=== PATIENT | female | born 1950 | race African-American/Black ===

== ENCOUNTER 2016-03-27 02:21 | Emergency (ER) | payer BC, MEDICARE ==
[2016-03-27] MEDS ORDERED: SODIUM CHLORIDE 0.9% 1,000 ML IV STA (02:46)
[2016-03-27] MEDS ORDERED: MORPHINE SULFATE 4 MG/ML SYRINGE IVP STA (02:47)
--- NOTE | 2016-03-27 02:56 | ED ---
General Adult HPI - General Chief complaint: Trauma Stated complaint: fall,leg and shoulder pain Time Seen by Provider: 03/27/16 02:46 Source: patient, RN notes reviewed, old records reviewed Mode of arrival: wheelchair Limitations: no limitations - History of Present Illness Initial comments: This is a 65-year-old female who ER for evaluation. Grossly for evaluation of fall. Patient does take Plavix. Patient followed stairs segmenters dizziness and weakness. Notes including an right leg which is chronic. Pain the left clay. Patient did state she hit her head no significant headache. Patient brought herself here she woke up tonight in more pain and she went to bed with. Patient was able to drive herself to emergency room and walked into emergency room under her own power - Related Data Home Medications Medication Instructions Recorded Confirmed Cartia Xl 120 mg PO DAILY 08/11/13 08/11/13 Carvedilol 3.125 mg PO BID 08/11/13 08/11/13 Clopidogrel [Plavix] 75 mg PO DAILY 08/11/13 08/11/13 Glimepiride [Amaryl] 1 mg PO DAILY 08/11/13 08/11/13 HYDROcodone/APAP 5-325MG [Manly 1 tab PO Q4HR PRN 08/11/13 08/11/13 5-325] Pioglitazone [Actos] 45 mg PO DAILY 08/11/13 08/11/13 Ranitidine HCl [Zantac] 150 mg PO BID 08/11/13 08/11/13 Ranolazine [Ranexa] 1,000 mg PO BID 08/11/13 08/11/13 Simvastatin [Zocor] 40 mg PO HS 08/11/13 08/11/13 amLODIPine [Norvasc] 5 mg PO DAILY 08/11/13 08/11/13 Previous Rx's Medication Instructions Recorded predniSONE 10 mg PO DAILY #45 tab 08/15/13 Allergies Allergy/AdvReac Type Severity Reaction Status Date / Time latex Allergy Rash/Hives Verified 03/27/16 02:35 Penicillins Allergy Rash/Hives Verified 03/27/16 02:35 Sulfa (Sulfonamide Allergy Rash/Hives Verified 03/27/16 02:35 Antibiotics) Review of Systems ROS Statement: Those systems with pertinent positive or pertinent negative responses have been documented in the HPI. ROS Other: All systems not noted in ROS Statement are negative. Past Medical History Past Medical History: Asthma, Coronary Artery Disease (CAD), Heart Failure, COPD , Diabetes Mellitus, GERD/Reflux, Hypertension, Pneumonia, Seizure Disorder Additional Past Medical History / Comment(s): tumor behind left ear, CARPAL TUNNEL History of Any Multi-Drug Resistant Organisms: None Reported Past Surgical History: Heart Catheterization Additional Past Surgical History / Comment(s): breast biopsy, Past Anesthesia/Blood Transfusion Reactions: No Reported Reaction Past Psychological History: No Psychological Hx Reported Smoking Status: Current every day smoker Past Alcohol Use History: None Reported Past Drug Use History: None Reported General Exam Limitations: no limitations General appearance: alert, in no apparent distress Head exam: Present: atraumatic, normocephalic, normal inspection Eye exam: Present: normal appearance, PERRL, EOMI. Absent: scleral icterus, conjunctival injection, periorbital swelling ENT exam: Present: normal exam, mucous membranes moist Neck exam: Present: normal inspection. Absent: tenderness, meningismus, lymphadenopathy Respiratory exam: Present: normal lung sounds bilaterally. Absent: respiratory distress, wheezes, rales, rhonchi, stridor Cardiovascular Exam: Present: regular rate, normal rhythm, normal heart sounds. Absent: systolic murmur, diastolic murmur, rubs, gallop, clicks GI/Abdominal exam: Present: soft, normal bowel sounds. Absent: distended, tenderness, guarding, rebound, rigid Extremities exam: Present: normal inspection, full ROM, normal capillary refill. Absent: tenderness, pedal edema, joint swelling, calf tenderness Back exam: Present: normal inspection Neurological exam: Present: alert, oriented X3, CN II-XII intact Psychiatric exam: Present: normal affect, normal mood Skin exam: Present: warm, dry, intact, normal color. Absent: rash Course Vital Signs 03/27/16 02:32 Temperature 97.4 F L Pulse Rate 103 H Respiratory 20 Rate Blood Pressure 123/62 O2 Sat by Pulse 98 Oximetry - Reevaluation(s) Reevaluation #1: 03/27/16 03:35 Patient's pain is times control, able to ambulate EKG Findings - EKG Comments: EKG Findings:: EKG shows sinus rate 97, MS 114, QRS 88 QTC 454 Medical Decision Making - Lab Data Result diagrams: 03/27/16 02:50 03/27/16 02:50 Lab Results 03/27/16 03/27/16 03/27/16 Range/Units 02:50 02:50 02:50 WBC 7.8 (3.8-10.6) k/uL RBC 4.64 (3.80-5.40) m/uL Hgb 14.4 (11.4-16.0) gm/dL Hct 44.2 (34.0-46.0) % MCV 95.3 (80.0-100.0) fL MCH 31.1 (25.0-35.0) pg MCHC 32.7 (31.0-37.0) g/dL RDW 12.4 (11.5-15.5) % Plt Count 193 (150-450) k/uL Neutrophils % 56 % Lymphocytes % 33 % Monocytes % 6 % Eosinophils % 2 % Basophils % 1 % Neutrophils # 4.4 (1.3-7.7) k/uL Lymphocytes # 2.6 (1.0-4.8) k/uL Monocytes # 0.5 (0-1.0) k/uL Eosinophils # 0.2 (0-0.7) k/uL Basophils # 0.1 (0-0.2) k/uL PT 10.3 (9.0-12.0) sec INR 1.0 (<1.1) APTT 25.4 (22.0-30.0) sec Sodium 141 (137-145) mmol/L Potassium 3.8 (3.5-5.1) mmol/L Chloride 102 (98-107) mmol/L Carbon Dioxide 26 (22-30) mmol/L Anion Gap 13 mmol/L BUN 21 H (7-17) mg/dL Creatinine 1.00 (0.52-1.04) mg/dL Est GFR (MDRD) Af Amer >60 (>60 ml/min/1.73 sqM) Est GFR (MDRD) Non-Af 56 (>60 ml/min/1.73 sqM) Glucose 114 H (74-99) mg/dL Calcium 9.8 (8.4-10.2) mg/dL Total Bilirubin 0.4 (0.2-1.3) mg/dL AST 14 (14-36) U/L ALT 20 (9-52) U/L Alkaline Phosphatase 64 (38-126) U/L Total Protein 7.0 (6.3-8.2) g/dL Albumin 4.1 (3.5-5.0) g/dL Amylase 48 (30-110) U/L Lipase 87 (23-300) U/L Serum Alcohol <10 mg/dL - Radiology Data Radiology results: report reviewed (CT brain and C-spine, chest x-ray pelvis x- ray and x-ray left tib-fib x-ray right femur negative for traumatic injury), image reviewed Disposition Clinical Impression: Fall, Contusion of left leg Disposition: HOME SELF-CARE Condition: Good Instructions: Leg Pain (ED), Contusion in Adults (ED), Fall Prevention for Older Adults (ED) Referrals: None,Stated [Primary Care Provider] - 1-2 days
[2016-03-27 03:04] LABS: Basophils # (A) 0.1 k/uL (0-0.2); Basophils % (A) 1 %; CH 31.4; CHCM 33.1; Eosinophils # (A) 0.2 k/uL (0-0.7); Eosinophils % (A) 2 %; HCT 44.2 % (34.0-46.0); HDW 2.41; HGB 14.4 gm/dL (11.4-16.0); Luc # (Auto) 0.18; Luc % (Auto) 2; Lymphocytes # (A) 2.6 k/uL (1.0-4.8); Lymphocytes % (A) 33 %; MCH 31.1 pg (25.0-35.0); MCHC 32.7 g/dL (31.0-37.0); MCV 95.3 fL (80.0-100.0); Mean Platelet Volume 8.8; Monocytes # (A) 0.5 k/uL (0-1.0); Monocytes % (A) 6 %; Neutrophils # (A) 4.4 k/uL (1.3-7.7); Neutrophils % (A) 56 %; RBC 4.64 m/uL (3.80-5.40); RDW 12.4 % (11.5-15.5); WBC 7.8 k/uL (3.8-10.6); WBC (Perox) 7.78
[2016-03-27 03:15] LABS: ALT 20 U/L (9-52); AST 14 U/L (14-36); Alcohol <10 mg/dL; Alkaline Phosphatase 64 U/L (38-126); Amylase 48 U/L (30-110); Anion Gap 13 mmol/L; Blood Urea Nitrogen 21 mg/dL (7-17); Calcium 9.8 mg/dL (8.4-10.2); Carbon Dioxide 26 mmol/L (22-30); Chloride 102 mmol/L (98-107); Glucose 114 mg/dL (74-99); Non-African American GFR(MDRD) 56 (>60 ml/min/1.73 sqM); Potassium 3.8 mmol/L (3.5-5.1); Sodium 141 mmol/L (137-145); Total Bilirubin 0.4 mg/dL (0.2-1.3)
--- NOTE | 2016-03-27 03:20 | CT ---
EXAMINATION TYPE: CT brain mamadouine wo con DATE OF EXAM: 03/27/2016 3:14 AM COMPARISON: 08/30/2009 HISTORY: Pt. Fell down stairs [address] DLP: 1309.70 mGycm Automated exposure control for dose reduction was used. TECHNIQUE: CT scan of the head and cervical spine are performed without contrast. FINDINGS: The ventricles and sulci appear normal. There is no mass effect nor midline shift. There is no sign of intracranial hemorrhage. Calvarium appears intact. The cervical vertebra have normal alignment. There is narrowing at C4-5 C5-6 disc spaces with spurrin g of the endplates. There is hypertrophic facet arthropathy throughout the cervical spine. Skull base is intact. IMPRESSION: Negative CT scan of the brain. Mild degenerative disc changes in the cervical spine. No fracture.
[2016-03-27 03:24] LABS: Creatine Kinase 77 U/L (30-135); Partial Thromboplastin Time 25.4 sec (22.0-30.0); Prothrombin Time 10.3 sec (9.0-12.0)
[2016-03-27] MEDS ORDERED: KETOROLAC 30 MG/ML 1 ML VIAL IVP STA (03:30)
--- NOTE | 2016-03-27 03:30 | XR ---
EXAMINATION TYPE: XR chest 1V portable DATE OF EXAM: 03/27/2016 3:21 AM COMPARISON: 08/11/2013 HISTORY: Pain TECHNIQUE: Single frontal view of the chest is obtained. FINDINGS: There is no heart failure nor confluent pneumonic infiltrate. There is no sign of a pneumo thorax. Heart size is normal. There are chest leads. IMPRESSION: No active cardiopulmonary disease. No change.
--- NOTE | 2016-03-27 03:31 | XR ---
EXAMINATION TYPE: XR pelvis AP view DATE OF EXAM: 03/27/2016 3:21 AM COMPARISON: NONE HISTORY: Pain TECHNIQUE: Single view FINDINGS: Pelvic ring is intact. Proximal femurs and hip joints are intact. Sacroiliac joints are nor mal. IMPRESSION: Negative pelvis x-ray exam.
--- NOTE | 2016-03-27 03:32 | XR ---
EXAMINATION TYPE: XR femur LT DATE OF EXAM: 03/27/2016 3:22 AM COMPARISON: NONE HISTORY: Pain and injury TECHNIQUE: 4 views FINDINGS: Hip joint and knee joint appear intact. I see no fracture. There is minimal vascular calcif ication. IMPRESSION: No acute abnormality of the left femur.
--- NOTE | 2016-03-27 03:33 | XR ---
EXAMINATION TYPE: XR tibia fibula LT DATE OF EXAM: 03/27/2016 3:21 AM COMPARISON: NONE HISTORY: Injury and pain TECHNIQUE: 2 views FINDINGS: Tibia and fibula appear intact. I see no fracture. IMPRESSION: Negative left lower leg exam.
[2016-03-27 03:38] LABS: Creatine Kinase MB 0.3 ng/mL (0.0-2.4); Troponin I <0.012 ng/mL (0.000-0.034)
[2016-03-27 04:46] VITALS: BP 131/64; PULSE 75; RESP 16; TEMP 98.1
== END 2016-03-27 04:27 | disposition home or self-care (01) ==
LOC: EC 02:21
DX: S80.12XA Contusion of left lower leg, initial encounter (principal); W10.9XXA Fall (on) (from) unspecified stairs and steps, initial encounter; F17.200 Nicotine dependence, unspecified, uncomplicated; I11.0 Hypertensive heart disease with heart failure; I50.9 Heart failure, unspecified; E11.9 Type 2 diabetes mellitus without complications; K21.9 Gastro-esophageal reflux disease without esophagitis; I25.10 Atherosclerotic heart disease of native coronary artery without angina pectoris; Z79.02 Long term (current) use of antithrombotics/antiplatelets; Z79.84 Long term (current) use of oral hypoglycemic drugs; Z79.899 Other long term (current) drug therapy; Z88.0 Allergy status to penicillin; Z88.2 Allergy status to sulfonamides; Z91.040 Latex allergy status
CPT/HCPCS: 36415; 93005; 86900; 86901; 80053; 82150; 82550; 82553; 83690; 84484; 85025; 85610; 85730; 86850; 80320; 71010; 72170; 73552; 73590; 72125; 70450; 99284; 96374; 96361; J1885

== ENCOUNTER 2016-06-27 09:59 | Observation (INO) | payer BC, MEDICARE ==
[2016-06-27] MEDS ORDERED: methylPREDNISolone SOD SUCCI 125 MG/2 ML VIAL IV STA (11:05)
[2016-06-27] MEDS ORDERED: SODIUM CHLORIDE 0.9% 500 ML IV STA (11:05)
[2016-06-27] MEDS ORDERED: ALBUTEROL NEBULIZED 2.5 MG/3 ML INHALATION STA (11:05)
[2016-06-27] MEDS ORDERED: SODIUM CHLORIDE 0.9% 1,000 ML IV STA (11:05)
[2016-06-27 11:32] LABS: Basophils # (A) 0.1 k/uL (0-0.2); Basophils % (A) 1 %; CH 31.7; CHCM 32.8; Eosinophils # (A) 0.1 k/uL (0-0.7); Eosinophils % (A) 2 %; HCT 41.1 % (34.0-46.0); HDW 2.32; HGB 13.3 gm/dL (11.4-16.0); Luc # (Auto) 0.12; Luc % (Auto) 2; Lymphocytes # (A) 0.7 k/uL (1.0-4.8); Lymphocytes % (A) 13 %; MCH 31.3 pg (25.0-35.0); MCHC 32.3 g/dL (31.0-37.0); MCV 97.1 fL (80.0-100.0); Mean Platelet Volume 8.2; Monocytes # (A) 0.4 k/uL (0-1.0); Monocytes % (A) 7 %; Neutrophils # (A) 3.8 k/uL (1.3-7.7); Neutrophils % (A) 73 %; RBC 4.23 m/uL (3.80-5.40); RDW 12.5 % (11.5-15.5); WBC 5.2 k/uL (3.8-10.6); WBC (Perox) 5.29
--- NOTE | 2016-06-27 11:34 | XR ---
EXAMINATION TYPE: XR chest 2V DATE OF EXAM: 06/27/2016 11:29 AM COMPARISON: Chest x-ray March 27, 2016. HISTORY: History of COPD with difficulty in breathing. TECHNIQUE: Frontal and lateral views of the chest are obtained. FINDINGS: There is no focal air space opacity, pleural effusion, or pneumothorax seen. The cardiac silhouette size is within normal limits with atherosclerotic thoracic aorta. The osseous structures are intact. IMPRESSION: No acute cardiopulmonary process. No significant change from prior.
[2016-06-27 11:43] LABS: ALT 21 U/L (9-52); AST 16 U/L (14-36); Alkaline Phosphatase 54 U/L (38-126); Anion Gap 9 mmol/L; Blood Urea Nitrogen 12 mg/dL (7-17); Calcium 8.9 mg/dL (8.4-10.2); Carbon Dioxide 27 mmol/L (22-30); Chloride 104 mmol/L (98-107); Glucose 114 mg/dL (74-99); Non-African American GFR(MDRD) >60 (>60 ml/min/1.73 sqM); Potassium 3.7 mmol/L (3.5-5.1); Sodium 140 mmol/L (137-145); Total Bilirubin 1.1 mg/dL (0.2-1.3); Total Protein 6.9 g/dL (6.3-8.2)
[2016-06-27 11:57] LABS: INR 1.1 (<1.1); Partial Thromboplastin Time 25.6 sec (22.0-30.0); Prothrombin Time 10.8 sec (9.0-12.0)
[2016-06-27 12:01] LABS: Creatine Kinase 227 U/L (30-135)
[2016-06-27] MEDS ORDERED: NICOTINE 14MG/24HR PATCH TRANSDERM STA ×2 (12:04→14:53)
[2016-06-27] MEDS: IPRATROPIUM-ALBUTEROL 3 ML NEB INHALATION SCH ×3 (12:09→19:44)
--- NOTE | 2016-06-27 12:10 | ED ---
General Adult HPI - General Chief complaint: Shortness of Breath Stated complaint: cough, shruti, sore throat Time Seen by Provider: 06/27/16 10:42 Source: patient, RN notes reviewed, old records reviewed Mode of arrival: ambulatory Limitations: no limitations - History of Present Illness Initial comments: This is a 65-year-old female here for evaluation. Patient coming in for severe shortness of breath cough and congestion, history of COPD. Admits to continued smoking no fevers. No chest pain. No travel history no significant sick contacts no resocialization that she remembers. Patient coming in with severe source of breath worse with activity no improvement with home breathing treatments - Related Data Home Medications Medication Instructions Recorded Confirmed D-Methorphan/Acetamin/Doxylamn 30 ml PO HS 06/27/16 06/27/16 [Vicks Nyquil Cold & Flu Liquid] Allergies Allergy/AdvReac Type Severity Reaction Status Date / Time latex Allergy Rash/Hives Verified 06/27/16 11:35 Penicillins Allergy Rash/Hives Verified 06/27/16 11:35 Sulfa (Sulfonamide Allergy Rash/Hives Verified 06/27/16 11:35 Antibiotics) Review of Systems ROS Statement: Those systems with pertinent positive or pertinent negative responses have been documented in the HPI. ROS Other: All systems not noted in ROS Statement are negative. Past Medical History Past Medical History: Asthma, Coronary Artery Disease (CAD), Heart Failure, COPD , Diabetes Mellitus, GERD/Reflux, Hypertension, Pneumonia, Seizure Disorder Additional Past Medical History / Comment(s): tumor behind left ear, CARPAL TUNNEL History of Any Multi-Drug Resistant Organisms: None Reported Past Surgical History: Heart Catheterization Additional Past Surgical History / Comment(s): breast biopsy, Past Anesthesia/Blood Transfusion Reactions: No Reported Reaction Past Psychological History: No Psychological Hx Reported Smoking Status: Current every day smoker Past Alcohol Use History: None Reported Past Drug Use History: None Reported General Exam Limitations: no limitations General appearance: alert, in no apparent distress, anxious Head exam: Present: atraumatic, normocephalic, normal inspection Eye exam: Present: normal appearance, PERRL, EOMI. Absent: scleral icterus, conjunctival injection, periorbital swelling ENT exam: Present: normal exam, mucous membranes dry, mucous membranes moist Neck exam: Present: normal inspection. Absent: tenderness, meningismus, lymphadenopathy Respiratory exam: Present: normal lung sounds bilaterally. Absent: respiratory distress, wheezes, rales, rhonchi, stridor Cardiovascular Exam: Present: normal rhythm, tachycardia, normal heart sounds. Absent: systolic murmur, diastolic murmur, rubs, gallop, clicks GI/Abdominal exam: Present: soft, normal bowel sounds. Absent: distended, tenderness, guarding, rebound, rigid Extremities exam: Present: normal inspection, full ROM, normal capillary refill. Absent: tenderness, pedal edema, joint swelling, calf tenderness Back exam: Present: normal inspection Neurological exam: Present: alert, oriented X3, CN II-XII intact Psychiatric exam: Present: normal affect, normal mood Skin exam: Present: warm, dry, intact, normal color. Absent: rash Course Vital Signs 06/27/16 06/27/16 10:20 11:37 Temperature 99.5 F Pulse Rate 107 H 93 Respiratory 22 Rate Blood Pressure 152/71 O2 Sat by Pulse 96 Oximetry - Reevaluation(s) Reevaluation #1: 06/27/16 12:10 Not much improvement with breathing treatments EKG Findings - EKG Comments: EKG Findings:: EKG shows normal sinus 94, CO 126, QRS 94, QTC 437 Medical Decision Making - Medical Decision Making 65 female here for reevaluation of severe COPD, difficulty breathing, hypoxia, patient improving oxygen supplemental O2. Patient does have severe COPD we'll give her breathing treatments, patient has not really improved after prolonged breathing treatment will also add IV steroids and IV resuscitation - Lab Data Result diagrams: 06/27/16 11:00 06/27/16 11:00 Lab Results 06/27/16 06/27/16 06/27/16 Range/Units 11:00 11:00 11:00 WBC 5.2 (3.8-10.6) k/uL RBC 4.23 (3.80-5.40) m/uL Hgb 13.3 (11.4-16.0) gm/dL Hct 41.1 (34.0-46.0) % MCV 97.1 (80.0-100.0) fL MCH 31.3 (25.0-35.0) pg MCHC 32.3 (31.0-37.0) g/dL RDW 12.5 (11.5-15.5) % Plt Count 131 L (150-450) k/uL Neutrophils % 73 % Lymphocytes % 13 % Monocytes % 7 % Eosinophils % 2 % Basophils % 1 % Neutrophils # 3.8 (1.3-7.7) k/uL Lymphocytes # 0.7 L (1.0-4.8) k/uL Monocytes # 0.4 (0-1.0) k/uL Eosinophils # 0.1 (0-0.7) k/uL Basophils # 0.1 (0-0.2) k/uL PT 10.8 (9.0-12.0) sec INR 1.1 (<1.1) APTT 25.6 (22.0-30.0) sec Sodium 140 (137-145) mmol/L Potassium 3.7 (3.5-5.1) mmol/L Chloride 104 (98-107) mmol/L Carbon Dioxide 27 (22-30) mmol/L Anion Gap 9 mmol/L BUN 12 (7-17) mg/dL Creatinine 0.92 (0.52-1.04) mg/dL Est GFR (MDRD) Af Amer >60 (>60 ml/min/1.73 sqM) Est GFR (MDRD) Non-Af >60 (>60 ml/min/1.73 sqM) Glucose 114 H (74-99) mg/dL Calcium 8.9 (8.4-10.2) mg/dL Total Bilirubin 1.1 (0.2-1.3) mg/dL AST 16 (14-36) U/L ALT 21 (9-52) U/L Alkaline Phosphatase 54 (38-126) U/L Total Protein 6.9 (6.3-8.2) g/dL Albumin 3.9 (3.5-5.0) g/dL - Radiology Data Radiology results: report reviewed (Chest x-ray is negative for acute disease), image reviewed Critical Care Time Critical Care Time: Yes Total Critical Care Time: 31 Disposition Clinical Impression: Acute exacerbation of chronic obstructive airways disease, Dyspnea, Hypoxia Disposition: ADMITTED IP TO THIS [facility] Condition: Fair Referrals: None,Stated [Primary Care Provider] - 1-2 days
[2016-06-27 12:14] LABS: Creatine Kinase MB 0.7 ng/mL (0.0-2.4); Troponin I <0.012 ng/mL (0.000-0.034)
[2016-06-27] MEDS: ACETAMINOPHEN TAB 325 MG TAB PO PRN (14:49)
[2016-06-27 15:25] VITALS: BMI 32.9
[2016-06-27 17:09] LABS: Glucose,Whole Blood 272 mg/dL (75-99)
[2016-06-27 17:48] LABS: Hemoglobin A1C 5.2 % (4.2-6.1)
[2016-06-27] MEDS ORDERED: ZOLPIDEM 5 MG TAB PO SCH (21:00)
[2016-06-27 21:05] LABS: Glucose,Whole Blood 372 mg/dL (75-99)
[2016-06-27] MEDS: methylPREDNISolone SOD SUCCI 125 MG/2 ML VIAL IV SCH ×2 (21:51→22:00)
[2016-06-27] MEDS: LEVOFLOXACIN 500MG-D5W PMX 500 MG in DEXTROSE/WATER 1 100ML.BAG IVPB SCH (21:59)
[2016-06-27] MEDS: INSULIN LISPRO (humaLOG) 300 UNIT/3 ML VIAL SQ SCH (22:00)
[2016-06-28] MEDS: methylPREDNISolone SOD SUCCI 125 MG/2 ML VIAL IV SCH ×4 (05:33→23:49)
[2016-06-28 06:59] LABS: Glucose,Whole Blood 203 mg/dL (75-99)
[2016-06-28] MEDS: IPRATROPIUM-ALBUTEROL 3 ML NEB INHALATION SCH ×4 (08:21→20:29)
[2016-06-28] MEDS: NICOTINE 14MG/24HR PATCH TRANSDERM SCH (08:42)
[2016-06-28] MEDS: ACETAMINOPHEN TAB 325 MG TAB PO PRN ×2 (08:42→20:35)
[2016-06-28] MEDS: ENOXAPARIN 40 MG/0.4 ML SYRINGE SQ SCH (08:43)
[2016-06-28] MEDS: INSULIN LISPRO (humaLOG) 300 UNIT/3 ML VIAL SQ SCH ×4 (08:44→20:36)
[2016-06-28] MEDS ORDERED: AZITHROMYCIN 500 MG TAB PO SCH (09:00)
[2016-06-28] MEDS ORDERED: ZOLPIDEM 10 MG TAB PO PRN (11:00)
[2016-06-28] MEDS ORDERED: HYDROcodone/APAP 5-325MG 1 EACH TAB PO PRN (11:00)
[2016-06-28 12:10] LABS: Glucose,Whole Blood 248 mg/dL (75-99)
--- NOTE | 2016-06-28 14:49 | P.CNPUL ---
History of Present Illness Consult date: 06/28/16 Reason for consult: dyspnea, cough Chief complaint: Shortness of breath and cough History of present illness: This is a 65-year-old female who presented to the emergency department complaining of shortness of breath, cough, congestion. The patient states this started 2-3 days ago. She does have a history of asthma and COPD. She has Ventolin and a nebulizer at home which she states she hasn't used in over a year. She does smoke cigarettes she smokes 1 pack every 2 days. She has been smoking since the age of [age] years old. She also had chills, wheezing, weakness at home. She denies any ALLERGIES. She does not have any pets at home. She did used to work in a [employer]. She does not know about specific exposures. She states she traveled to [place] in December but felt fine when she came home. She denies any leg swelling. She does have leg pain. Chest x-ray on admission shows no acute process. The patient states she has not followed up with a physician in many years because she has not had insurance. She recently got and is now on her 's insurance. Review of Systems All systems: negative Past Medical History Past Medical History: Atrial Fibrillation, Atrial Flutter, Asthma, Coronary Artery Disease (CAD), Heart Failure, COPD, Diabetes Mellitus, GERD/Reflux, Hypertension, Pneumonia, Seizure Disorder Additional Past Medical History / Comment(s): Pt states she took herself off all medications due to insurance. PMH: NIDDM type II, bronchitis, last seizure was years ago, tumor behind left ear, bilateral CARPAL TUNNEL syndrome History of Any Multi-Drug Resistant Organisms: None Reported Past Surgical History: Heart Catheterization Additional Past Surgical History / Comment(s): L breast biopsy-twice and benign , L paratid gland bx-benign, colonoscopy-normal, bilateral cataract removals. Past Anesthesia/Blood Transfusion Reactions: No Reported Reaction Past Psychological History: No Psychological Hx Reported Additional Psychological History / Comment(s): Pt resides with her spouse of 1 yr. She uses no device. She drives. She took herself off all her medictions about 2 yrs ago due to insurance reasons-not covered. She has a nebulizer. Smoking Status: Current every day smoker Past Alcohol Use History: None Reported Additional Past Alcohol Use History / Comment(s): Pt states she started smoking in 1964 Past Drug Use History: None Reported - Past Family History Mother Additional Family Medical History / Comment(s): Mother of sepsis at the age of 63 yrs. Father Family Medical History: Myocardial Infarction (OK) Additional Family Medical History / Comment(s): Father of a OK while they were trying to place a cardiac stent-he was in his 80's. Medications and Allergies Home Medications Medication Instructions Recorded Confirmed Type D-Methorphan/Acetamin/Doxylamn 30 ml PO HS 06/27/16 06/27/16 History [Vicks Nyquil Cold & Flu Liquid] Allergies Allergy/AdvReac Type Severity Reaction Status Date / Time latex Allergy Rash/Hives Verified 06/27/16 11:35 Penicillins Allergy Rash/Hives Verified 06/27/16 11:35 Sulfa (Sulfonamide Allergy Rash/Hives Verified 06/27/16 11:35 Antibiotics) Physical Exam Osteopathic Statement: *. No significant issues noted on an osteopathic structural exam other than those noted in the History and Physical/Consult. Vitals: Vital Signs Temp Pulse Pulse Resp BP Pulse Ox 06/28/16 11:36 97.1 F L 75 18 122/60 95 06/28/16 08:45 16 06/28/16 08:22 101 H 06/28/16 07:46 97.5 F L 78 16 141/67 99 06/28/16 04:00 78 18 06/28/16 03:59 97.8 F 78 18 149/70 99 06/28/16 00:00 18 06/27/16 23:44 82 18 126/60 98 06/27/16 20:00 98 F 87 18 132/61 93 L 06/27/16 19:53 98 06/27/16 19:45 98 06/27/16 17:15 96 06/27/16 16:59 92 06/27/16 15:49 98.3 F 92 18 127/59 97 Intake and Output 06/27/16 06/28/16 06/28/16 22:59 06:59 14:59 Intake Total 500 Balance 500 Intake: Oral 500 Other: Voiding Method Toilet Toilet # Voids 1 Weight 79.1 kg 79.1 kg 79 kg Patient Weight 06/29/16 06:59 Weight 79 kg Gen.: Patient is alert and oriented 3, no acute distress, overweight Cardiovascular: Regular rate and rhythm, S1/S2 Lungs: Coarse breath sounds bilaterally with diffuse wheezing Abdomen: Soft nontender nondistended positive bowel sounds Extremities: No edema Results - Laboratory Findings CBC and BMP: 06/27/16 11:00 06/27/16 11:00 PT/INR, D-dimer PT 10.8 sec (9.0-12.0) 06/27/16 11:00 INR 1.1 (<1.1) 06/27/16 11:00 D-Dimer 0.25 mg/L FEU (<0.60) 06/28/16 11:24 Abnormal lab findings: Abnormal Labs 06/27/16 06/27/16 06/28/16 17:08 21:02 06:56 POC Glucose (mg/dL) 272 H 372 H 203 H 06/28/16 11:42 POC Glucose (mg/dL) 248 H - Diagnostic Findings Chest x-ray: report reviewed, image reviewed Assessment and Plan Plan: Acute hypoxic respiratory failure Acute exacerbation of asthma and COPD, unknown type Active tobacco abuse Tracheobronchitis Dyspnea Lower extremity pain Mild thrombocytopenia Hyperglycemia Obesity, question underlying obstructive sleep apnea O2 to maintain saturation greater than equal to 88% Antibiotics: Levaquin Steroid taper Pulmicort Duo nebs Smoking cessation is highly recommended Nicotine transdermal Blood, sputum cultures Incentive spirometry and pulmonary hygiene Check IgE, ALLERGY panel Outpatient pulmonary function testing and evaluation for possible obstructive sleep apnea GI and DVT prophylaxis Thank you for this consultation we'll continue to follow along
--- NOTE | 2016-06-28 17:37 | PN ---
SUBJECTIVE: A 65-year-old who states she is still wheezing and coughing with congestion, shortness of breath. She is still wheezing. Lungs show scattered wheeze x4. CARDIOVASCULAR: S1, S2. ASSESSMENT: 1. Acute hypoxic respiratory failure. 2. Acute chronic obstructive pulmonary disease and asthma exacerbation. 3. Acute nicotine addiction. 4. Tracheobronchitis. 5. Thrombocytopenia. 6. Hyperglycemia. 7. Obesity. 8. Obstructive sleep apnea. Continue with antibiotics. Wean steroids. Possible discharge home in the next 24 to 48 hours.
[2016-06-28 17:39] LABS: Glucose,Whole Blood 135 mg/dL (75-99)
[2016-06-28 20:10] LABS: Glucose,Whole Blood 205 mg/dL (75-99)
[2016-06-28] MEDS ORDERED: MECLIZINE 12.5 MG TAB PO PRN (20:11)
[2016-06-28] MEDS: BUDESONIDE 0.5 MG/2 ML NEBU INHALATION SCH (20:29)
[2016-06-28] MEDS: LEVOFLOXACIN 500MG-D5W PMX 500 MG in DEXTROSE/WATER 1 100ML.BAG IVPB SCH (20:35)
[2016-06-28] MEDS: diphenhydrAMINE 25 MG CAP PO PRN (21:45)
[2016-06-29] MEDS: methylPREDNISolone SOD SUCCI 125 MG/2 ML VIAL IV SCH ×2 (05:50→13:03)
[2016-06-29 07:09] LABS: Glucose,Whole Blood 174 mg/dL (75-99)
[2016-06-29] MEDS: BUDESONIDE 0.5 MG/2 ML NEBU INHALATION SCH ×2 (07:37→20:02)
[2016-06-29] MEDS: IPRATROPIUM-ALBUTEROL 3 ML NEB INHALATION SCH ×4 (07:37→20:02)
[2016-06-29 08:10] VITALS: RESP 16
[2016-06-29] MEDS: ENOXAPARIN 40 MG/0.4 ML SYRINGE SQ SCH (08:32)
[2016-06-29] MEDS: NICOTINE 14MG/24HR PATCH TRANSDERM SCH (08:32)
[2016-06-29] MEDS: INSULIN LISPRO (humaLOG) 300 UNIT/3 ML VIAL SQ SCH ×4 (08:32→20:01)
[2016-06-29 12:14] LABS: Glucose,Whole Blood 347 mg/dL (75-99)
[2016-06-29] MEDS: DOCUSATE 100 MG CAP PO SCH ×2 (14:17→20:01)
[2016-06-29] MEDS: SENNOSIDES 8.6 MG TAB PO SCH ×2 (14:17→20:01)
--- NOTE | 2016-06-29 14:28 | PN ---
SUBJECTIVE: 65-year-old white female admitted with asthma exacerbation. Tracheobronchitis. Nicotine addiction, thrombocytopenia and diabetes mellitus. She has severe stress. ( ) with Levaquin and IV steroids, updrafts, albuterol, Atrovent, Pulmicort, nicotine patches, incentive spirometry. Wean steroids as tolerated. Possible discharge in next 24 to 48 hours.
--- NOTE | 2016-06-29 14:46 | P.PN ---
Subjective Principal diagnosis: Acute exacerbation of asthma and COPD Patient seen and examined. Patient states she is feeling a little bit better today. She is still wheezing and coughing. She denies any fevers or chills. She states she does get short of breath when she ambulates. Objective - Vital Signs Vital signs: Vital Signs Temp 97.7 F 06/29/16 12:00 Pulse 89 06/29/16 12:00 Resp 16 06/29/16 12:00 BP 120/66 06/29/16 12:00 Pulse Ox 97 06/29/16 12:00 Intake & Output 06/28/16 06/29/16 06/29/16 18:59 06:59 18:59 Intake Total 444 Balance 444 Weight 79 kg Intake: Oral 444 Other: Voiding Method Toilet Toilet Toilet # Voids 1 1 - Exam Gen.: Patient is alert and oriented 3, no acute distress, overweight Cardiovascular: Regular rate and rhythm, S1/S2 Lungs: Coarse breath sounds bilaterally with diffuse wheezing Abdomen: Soft nontender nondistended positive bowel sounds Extremities: No edema - Labs CBC & Chem 7: 06/27/16 11:00 06/27/16 11:00 Labs: Abnormal Lab Results - Last 24 Hours (Table) 06/28/16 06/28/16 06/29/16 Range/Units 17:20 20:08 07:06 POC Glucose (mg/dL) 135 H 205 H 174 H (75-99) mg/dL 06/29/16 Range/Units 11:47 POC Glucose (mg/dL) 347 H (75-99) mg/dL Microbiology - Last 24 Hours (Table) 06/28/16 20:55 Gram Stain - Preliminary Sputum Assessment and Plan Plan: Acute hypoxic respiratory failure Acute exacerbation of asthma and COPD, unknown type Active tobacco abuse Tracheobronchitis Dyspnea Lower extremity pain Mild thrombocytopenia Hyperglycemia Obesity, question underlying obstructive sleep apnea O2 to maintain saturation greater than equal to 88% Antibiotics: Levaquin Steroid taper Pulmicort Duo nebs Add Perforomist Smoking cessation is highly recommended Nicotine transdermal Blood, sputum cultures Incentive spirometry and pulmonary hygiene Check IgE, ALLERGY panel Outpatient pulmonary function testing and evaluation for possible obstructive sleep apnea GI and DVT prophylaxis
[2016-06-29 17:20] LABS: Glucose,Whole Blood 222 mg/dL (75-99)
[2016-06-29] MEDS: methylPREDNISolone SOD SUCCI 40 MG/ML 1 ML VIAL IV SCH (17:25)
[2016-06-29] MEDS: LEVOFLOXACIN 500MG-D5W PMX 500 MG in DEXTROSE/WATER 1 100ML.BAG IVPB SCH (18:55)
[2016-06-29] MEDS: diphenhydrAMINE 25 MG CAP PO PRN (20:01)
[2016-06-29] MEDS: FORMOTEROL FUMARATE 20 MCG/2 ML NEBU INHALATION SCH (20:02)
[2016-06-29 20:11] LABS: Glucose,Whole Blood 275 mg/dL (75-99)
[2016-06-30] MEDS: methylPREDNISolone SOD SUCCI 40 MG/ML 1 ML VIAL IV SCH ×3 (00:53→16:41)
[2016-06-30 06:43] LABS: Glucose,Whole Blood 183 mg/dL (75-99)
[2016-06-30] MEDS ORDERED: PANTOPRAZOLE 40 MG TABLET PO SCH (07:30)
[2016-06-30] MEDS: IPRATROPIUM-ALBUTEROL 3 ML NEB INHALATION SCH ×3 (07:50→18:39)
[2016-06-30] MEDS: FORMOTEROL FUMARATE 20 MCG/2 ML NEBU INHALATION SCH (07:50)
[2016-06-30] MEDS: BUDESONIDE 0.5 MG/2 ML NEBU INHALATION SCH (07:50)
[2016-06-30 08:00] LABS: Basophils % (A) 0 %; CHCM 31.9; Eosinophils # (A) 0.1 k/uL (0-0.7); Eosinophils % (A) 1 %; HCT 36.8 % (34.0-46.0); HDW 2.41; HGB 11.5 gm/dL (11.4-16.0); Luc # (Auto) 0.09; Luc % (Auto) 1; Lymphocytes # (A) 0.9 k/uL (1.0-4.8); Lymphocytes % (A) 8 %; MCH 30.6 pg (25.0-35.0); MCHC 31.2 g/dL (31.0-37.0); MCV 97.8 fL (80.0-100.0); Mean Platelet Volume 8.5; Monocytes # (A) 0.3 k/uL (0-1.0); Monocytes % (A) 3 %; Neutrophils # (A) 10.4 k/uL (1.3-7.7); Neutrophils % (A) 88 %; RBC 3.76 m/uL (3.80-5.40); RDW 12.6 % (11.5-15.5); WBC 11.9 k/uL (3.8-10.6); WBC (Perox) 12.09
[2016-06-30 08:19] LABS: ALT 19 U/L (9-52); AST 17 U/L (14-36); Alkaline Phosphatase 46 U/L (38-126); Anion Gap 7 mmol/L; Blood Urea Nitrogen 16 mg/dL (7-17); Calcium 8.9 mg/dL (8.4-10.2); Carbon Dioxide 27 mmol/L (22-30); Chloride 107 mmol/L (98-107); Glucose 163 mg/dL (74-99); Non-African American GFR(MDRD) >60 (>60 ml/min/1.73 sqM); Potassium 4.2 mmol/L (3.5-5.1); Sodium 141 mmol/L (137-145); Total Bilirubin 0.6 mg/dL (0.2-1.3); Total Protein 6.1 g/dL (6.3-8.2)
[2016-06-30] MEDS: NICOTINE 14MG/24HR PATCH TRANSDERM SCH (08:30)
[2016-06-30] MEDS: INSULIN LISPRO (humaLOG) 300 UNIT/3 ML VIAL SQ SCH ×3 (08:30→17:36)
[2016-06-30] MEDS: DOCUSATE 100 MG CAP PO SCH (08:30)
[2016-06-30] MEDS: SENNOSIDES 8.6 MG TAB PO SCH (08:30)
[2016-06-30] MEDS: ENOXAPARIN 40 MG/0.4 ML SYRINGE SQ SCH (08:31)
--- NOTE | 2016-06-30 11:31 | P.PN ---
Subjective Principal diagnosis: Acute exacerbation of COPD and asthma Patient seen and examined. Patient states she is feeling much better today. She feels ready to go home. She states she does have a nebulizer machine at home. However she needs the tubing and masks as well as a medication for it. Objective - Vital Signs Vital signs: Vital Signs Temp 97.6 F 06/30/16 07:31 Pulse 78 06/30/16 08:25 Resp 16 06/30/16 08:00 BP 164/84 06/30/16 07:31 Pulse Ox 98 06/30/16 07:50 Intake & Output 06/29/16 06/30/16 06/30/16 18:59 06:59 18:59 Intake Total 444 Balance 444 Intake: Oral 444 Other: Voiding Method Toilet Toilet Toilet # Voids 1 1 - Exam Gen.: Patient is alert and oriented 3, no acute distress, overweight Cardiovascular: Regular rate and rhythm, S1/S2 Lungs: Diminished breath sounds bilaterally with scattered expiratory wheezing Abdomen: Soft nontender nondistended positive bowel sounds Extremities: No edema - Labs CBC & Chem 7: 06/30/16 07:29 06/30/16 07:29 Labs: Abnormal Lab Results - Last 24 Hours (Table) 06/29/16 06/29/16 06/29/16 Range/Units 11:47 17:16 19:57 WBC (3.8-10.6) k/uL RBC (3.80-5.40) m/uL Neutrophils # (1.3-7.7) k/uL Lymphocytes # (1.0-4.8) k/uL Glucose (74-99) mg/dL POC Glucose (mg/dL) 347 H 222 H 275 H (75-99) mg/dL Total Protein (6.3-8.2) g/dL Albumin (3.5-5.0) g/dL TSH (0.465-4.680) mIU/L Free T4 (0.78-2.19) ng/dL 06/30/16 06/30/16 06/30/16 Range/Units 06:40 07:29 07:29 WBC 11.9 H (3.8-10.6) k/uL RBC 3.76 L (3.80-5.40) m/uL Neutrophils # 10.4 H (1.3-7.7) k/uL Lymphocytes # 0.9 L (1.0-4.8) k/uL Glucose 163 H (74-99) mg/dL POC Glucose (mg/dL) 183 H (75-99) mg/dL Total Protein 6.1 L (6.3-8.2) g/dL Albumin 3.4 L (3.5-5.0) g/dL TSH 0.147 L (0.465-4.680) mIU/L Free T4 0.71 L (0.78-2.19) ng/dL Microbiology - Last 24 Hours (Table) 06/28/16 20:55 Gram Stain - Preliminary Sputum Sputum Culture - Preliminary Assessment and Plan Plan: Acute hypoxic respiratory failure Acute exacerbation of asthma and COPD, unknown type Active tobacco abuse Tracheobronchitis Dyspnea Lower extremity pain Mild thrombocytopenia Hyperglycemia Obesity, question underlying obstructive sleep apnea O2 to maintain saturation greater than equal to 88% Antibiotics: Levaquin Steroid taper Pulmicort Duo nebs Add Perforomist Smoking cessation is highly recommended Nicotine transdermal Blood, sputum cultures Incentive spirometry and pulmonary hygiene Pending IgE, ALLERGY panel Outpatient pulmonary function testing and evaluation for possible obstructive sleep apnea GI and DVT prophylaxis Okay to DC from pulmonary standpoint. Prescription written for nebulizer tubing and supplies. Prescriptions also written for steroid taper as well as Pulmicort and duo nebs at home. The patient should follow up in the pulmonary office in 1-2 weeks.
[2016-06-30 12:16] LABS: Glucose,Whole Blood 154 mg/dL (75-99)
[2016-06-30 13:52] LABS: Hemoglobin A1C 5.4 % (4.2-6.1)
[2016-06-30 15:45] VITALS: BP 152/72; PULSE 81; TEMP 98
[2016-06-30 17:15] LABS: Glucose,Whole Blood 305 mg/dL (75-99)
[2016-06-30] MEDS ORDERED: LEVOFLOXACIN 500 MG TAB PO SCH (19:00)
--- NOTE | 2016-07-02 11:47 | P.ARTDOP ---
Arterial Doppler LOWER EXTREMITY ARTERIAL DOPPLER: DATE OF SERVICE: 06/28/2016 Reason for study: Leg pain. Doppler waveforms: Multiphasic to the popliteal bilaterally. Multiphasic below the knee on the right as well. More atypical below the knee on the left.. Pulse volume recording: Mild blunting distally on the left. Pressure gradients: Mild gradient across the knee on the left. Ankle-brachial indices: Greater than 1. On the right and 0.71 on the left Toe pressures: 109 on the right, 91 on the left Impression: Mild to moderate left fem-pop disease. Essentially normal on the right..
[2016-07-04 01:31] LABS: Alternaria tenius IgG 13.3 mcg/mL (< 13.6); Phoma ssp. IgG 13.2 mcg/mL (< 6.6); Saccaharomospora viridis Not detected (Not detected); Saccaharopoly. rectivirgula Not detected (Not detected)
--- NOTE | 2016-07-05 14:55 | HP ---
DATE OF ADMISSION: CHIEF COMPLAINT: A 65-year-old female with cough, sore throat, shortness of breath, history COPD, no fevers, worsening shortness of breath despite taking up patient breathing treatments. Failing outpatient medicines. The medicines are [id number] medicines. Allergies are to LATEX, PENICILLIN, SULFA. REVIEW OF SYSTEMS: Fourteen-point review of systems negative except as in HPI. 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 SOCIAL HISTORY: Current every day smoker. No alcohol. No illicit drugs. ( ) reviewed. PSYCH: Fair mood and affect. SKIN: No rash, excoriation. Extremities show distended due to obesity. No joint swelling, calf tenderness. CARDIOVASCULAR: Normal sinus rhythm. S1, S2. No murmurs, rubs, gallops. Lungs show normal lung sounds bilaterally, scattered wheeze and rhonchi. ENT: Normal. OPHTHALMOLOGIC: Pupils equal, round and react to light and accommodation. Temperature 99.5, pulse is 107, respiratory rate 18 to 22, blood pressure 150 over 70s. O2 is 96% on room air. EKG shows sinus rhythm. ASSESSMENT: 1. Severe chronic obstructive pulmonary disease with tracheobronchitis. Breathing treatments, IV steroids, IV fluids will be given. 2. Chronic thrombocytopenia. Worked up as an outpatient. 3. Hypoxemia. 4. Chronic airway disease. Please see further orders.
--- NOTE | 2016-07-05 20:02 | DS ---
DATE OF ADMISSION: 06/27/2016 DATE OF DISCHARGE: 06/30/2016 DISCHARGE MEDICATIONS: 1. DuoNeb updraft q.i.d. 2. NyQuil. The patient is to follow up as an outpatient. DISCHARGE DIAGNOSES: 1. Acute hypoxemic respiratory failure. 2. Acute exacerbation of asthma and chronic obstructive pulmonary disease. 3. Nicotine addiction. 4. Tracheobronchitis. 5. Mild thrombocytopenia. 6. Obesity. 7. The patient was diagnosed with hypothyroidism also, patient will need hypothyroid medicine as an outpatient. Continue current treatment as an outpatient. Follow up for difficulty with her breathing, asthma and tracheobronchitis at home.
== END 2016-06-30 18:50 | disposition home or self-care (01) ==
LOC: EC 09:59 → 3OBS 11:58 → 3SUR 18:59 → 3OBS 06-30 09:35
PROVIDERS: ADMIT Family Medicine; ATTEND Family Medicine
DX: J44.1 Chronic obstructive pulmonary disease with (acute) exacerbation (principal); I25.10 Atherosclerotic heart disease of native coronary artery without angina pectoris; I11.0 Hypertensive heart disease with heart failure; I50.9 Heart failure, unspecified; M79.605 Pain in left leg; M79.604 Pain in right leg; G40.909 Epilepsy, unspecified, not intractable, without status epilepticus; K21.9 Gastro-esophageal reflux disease without esophagitis; F17.210 Nicotine dependence, cigarettes, uncomplicated; Z88.2 Allergy status to sulfonamides; Z91.040 Latex allergy status; Z88.0 Allergy status to penicillin; D69.6 Thrombocytopenia, unspecified; J45.901 Unspecified asthma with (acute) exacerbation; J96.01 Acute respiratory failure with hypoxia; E03.9 Hypothyroidism, unspecified; Z82.49 Family history of ischemic heart disease and other diseases of the circulatory system
CPT/HCPCS: 96375; 96361 ×3; 99291 ×2; 36415; 94640 ×8; 94760; 93005; 85379; 84439; 83880; 80053 ×2; 86001; 84443 ×2; 83036 ×2; 82550; 82553; 84484; 85025 ×2; 85610; 85730; 87040; 86609; 86606; 82785; 87070; 87205; 71020; 93923; G0378 ×4; S4990 ×4; J2920 ×2; J2930 ×3; J1956 ×3; J1650 ×3; 86003; 96365; 96366; 96372; 96374; 96376

== ENCOUNTER 2016-10-08 19:57 | Emergency (ER) | payer BC, MEDICARE ==
[2016-10-08] MEDS ORDERED: SODIUM CHLORIDE 0.9% 1,000 ML IV STA (20:38)
[2016-10-08] MEDS ORDERED: KETOROLAC 30 MG/ML 1 ML VIAL IVP STA ×2 (20:38→22:06)
[2016-10-08] MEDS ORDERED: SODIUM CHLORIDE 0.9% 500 ML IV STA (20:38)
--- NOTE | 2016-10-08 20:43 | ED ---
Dizziness HPI - General Chief Complaint: Dizziness Stated Complaint: Headache, dizzy Time Seen by Provider: 10/08/16 20:29 Source: patient, RN notes reviewed Mode of arrival: ambulatory Limitations: no limitations - History of Present Illness Initial Comments: This is a 65-year-old female who states she's had a right-sided occipital parietal headache and dizziness for the past 2 days. Pain is sharp about 89/10 in severity she states she has had some sweats but no fevers or chills no earache sore throat rhinorrhea no sinus congestion. No neck pain no weakness to her upper or lower extremity she does complain some left leg pain that she's had since a fall downstairs about 15 steps several months ago. She was told a tender was no fracture. She points to her clay. MD Complaint: dizziness, other - Related Data Home Medications Medication Instructions Recorded Confirmed Albuterol Inhaler [Ventolin Hfa 3 puff INHALATION RT-Q8H PRN 10/08/16 10/08/16 Inhaler] Albuterol Nebulized [Ventolin 2.5 mg INHALATION RT-DAILY PRN 10/08/16 10/08/16 Nebulized] Fluticasone/Vilanterol [Breo 1 puff INHALATION RT-DAILY 10/08/16 10/08/16 Ellipta 200-25 Mcg INH] Ibuprofen [Advil] 400 mg PO Q8HR PRN 10/08/16 10/08/16 Previous Rx's Medication Instructions Recorded Cyclobenzaprine [Flexeril] 10 mg PO TID #14 tab 10/08/16 Hydrocodone/Acetaminophen [[place] 1 each PO Q6HR PRN #20 tab 10/08/16 5-325] Ibuprofen 800 mg PO Q6HR PRN #20 tablet 10/08/16 Allergies Allergy/AdvReac Type Severity Reaction Status Date / Time latex Allergy Rash/Hives Verified 10/08/16 20:25 Penicillins Allergy Rash/Hives Verified 10/08/16 20:25 Sulfa (Sulfonamide Allergy Rash/Hives Verified 10/08/16 20:25 Antibiotics) Review of Systems ROS Statement: Those systems with pertinent positive or pertinent negative responses have been documented in the HPI. ROS Other: All systems not noted in ROS Statement are negative. Past Medical History Past Medical History: Atrial Fibrillation, Atrial Flutter, Asthma, Coronary Artery Disease (CAD), Heart Failure, COPD, Diabetes Mellitus, GERD/Reflux, Hypertension, Pneumonia, Seizure Disorder Additional Past Medical History / Comment(s): Pt states she took herself off all medications due to insurance. PMH: NIDDM type II, bronchitis, last seizure was years ago, tumor behind left ear, bilateral CARPAL TUNNEL syndrome History of Any Multi-Drug Resistant Organisms: None Reported Past Surgical History: Heart Catheterization Additional Past Surgical History / Comment(s): L breast biopsy-twice and benign , L paratid gland bx-benign, colonoscopy-normal, bilateral cataract removals. Past Anesthesia/Blood Transfusion Reactions: No Reported Reaction Past Psychological History: No Psychological Hx Reported Smoking Status: Current every day smoker Past Alcohol Use History: None Reported Past Drug Use History: None Reported - Past Family History Mother Additional Family Medical History / Comment(s): Mother of sepsis at the age of 63 yrs. Father Family Medical History: Myocardial Infarction (OK) Additional Family Medical History / Comment(s): Father of a OK while they were trying to place a cardiac stent-he was in his 80's. General Exam - General Exam Comments Initial Comments: This is a well-developed well-nourished awake alert oriented x 3 female Limitations: no limitations General appearance: alert, anxious, in distress Head exam: Present: normocephalic, normal inspection, other (Is palpation of the posterior parietal occipital scalp no step-off no crepitation) Eye exam: Present: normal appearance, PERRL, EOMI. Absent: scleral icterus, conjunctival injection, periorbital swelling ENT exam: Present: normal exam, mucous membranes moist Neck exam: Present: normal inspection. Absent: tenderness, meningismus, lymphadenopathy Respiratory exam: Present: normal lung sounds bilaterally. Absent: respiratory distress, wheezes, rales, rhonchi, stridor Cardiovascular Exam: Present: regular rate, normal rhythm, normal heart sounds. Absent: systolic murmur, diastolic murmur, rubs, gallop, clicks GI/Abdominal exam: Present: soft, normal bowel sounds. Absent: distended, tenderness, guarding, rebound, rigid Extremities exam: Present: normal inspection, full ROM, normal capillary refill. Absent: tenderness, pedal edema, joint swelling, calf tenderness Back exam: Present: normal inspection Neurological exam: Present: alert, oriented X3, CN II-XII intact Psychiatric exam: Present: normal affect, normal mood Skin exam: Present: warm, dry, intact, normal color. Absent: rash Course Vital Signs 10/08/16 10/08/16 10/08/16 20:12 20:14 21:14 Temperature 98.4 F Pulse Rate 82 76 71 Respiratory 18 20 20 Rate Blood Pressure 181/79 137/65 137/65 O2 Sat by Pulse 98 100 100 Oximetry Medical Decision Making - Medical Decision Making Patient was getting some relief she'll be discharged after further medication she is follow-up with her doctor and return when necessary the presentation is consistent with musculoskeletal pain - Lab Data Result diagrams: 10/08/16 20:45 10/08/16 20:45 Lab Results 10/08/16 10/08/16 10/08/16 Range/Units 20:45 20:45 21:19 WBC 5.6 (3.8-10.6) k/uL RBC 4.03 (3.80-5.40) m/uL Hgb 12.9 (11.4-16.0) gm/dL Hct 38.0 (34.0-46.0) % MCV 94.3 (80.0-100.0) fL MCH 32.0 (25.0-35.0) pg MCHC 34.0 (31.0-37.0) g/dL RDW 12.9 (11.5-15.5) % Plt Count 181 (150-450) k/uL Neutrophils % 49 % Lymphocytes % 41 % Monocytes % 5 % Eosinophils % 2 % Basophils % 1 % Neutrophils # 2.8 (1.3-7.7) k/uL Lymphocytes # 2.3 (1.0-4.8) k/uL Monocytes # 0.3 (0-1.0) k/uL Eosinophils # 0.1 (0-0.7) k/uL Basophils # 0.0 (0-0.2) k/uL Sodium 143 (137-145) mmol/L Potassium 3.8 (3.5-5.1) mmol/L Chloride 108 H (98-107) mmol/L Carbon Dioxide 27 (22-30) mmol/L Anion Gap 8 mmol/L BUN 15 (7-17) mg/dL Creatinine 0.90 (0.52-1.04) mg/dL Est GFR (MDRD) Af Amer >60 (>60 ml/min/1.73 sqM) Est GFR (MDRD) Non-Af >60 (>60 ml/min/1.73 sqM) Glucose 106 H (74-99) mg/dL Calcium 9.5 (8.4-10.2) mg/dL Magnesium 1.7 (1.6-2.3) mg/dL Total Bilirubin 0.3 (0.2-1.3) mg/dL AST 14 (14-36) U/L ALT 24 (9-52) U/L Alkaline Phosphatase 62 (38-126) U/L Total Protein 6.0 L (6.3-8.2) g/dL Albumin 3.6 (3.5-5.0) g/dL Urine Color Yellow Urine Appearance Cloudy H (Clear) Urine pH 5.5 (5.0-8.0) Ur Specific [place] 1.025 (1.001-1.035) Urine Protein Trace H (Negative) Urine Glucose (UA) Negative (Negative) Urine Ketones Trace H (Negative) Urine Blood Negative (Negative) Urine Nitrite Negative (Negative) Urine Bilirubin Negative (Negative) Urine Urobilinogen 4.0 (<2.0) mg/dL Ur Leukocyte Esterase Small H (Negative) Urine RBC 1 (0-5) /hpf Urine WBC 3 (0-5) /hpf Ur Squamous Epith Cells 6 H (0-4) /hpf Urine Bacteria Rare H (None) /hpf Urine Mucus Rare H (None) /hpf - Radiology Data Radiology results: report reviewed (I did review the imaging and reports no acute findings.), image reviewed Disposition Clinical Impression: Cephalgia Disposition: HOME SELF-CARE Condition: Good Instructions: General Headache (ED) Prescriptions: Cyclobenzaprine [Flexeril] 10 mg PO TID #14 tab Hydrocodone/Acetaminophen [[place] 5-325] 1 each PO Q6HR PRN #20 tab PRN Reason: Pain Ibuprofen 800 mg PO Q6HR PRN #20 tablet PRN Reason: Pain Referrals: Jet Edmonds MD [Primary Care Provider] - 1-2 days
[2016-10-08 21:03] LABS: Basophils % (A) 1 %; CH 31.1; CHCM 33.1; Eosinophils # (A) 0.1 k/uL (0-0.7); Eosinophils % (A) 2 %; HDW 2.54; HGB 12.9 gm/dL (11.4-16.0); Luc # (Auto) 0.11; Luc % (Auto) 2; Lymphocytes # (A) 2.3 k/uL (1.0-4.8); Lymphocytes % (A) 41 %; MCV 94.3 fL (80.0-100.0); Mean Platelet Volume 8.1; Monocytes # (A) 0.3 k/uL (0-1.0); Monocytes % (A) 5 %; Neutrophils # (A) 2.8 k/uL (1.3-7.7); Neutrophils % (A) 49 %; RBC 4.03 m/uL (3.80-5.40); RDW 12.9 % (11.5-15.5); WBC 5.6 k/uL (3.8-10.6); WBC (Perox) 5.88
[2016-10-08 21:16] LABS: ALT 24 U/L (9-52); AST 14 U/L (14-36); Alkaline Phosphatase 62 U/L (38-126); Anion Gap 8 mmol/L; Blood Urea Nitrogen 15 mg/dL (7-17); Calcium 9.5 mg/dL (8.4-10.2); Carbon Dioxide 27 mmol/L (22-30); Chloride 108 mmol/L (98-107); Glucose 106 mg/dL (74-99); Magnesium 1.7 mg/dL (1.6-2.3); Non-African American GFR(MDRD) >60 (>60 ml/min/1.73 sqM); Potassium 3.8 mmol/L (3.5-5.1); Sodium 143 mmol/L (137-145); Total Bilirubin 0.3 mg/dL (0.2-1.3)
--- NOTE | 2016-10-08 21:27 | XR ---
EXAMINATION TYPE: XR chest 2V DATE OF EXAM: 10/08/2016 COMPARISON: Chest x-ray June 27, 2016. HISTORY: History of COPD with cough. TECHNIQUE: Frontal and lateral views of the chest are obtained. FINDINGS: There is no focal air space opacity, pleural effusion, or pneumothorax seen. The cardiac silhouette size is within normal limits. The osseous structures are intact. IMPRESSION: No suspicious acute infiltrate on current study.
[2016-10-08 21:36] LABS: Appearance,Urine Cloudy (Clear); Bacteria,Urine Rare /hpf; Bilirubin,Urine Negative (Negative); Glucose,Urine (UA) Negative (Negative); Ketones,Urine Trace (Negative); Leukocyte Esterase,Urine Small (Negative); Mucus,Urine Rare /hpf; Nitrite,Urine Negative (Negative); PH, Urine 5.5 (5.0-8.0); Particle Count 5798; Protein,Urine Trace (Negative); RBC,Urine 1 /hpf (0-5); Specific Gravity,Urine 1.025 (1.001-1.035); Squamous Epithelial Cell,Urine 6 /hpf (0-4); UA Billing (MACRO vs. MICRO) MICRO; WBC,Urine 3 /hpf (0-5)
[2016-10-08] MEDS ORDERED: ORPHENADRINE 30 MG/ML 2 ML VIAL IVP STA (22:06)
[2016-10-08 22:31] VITALS: RESP 18
[2016-10-08 22:33] VITALS: BP 134/62; PULSE 66; TEMP 98.1
== END 2016-10-08 22:53 | disposition home or self-care (01) ==
LOC: EC 19:57
DX: R51 Headache (principal); R42 Dizziness and giddiness; J45.909 Unspecified asthma, uncomplicated; F17.200 Nicotine dependence, unspecified, uncomplicated; Z79.51 Long term (current) use of inhaled steroids; Z88.0 Allergy status to penicillin; Z88.2 Allergy status to sulfonamides; Z91.040 Latex allergy status
CPT/HCPCS: 99284; 96374; 96375; 96376; 96361 ×2; 36415; 93005; 80053; 83735; 85025; 81001; 71020; J2360; J1885

== ENCOUNTER 2016-10-27 10:08 | Observation (INO) | payer BC, MEDICARE ==
[2016-10-27] MEDS ORDERED: IBUPROFEN 800 MG TAB PO PRN (12:26)
[2016-10-27] MEDS ORDERED: IBUPROFEN 400 MG TAB PO PRN (12:26)
[2016-10-27] MEDS ORDERED: ALBUTEROL NEBULIZED 2.5 MG/3 ML INHALATION PRN ×2 (12:26)
[2016-10-27] MEDS ORDERED: BUTALB/APAP/CAFF 50-325-40MG TAB PO PRN (12:34)
[2016-10-27 13:18] LABS: Basophils % (A) 1 %; CH 31.2; CHCM 33.1; Eosinophils # (A) 0.1 k/uL (0-0.7); Eosinophils % (A) 2 %; HCT 37.1 % (34.0-46.0); HDW 2.58; HGB 12.7 gm/dL (11.4-16.0); Luc # (Auto) 0.11; Luc % (Auto) 2; Lymphocytes # (A) 1.8 k/uL (1.0-4.8); Lymphocytes % (A) 37 %; MCH 32.4 pg (25.0-35.0); MCHC 34.2 g/dL (31.0-37.0); MCV 94.7 fL (80.0-100.0); Mean Platelet Volume 8.5; Monocytes # (A) 0.3 k/uL (0-1.0); Monocytes % (A) 6 %; Neutrophils # (A) 2.6 k/uL (1.3-7.7); Neutrophils % (A) 52 %; RBC 3.92 m/uL (3.80-5.40); RDW 12.6 % (11.5-15.5); WBC (Perox) 4.97
[2016-10-27 13:24] LABS: ALT 27 U/L (9-52); AST 13 U/L (14-36); Alkaline Phosphatase 72 U/L (38-126); Anion Gap 7 mmol/L; Blood Urea Nitrogen 12 mg/dL (7-17); Calcium 9.1 mg/dL (8.4-10.2); Carbon Dioxide 28 mmol/L (22-30); Chloride 107 mmol/L (98-107); Glucose 151 mg/dL (74-99); Non-African American GFR(MDRD) >60 (>60 ml/min/1.73 sqM); Potassium 3.9 mmol/L (3.5-5.1); Sodium 142 mmol/L (137-145); Total Bilirubin 0.4 mg/dL (0.2-1.3); Total Protein 5.8 g/dL (6.3-8.2)
[2016-10-27 13:27] LABS: Rheumatoid Factor, Qnt <9 IU/mL (<12)
--- NOTE | 2016-10-27 13:27 | XR ---
EXAMINATION TYPE: XR chest 2V DATE OF EXAM: 10/27/2016 COMPARISON: 10/08/2016 HISTORY: COPD TECHNIQUE: Frontal and lateral views of the chest are obtained. FINDINGS: There is no focal air space opacity, pleural effusion, or pneumothorax seen. The cardiac silhouette size is within normal limits. The osseous structures are intact. IMPRESSION: No acute cardiopulmonary process.
--- NOTE | 2016-10-27 13:30 | CT ---
EXAMINATION TYPE: CT brain juanjose estrada con DATE OF EXAM: 10/27/2016 COMPARISON: NONE HISTORY: Right sided headache and Left sided leg pain. No known injury CT DLP: 1700 mGycm, Automated exposure control for dose reduction was used. CONTRAST: Patient injected with 0 mL of Omnipaque 300. CT of the brain is performed utilizing 3 mm thick sections through the posterior fossa and 3 mm thick sections through the remaining calvarium. Study is performed within 24 hours of arrival to the hospital. No abnormal hyperdensity is present to suggest an acute intracranial hemorrhage. No mass lesion is evident. No acute infarcts are evident. Ventricles and sulci are appropriate for the patient age. Mild mucosal thickening is within ethmoid air cells. Remaining paranasal sinuses mastoid air cells ar e clear. IMPRESSIONS: 1. No acute intracranial process. CT cervical spine. COMPARISON: None CT of the cervical spine is performed in the axial plane at 2 mm thick sections. Reconstructed image s in the coronal, and sagittal plane are reviewed on the computer. No acute fractures are evident. Vertebral body alignment is normal. Vertebral body heights are preserved C2-3: Mild disc bulge is present C2-C3 with mild anterior thecal sac compression. No spinal canal allie nosis cord contact or cord deformity is evident. Neural foramen are patent. C3-4: There is mild central disc bulge C3-4 with anterior thecal sac compression. Cord contact is not excluded. Spinal canal narrowing at 0.7 cm may be posterior to the disc space. Series 9 image 42. Co nsider additional evaluation with MRI. Neural foramen appear patent. C4-5: Endplate changes are present C4-C5 with mild disc bulge causing anterior thecal sac compression .. No spinal canal stenosis present. Uncovertebral joint hypertrophy has moderate bilateral foraminal narrowing. C5-6: Uncovertebral joint hypertrophy is mild foraminal narrowing. Mild endplate spurring is present. No focal disc herniation is evident C6-7: There is mild left uncovertebral joint hypertrophy with left foraminal narrowing. No spinal can al stenosis or neural foraminal stenosis is present. IMPRESSIONS: 1. Degenerative uncovertebral joint changes causing foraminal narrowing discussed above. Some endplat e changes are present discussed above. 2. Central focal disc bulging C2-3 C3-4 and C4-5. Consider MRI for additional evaluation. 3. There may be some spinal canal stenosis C3-4 due to the suspected central disc bulging. Consider M RI for additional evaluation.
[2016-10-27] MEDS: HYDROcodone/APAP 5-325MG 1 EACH TAB PO PRN ×2 (13:39→21:11)
[2016-10-27] MEDS: SODIUM CHLORIDE 0.9% 1,000 ML IV SCH (13:40)
[2016-10-27 14:11] LABS: Hemoglobin A1C 5.5 % (4.2-6.1)
[2016-10-27 14:18] LABS: Erythrocyte Sedimentation Rate 14 mm/hr (0-20)
[2016-10-27] MEDS: CYCLOBENZAPRINE 10 MG TAB PO SCH ×2 (17:17→22:10)
[2016-10-27] MEDS: INSULIN LISPRO (humaLOG) 300 UNIT/3 ML VIAL SQ SCH ×2 (17:23→21:10)
[2016-10-27 17:42] LABS: Glucose,Whole Blood 142 mg/dL (75-99)
[2016-10-27] MEDS: SYMBICORT 160-4.5 MCG INHALER INHALATION SCH (20:28)
[2016-10-27 20:58] LABS: Glucose,Whole Blood 231 mg/dL (75-99)
[2016-10-28] MEDS: SODIUM CHLORIDE 0.9% 1,000 ML IV SCH ×2 (06:11→14:58)
[2016-10-28 07:11] LABS: Glucose,Whole Blood 94 mg/dL (75-99)
[2016-10-28] MEDS: SYMBICORT 160-4.5 MCG INHALER INHALATION SCH ×2 (08:18→20:55)
[2016-10-28] MEDS: INSULIN LISPRO (humaLOG) 300 UNIT/3 ML VIAL SQ SCH ×5 (08:35→22:46)
[2016-10-28] MEDS: CYCLOBENZAPRINE 10 MG TAB PO SCH ×3 (08:36→22:46)
--- NOTE | 2016-10-28 09:33 | CONS ---
DATE OF CONSULTATION: 10/27/2016 CHIEF COMPLAINT: Headache. HISTORY OF PRESENT ILLNESS: Mrs. Steele is a pleasant 65-year-old female who is being evaluated today on 10/27/2016 by the Neurology Service per the request of Dr. Jet Edmonds for an intractable headache. The patient states that she has been having a severe headache on the right side of her head which she described as a burning sharp sensation. She denies any head injuries. The patient started several days ago and has been constant since. She describes significant hypersensitivity. She did present to [facility] Emergency Room earlier this month when the symptoms started. She was prescribed Fioricet and had a normal workup and she was discharged home. When she followed up with Dr. Edmonds today, she was admitted for further management. She rates her pain at 7/10 in intensity at the time of my evaluation. She denies any lateralizing numbness or weakness. A CT scan of the brain and cervical spine were done. Her CT scan of the brain was normal and her CT scan of the cervical sine showed disc bulges at C2-3 and C3-4 with mild stenosis noticed at C3-4. Her CBC and comprehensive metabolic profile were reviewed and were normal except for mild hyperglycemia at 151. The patient does have a history of diabetes but states that she has not been taking her metformin due to insurance issues. She denies any other neurological complaints. PAST MEDICAL HISTORY: Diabetes, atrial fibrillation, asthma, coronary artery disease, chronic obstructive pulmonary disease, gastroesophageal reflux disease , hypertension, history of breast biopsy, cataract surgery, parotid gland biopsy , heart catheterization. SOCIAL HISTORY: The patient is a current everyday smoker. She denies any alcohol or drug use. FAMILY HISTORY: Positive for heart disease. HOME MEDICATIONS: Reviewed in the chart. ALLERGIES: LATEX, PENICILLIN, SULFA DRUGS. REVIEW OF SYSTEMS: CONSTITUTIONAL: Positive for fatigue. EYES: Negative. ENT: Negative. CARDIOVASCULAR: As mentioned above. RESPIRATORY: Positive for occasional shortness of breath. NEUROLOGICAL: As mentioned above. GASTROINTESTINAL: Positive for occasional heartburn. GENITOURINARY: Negative. ENDOCRINE: Positive for diabetes. DERMATOLOGICAL: Negative. MUSCULOSKELETAL: Positive for occasional joint pain. PSYCHIATRIC: Negative. PHYSICAL EXAM: Vital signs show a temperature of 97.4, pulse 75, respirations 16, blood pressure 144/69. GENERAL APPEARANCE: The patient is an obese -[place] female who appears to be in no acute distress. HEENT: Normocephalic, atraumatic, no facial asymmetry is seen, hypersensitivity is noticed in the right scalp compared to the left. The patient is wearing a wig. Neck is supple with no masses felt. CARDIOVASCULAR: Regular rate and rhythm. ABDOMEN: Obese, nontender, nondistended. Extremities showed no edema or clubbing. NEUROLOGICAL EXAM: The patient is alert, aware and oriented x3. Speech and language are normal. Strength is full in all 4 extremities. Sensory exam showed diminished light touch sensation in bilateral distal lower extremities. No tremors or seizure-like activity is seen. Cranial nerve testing showed allodynia on the right scalp and forehead compared to the left. IMPRESSION: 1. Head pain. 2. Neuralgia. 3. Diabetes. 4. Cervical displaced disc disease. RECOMMENDATION: The patient's head pain is not consistent with a regular headache. She is having allodynia and hypersensitivity on the right side more consistent with an acute neuralgia. I will start her on Neurontin 300 mg q.h.s. and this should be titrated up every 3 days to a max dose of 600 mg 3 times daily. I reviewed with her, her CT scan results. Her disc bulge at C2-3 could be contributing to her symptoms but these will likely improve with Neurontin. Continue the rest of your current workup and management. I will continue to follow with you. Further recommendations to follow. Thank you, Dr. Edmonds for allowing me to participate in the care of your patient. If you have any questions, please feel free to contact me. THERESA
[2016-10-28 12:41] LABS: Glucose,Whole Blood 126 mg/dL (75-99)
[2016-10-28 17:38] LABS: Glucose,Whole Blood 124 mg/dL (75-99)
--- NOTE | 2016-10-28 19:38 | P.PN ---
Progress Note - Text Patient is a 65-year-old female who presented with severe right-sided headache which she described as a burning sensation that is been constant over the past several days along with significant hypersensitivity. She's been seen and examined by Dr. Knox in neurology. She is a patient of Dr. Jet Edmonds. A CT of the brain and cervical spine was performed which did show evidence of disc bulging at L2-3, C3-4, and C4-5 with possible evidence of canal stenosis at C3-4 and would consider MRI for additional evaluation, and no evidence of acute intracranial process. After reviewing the imaging, it appears she has degenerative disc disease at C4-5 and C5-6 and may have evidence of disc bulging /herniation at C5-6. Per neurology's consultation, they felt her symptoms symptoms were more consistent with acute neuralgia. They plan to start her on Neurontin 300 mg with plans to titrate this medication up to the max dose of 600 mg 3 times per day. They felt a Neurontin would improve her symptoms. Patient has been discussed with Dr. Davi Mae in detail. At this time, we're not currently complaining for acute surgical intervention as Dr. Davi Mae is currently out of town and will not return until 11/04/2016. At this time, it would be appropriate to have the patient follow-up in the outpatient setting for further evaluation and to discuss possible treatment. At that time, we would discuss obtaining an MRI of the cervical spine for further evaluation. If she starts to experience significant acute symptoms in which there indications for further invasive treatment or evaluation in regards to her cervical spine, we recommend she be transferred to a tertiary facility for further evaluation and care. At this time, we will sign off on the patient and she will be clear for discharge from an orthopedic spine standpoint and we'll plan to have her follow up in outpatient setting for further evaluation and discuss possible treatment in approximately 2-3 weeks.
[2016-10-28] MEDS: HYDROcodone/APAP 5-325MG 1 EACH TAB PO PRN (20:38)
[2016-10-28] MEDS: GABAPENTIN 300 MG CAP PO SCH (20:38)
[2016-10-28 20:57] LABS: Glucose,Whole Blood 161 mg/dL (75-99)
--- NOTE | 2016-10-29 02:50 | P.PN ---
Subjective Principal diagnosis: Headache CHARTING WAS DELAYED A RESULT OF [facility] OFFSITE ACCESS BEING DOWN. Patient is a 65-year-old female who is being followed by neurology for intractable headache. Patient has complaints of severe headache on the right side of her head which is described as a burning sharp sensation. She denies any head injuries. Pain started several days ago and has been unrelenting since. Patient also states she has significant hypersensitivity. Patient presented to the ED earlier this month when the symptoms started. Patient was given Fioricet, normal workup and discharged home. Patient presented to primary care physician and was admitted for further management. Since pain is 7 out of 10 in intensity. Denies any lateralizing numbness or weakness. Brain and cervical spine when conducted and noted that the CT of the brain was normal CT cervical spine showed changes at the C2-3 and C3-4 levels with mild stenosis noted at C3-4. CBC and CMP were normal with the exception of hyperglycemia at 151. She is known to have a diabetic history. Patient was recommended and prescribed metformin by primary care provider which she is not started due to lack of insurance coverage. Patient has no other neurological complaints. At time of contact, patient was supine in bed, alert and oriented 3 and in no acute distress. Objective - Vital Signs Vital signs: Vital Signs Temp 96.6 F L 10/28/16 23:00 Pulse 76 10/28/16 23:00 Resp 14 10/28/16 23:00 BP 188/86 10/28/16 23:00 Pulse Ox 98 10/28/16 23:00 Intake & Output 10/28/16 10/28/16 10/29/16 06:59 18:59 06:59 Other: # Voids 1 2 1 - Exam Patient is alert and oriented 3, speech and language are normal and appropriate. Bilateral upper and lower extremities have equal strength. Sensory examination was normal to light touch in both upper extremties but distally diminished in the lower extremities bilaterally. No seizure-like activity noted. No facial asymmetry on cranial nerve testing. - Labs CBC & Chem 7: 10/27/16 12:51 10/27/16 12:51 Labs: Abnormal Lab Results - Last 24 Hours (Table) 10/28/16 10/28/16 10/28/16 Range/Units 12:24 17:09 20:48 POC Glucose (mg/dL) 126 H 124 H 161 H (75-99) mg/dL Assessment and Plan (1) Neuralgia Status: Acute (2) DDD (degenerative disc disease), cervical Status: Acute (3) Cephalgia Status: Acute Plan: Patient had pain is not consistent with regular headache, allodynia and hypersensitivity in the right side is more consistent with acute neuralgia. Patient will be started on Neurontin 300 mg daily at bedtime titrated to 600 mg 3 times a day at [address] of the cervical spine noted a bulge at C2- 3 which could be contributory to her symptoms but will likely improve with Neurontin. Patient also started on IV Solu-Medrol 500 mg 1. MRI cervical spine without contrast will be ordered. Patient will need follow-up in the outpatient setting once discharged. Status: Neurology will continue to follow and provide updates as needed or warranted. Any questions can be directed to our office. I discussed the patients history, physical exam, diagnostic testing, lab work and imaging with Dr Knox prior to implementing the plan above. He agrees with the plan as implemented prior to implementation.
[2016-10-29] MEDS: SODIUM CHLORIDE 0.9% 1,000 ML IV SCH ×2 (06:07→18:04)
[2016-10-29 07:25] LABS: Glucose,Whole Blood 120 mg/dL (75-99)
[2016-10-29] MEDS: INSULIN LISPRO (humaLOG) 300 UNIT/3 ML VIAL SQ SCH ×4 (07:43→22:31)
[2016-10-29] MEDS: CYCLOBENZAPRINE 10 MG TAB PO SCH ×3 (07:45→20:13)
[2016-10-29] MEDS: SYMBICORT 160-4.5 MCG INHALER INHALATION SCH ×2 (08:23→19:32)
--- NOTE | 2016-10-29 12:29 | HP ---
SUBJECTIVE A 65-year-old female admitted for TIA type symptomatology with right-sided pain and numbness in her jain of 8 out of 10 intensity, like lightening shooting through her head. She had some weakness also in her right arm and right leg. CAT scan of the head and neck are ordered at this time. Awaiting neurologic consult. PAST MEDICAL HISTORY: Diabetes mellitus, atrial fibrillation, asthma, coronary artery disease, COPD, GERD, hypertension, breast biopsy, cataract surgery, parotid gland biopsy, heart catheterization. SOCIAL HISTORY: She is a current everyday smoker. No alcohol or illicit drugs. FAMILY HISTORY: Heart disease. HOME MEDICINES: See chart. ALLERGIES: LATEX, PENICILLIN, SULFA. REVIEW OF SYSTEM: Fourteen point review of systems negative except for what is mentioned in HPI. PHYSICAL EXAM: Temp 97.4, pulse 70s to 80s, respiratory rate 12 to 16, blood pressure 140s over 60s. CARDIOVASCULAR: S1 and S2. LUNGS: Transmitted upper airway sounds. HEMATOLOGY: Negative Homans. PSYCH: Fair mood affect. NEUROLOGIC: Alert and oriented x3. OPHTHALMOLOGIC: Pupils equal, round and reactive to light and accommodation. ASSESSMENT: 1. Transient ischemic attack. 2. Cephalgia. 3. Rule out cervical stenosis versus radiculopathy. 4. Rule out transient ischemic attack versus cerebrovascular accident. 5. Diabetes mellitus. 6. Hypertension. 7. Chronic obstructive pulmonary disease. 8. Nicotine addiction. PLAN: Continue current treatments. Neurology consult. [facility]rologic workup. [facility]
[2016-10-29 14:07] LABS: Glucose,Whole Blood 162 mg/dL (75-99)
--- NOTE | 2016-10-29 14:10 | MR ---
MRI CERVICAL SPINE: CLINICAL HISTORY: Neck pain per order. TECHNIQUE: Multiplanar, multisequence imaging of the cervical spine is performed without IV contrast. COMPARISON: CT cervical spine from 2 days earlier. FINDINGS: Sagittal images of the cervical spine show the craniocervical junction to appear within nor mal limits. The cervical and upper thoracic spinal cord is normal in course, caliber, and signal. Th ere is generalized AP diameter narrowing of the cervical spinal canal may be a congenital basis as is diffuse. Vertebral alignment is anatomic. The vertebral body heights are normal. There is mild mul tilevel disc space narrowing most prominent at C5-C6 level. Some multilevel small posterior disc alize iations are present on sagittal images most prominent at C5-C6 level. The bone marrow signal intensit y is within normal limits. Slight levoconvex scoliotic curvature centered in the upper to midthoracic spine is partially imaged. No significant spurring is noted. Axial images show the C2-C3 level to appear within normal limits. Axial images at the C3-C4 level show small central disc protrusion mildly effacing anterior thecal sa c with asymmetric mild left-sided neural foraminal narrowing due to marginal spurring. Right-sided ne ural foramen is patent. Axial images at the C4-C5 level show broad-based posterior disc protrusion mildly effacing anterior t hecal sac. There are uncovertebral facet degenerative changes bilaterally causing mild bilateral neur al foraminal narrowing. Axial images at the C5-C6 level show broad-based right paracentral disc protrusion effacing anterior thecal sac up to ventral surface of spinal cord on axial image 23. Uncovertebral facet degenerative c hanges bilaterally causing moderate left and mild right-sided neural foraminal narrowing. Axial images at C6-C7 level show broad-based posterior disc protrusion mildly effacing anterior theca l sac, bilateral neural foramina are patent. Axial images at C7-T1 level are felt within normal limits. There is greater than 1 cm heterogeneous solid and cystic nodule left thyroid partially imaged on axi al image 2 that warrants follow-up. IMPRESSION: 1. Multilevel degenerative changes in the cervical spine as detailed above most prominent at C5-C6 le jose. 2. Greater than 1 cm mixed solid and cystic nodule noted. This is discussed on CT neck study January 2013. Need to further investigate with thyroid ultrasound follow-up should be based on clinical krish elation.
[2016-10-29 17:32] LABS: Glucose,Whole Blood 118 mg/dL (75-99)
[2016-10-29] MEDS: GABAPENTIN 300 MG CAP PO SCH (20:13)
[2016-10-29 21:39] LABS: Glucose,Whole Blood 164 mg/dL (75-99)
--- NOTE | 2016-10-30 01:18 | P.PN ---
Subjective Principal diagnosis: Headache, cervical spondylosis, cervical DDD, diabetic peripheral polyneuropathy 10/29/16: Interval update patient does report decreased cervical pain as well as head pain. Patient also reports that her bilateral lower extremity numbness and tingling in her feet has also begun to decrease since starting the gabapentin/Neurontin. Patient still is experiencing high to mid cervical pain as well as paraspinal stiffness again today. Patient states the pain does not radiate into her upper extremities at this time. Overall the patient states she is improving daily over day. At contact, patient was alert and oriented 3 left lateral recumbent embed, resting in no acute distress. MRI cervical spine was ordered yesterday and results are as follows: Mild multilevel disc disease with narrowing most prominent at C5-6. Some multilevel small posterior disc herniations are present on sagittal images most prominent at C5 to 6. Bone marrow signal intensity within normal limits, slight levoconvex scoliotic curvature in the upper to mid thoracic spine. Significant spurring noted. At C5-6 notations include broad-based right paracentral disc protrusion effacing anterior thecal sac up to the ventral surface of the spinal cord. Facet degenerative changes bilaterally causing mild or at left and mild right-sided neural foraminal narrowing. Laboratory blood work noted a limited glucose level again today. 10/28/16: Patient is a 65-year-old female who is being followed by neurology for intractable headache. Patient has complaints of severe headache on the right side of her head which is described as a burning sharp sensation. She denies any head injuries. Pain started several days ago and has been unrelenting since. Patient also states she has significant hypersensitivity. Patient presented to the ED earlier this month when the symptoms started. Patient was given Fioricet, normal workup and discharged home. Patient presented to primary care physician and was admitted for further management. Since pain is 7 out of 10 in intensity. Denies any lateralizing numbness or weakness. Brain and cervical spine when conducted and noted that the CT of the brain was normal CT cervical spine showed changes at the C2-3 and C3-4 levels with mild stenosis noted at C3-4. CBC and CMP were normal with the exception of hyperglycemia at 151. She is known to have a diabetic history. Patient was recommended and prescribed metformin by primary care provider which she is not started due to lack of insurance coverage. Patient has no other neurological complaints. At time of contact, patient was supine in bed, alert and oriented 3 and in no acute distress. Objective - Vital Signs Vital signs: Vital Signs Temp 97 F L 10/29/16 23:00 Pulse 69 10/29/16 23:00 Resp 20 10/29/16 23:00 BP 140/54 10/29/16 23:00 Pulse Ox 96 10/29/16 23:00 Intake & Output 10/29/16 10/29/16 10/30/16 06:59 18:59 06:59 Intake Total 400 Balance 400 Intake: Oral 400 Other: Voiding Method Toilet # Voids 1 2 1 - Exam Patient is alert and oriented 3, speech and language are normal and appropriate. Bilateral upper and lower extremities have equal strength. Patient at tenderness to touch and palpation over the mid and high cervical spine. Pain was midline with associated cervical paraspinal stiffness, mild to moderate trapezius stiffness. Patient had reproducible pain with both flexion and extension of the neck as well as lateral rotation bilaterally. Patient was negative Spurling's. Sensory examination was normal to light touch in both upper extremties but distally diminished in the lower extremities bilaterally. No seizure-like activity noted. No facial asymmetry on cranial nerve testing. - Labs CBC & Chem 7: 10/27/16 12:51 10/27/16 12:51 Labs: Abnormal Lab Results - Last 24 Hours (Table) 10/29/16 10/29/16 10/29/16 Range/Units 07:23 11:23 17:30 POC Glucose (mg/dL) 120 H 162 H 118 H (75-99) mg/dL 10/29/16 Range/Units 21:35 POC Glucose (mg/dL) 164 H (75-99) mg/dL Assessment and Plan (1) Neuralgia Status: Acute (2) DDD (degenerative disc disease), cervical Status: Acute (3) Cephalgia Status: Acute (4) Peripheral polyneuropathy Status: Acute (5) Thyroid nodule Status: Acute Plan: Patient head pain is not consistent with regular headache, allodynia and hypersensitivity in the right side is more consistent with acute neuralgia. Patient does have pain that is consistent with her cervical spine dysfunction which may be contributory to exacerbating the patient's head pain/headache which may be independent of her neuralgia. Patient does have lower extremity numbness and tingling consistent with diabetic peripheral polyneuropathy. Patient does acknowledge she has been previously diagnosed, has been only intermittently controlled and she does have elevated blood sugar levels as evidenced by current blood glucose levels. Patient will continue on Neurontin titration to 600 mg 3 times a day for her neuropathy. Patient's MRI of the cervical spine was previously discussed and further workup can be conducted outpatient. Patient has made improvement in her overall symptoms on IV Solu- Medrol 500 mg 1. Patient will need outpatient follow-up and a lower extremity NCS/EMG to further investigate the extent and full etiology of her lower extremity numbness and tingling as well. Status: Neurology will clear the patient for discharge from a neurological standpoint. Patient should be notified to contact our office within 10-14 days for a follow- up appointment. Patient may remain on the following medications at discharge: Neurontin 600 mg, 3 times a day, Motrin 800 twice a day to 3 times a day when necessary, Fioricet daily to twice a day when necessary, Flexeril 10 mg, twice a day to 3 times a day, when necessary. Any questions can be directed to our office. I discussed the patients history, physical exam, diagnostic testing, lab work and imaging with Dr Knox prior to implementing the plan above. He agrees with the plan as implemented prior to implementation.
[2016-10-30 07:43] LABS: Glucose,Whole Blood 79 mg/dL (75-99)
[2016-10-30 08:24] VITALS: BP 164/106; PULSE 66; RESP 16; TEMP 97.1
[2016-10-30] MEDS: SYMBICORT 160-4.5 MCG INHALER INHALATION SCH (08:28)
[2016-10-30] MEDS: INSULIN LISPRO (humaLOG) 300 UNIT/3 ML VIAL SQ SCH ×2 (08:49→12:07)
[2016-10-30] MEDS: CYCLOBENZAPRINE 10 MG TAB PO SCH (08:50)
[2016-10-30] MEDS: SODIUM CHLORIDE 0.9% 1,000 ML IV SCH (08:52)
[2016-10-30 11:58] LABS: Glucose,Whole Blood 80 mg/dL (75-99)
[2016-10-30] MEDS ORDERED: hydrALAZINE HCL 20 MG/ML 1 ML VIAL IVP PRN (15:25)
--- NOTE | 2016-10-30 18:00 | PN ---
PROGRESS NOTE Date of Service: SUBJECTIVE: 65-year-old, white female, with right-sided cephalgia. Patient continues the current treatment for occipital neuritis and possible stroke. MRI is pending and if MRI is clear today, she may be able to be discharged. She has been placed on Neurontin for facial numbness but she is concerned about her left leg going numb and weakness in her left leg. MRI will be done about the CVA. Cardiovascular S1 and S2. Lungs are clear. GI is soft. Musculoskeletal as mentioned above. Tenderness to palpation cervical spine. Straight leg raise 45 degrees left leg. Neuritis is being treated with Neurontin. MRI is pending. PLANS: Possible discharge home in the next 24-48 hours with PT/OT. JUAN / MIRIAMN: [id number] /
== END 2016-10-30 16:19 | disposition home or self-care (01) ==
LOC: 4MS4W 10:57
PROVIDERS: ADMIT Family Medicine; ATTEND Family Medicine
DX: M50.30 Other cervical disc degeneration, unspecified cervical region (principal); R51 Headache; M47.812 Spondylosis without myelopathy or radiculopathy, cervical region; E11.42 Type 2 diabetes mellitus with diabetic polyneuropathy; K21.9 Gastro-esophageal reflux disease without esophagitis; J44.9 Chronic obstructive pulmonary disease, unspecified; I48.91 Unspecified atrial fibrillation; I25.10 Atherosclerotic heart disease of native coronary artery without angina pectoris; I10 Essential (primary) hypertension; E11.65 Type 2 diabetes mellitus with hyperglycemia; F17.200 Nicotine dependence, unspecified, uncomplicated; E04.1 Nontoxic single thyroid nodule; E66.9 Obesity, unspecified; Z88.0 Allergy status to penicillin; Z88.2 Allergy status to sulfonamides; Z91.040 Latex allergy status; Z68.30 Body mass index [BMI] 30.0-30.9, adult; Z71.3 Dietary counseling and surveillance; Z82.49 Family history of ischemic heart disease and other diseases of the circulatory system
CPT/HCPCS: 96361 ×3; 96365; 94640 ×5; 93005; 85379; 84439; 83880; 80053; 85652; 84443; 83036; 84484; 85025; 86431; 71020; 72125; 70450; 72141; G0379; G0378 ×4; J2930

== ENCOUNTER → 2016-11-07 | Outpatient (CLI) | payer BC, MEDICARE ==
--- NOTE | 2016-11-08 14:10 | US ---
EXAMINATION TYPE: US thyroid st tissue head/neck DATE OF EXAM: 11/07/2016 COMPARISON: MRI, CT CLINICAL HISTORY: E04.1 Cystic Nodule. GLAND SIZE: Right Lobe: 4.2 x 1.7 x 2.0 cm Overall Parenchyma: homogenous Left Lobe: 5.6 x 2.0 x 2.6 cm Overall Parenchyma: heterogeneous Isthmus Thickness: 0.8 cm NODULES RIGHT: # of nodules measured on right: 0 LEFT: # of nodules measured on left: 3 separate vs. consolidation of all three nodules 1. 1.2 X 1.1 x 0.9 cm echogenic mixed nodule at the mid medial pole with well-defined margins. Thi s nodule is wider than tall and shows no intranodular vascularity. 2. 1.2 X 0.9 x 0.9 cm echogenic solid nodule at the lower medial pole with well-defined margins. Th is nodule is wide as is tall and shows no intranodular vascularity. 3. 2.7 X 1.4 x 1.7 cm hypoechoic solid nodule at the lateral mid and lower pole with irregular pearl ns. This nodule is taller than wide and shows no intranodular vascularity. ISTHMUS: # of nodules measured in the isthmus: 0 Bilateral neck scanned, no evidence of lymphadenopathy. Suspect the nodularity in the left lobe of the gland is a single nodule. IMPRESSION: Hyperechoic focus within the left lobe of the gland measuring 2.8 x 1.7 cm x 1.8 cm.
== END ==
LOC: RADUSMAIN 15:36
PROVIDERS: ATTEND Family Medicine
DX: E04.1 Nontoxic single thyroid nodule (principal)
CPT/HCPCS: 76536

== ENCOUNTER 2016-11-19 11:10 | Day surgery (SDC) | payer BC, MEDICARE ==
[2016-11-19 12:10] VITALS: TEMP 97.8
[2016-11-19] MEDS ORDERED: ALPRAZolam 0.5 MG TAB PO ONE (12:20)
--- NOTE | 2016-11-19 13:03 | US ---
ULTRASOUND GUIDED FNA THYROID BIOPSY: CLINICAL HISTORY: As noted by previous ultrasound the nodularity within the left thyroid appears repr esent 1 conglomerate large nodule. Request is for FNA biopsy FINDINGS: The procedure was explained to the patient. The risks, complications, benefits and alternatives were discussed and any questions were answered. Informed consent was obtained. Patient was placed supin e on the ultrasound table and prepped and draped in the usual sterile fashion. Utilizing a 25 gauge needle, five passes were made into the requested large left thyroid nodule. Patient was stable throughout the procedure. Pathology is pending. All elements of maximal barrier technique were utilized. IMPRESSION: 1. Successful ultrasound guided FNA thyroid biopsy.
[2016-11-19 13:12] VITALS: RESP 18
[2016-11-19 13:13] VITALS: BP 152/72; PULSE 72
== END 2016-11-19 13:05 | disposition home or self-care (01) ==
LOC: RADPROMAIN 11:10
PROVIDERS: ATTEND Family Medicine
DX: E04.1 Nontoxic single thyroid nodule (principal)
CPT/HCPCS: 10022; 76942; 88173; 88305

== ENCOUNTER → 2016-12-12 | Outpatient (CLI) | payer BC, MEDICARE ==
--- NOTE | 2016-12-12 16:05 | XR ---
EXAMINATION TYPE: XR Hip Complete LT DATE OF EXAM: 12/12/2016 CLINICAL HISTORY: Pain in the left hip since fall 8 months ago TECHNIQUE: AP and frogleg views of the left hip are obtained. COMPARISON: None. FINDINGS: Mild degenerative changes of the left femoral acetabular joint are demonstrated as joint s pace narrowing and acetabular sclerosis. Femoral head maintains a rounded morphology. There is no acu te fracture/dislocation evident in the left hip. Osseous protuberance at the left femoral head neck j unction relates to a small cam deformity and may predispose this patient to internal impingement/labr al tear or detachment. The overlying soft tissue appears unremarkable. Surgical clips are seen within the left hemipelvis. Minimal atherosclerosis is seen of the femoral artery. IMPRESSION: 1. There is no acute fracture or dislocation in the left hip. 2. Small left femoral head neck junction cam deformity that may predispose this patient to internal i mpingement/labral tear or detachment. 3. Mild left femoral acetabular arthrosis.
--- NOTE | 2016-12-12 16:07 | XR ---
EXAMINATION TYPE: XR lumbar spine 2 or 3V DATE OF EXAM: 12/12/2016 CLINICAL HISTORY: Pain since fall 8 months ago TECHNIQUE: Frontal and lateral images of the lumbar spine are obtained. COMPARISON: None FINDINGS: There are 5 lumbar type vertebral bodies identified. The lumbar spine shows satisfactory alignment without evidence of acute fracture or dislocation. Vertebral body heights and disk space he ights are within normal limits. Facet arthropathy is seen at L2-L3, L3-L4, L4-5, and L5-S1. The over lying soft tissue appears unremarkable. Moderate atheromatous changes seen of the abdominal aorta and its branches. Numerous calcified gallstones are present within the right upper quadrant. IMPRESSION: 1. No acute fracture or malalignment is seen in the lumbar spine. 2. Numerous gallstones incidentally noted. 3. Multilevel degenerative disc disease. If there is continuing pain or concern for disc herniation M RI could be performed of the lumbar spine.
--- NOTE | 2016-12-17 10:00 | P.ARTDOP ---
Arterial Doppler LOWER EXTREMITY ARTERIAL DOPPLER: DATE OF SERVICE: 12/12/2016 Reason for study: Left leg pain with walking. Doppler waveforms: Multiphasic bilaterally throughout. Pulse volume recording: Blunted at the low thigh through the ankle. Pressure gradients: Mild gradient above the low thigh and another mild gradient below the knee.. Ankle-brachial indices: Greater than 1 on the right. 0.68 on the left.. Toe pressures: [] on the right, [] on the left Impression: Moderate left fem-pop disease..
== END | disposition home or self-care (01) ==
LOC: RADUSWWP 14:03
PROVIDERS: ATTEND Family Medicine
DX: I70.213 Atherosclerosis of native arteries of extremities with intermittent claudication, bilateral legs (principal); M25.552 Pain in left hip; R52 Pain, unspecified
CPT/HCPCS: 72100; 73502; 93923

== ENCOUNTER 2017-01-01 07:44 | Observation (INO) | payer OTHER, BC, MEDICARE ==
[2016-12-24 09:07] VITALS: BMI 34.4
[~2017-01-01 07:44] MED LIST: HEPARIN SODIUM,PORCINE 5,000 UNIT/ML 1 ML VIAL SQ ONE; LACTATED RINGERS 1,000 ML IV SCH; MIDAZOLAM 2 MG/2 ML VIAL IV PRN; MORPHINE SULFATE 2 MG/ML SYRINGE IV PRN; ONDANSETRON 4 MG/2 ML VIAL IVP PRN; Pre Op ABX Message 1 EACH MISC MISCELLANE ONE
[2017-01-01 08:28] LABS: Glucose,Whole Blood 104 mg/dL (75-99)
--- NOTE | 2017-01-01 09:14 | P.GSHP ---
History of Present Illness H&P Date: 01/01/17 Chief Complaint: Left thyroid nodule 's is a 66-year-old female referred from Dr. Jet Campo. Patient presents today for left thyroidectomy. She has developed an enlarging nodule left thyroid. Patient feels compression on her left neck. Patient underwent fine- needle aspiration is found to have a follicular lesion. The nodule measures approximately 2.7 cm. The patient is aware of risk of surgery including recurrent laryngeal nerve injury and parathyroid gland injury. She is also aware of the risk of local cord hoarseness and paralysis. Past Medical History Past Medical History: Atrial Fibrillation, Atrial Flutter, Asthma, Coronary Artery Disease (CAD), Heart Failure, COPD, Diabetes Mellitus, Deep Vein Thrombosis (DVT), GERD/Reflux, Hyperlipidemia, Hypertension, Pneumonia, Seizure Disorder, Thyroid Disorder Additional Past Medical History / Comment(s): NIDDM type II-checks blood sugars , does not take diabetic meds. 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 Anthony Edmonds 12-23-16 and states she may need surgery on her L leg due to a clot. Has not taken her Eliquis for 1 yr. Patient also has electrodes for a Loop recorder & states it needs to be removed. He mobile ui/ux designer is in [place] & has not seen him in a couple of years. History of Any Multi-Drug Resistant Organisms: None Reported Past Surgical History: Breast Surgery, Heart Catheterization Additional Past Surgical History / Comment(s): L breast biopsy-twice and benign , L parotid gland bx-benign, colonoscopy-normal, bilateral cataract removals with lens implants. L Thyroid bx. Past Anesthesia/Blood Transfusion Reactions: No Reported Reaction Smoking Status: Current every day smoker - Past Family History Mother Additional Family Medical History / Comment(s): Mother of sepsis at the age of 63 yrs. Father Family Medical History: Myocardial Infarction (NH) Additional Family Medical History / Comment(s): Father during a carotid endartectomy. Medications and Allergies Home Medications Medication Instructions Recorded Confirmed Type Albuterol Inhaler [Ventolin Hfa 3 puff INHALATION RT-Q8H PRN 10/08/16 01/01/17 History Inhaler] Albuterol Nebulized [Ventolin 2.5 mg INHALATION RT-DAILY PRN 10/08/16 01/01/17 History Nebulized] Fluticasone/Vilanterol [Breo 1 puff INHALATION RT-DAILY 10/08/16 01/01/17 History Ellipta 200-25 Mcg INH] Ibuprofen 800 mg PO Q6HR PRN #20 tablet 10/08/16 01/01/17 Rx Hydrocodone/Acetaminophen [Iuka 1 tab PO Q6HR PRN 10/27/16 01/01/17 History 5-325] Gabapentin [Neurontin] 300 mg PO HS #30 cap 10/30/16 01/01/17 Rx amLODIPine [Norvasc] 5 mg PO DAILY #30 tab 10/30/16 01/01/17 Rx Apixaban [Eliquis] 2.5 mg PO DAILY 01/01/17 01/01/17 History Aspirin 81 mg PO DAILY 01/01/17 01/01/17 History Allergies Allergy/AdvReac Type Severity Reaction Status Date / Time latex Allergy Rash/Hives Verified 01/01/17 08:14 Penicillins Allergy Rash/Hives Verified 01/01/17 08:14 Sulfa (Sulfonamide Allergy Rash/Hives Verified 01/01/17 08:14 Antibiotics) Surgical - Exam Vital Signs Temp Pulse Resp BP Pulse Ox 98 F 79 16 131/69 98 01/01/17 08:14 01/01/17 08:14 01/01/17 08:14 01/01/17 08:14 01/01/17 08:14 - General well developed, no distress - Eyes PERRL - ENT normal pinna - Neck Enlarged left thyroid gland - Respiratory normal expansion - Cardiovascular Rhythm: regular - Abdomen Abdomen: soft, non tender Results - Labs Abnormal Lab Results - Last 24 Hours (Table) 01/01/17 Range/Units 08:20 POC Glucose (mg/dL) 104 H (75-99) mg/dL Diabetes panel 01/01/17 Range/Units 08:27 Calcium 9.1 (8.4-10.2) mg/dL Calcium panel 01/01/17 Range/Units 08:27 Calcium 9.1 (8.4-10.2) mg/dL Pituitary panel 01/01/17 Range/Units 08:27 Calcium 9.1 (8.4-10.2) mg/dL Adrenal panel 01/01/17 Range/Units 08:27 Calcium 9.1 (8.4-10.2) mg/dL Assessment and Plan Assessment: Left thyroid 2.7 cm follicular nodule. We'll perform left thyroidectomy.
[2017-01-01] MEDS ORDERED: CLINDAMYCIN 600 MG in DEXTROSE 5% IN WATER 50 ML IVPB STA ×2 (09:20)
[2017-01-01] MEDS ORDERED: fentaNYL (PF) 50 MCG/ML 2 ML AMP ONE (09:26)
[2017-01-01] MEDS ORDERED: SUCCINYLCHOLINE CHLORIDE 100 MG/5 ML SYR IV ONE (09:26)
[2017-01-01] MEDS ORDERED: GLYCOPYRROLATE 0.2 MG/ML 2 ML VIAL ONE (09:26)
[2017-01-01] MEDS ORDERED: NEOSTIGMINE 1 MG/ML 10 ML VIAL ONE (09:26)
[2017-01-01] MEDS ORDERED: METOPROLOL TARTRATE 5 MG/5 ML VIAL IVP ONE (09:26)
[2017-01-01] MEDS ORDERED: PROPOFOL 10 MG/ML 20 ML VIAL IV ONE (09:26)
[2017-01-01] MEDS ORDERED: ROCURONIUM BROMIDE 10 MG/ML 10 ML VIAL IV ONE (09:26)
[2017-01-01] MEDS ORDERED: MIDAZOLAM 2 MG/2 ML VIAL ONE (09:26)
[2017-01-01] MEDS ORDERED: ePHEDrine SULFATE/0.9% NACL/PF 50 MG/5 ML SYRINGE IV ONE (09:26)
[2017-01-01] MEDS ORDERED: LIDOCAINE 2%-EPI 1:100,000 20 ML VIAL SQ ONE (10:56)
--- NOTE | 2017-01-01 11:07 | P.OP ---
Date of Procedure: 01/01/17 Preoperative Diagnosis: Left thyroid nodule Postoperative Diagnosis: Left thyroid nodule Procedure(s) Performed: Left thyroidectomy Anesthesia: ESTELLE Surgeon: Ty Andrew Estimated Blood Loss (ml): 25 Pathology: other (Left thyroid lobe) Condition: stable Disposition: PACU Description of Procedure: The patient's placed on the operating table in the supine position. She received general anesthesia. Her neck was prepped and draped in usual sterile fashion. The patient's placed in the beach chair position with her neck extended. A standard [place] incision was made on the neck." Using electrocautery the subcutaneous tissues and the platysma was divided. The strap muscles were divided in the midline. Using Argueta retractors the left thyroid gland was exposed. Using blunt and gentle dissection the thyroid gland was dissected laterally and then the superior thyroid area was dissected. Using a right angle clamp the superior thyroidal vessels were isolated and then a 2-0 silk sutures placed around the superior thyroid vessels. 2 sutures were used to ligate the superior thyroid vessels. In the vessels were divided with the Harmonic scissors. Next the inferior thyroid vessels were divided using 3-0 silk ties. And the Harmonic scissors used to divide the vessels. The gland was rotated medially. Using meticulous dissection the recurrent laryngeal nerve was visualized in the tracheoesophageal groove. The thyroid gland was then dissected off the trachea. Several small vessels were ligated with 3-0 silk sutures. Care was taken to identify and preserve the recurrent laryngeal nerve. The thyroid was then taken off the trachea using the Harmonic scissors. And then the isthmus was divided with the Harmonic scissors. The parathyroid glands were not visualized dissection. The specimens of pathology. There was no bleeding seen. The wound was irrigated with saline. No bleeding seen. The strap muscles were then reapproximated in the midline using 3-0 Vicryl suture. Platysma was reapproximated with 3-0 Vicryl suture. Skin was closed with interrupted 3-0 Monocryl suture. Dermabond was applied. Patient sent to recovery room stable condition.
[2017-01-01] MEDS ORDERED: NALOXONE 0.4 MG/ML 1 ML VIAL IV PRN (11:08)
[2017-01-01] MEDS ORDERED: ONDANSETRON 4 MG/2 ML VIAL IVP PRN (11:08)
[2017-01-01] MEDS ORDERED: HYDROcodone/APAP 5-325MG 1 EACH TAB PO PRN (11:08)
[2017-01-01] MEDS ORDERED: LACTATED RINGERS 1,000 ML IV ONE (11:08)
[2017-01-01] MEDS ORDERED: HYDROmorphone 1 MG/ML 1 ML SYRINGE IVP ONE ×3 (11:15→11:43)
[2017-01-01] MEDS ORDERED: ENALAPRILAT 1.25 MG/ML 1 ML VIAL IVP ONE (11:44)
[2017-01-01] MEDS ORDERED: hydrALAZINE HCL 20 MG/ML 1 ML VIAL IVP ONE (11:45)
[2017-01-01 12:02] LABS: Glucose,Whole Blood 145 mg/dL (75-99)
[2017-01-01] MEDS ORDERED: ALBUTEROL NEBULIZED 2.5 MG/3 ML INHALATION PRN (17:13)
[2017-01-01] MEDS ORDERED: ALBUTEROL INHALER 60 PUFF/8 GM INHALER INHALATION PRN (17:13)
[2017-01-01] MEDS: HYDROmorphone 0.5 MG/0.5 ML SYRINGE IVP PRN (20:31)
[2017-01-01] MEDS: DOCUSATE 100 MG CAP PO SCH (20:32)
--- NOTE | 2017-01-01 20:44 | CONS ---
CONSULTATION DATE OF SERVICE: 01/01/2017. HISTORY OF PRESENT ILLNESS: Patient is a 66-year-old -[place] female who underwent a partial thyroidectomy of the left lobe of the thyroid today and we are seeing her postop for medical management. PAST MEDICAL HISTORY: Significant for asthma, COPD, coronary artery disease, obesity, hypertension, headaches and A. fib. PAST SURGICAL HISTORY: Significant for a stent, breast biopsy and a pacemaker. ALLERGIES: INCLUDE LATEX, PENICILLIN AND SULFA. HOME MEDICATIONS: Include: 1. Norvasc 5 mg daily. 2. Ibuprofen 800 mg p.o. every 6 hours p.r.n. 3. Bristow 5/325 1 tab every 6 hours p.r.n. 4. Neurontin 300 mg p.o. q.h.s. 5. Breo 1 puff daily. 6. Aspirin 81 mg daily. 7. Eliquis 2.5 mg daily. 8. Ventolin 2.5 mg via nebulizer daily p.r.n. and. 9. Ventolin inhaler 3 puffs q.8 hours p.r.n. FAMILY HISTORY: Mother of sepsis at the age of 63. Father had an HI and during a carotid endarterectomy. SOCIAL HISTORY: Patient does have history of smoking, continues to smoke 6 cigarettes a day x40 years. Drinks alcohol occasionally. Denies any illicit drug use. REVIEW OF SYSTEMS: CONSTITUTIONAL: Negative for any fever or chills. HEENT: Negative. RESPIRATORY: Negative, although patient does have a history of asthma and COPD, which are stable. CARDIOVASCULAR: Negative. GI: Negative. : Negative. ENDOCRINE: Status post partial thyroidectomy. MUSCULOSKELETAL: Negative. NEUROLOGIC: Patient denies any seizures, is negative. PSYCHIATRIC: Negative. PHYSICAL EXAM: GENERAL: A pleasant 66-year-old female who is awake and alert. VITAL SIGNS: Temp is 97.9, heart rate is 87, respiratory rate 16, blood pressure is 174/86, O2 sats 97% on 3L O2 via nasal cannula. HEENT: Head is normocephalic, atraumatic. Pupils equal, round, react to light. Ears and nose: No discharge is noted. Mouth with moist mucous membranes. NECK: Supple. No dressing or drainage at the incision site. LUNGS: With decreased breath sounds and a prolonged expiratory phase. No clear rales or wheezes. HEART: S1, S2 are heard. Not tachycardic. ABDOMEN: Soft. Bowel sounds are heard. EXTREMITIES: With no edema. NEUROLOGIC: Patient is awake and alert. LABS: Glucose is 104 and 145, respectively. Calcium is 9.1. No imaging to review. IMPRESSION: 1. Left thyroid nodule, status post left thyroidectomy. 2. History of asthma and chronic obstructive pulmonary disease, stable. 3. Mild obstructive sleep apnea, recently diagnosed. No titration study has been done as of yet. PLAN: Continue IV fluids and diet per surgery. Continue pain meds. Continue GI and DVT prophylaxis. Will add DuoNeb p.r.n. shortness of breath or wheezing. Will re-evaluate and start patient on home meds in the morning, at which time I would expect patient will probably discharge home. Will follow patient closely with you, making further changes as necessary. Smoking cessation is highly recommended. Thank you for the consultation. I performed a History & Physical Examination of the patient and discussed their management with nurse practitioner. I reviewed the nurse practitioner's note and agree with the documented findings and plan of care. MMODL / IJN: [id number] /
[2017-01-01] MEDS ORDERED: GABAPENTIN 300 MG CAP PO SCH (21:00)
[2017-01-02] MEDS: HYDROmorphone 0.5 MG/0.5 ML SYRINGE IVP PRN (06:47)
[2017-01-02 07:02] LABS: Basophils % (A) 0 %; CH 30.4; CHCM 30.6; Eosinophils # (A) 0.2 k/uL (0-0.7); Eosinophils % (A) 2 %; HCT 44.9 % (34.0-46.0); HGB 13.8 gm/dL (11.4-16.0); Hypochromasia Slight; Luc # (Auto) 0.09; Luc % (Auto) 1; Lymphocytes # (A) 1.5 k/uL (1.0-4.8); Lymphocytes % (A) 19 %; MCH 30.8 pg (25.0-35.0); MCHC 30.8 g/dL (31.0-37.0); MCV 99.9 fL (80.0-100.0); Mean Platelet Volume 8.3; Monocytes # (A) 0.5 k/uL (0-1.0); Monocytes % (A) 6 %; Neutrophils # (A) 5.6 k/uL (1.3-7.7); Neutrophils % (A) 72 %; RBC 4.49 m/uL (3.80-5.40); RDW 12.3 % (11.5-15.5); WBC 7.8 k/uL (3.8-10.6); WBC (Perox) 8.35
[2017-01-02] MEDS ORDERED: PANTOPRAZOLE 40 MG TABLET PO SCH (07:30)
[2017-01-02] MEDS ORDERED: SYMBICORT 160-4.5 MCG INHALER INHALATION SCH (08:00)
[2017-01-02 08:08] VITALS: RESP 20
[2017-01-02] MEDS ORDERED: amLODIPine 5 MG TAB PO SCH (09:00)
[2017-01-02] MEDS ORDERED: ENOXAPARIN 40 MG/0.4 ML SYRINGE SQ SCH (09:00)
[2017-01-02] MEDS: DOCUSATE 100 MG CAP PO SCH (09:23)
[2017-01-02 09:59] LABS: ALT 22 U/L (9-52); AST 28 U/L (14-36); Alkaline Phosphatase 60 U/L (38-126); Anion Gap 9 mmol/L; Blood Urea Nitrogen 9 mg/dL (7-17); Carbon Dioxide 24 mmol/L (22-30); Chloride 106 mmol/L (98-107); Glucose 100 mg/dL (74-99); Magnesium 1.6 mg/dL (1.6-2.3); Non-African American GFR(MDRD) >60 (>60 ml/min/1.73 sqM); Potassium 4.3 mmol/L (3.5-5.1); Sodium 139 mmol/L (137-145); Total Bilirubin 0.8 mg/dL (0.2-1.3); Total Protein 6.7 g/dL (6.3-8.2)
[2017-01-02] MEDS: ACETAMINOPHEN TAB 325 MG TAB PO PRN ×2 (11:02→16:46)
--- NOTE | 2017-01-02 11:05 | PN ---
PROGRESS NOTE DATE OF SERVICE: 01/02/2017 Patient is a 66-year-old female who is status post left thyroidectomy. Patient is seen lying in bed, sleeping but easily arousable. Does fall back to sleep rather quickly. Received Dilaudid just prior to my evaluation and nursing states the patient does fall asleep rather quickly after the pain medications. Patient is hemodynamically stable, afebrile, in no acute distress. Patient with tremors to the bilateral arms, reported by nursing as well, but does have a negative Chvostek sign and calcium is in the normal range. PHYSICAL EXAM: VITAL SIGNS: Temp is 97.6, heart rate is 88, respiratory rate is 20, blood pressure is 139/78, O2 sats 97% on 2 L O2 via nasal cannula. HEENT: Head is normocephalic, atraumatic. Neck is supple. Trachea is in the midline. Incision to the neck is clean, dry, and intact. No drainage or redness is noted. Lungs with decreased breath sounds. No clear rales or wheezes. HEART: S1, S2 are heard. Not tachycardic. ABDOMEN: Soft. Bowel sounds are heard. Extremities with no edema. NEUROLOGIC: Patient is awake and alert. LABS: White count 7.8, hemoglobin is 13.8, hematocrit is 44.9 with 156,000 platelets. Sodium is 139, potassium is 4.3, chloride is 106, CO2 is 24, anion gap is 9, BUN is 9, creatinine 0.84, glucose is 100, calcium is 9.0, magnesium is 1.6, total bilirubin 0.8, AST is 29, ALT is 22, alk phos is 60, total protein 6.7, albumin is 3.8. No new imaging to review. IMPRESSION: 1. Left thyroid nodule status post left thyroidectomy. 2. History of asthma and chronic obstructive pulmonary disease, stable. 3. Mild obstructive sleep apnea. PLAN: Continue current medications which have been reviewed. IV pain medications have been stopped by Surgery. Patient will receive oral pain meds if needed. Patient is to increase activity and ambulate out in the hallway and the expectation is that patient will discharge home later on today. Smoking cessation again is highly recommended. Will follow patient closely making further changes as necessary. MMODL / IJN: [id number] /
[2017-01-02] MEDS: MAGNESIUM SULFATE-D5W PMX 1 GM in DEXTROSE/WATER 1 100ML.BAG IVPB SCH ×3 (11:44→14:52)
--- NOTE | 2017-01-02 11:46 | P.DS ---
Providers Date of admission: 01/02/17 07:00 Expected date of discharge: 01/02/17 Attending physician: Ty Andrew Consults: 01/01/17 11:08 Consult Physician Routine Consulting Provider: Jet Edmonds Reason/Comments: Medical management Do you want consulting provider notified?: Yes Primary care physician: [facility] Course: 66-year-old female presented on elective basis to undergo a left thyroidectomy for enlarging nodule left thyroid nodule measured 2.7 cm. Patient had undergone a fine-needle aspiration of the thyroid nodule was found to have a follicular lesion.. Postop the magnesium level was 1.6 in which replacement was given. Postop patient did develop after being given IV dilaudid twitching movement to the right upper extremity. Which resolved at the time of discharge patient was felt to be hemodynamically stable and appropriate proceed with a discharge home care was set up per patient request Impression discharge diagnosis Known enlarging nodule left thyroid Postop left thyroidectomy for enlarging left thyroid nodule Type 2 diabetes History of a DVT History of paroxysmal atrial fibrillation on elquis Hypo-magnesium Mild obstructive sleep apnea recently diagnosed History of asthma stable no evidence of acute exacerbation chronic nicotine dependency current The above impression and plan of care have been discussed and directed by signing physician. Nasima Myles nurse practitioner acting as scribe for signing physician. Plan - Discharge Summary Discharge Rx Participant: Yes New Discharge Prescriptions: No Action Albuterol Nebulized [Ventolin Nebulized] 2.5 mg INHALATION RT-DAILY PRN PRN Reason: Shortness Of Breath Albuterol Inhaler [Ventolin Hfa Inhaler] 3 puff INHALATION RT-Q8H PRN PRN Reason: Shortness Of Breath Fluticasone/Vilanterol [Breo Ellipta 200-25 Mcg INH] 1 puff INHALATION RT- DAILY Ibuprofen 800 mg PO Q6HR PRN #20 tablet PRN Reason: Pain Hydrocodone/Acetaminophen [Thornton 5-325] 1 tab PO Q6HR PRN PRN Reason: Pain amLODIPine [Norvasc] 5 mg PO DAILY #30 tab Gabapentin [Neurontin] 300 mg PO HS #30 cap Aspirin 81 mg PO DAILY Apixaban [Eliquis] 2.5 mg PO DAILY Discharge Medication List Albuterol Inhaler [Ventolin Hfa Inhaler] 3 puff INHALATION RT-Q8H PRN 10/08/16 [ History] Albuterol Nebulized [Ventolin Nebulized] 2.5 mg INHALATION RT-DAILY PRN [History] Fluticasone/Vilanterol [Breo Ellipta 200-25 Mcg INH] 1 puff INHALATION RT-DAILY 10/08/16 [History] Ibuprofen 800 mg PO Q6HR PRN #20 tablet 10/08/16 [Rx] Hydrocodone/Acetaminophen [Thornton 5-325] 1 tab PO Q6HR PRN 10/27/16 [History] Gabapentin [Neurontin] 300 mg PO HS #30 cap 10/30/16 [Rx] amLODIPine [Norvasc] 5 mg PO DAILY #30 tab 10/30/16 [Rx] Apixaban [Eliquis] 2.5 mg PO DAILY 01/01/17 [History] Aspirin 81 mg PO DAILY 01/01/17 [History] Follow up Appointment(s)/Referral(s): Ty Andrew MD [STAFF PHYSICIAN] - 01/06/17 Patient Instructions/Handouts: Partial Thyroidectomy (DC) Activity/Diet/Wound Care/Special Instructions: No lifting over 5 pounds Shower daily Notify the attending of any facial numbness tingling change in voice Discharge Disposition: HOME WITH HOME HEALTH SERVICES
[2017-01-02 15:59] VITALS: BP 136/63; PULSE 95; TEMP 98.4
== END 2017-01-02 17:55 | disposition home health service (06) ==
LOC: OR 07:44 → 6PED 11:13 → OR 01-02 07:00
PROVIDERS: ADMIT Surgery; ATTEND Surgery
DX: E04.9 Nontoxic goiter, unspecified (principal); E04.1 Nontoxic single thyroid nodule; E11.9 Type 2 diabetes mellitus without complications; E78.5 Hyperlipidemia, unspecified; I48.0 Paroxysmal atrial fibrillation; J44.9 Chronic obstructive pulmonary disease, unspecified; I25.10 Atherosclerotic heart disease of native coronary artery without angina pectoris; K21.9 Gastro-esophageal reflux disease without esophagitis; I11.0 Hypertensive heart disease with heart failure; G40.909 Epilepsy, unspecified, not intractable, without status epilepticus; F17.210 Nicotine dependence, cigarettes, uncomplicated; E66.9 Obesity, unspecified; I50.9 Heart failure, unspecified; Z82.49 Family history of ischemic heart disease and other diseases of the circulatory system; Z86.718 Personal history of other venous thrombosis and embolism; Z79.51 Long term (current) use of inhaled steroids; Z79.82 Long term (current) use of aspirin; Z79.899 Other long term (current) drug therapy; Z88.0 Allergy status to penicillin; Z88.2 Allergy status to sulfonamides; Z91.040 Latex allergy status; Z68.34 Body mass index [BMI] 34.0-34.9, adult; Z95.0 Presence of cardiac pacemaker; Z95.5 Presence of coronary angioplasty implant and graft; G47.33 Obstructive sleep apnea (adult) (pediatric); R25.1 Tremor, unspecified; E83.42 Hypomagnesemia; M50.90 Cervical disc disorder, unspecified, unspecified cervical region
CPT/HCPCS: 94640; 97162; 80053; 82310; 83735; 85025; 88307; 60220; G0378; J2250; J0360; J1644; J2710; J2405; J1650; J3010; J1170 ×3; J3475; J0330; J2704

== ENCOUNTER → 2017-01-20 | Outpatient (CLI) | payer BC, MEDICARE ==
--- NOTE | 2017-01-20 16:46 | BD ---
EXAMINATION TYPE: MG DEXA axial skeleton. DATE OF EXAM: 01/20/2017 COMPARISON: NONE CLINICAL HISTORY: 66-year-old female postmenopausal screening Height: 60 Weight: 180.2 FRAX RISK QUESTIONS: Alcohol (3 or more units per day): no Family History (Parent hip fracture): no Glucocorticoids (More than 3mos): no (Ex: prednisone, prednisolone, methylprednisolone, dexamethasone, and hydrocortisone). History of Fracture in Adulthood: no Secondary Osteoporosis: 1. Type 1 Diabetes: no 2. Hyperthyroidism: no 3. Menopause before 45: yes 4. Malnutrition: no 5. Chronic liver disease: no Rheumatoid Arthritis: no Current Tobacco Use: yes RISK FACTORS HISTORY OF: Hip Fracture (Right/Left): no Spine Fracture: no History of Wrist Fracture: no Surgery to Spine/Hip(right/left)/Wrist (right/left): no Family History of Osteoporosis: yes Active: yes Diet low in dairy products/other sources of calcium: yes Postmenopausal woman: age 37 Lost more than 2 inches in height since high school: no Frequent falls: no Poor Health: no Hyperparathyroidism: no Adrenal Insufficiency: no MEDICATIONS: blood thinner, neuropathy , bp meds Additional History: EXAM MEASUREMENTS: Bone mineral densitometry was performed using the [employer] System. Bone mineral density as measured about the Lumbar spine is: ----- L1-L4(G/cm2): 1.295 T Score Values are as follows: ----- L2: 0.6 ----- L3: 2.2 ----- L4: 0.3 ----- L1-L4: 1.0 Bone mineral density baseline Bone mineral density about the R hip (g/cm2): 0.862 Bone mineral density about the L hip (g/cm2): 0.892 T Score values are as follows: -----R Neck: -1.3 -----L Neck: -1.0 -----R Total: -0.6 -----L Total: -0.1 Bone mineral density baseline IMPRESSION: Osteopenia (T Score between -2.5 and -1 as noted by T score values There is slightly increased risk of fracture and the patient may be considered for treatment. Re-Screen 2-5 years. NOTE: T-SCORE=SD OF THE YOUNG ADULT MEAN.
--- NOTE | 2017-01-21 10:15 | MM ---
Reason for exam: screening (asymptomatic). Last mammogram was performed 3 years ago. History: Patient is postmenopausal. Family history of breast cancer in mother at age 52 and breast cancer in aunt at age 68. Benign US LT VAD breast biopsy of the left breast, November 05, 2011. Physical Findings: A clinical breast exam by your physician is recommended on an annual basis and results should be correlated with mammographic findings. MG 3D Screening Mammo W/Cad Bilateral CC and MLO view(s) were taken. Prior study comparison: January 30, 2014, bilateral MG diagnostic mammo w CAD ABDULAZIZ. January 26, 2013, CAD bilateral diagnostic mammogram. Finding: There is a typically benign, stable mass in the left breast back to 2012. No suspicious abnormality. Cardiac implantable device partially obscured the lower inner quadrant on the left. No significant changes in finding since January 30, 2014 and January 26, 2013. ASSESSMENT: Benign, BI-RAD 2 RECOMMENDATION: Routine screening mammogram of both breasts in 1 year.
== END | disposition home or self-care (01) ==
LOC: RADMAMWWP 14:30
PROVIDERS: ATTEND Family Medicine
DX: Z12.31 Encounter for screening mammogram for malignant neoplasm of breast (principal); N95.1 Menopausal and female climacteric states; M85.88 Other specified disorders of bone density and structure, other site; Z80.3 Family history of malignant neoplasm of breast
CPT/HCPCS: 77080; 77063; G0202

== ENCOUNTER 2017-05-10 11:59 | Inpatient (IN) | payer BC, MEDICARE ==
--- NOTE | 2017-05-10 13:31 | XR ---
EXAMINATION TYPE: XR chest 2V DATE OF EXAM: 05/10/2017 COMPARISON: 10/19/2016 HISTORY: Flulike symptoms, cough TECHNIQUE: Frontal and lateral views of the chest are obtained. FINDINGS: There is a new right basilar patchy opacity that although is not well visualized on the la teral image is suspicious for early developing pneumonia in addition to vascular engorgement. Remaind er the lungs are clear Left-sided cardiac device is noted. Minimal multilevel degenerative changes of the thoracic spine. Cardiomediastinal silhouette is within normal limits. IMPRESSION: Patchy right basilar opacity suspicious for early developing pneumonia. Central vascular engorgement may represent early volume overload.
[2017-05-10] MEDS ORDERED: IPRATROPIUM-ALBUTEROL 3 ML NEB INHALATION STA ×2 (13:39→14:35)
[2017-05-10] MEDS ORDERED: ACETAMINOPHEN TAB 500 MG TAB PO STA (13:39)
[2017-05-10] MEDS ORDERED: SODIUM CHLORIDE 0.9% 1,000 ML IV STA (14:36)
[2017-05-10] MEDS ORDERED: cefTRIAXone IN SWFI 1,000 MG/10 ML SYRINGE IVP STA (14:38)
[2017-05-10 15:16] LABS: Basophils % (A) 1 %; Eosinophils # (A) 0.1 k/uL (0-0.7); Eosinophils % (A) 2 %; HCT 37.5 % (34.0-46.0); HGB 12.5 gm/dL (11.4-16.0); Lymphocytes % (A) 25 %; MCH 30.9 pg (25.0-35.0); MCHC 33.4 g/dL (31.0-37.0); MCV 92.6 fL (80.0-100.0); Mean Platelet Volume 8.2; Monocytes # (A) 0.3 k/uL (0-1.0); Monocytes % (A) 7 %; Neutrophils # (A) 2.5 k/uL (1.3-7.7); Neutrophils % (A) 64 %; Platelet Count 141 k/uL (150-450); RBC 4.05 m/uL (3.80-5.40); RDW 12.7 % (11.5-15.5); WBC 3.9 k/uL (3.8-10.6)
--- NOTE | 2017-05-10 15:18 | ED ---
General Adult HPI - General Chief complaint: Upper Respiratory Infection Stated complaint: possible flu Time Seen by Provider: 05/10/17 13:27 Source: patient, RN notes reviewed Mode of arrival: ambulatory Limitations: no limitations - History of Present Illness Initial comments: Patient 66-year-old female who presents emergency room today with a chief complaint of cough congestion with body aches times one day. She does admit that her symptoms started yesterday. She does admit to chills and also feeling sweaty at times. She states she's had body aches throughout the body. She states she took some NyQuil to help sleep at night. Patient denies any other complaints. Patient does admit to a history of COPD. Patient states she's used breathing treatments at home. She does admit to sputum production that is currently clear in color. Patient denies any recent shortness of breath, chest pain, back pain, abdominal pain, nausea or vomiting, numbness or tingling, dysuria or hematuria, constipation or diarrhea, headaches or visual changes, or any other complaints. - Related Data Home Medications Medication Instructions Recorded Confirmed Fluticasone/Vilanterol [Breo 1 puff INHALATION RT-BID 10/08/16 05/10/17 Ellipta 200-25 Mcg INH] Apixaban [Eliquis] 2.5 mg PO DAILY 01/01/17 05/10/17 Aspirin 81 mg PO DAILY 01/01/17 05/10/17 Atorvastatin [Lipitor] 40 mg PO HS 05/10/17 05/10/17 Metoprolol Tartrate [Lopressor] 25 mg PO BID 05/10/17 05/10/17 Umeclidinium Hancock [Incruse 1 puff INHALATION RT-DAILY 05/10/17 05/10/17 Ellipta] glipiZIDE [Glucotrol] 2.5 mg PO AC-BID 05/10/17 05/10/17 traMADol HCL [Ultram] 50 mg PO DAILY PRN 05/10/17 05/10/17 Previous Rx's Medication Instructions Recorded Gabapentin [Neurontin] 300 mg PO HS #30 cap 10/30/16 Allergies Allergy/AdvReac Type Severity Reaction Status Date / Time latex Allergy Rash/Hives Verified 05/10/17 13:33 Penicillins Allergy Rash/Hives Verified 05/10/17 13:33 Sulfa (Sulfonamide Allergy Rash/Hives Verified 05/10/17 13:33 Antibiotics) Review of Systems ROS Statement: Those systems with pertinent positive or pertinent negative responses have been documented in the HPI. ROS Other: All systems not noted in ROS Statement are negative. Past Medical History Past Medical History: Atrial Fibrillation, Atrial Flutter, Asthma, Coronary Artery Disease (CAD), Heart Failure, COPD, Diabetes Mellitus, Deep Vein Thrombosis (DVT), GERD/Reflux, Hyperlipidemia, Hypertension, Pneumonia, Seizure Disorder, Thyroid Disorder Additional Past Medical History / Comment(s): NIDDM type II-checks blood sugars , does not take diabetic meds. 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 Anthony Edmonds 12-23-16 and states she may need surgery on her L leg due to a clot. Has not taken her Eliquis for 1 yr. Patient also has electrodes for a Loop recorder & states it needs to be removed. He tester electronic scale is in [place] & has not seen him in a couple of years. History of Any Multi-Drug Resistant Organisms: None Reported Past Surgical History: Breast Surgery, Heart Catheterization Additional Past Surgical History / Comment(s): L breast biopsy-twice and benign , L parotid gland bx-benign, colonoscopy-normal, bilateral cataract removals with lens implants. L Thyroid bx. Past Anesthesia/Blood Transfusion Reactions: No Reported Reaction Past Psychological History: No Psychological Hx Reported Smoking Status: Current every day smoker Past Alcohol Use History: None Reported Past Drug Use History: None Reported - Past Family History Mother Additional Family Medical History / Comment(s): Mother of sepsis at the age of 63 yrs. Father Family Medical History: Myocardial Infarction (HI) Additional Family Medical History / Comment(s): Father during a carotid endartectomy. General Exam - General Exam Comments Initial Comments: General: The patient is awake and alert, in no distress, and does not appear acutely ill. Eye: Pupils are equal, round and reactive to light, extra-ocular movements are intact. No nystagmus. There is normal conjunctiva bilaterally. No signs of icterus. Ears, nose, mouth and throat: There are moist mucous membranes and no oral lesions. Neck: The neck is supple, there is no tenderness or JVD. Cardiovascular: There is a regular rate and rhythm. No murmur, rub or gallop is appreciated. Respiratory: Bilateral expiratory wheeze. respirations are non-labored, breath sounds are equal. No stridor, rales, or rhonchi. Musculoskeletal: Normal ROM, no tenderness. Strength 5/5. Sensation intact. Pulses equal bilaterally 2+. Neurological: A&O x 3. CN II-XII intact, There are no obvious motor or sensory deficits. Coordination appears grossly intact. Speech is normal. Skin: Skin is warm and dry and no rashes or lesions are noted. Psychiatric: Cooperative, appropriate mood & affect, normal judgment. Limitations: no limitations Course Vital Signs 05/10/17 05/10/17 05/10/17 12:03 13:30 13:47 Temperature 98.5 F Pulse Rate 101 H 87 Respiratory 18 18 16 Rate Blood Pressure 144/67 O2 Sat by Pulse 97 Oximetry 05/10/17 05/10/17 05/10/17 13:57 14:25 15:17 Temperature 99.0 F Pulse Rate 89 87 90 Respiratory 16 18 Rate Blood Pressure 147/66 O2 Sat by Pulse 96 Oximetry 05/10/17 15:25 Temperature Pulse Rate 90 Respiratory Rate Blood Pressure O2 Sat by Pulse Oximetry Medical Decision Making - Medical Decision Making Patient reexamined at this time showing no signs of distress. Does admit to improvement after breathing treatment. Chest x-ray does show a developing pneumonia on the right lower. Influenza negative. Patient negative lactic acid. Patient does admit to a history of double pneumonia. States she had a be admitted to the past. States that she lives by herself at home. Patient started on Rocephin here in the emergency room also will be continued on breathing treatments. - Lab Data Result diagrams: 05/10/17 15:03 05/10/17 15:03 Lab Results 05/10/17 05/10/17 05/10/17 Range/Units 13:04 15:03 15:03 WBC 3.9 (3.8-10.6) k/uL RBC 4.05 (3.80-5.40) m/uL Hgb 12.5 (11.4-16.0) gm/dL Hct 37.5 (34.0-46.0) % MCV 92.6 (80.0-100.0) fL MCH 30.9 (25.0-35.0) pg MCHC 33.4 (31.0-37.0) g/dL RDW 12.7 (11.5-15.5) % Plt Count 141 L (150-450) k/uL Neutrophils % 64 % Lymphocytes % 25 % Monocytes % 7 % Eosinophils % 2 % Basophils % 1 % Neutrophils # 2.5 (1.3-7.7) k/uL Lymphocytes # 1.0 (1.0-4.8) k/uL Monocytes # 0.3 (0-1.0) k/uL Eosinophils # 0.1 (0-0.7) k/uL Basophils # 0.0 (0-0.2) k/uL Sodium 140 (137-145) mmol/L Potassium 3.5 (3.5-5.1) mmol/L Chloride 105 (98-107) mmol/L Carbon Dioxide 27 (22-30) mmol/L Anion Gap 8 mmol/L BUN 11 (7-17) mg/dL Creatinine 0.80 (0.52-1.04) mg/dL Est GFR (CKD-EPI)AfAm 89 (>60 ml/min/1.73 sqM) Est GFR (CKD-EPI)NonAf 77 (>60 ml/min/1.73 sqM) Glucose 99 (74-99) mg/dL Plasma Lactic Acid Gallo (0.7-2.0) mmol/L Calcium 8.9 (8.4-10.2) mg/dL Total Bilirubin 0.7 (0.2-1.3) mg/dL AST 14 (14-36) U/L ALT 17 (9-52) U/L Alkaline Phosphatase 59 (38-126) U/L Total Protein 6.3 (6.3-8.2) g/dL Albumin 3.7 (3.5-5.0) g/dL Influenza Type A RNA Not Detected (Not Detectd) Influenza Type B (PCR) Not Detected (Not Detectd) 05/10/17 Range/Units 15:03 WBC (3.8-10.6) k/uL RBC (3.80-5.40) m/uL Hgb (11.4-16.0) gm/dL Hct (34.0-46.0) % MCV (80.0-100.0) fL MCH (25.0-35.0) pg MCHC (31.0-37.0) g/dL RDW (11.5-15.5) % Plt Count (150-450) k/uL Neutrophils % % Lymphocytes % % Monocytes % % Eosinophils % % Basophils % % Neutrophils # (1.3-7.7) k/uL Lymphocytes # (1.0-4.8) k/uL Monocytes # (0-1.0) k/uL Eosinophils # (0-0.7) k/uL Basophils # (0-0.2) k/uL Sodium (137-145) mmol/L Potassium (3.5-5.1) mmol/L Chloride (98-107) mmol/L Carbon Dioxide (22-30) mmol/L Anion Gap mmol/L BUN (7-17) mg/dL Creatinine (0.52-1.04) mg/dL Est GFR (CKD-EPI)AfAm (>60 ml/min/1.73 sqM) Est GFR (CKD-EPI)NonAf (>60 ml/min/1.73 sqM) Glucose (74-99) mg/dL Plasma Lactic Acid Gallo 1.0 (0.7-2.0) mmol/L Calcium (8.4-10.2) mg/dL Total Bilirubin (0.2-1.3) mg/dL AST (14-36) U/L ALT (9-52) U/L Alkaline Phosphatase (38-126) U/L Total Protein (6.3-8.2) g/dL Albumin (3.5-5.0) g/dL Influenza Type A RNA (Not Detectd) Influenza Type B (PCR) (Not Detectd) Disposition Clinical Impression: CAP (community acquired pneumonia), COPD (chronic obstructive pulmonary disease ) Disposition: ADMITTED IP TO THIS HOSP Condition: Stable Referrals: Jet Edmonds MD [Primary Care Provider] - 1-2 days Time of Disposition: 16:08
[2017-05-10 15:21] LABS: Albumin 3.7 g/dL (3.5-5.0); Calcium 8.9 mg/dL (8.4-10.2); Potassium 3.5 mmol/L (3.5-5.1); Total Bilirubin 0.7 mg/dL (0.2-1.3); Total Protein 6.3 g/dL (6.3-8.2)
[2017-05-10] MEDS ORDERED: PNEUMONIA PROTOCOL UTILIZED 1 EACH MISC PO PRN (16:02)
[2017-05-10] MEDS ORDERED: AZITHROMYCIN 500 MG in SODIUM CHLORIDE 0.9% 250 ML IVPB STA (16:02)
[2017-05-10] MEDS ORDERED: ENALAPRILAT 1.25 MG/ML 1 ML VIAL IVP PRN (20:31)
[2017-05-10] MEDS: traMADol 50 MG TAB PO PRN (20:48)
[2017-05-10] MEDS: GABAPENTIN 300 MG CAP PO SCH (20:56)
[2017-05-10] MEDS: ATORVASTATIN 40 MG TAB PO SCH (20:56)
[2017-05-10] MEDS: METOPROLOL TARTRATE 25 MG TAB PO SCH (20:56)
[2017-05-10 21:14] LABS: Glucose,Whole Blood 110 mg/dL (75-99)
[2017-05-10] MEDS: INSULIN ASPART 100 UNIT/ML 1 ML 10 ML VIAL SQ SCH (21:31)
[2017-05-11] MEDS: ACETAMINOPHEN TAB 325 MG TAB PO PRN ×3 (00:24→22:08)
[2017-05-11] MEDS ORDERED: IBUPROFEN 400 MG TAB PO PRN (01:02)
[2017-05-11] MEDS: SODIUM CHLORIDE 0.9% 1,000 ML IV SCH ×2 (04:26→22:47)
[2017-05-11 06:30] LABS: Glucose,Whole Blood 114 mg/dL (75-99)
--- NOTE | 2017-05-11 07:10 | XR ---
EXAMINATION TYPE: XR chest 2V DATE OF EXAM: 05/11/2017 COMPARISON: 05/10/2017 HISTORY: Cough, pneumonia, flulike symptoms. TECHNIQUE: Frontal and lateral views of the chest are obtained. FINDINGS: The previously seen right basilar patchy opacity has improved in the interim suggestive of right basal atelectasis. Remainder the lungs are clear. Cardiac silhouette is within normal limits. Cardiac loop recorder is incidentally noted. There is no pleural effusion or pneumothorax seen. The cardiac silhouette size is within normal limits. The osseous structures are intact. Minimal multil evel degenerative changes of the thoracic spine. IMPRESSION: Short-term near complete resolution of the right basilar opacity suggesting atelectasis rather than pneumonia. No new focal consolidation.
[2017-05-11] MEDS: INSULIN ASPART 100 UNIT/ML 1 ML 10 ML VIAL SQ SCH ×4 (08:32→22:47)
[2017-05-11] MEDS: IPRATROPIUM 0.5 MG/2.5 ML NEBU INHALATION SCH ×4 (09:28→19:56)
[2017-05-11] MEDS: SYMBICORT 160-4.5 MCG INHALER INHALATION SCH ×2 (09:28→19:56)
[2017-05-11] MEDS: APIXABAN 2.5 MG TABLET PO SCH (09:45)
[2017-05-11] MEDS: METOPROLOL TARTRATE 25 MG TAB PO SCH ×2 (09:45→22:08)
[2017-05-11] MEDS: AZITHROMYCIN 500 MG TAB PO SCH (09:46)
[2017-05-11] MEDS: ASPIRIN 81 MG PO SCH (09:46)
[2017-05-11 11:17] LABS: Glucose,Whole Blood 101 mg/dL (75-99)
[2017-05-11] MEDS: cefTRIAXone IN SWFI 1,000 MG/10 ML SYRINGE IVP SCH (15:05)
[2017-05-11 15:28] LABS: Hemoglobin A1C 5.4 % (4.0-6.0)
--- NOTE | 2017-05-11 16:07 | P.CNPUL ---
History of Present Illness Consult date: 05/11/17 Requesting physician: Jet Edmonds Reason for consult: pneumonia Chief complaint: Shortness of breath History of present illness: This is a 66-year-old female patient well-known to our services who came into the emergency room with complaints of a congested cough, body aches and fevers and chills that started approximately 1-2 days ago. She does have a long- standing history of COPD and has been using her breathing treatments at home without relief. She has continued to be short of breath with exertion and activity and has a congested cough with clear sputum. She has a half a pack per day smoker and has obstructive sleep apnea and sleep with the CPAP as well. Upon examination the patient's resting up in bed on room air. Continues to have the shortness of breath and congested cough. Sputum sample was obtained. Chest x-ray was reviewed and does show a near complete resolution of the previous right basilar opacity suggesting atelectasis rather than pneumonia at this time. No focal pneumonia observed. She is afebrile WBCs are 3.9. Review of Systems 14 point review of systems was completed and is negative and was found above in HPI Past Medical History Past Medical History: Atrial Fibrillation, Atrial Flutter, Asthma, Coronary Artery Disease (CAD), Heart Failure, COPD, Diabetes Mellitus, Deep Vein Thrombosis (DVT), GERD/Reflux, Hyperlipidemia, Hypertension, Pneumonia, Seizure Disorder, Thyroid Disorder Additional Past Medical History / Comment(s): NIDDM type II-checks blood sugars , does not take diabetic meds. 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 Anthony Edmonds 12-23-16 and states she may need surgery on her L leg due to a clot. Has not taken her Eliquis for 1 yr. Patient also has electrodes for a Loop recorder & states it needs to be removed. He oracle dba is in [place] & has not seen him in a couple of years. History of Any Multi-Drug Resistant Organisms: None Reported Past Surgical History: Breast Surgery, Heart Catheterization Additional Past Surgical History / Comment(s): L breast biopsy-twice and benign , L parotid gland bx-benign, colonoscopy-normal, bilateral cataract removals with lens implants. L Thyroid bx. Past Anesthesia/Blood Transfusion Reactions: No Reported Reaction Past Psychological History: No Psychological Hx Reported Additional Psychological History / Comment(s): Pt resides alone at this time. She is from her spouse. She uses no device. She drives. She has a nebulizer and an old glucometer. Smoking Status: Current every day smoker Past Alcohol Use History: None Reported Additional Past Alcohol Use History / Comment(s): Pt states she started smoking in 1964, currently smokes about 4 cig's per day. Past Drug Use History: None Reported - Past Family History Mother Additional Family Medical History / Comment(s): Mother of sepsis at the age of 63 yrs. Father Family Medical History: Myocardial Infarction ([place]) Additional Family Medical History / Comment(s): Father during a carotid endartectomy. Medications and Allergies Home Medications Medication Instructions Recorded Confirmed Type Fluticasone/Vilanterol [Breo 1 puff INHALATION RT-BID 10/08/16 05/10/17 History Ellipta 200-25 Mcg INH] Gabapentin [Neurontin] 300 mg PO HS #30 cap 10/30/16 05/10/17 Rx Apixaban [Eliquis] 2.5 mg PO DAILY 01/01/17 05/10/17 History Aspirin 81 mg PO DAILY 01/01/17 05/10/17 History Atorvastatin [Lipitor] 40 mg PO HS 05/10/17 05/10/17 History Metoprolol Tartrate [Lopressor] 25 mg PO BID 05/10/17 05/10/17 History Umeclidinium Marston [Incruse 1 puff INHALATION RT-DAILY 05/10/17 05/10/17 History Ellipta] glipiZIDE [Glucotrol] 2.5 mg PO AC-BID 05/10/17 05/10/17 History traMADol HCL [Ultram] 50 mg PO DAILY PRN 05/10/17 05/10/17 History Allergies Allergy/AdvReac Type Severity Reaction Status Date / Time latex Allergy Rash/Hives Verified 05/10/17 13:33 Penicillins Allergy Rash/Hives Verified 05/10/17 13:33 Sulfa (Sulfonamide Allergy Rash/Hives Verified 05/10/17 13:33 Antibiotics) Physical Exam Vitals: Vital Signs Temp Pulse Pulse Resp BP BP Pulse Ox 05/11/17 15:00 97.9 F 80 18 122/55 95 05/11/17 13:07 88 05/11/17 12:57 88 05/11/17 09:43 92 05/11/17 09:28 92 05/11/17 07:00 99.1 F 87 16 137/78 100 05/11/17 02:16 99.7 F H 05/11/17 00:00 121 H 30 H 05/10/17 22:33 102.7 F H 121 H 30 H 195/103 93 L 05/10/17 21:06 20 05/10/17 20:21 99.5 F 99 36 H 211/98 96 05/10/17 17:23 99.1 F 89 24 148/71 98 05/10/17 17:00 98.6 F 91 18 148/78 98 05/10/17 16:32 98.7 F 94 18 156/76 99 05/10/17 16:04 98 Intake and Output 05/11/17 05/11/17 05/11/17 06:59 14:59 22:59 Intake Total 250 Balance 250 Intake: Oral 250 Other: Voiding Method Toilet Toilet Diaper Diaper # Voids 1 Weight 84.964 kg GENERAL EXAM: Alert, comfortable in no apparent distress. HEAD: Normocephalic. EYES: Normal reaction of pupils, equal size. NOSE: Clear with pink turbinates. THROAT: No erythema or exudates. NECK: No masses, no JVD. CHEST: No chest wall deformity. LUNGS: Equal air entry with inspiratory and expiratory wheezing with prolonged expiratory phase. Bases diminished CVS: S1 and S2 normal with no audible mumurs, regular rhythm. ABDOMEN: No hepatosplenomegaly, normal bowel sounds, no guarding or rigidity. EXTREMITIES: No edema noted, pedal pulses palpable. CENTRAL NERVOUS SYSTEM: No focal deficits, tone is normal in all 4 extremities. Results - Laboratory Findings CBC and BMP: 05/10/17 15:03 05/10/17 15:03 Abnormal lab findings: Abnormal Labs 05/10/17 05/10/17 05/11/17 15:03 21:11 06:19 Plt Count 141 L POC Glucose (mg/dL) 110 H 114 H 05/11/17 11:13 Plt Count POC Glucose (mg/dL) 101 H - Diagnostic Findings Chest x-ray: report reviewed, image reviewed Assessment and Plan Assessment: Assessment Acute exacerbation of COPD Tracheobronchitis with right basilar atelectasis History of CAD Hyperlipidemia Chronic moderate persistent asthma with acute exacerbation Diabetes mellitus Plan Medications have been reviewed and will be continued as ordered. Steroids added. Continue with home dose of MDI. Continue with pulmonary hygiene, coughing and deep breathing exercises, and supportive care. Supplemental oxygen to maintain oxygen saturations of 92% or better. Utilize home CPAP at night and as needed. Continue nebulizer treatments. GI and DVT prophylaxis. We will continue to monitor labs/results and adjust treatment as necessary. Further recommendations pending. I performed an examination of the patient and discussed their management with the nurse practitioner. I have reviewed the nurse practitioner's note and agree with the documented findings and plan of care.
[2017-05-11 17:09] LABS: Glucose,Whole Blood 116 mg/dL (75-99)
[2017-05-11 20:40] LABS: Glucose,Whole Blood 151 mg/dL (75-99)
[2017-05-11 20:47] LABS: Basophils % (A) 1 %; Eosinophils # (A) 0.1 k/uL (0-0.7); Eosinophils % (A) 2 %; HCT 38.6 % (34.0-46.0); HGB 12.8 gm/dL (11.4-16.0); Lymphocytes # (A) 0.6 k/uL (1.0-4.8); Lymphocytes % (A) 21 %; MCH 31.1 pg (25.0-35.0); Mean Platelet Volume 8.5; Monocytes # (A) 0.2 k/uL (0-1.0); Monocytes % (A) 7 %; Neutrophils # (A) 1.8 k/uL (1.3-7.7); Neutrophils % (A) 67 %; Platelet Count 118 k/uL (150-450); RDW 12.6 % (11.5-15.5); WBC 2.7 k/uL (3.8-10.6)
[2017-05-11] MEDS: ATORVASTATIN 40 MG TAB PO SCH (22:08)
[2017-05-11] MEDS: GABAPENTIN 300 MG CAP PO SCH (22:08)
--- NOTE | 2017-05-12 00:14 | HP ---
HISTORY AND PHYSICAL CHIEF COMPLAINT: A 66-year-old white female with shortness of breath and pneumonia. HISTORY OF PRESENT ILLNESS: This is a 66-year-old white female who came into the emergency room due to congestive cough, body aches, fevers and chills 1 or 2 days prior to admission. She has history of COPD. Breathing treatments at home without any relief. She had cough with sputum production. She has continues to smoke. She has sleep apnea. She has CPAP at home. Chest x-ray on admission shows possible atelectasis versus pneumonia. She has cough, congestion, and shortness of breath. White count is at 3.9. REVIEW OF SYSTEMS: Fourteen point review of systems negative except for mentioned in HPI. PAST MEDICAL HISTORY: Atrial fibrillation on Eliquis, atrial flutter, asthma, coronary artery disease, heart failure, COPD, diabetes mellitus, DVT, dyslipidemia, GERD, hypertension, pneumonia, seizure disorder, hypothyroidism, type 2 diabetes mellitus, carpal tunnel syndrome, chronic thrombocytopenia, thyroid nodules, cervical disc disease. SURGICAL HISTORY: Breast surgery, heart catheterization, left breast biopsy x2, left parotid gland biopsy, benign; colonoscopy, thyroid biopsies, negative; cataract removals. SOCIAL HISTORY: She has been with her spouse for 2 years. Current everyday smoker. FAMILY HISTORY: Mother of sepsis age 63. Father, myocardial infarction and had carotid endarterectomy. HOME MEDICATIONS: Breo Ellipta 200/25 mcg 1 puff daily, Eliquis 2.5 daily, Neurontin 300 daily, aspirin 81 daily, Lipitor 40 daily, Lopressor 25 b.i.d., Incruse Ellipta 1 puff daily, Glucotrol 2.5 b.i.d., tramadol 50 mg daily. ALLERGIES: LATEX, PENICILLIN AND SULFA. PHYSICAL EXAMINATION: Vital signs show blood pressure is 120s ic375r up to 211 on admission over 90s to 50s, T-max 102.7, pulse 80s to 90s, respiration 80 to 122 on admission. Lungs show scattered rhonchi and wheezes, congestive cough, diminished breath sounds. HEART: S1, S2. Neck is supple, no mass. CHEST: No chest wall deformity. Inner ear canals normal. Nose is normal. ABDOMEN: Normal bowel sounds. No guarding. No hepatosplenomegaly. EXTREMITIES: No cyanosis, clubbing, edema. MEASUREMENT SUPERVISOR: No focal deficits. LABS: Show white count 3.9, hemoglobin 12.5, platelets 141,000. ASSESSMENT: 1. Acute chronic obstructive pulmonary disease exacerbation, tracheobronchitis, possible right lower lobe pneumonia. 2. Coronary artery disease, atrial fibrillation. 3. Dyslipidemia. 4. Asthma exacerbation. 5. Diabetes mellitus. Continue current medications including IV Rocephin, IV Zithromax, antibiotics, updraft treatments, CPAP, cough medicine. Wait for Pulmonary consult. MMODL / IJN: [id number] /
[2017-05-12 01:24] LABS: INR 1.1 (<1.2); Prothrombin Time 10.7 sec (9.0-12.0)
[2017-05-12] MEDS: IPRATROPIUM-ALBUTEROL 3 ML NEB INHALATION PRN ×3 (06:00→16:11)
[2017-05-12 07:02] LABS: Glucose,Whole Blood 250 mg/dL (75-99)
[2017-05-12 07:45] LABS: Basophils % (A) 1 %; Eosinophils % (A) 1 %; HCT 37.4 % (34.0-46.0); HGB 11.6 gm/dL (11.4-16.0); Lymphocytes # (A) 0.6 k/uL (1.0-4.8); Lymphocytes % (A) 27 %; MCH 29.5 pg (25.0-35.0); MCHC 31.1 g/dL (31.0-37.0); MCV 94.9 fL (80.0-100.0); Mean Platelet Volume 9.6; Monocytes # (A) 0.2 k/uL (0-1.0); Monocytes % (A) 10 %; Neutrophils # (A) 1.3 k/uL (1.3-7.7); Neutrophils % (A) 57 %; Platelet Count 118 k/uL (150-450); RBC 3.94 m/uL (3.80-5.40); RDW 12.7 % (11.5-15.5); WBC 2.3 k/uL (3.8-10.6)
[2017-05-12 07:59] LABS: Calcium 7.9 mg/dL (8.4-10.2); Potassium 3.5 mmol/L (3.5-5.1); Total Bilirubin 0.4 mg/dL (0.2-1.3); Total Protein 5.4 g/dL (6.3-8.2)
[2017-05-12] MEDS: ASPIRIN 81 MG PO SCH (08:06)
[2017-05-12] MEDS: APIXABAN 2.5 MG TABLET PO SCH (08:06)
[2017-05-12] MEDS: AZITHROMYCIN 500 MG TAB PO SCH (08:06)
[2017-05-12] MEDS: ACETAMINOPHEN TAB 325 MG TAB PO PRN (08:07)
[2017-05-12] MEDS: predniSONE 20 MG TAB PO SCH (08:07)
[2017-05-12] MEDS: INSULIN ASPART 100 UNIT/ML 1 ML 10 ML VIAL SQ SCH ×4 (08:07→21:38)
[2017-05-12] MEDS: METOPROLOL TARTRATE 25 MG TAB PO SCH ×2 (08:07→21:38)
[2017-05-12] MEDS: IPRATROPIUM 0.5 MG/2.5 ML NEBU INHALATION SCH ×4 (08:50→20:36)
[2017-05-12] MEDS: SYMBICORT 160-4.5 MCG INHALER INHALATION SCH ×2 (08:50→20:36)
[2017-05-12 11:00] LABS: Glucose,Whole Blood 61 mg/dL (75-99)
[2017-05-12 11:26] LABS: Glucose,Whole Blood 90 mg/dL (75-99)
--- NOTE | 2017-05-12 11:46 | PN ---
PROGRESS NOTE Patient was seen on 05/12/2017. She has been hemodynamically stable. However, she continues to have quite severe shortness of breath. Blood pressure is 126/75, respiratory rate of 16, pulse rate of 75, temperature 98.6, O2 saturation on room air is 98%. HEENT is unremarkable. Chest reveals expiratory wheeze. Cardiovascular system reveals an S1, S2. Abdomen is soft. There is no edema. IMPRESSION AT THIS TIME: 1. Severe asthma with acute exacerbation. 2. Obstructive sleep apnea. 3. Pneumonia. Continue steroids, bronchodilators, aerosolized steroids. Increase her activity level. Depending on how she does, we shall make further changes to her care. MMODL / IJN: [id number] /
[2017-05-12] MEDS: DEXTROSE 5%-0.9% NACL 1,000 ML IV SCH (11:55)
[2017-05-12 13:24] LABS: Glucose,Whole Blood 241 mg/dL (75-99)
[2017-05-12] MEDS: cefTRIAXone IN SWFI 1,000 MG/10 ML SYRINGE IVP SCH (15:08)
[2017-05-12] MEDS: SODIUM CHLORIDE 0.9% 1,000 ML IV SCH (15:09)
[2017-05-12 16:46] LABS: Glucose,Whole Blood 221 mg/dL (75-99)
[2017-05-12 21:06] LABS: Glucose,Whole Blood 203 mg/dL (75-99)
[2017-05-12] MEDS: ATORVASTATIN 40 MG TAB PO SCH (21:38)
[2017-05-12] MEDS: GABAPENTIN 300 MG CAP PO SCH (21:38)
[2017-05-12] MEDS: traMADol 50 MG TAB PO PRN (21:39)
--- NOTE | 2017-05-12 23:07 | PN ---
PROGRESS NOTE SUBJECTIVE: [id number] -[place] female with community-acquired pneumonia, COPD exacerbation, acute hypoxemic respiratory failure. She had hypoglycemia today. Her insulin was decreased. Her diet was advanced. Her insulin is held. She is only on Accu- Chek protocol. CARDIOVASCULAR: S1, S2. LUNGS: Scattered wheeze and rhonchi x4. HEMATOLOGY: Negative Homans. PSYCH: Fair mood and affect. ASSESSMENT: 1. Community-acquired pneumonia. 2. Chronic obstructive pulmonary disease exacerbation. 3. Acute hypoxemic respiratory distress. PLAN: Continue with oral steroids. Accu-Chek protocol only. IV antibiotics, Rocephin, Zithromax. Updraft treatments. Monitor for hypoglycemia. MMODL / IJN: [id number] /
[2017-05-13 06:55] LABS: Glucose,Whole Blood 100 mg/dL (75-99)
[2017-05-13] MEDS: SODIUM CHLORIDE 0.9% 1,000 ML IV SCH (08:39)
[2017-05-13] MEDS: INSULIN ASPART 100 UNIT/ML 1 ML 10 ML VIAL SQ SCH ×4 (08:40→20:14)
[2017-05-13] MEDS: DEXTROSE 5%-0.9% NACL 1,000 ML IV SCH ×2 (08:44→15:54)
[2017-05-13] MEDS: AZITHROMYCIN 500 MG TAB PO SCH (08:48)
[2017-05-13] MEDS: METOPROLOL TARTRATE 25 MG TAB PO SCH ×2 (08:48→20:14)
[2017-05-13] MEDS: APIXABAN 2.5 MG TABLET PO SCH (08:48)
[2017-05-13] MEDS: ASPIRIN 81 MG PO SCH (08:48)
[2017-05-13] MEDS: predniSONE 20 MG TAB PO SCH (08:48)
[2017-05-13] MEDS: IPRATROPIUM 0.5 MG/2.5 ML NEBU INHALATION SCH ×4 (09:43→22:10)
[2017-05-13] MEDS: SYMBICORT 160-4.5 MCG INHALER INHALATION SCH ×2 (09:43→22:08)
[2017-05-13 11:06] LABS: Glucose,Whole Blood 90 mg/dL (75-99)
--- NOTE | 2017-05-13 14:11 | CDI ---
Last Revision, January 2017 Documentation Clarification Form Date: 05/12/2017 4:33:00 PM From: Meagan Martinez RN,CCDS Admit Date: 05/10/2017 4:55:00 PM Patient Name: Concepcion Steele Visit Number: [id number] Discharge Date: ATTENTION: The Clinical Documentation Specialists (CDI) and [facility] Coding Staff appreciate your assistance in clarifying documentation. Please respond to the clarification below the line at the bottom and electronically sign. The CDI & [facility] Coding staff will review the response and follow-up if needed. Please note: Queries are made part of the Legal Health Record. If you have any questions, please contact the author of this message via ITS. Dr. Jet Edmonds Atrial fibrillation is documented in the history of present illness and your H/ P and progress notes. History/Risk Factors: Atrial fibrillation, Atrial Flutter, Asthma CAD, Heart Failure, COPD, Diabetes Mellitus type II, Hypertension Clinical Indicators: Present with complaint of cough, congestion with body aches. Admit to chills and feeling sweaty at times. Vital signs: 144/67 101 18 98.5 Treatment: Eliquis PO [facility] Labs In your professional opinion, can you please clarify the type of atrial fibrillation, if known? Chronic/Permanent Paroxysmal Persistent Other, please specify Unable to determine Please continue to document in your progress notes and discharge summary in order to capture severity of illness and risk of mortality. Include clinical findings that support your diagnosis. MTDD
--- NOTE | 2017-05-13 15:01 | P.PN ---
<Steffi Rosa E - Last Filed: 05/13/17 14:58> Subjective Progress Note Date: 05/13/17 HPI: This is a 66-year-old female patient well-known to our services who came into the emergency room with complaints of a congested cough, body aches and fevers and chills that started approximately 1-2 days ago. She does have a long- standing history of COPD and has been using her breathing treatments at home without relief. She has continued to be short of breath with exertion and activity and has a congested cough with clear sputum. She has a half a pack per day smoker and has obstructive sleep apnea and sleep with the CPAP as well. Upon examination the patient's resting up in bed on room air. Continues to have the shortness of breath and congested cough. Sputum sample was obtained. Chest x-ray was reviewed and does show a near complete resolution of the previous right basilar opacity suggesting atelectasis rather than pneumonia at this time. No focal pneumonia observed. She is afebrile WBCs are 3.9. 05/13/17- patient is being seen examined and evaluated on rounds. Patient is up ambulating in the hallway states her shortness of breath has improved. Still continues with some coughing congestion. Would like to utilize a flutter valve. Objective - Vital Signs Vital signs: Vital Signs Temp 98.6 F 05/13/17 07:17 Pulse 92 05/13/17 12:27 Resp 16 05/13/17 08:00 BP 170/78 05/13/17 07:17 Pulse Ox 100 05/13/17 07:17 Intake & Output 05/12/17 05/13/17 05/13/17 18:59 06:59 18:59 Intake Total 1111 1550 400 Balance 1111 1550 400 Intake: IV 400 800 400 Sodium Chloride 0.9% 1, 400 800 400 000 ml @ 50 mls/hr IV . Q20H [facility] Rx#:[id number] Oral 711 750 Other: Voiding Method Toilet Toilet Toilet Diaper Diaper # Voids 1 1 2 - Exam GENERAL EXAM: Alert, comfortable in no apparent distress. HEAD: Normocephalic. EYES: Normal reaction of pupils, equal size. NOSE: Clear with pink turbinates. THROAT: No erythema or exudates. NECK: No masses, no JVD. CHEST: No chest wall deformity. LUNGS: Equal air entry with inspiratory and expiratory wheezing with prolonged expiratory phase. Bases diminished CVS: S1 and S2 normal with no audible mumurs, regular rhythm. ABDOMEN: No hepatosplenomegaly, normal bowel sounds, no guarding or rigidity. EXTREMITIES: No edema noted, pedal pulses palpable. CENTRAL NERVOUS SYSTEM: No focal deficits, tone is normal in all 4 extremities. - Labs CBC & Chem 7: 05/12/17 07:25 05/12/17 07:25 Labs: Abnormal Lab Results - Last 24 Hours (Table) 05/12/17 05/12/17 05/13/17 Range/Units 16:43 21:05 06:53 POC Glucose (mg/dL) 221 H 203 H 100 H (75-99) mg/dL Microbiology - Last 24 Hours (Table) 05/11/17 13:06 Gram Stain - Final Sputum Sputum Culture - Final 05/10/17 15:03 Blood Culture - Preliminary Blood No Growth after 48 hours Assessment and Plan Assessment: Assessment Acute exacerbation of COPD Tracheobronchitis with right basilar atelectasis History of CAD Hyperlipidemia Chronic moderate persistent asthma with acute exacerbation Diabetes mellitus Plan Medications have been reviewed and will be continued as ordered. Steroids added. Continue with home dose of MDI. Continue with pulmonary hygiene, coughing and deep breathing exercises, and supportive care. Supplemental oxygen to maintain oxygen saturations of 92% or better. Utilize home CPAP at night and as needed. Initiate and encourage incentive spirometer and flutter valve. Increase activity as tolerated. Continue nebulizer treatments. GI and DVT prophylaxis. We will continue to monitor labs/results and adjust treatment as necessary. Further recommendations pending. I performed an examination of the patient and discussed their management with the nurse practitioner. I have reviewed the nurse practitioner's note and agree with the documented findings and plan of care. <Concha Hughes - Last Filed: 05/13/17 15:17> Objective - Vital Signs Vital signs: Vital Signs Temp 98.6 F 05/13/17 07:17 Pulse 92 05/13/17 12:27 Resp 16 05/13/17 08:00 BP 170/78 05/13/17 07:17 Pulse Ox 100 05/13/17 07:17 Intake & Output 05/12/17 05/13/17 05/13/17 18:59 06:59 18:59 Intake Total 1111 1550 400 Balance 1111 1550 400 Intake: IV 400 800 400 Sodium Chloride 0.9% 1, 400 800 400 000 ml @ 50 mls/hr IV . Q20H [facility] Rx#:[id number] Oral 712 095 Other: Voiding Method Toilet Toilet Toilet Diaper Diaper # Voids 1 1 2 - Labs CBC & Chem 7: 05/12/17 07:25 05/12/17 07:25 Labs: Abnormal Lab Results - Last 24 Hours (Table) 05/12/17 05/12/17 05/13/17 Range/Units 16:43 21:05 06:53 POC Glucose (mg/dL) 221 H 203 H 100 H (75-99) mg/dL Microbiology - Last 24 Hours (Table) 05/11/17 13:06 Gram Stain - Final Sputum Sputum Culture - Final 05/10/17 15:03 Blood Culture - Preliminary Blood No Growth after 48 hours Assessment and Plan Assessment: Ok to DC from pulmonary standpoint. Steroid taper. Follow up 1-2 weeks. ~Concha Hughes DO
[2017-05-13] MEDS: cefTRIAXone IN SWFI 1,000 MG/10 ML SYRINGE IVP SCH (15:58)
[2017-05-13 17:23] LABS: Glucose,Whole Blood 210 mg/dL (75-99)
[2017-05-13 20:05] LABS: Glucose,Whole Blood 261 mg/dL (75-99)
[2017-05-13] MEDS: GABAPENTIN 300 MG CAP PO SCH (20:14)
[2017-05-13] MEDS: ATORVASTATIN 40 MG TAB PO SCH (20:14)
[2017-05-13] MEDS: ACETAMINOPHEN TAB 325 MG TAB PO PRN (20:58)
[2017-05-13] MEDS: IPRATROPIUM-ALBUTEROL 3 ML NEB INHALATION PRN (22:08)
--- NOTE | 2017-05-13 22:26 | PN ---
PROGRESS NOTE SUBJECTIVE: This is a 66-year-old -[place] female with congestive cough, body aches, fevers, chills, COPD exacerbation, chronic coughs, smoker for multiple years. Chest x- ray showed possible pneumonia. Admitted with COPD exacerbation. She is greatly improved. She wants to go home tomorrow. Blood pressure is a little high at 170s over 78, pulse 90 to 92, respiratory rate 16 to 18, temperature 98.6, oxygen 100% on 2 L. CARDIOVASCULAR: S1, S2. LUNGS: Scattered rhonchi and wheeze. HEENT: Normocephalic, atraumatic. OPHTHALMOLOGIC: Pupils equal, round and reactive to light and accommodation. Sugars are in the mid 200s. ASSESSMENT: 1. Chronic obstructive pulmonary disease exacerbation. 2. Tracheobronchitis. 3. History of coronary artery disease. 4. Dyslipidemia. 5. Chronic moderate persistent asthma with acute exacerbation. 6. Diabetes mellitus. Possible discharge home on steroid taper. Patient will be on IV antibiotics until tomorrow. Possible discharge home in the morning. MMODL / IJN: [id number] /
[2017-05-14] MEDS: DEXTROSE 5%-0.9% NACL 1,000 ML IV SCH (05:35)
[2017-05-14] MEDS: SODIUM CHLORIDE 0.9% 1,000 ML IV SCH (05:36)
[2017-05-14 07:01] LABS: Basophils % (A) 1 %; Eosinophils % (A) 1 %; HCT 36.1 % (34.0-46.0); HGB 11.9 gm/dL (11.4-16.0); Lymphocytes # (A) 1.2 k/uL (1.0-4.8); Lymphocytes % (A) 30 %; MCH 30.3 pg (25.0-35.0); MCV 91.8 fL (80.0-100.0); Mean Platelet Volume 8.1; Monocytes # (A) 0.2 k/uL (0-1.0); Monocytes % (A) 5 %; Neutrophils # (A) 2.3 k/uL (1.3-7.7); Neutrophils % (A) 60 %; Platelet Count 154 k/uL (150-450); RBC 3.93 m/uL (3.80-5.40); RDW 12.6 % (11.5-15.5); WBC 3.8 k/uL (3.8-10.6)
[2017-05-14] MEDS: IPRATROPIUM 0.5 MG/2.5 ML NEBU INHALATION SCH ×2 (07:09→12:30)
[2017-05-14] MEDS: SYMBICORT 160-4.5 MCG INHALER INHALATION SCH (07:09)
[2017-05-14 07:12] LABS: ALT 24 U/L (9-52); AST 25 U/L (14-36); Albumin 3.3 g/dL (3.5-5.0); Alkaline Phosphatase 50 U/L (38-126); Anion Gap 7 mmol/L; Blood Urea Nitrogen 14 mg/dL (7-17); Calcium 8.7 mg/dL (8.4-10.2); Carbon Dioxide 27 mmol/L (22-30); Chloride 107 mmol/L (98-107); Glucose 120 mg/dL (74-99); Potassium 3.7 mmol/L (3.5-5.1); Sodium 141 mmol/L (137-145); Total Bilirubin 0.4 mg/dL (0.2-1.3); Total Protein 5.9 g/dL (6.3-8.2)
[2017-05-14 07:17] LABS: Glucose,Whole Blood 103 mg/dL (75-99)
[2017-05-14] MEDS: INSULIN ASPART 100 UNIT/ML 1 ML 10 ML VIAL SQ SCH ×2 (07:19→12:02)
[2017-05-14 07:46] VITALS: TEMP 98.2
[2017-05-14] MEDS: AZITHROMYCIN 500 MG TAB PO SCH (08:30)
[2017-05-14] MEDS: METOPROLOL TARTRATE 25 MG TAB PO SCH (08:30)
[2017-05-14] MEDS: ASPIRIN 81 MG PO SCH (08:30)
[2017-05-14] MEDS: predniSONE 20 MG TAB PO SCH (08:30)
[2017-05-14] MEDS: APIXABAN 2.5 MG TABLET PO SCH (08:31)
[2017-05-14 11:31] LABS: Glucose,Whole Blood 136 mg/dL (75-99)
--- NOTE | 2017-05-14 12:02 | P.PN ---
Subjective Progress Note Date: 05/14/17 HPI: This is a 66-year-old female patient well-known to our services who came into the emergency room with complaints of a congested cough, body aches and fevers and chills that started approximately 1-2 days ago. She does have a long- standing history of COPD and has been using her breathing treatments at home without relief. She has continued to be short of breath with exertion and activity and has a congested cough with clear sputum. She has a half a pack per day smoker and has obstructive sleep apnea and sleep with the CPAP as well. Upon examination the patient's resting up in bed on room air. Continues to have the shortness of breath and congested cough. Sputum sample was obtained. Chest x-ray was reviewed and does show a near complete resolution of the previous right basilar opacity suggesting atelectasis rather than pneumonia at this time. No focal pneumonia observed. She is afebrile WBCs are 3.9. 05/13/17- patient is being seen examined and evaluated on rounds. Patient is up ambulating in the hallway states her shortness of breath has improved. Still continues with some coughing congestion. Would like to utilize a flutter valve. 05/14/17- patient is seen and examined resting up in bed on room air. States her breathing is much better and she is back to baseline. She occasionally has shortness of breath with exertion however it is improved from admission. She is been using her incentive spirometer and flutter valve. She feels well enough for discharge. Objective - Vital Signs Vital signs: Vital Signs Temp 98.2 F 05/14/17 07:00 Pulse 72 05/14/17 07:20 Resp 16 05/14/17 07:00 BP 165/94 05/14/17 07:00 Pulse Ox 100 05/14/17 07:00 Intake & Output 05/13/17 05/14/17 05/14/17 18:59 06:59 18:59 Intake Total 400 Output Total 0 Balance 400 0 Intake: IV 400 Sodium Chloride 0.9% 1, 400 000 ml @ 50 mls/hr IV . Q20H [facility] Rx#:[id number] Output: Stool 0 Other: Voiding Method Toilet Toilet Toilet # Voids 2 # Bowel Movements 0 - Exam GENERAL EXAM: Alert, comfortable in no apparent distress. HEAD: Normocephalic. EYES: Normal reaction of pupils, equal size. NOSE: Clear with pink turbinates. THROAT: No erythema or exudates. NECK: No masses, no JVD. CHEST: No chest wall deformity. LUNGS: Equal air entry with inspiratory and expiratory wheezing with prolonged expiratory phase. Bases diminished. Overall improving CVS: S1 and S2 normal with no audible mumurs, regular rhythm. ABDOMEN: No hepatosplenomegaly, normal bowel sounds, no guarding or rigidity. EXTREMITIES: No edema noted, pedal pulses palpable. CENTRAL NERVOUS SYSTEM: No focal deficits, tone is normal in all 4 extremities. - Labs CBC & Chem 7: 05/14/17 06:38 05/14/17 06:38 Labs: Abnormal Lab Results - Last 24 Hours (Table) 05/13/17 05/13/17 05/14/17 Range/Units 17:16 20:00 06:38 Glucose 120 H (74-99) mg/dL POC Glucose (mg/dL) 210 H 261 H (75-99) mg/dL Total Protein 5.9 L (6.3-8.2) g/dL Albumin 3.3 L (3.5-5.0) g/dL 05/14/17 05/14/17 Range/Units 07:08 11:28 Glucose (74-99) mg/dL POC Glucose (mg/dL) 103 H 136 H (75-99) mg/dL Total Protein (6.3-8.2) g/dL Albumin (3.5-5.0) g/dL Microbiology - Last 24 Hours (Table) 05/10/17 15:03 Blood Culture - Preliminary Blood No Growth after 72 hours 05/11/17 13:06 Gram Stain - Final Sputum Sputum Culture - Final Assessment and Plan Assessment: Assessment Acute exacerbation of COPD Tracheobronchitis with right basilar atelectasis History of CAD Hyperlipidemia Chronic moderate persistent asthma with acute exacerbation Diabetes mellitus Plan Patient could be cleared from pulmonary standpoint for discharge. Medications have been reviewed and will be continued as ordered. Steroid taper. Continue with home dose of MDI. Continue with pulmonary hygiene, coughing and deep breathing exercises, and supportive care. Supplemental oxygen to maintain oxygen saturations of 92% or better. Utilize home CPAP at night and as needed. Initiate and encourage incentive spirometer and flutter valve. Increase activity as tolerated. Continue nebulizer treatments. GI and DVT prophylaxis. We will continue to monitor labs/results and adjust treatment as necessary. Further recommendations pending. I performed an examination of the patient and discussed their management with the nurse practitioner. I have reviewed the nurse practitioner's note and agree with the documented findings and plan of care.
[2017-05-14] MEDS: IPRATROPIUM-ALBUTEROL 3 ML NEB INHALATION PRN (12:29)
[2017-05-14] MEDS: cefTRIAXone IN SWFI 1,000 MG/10 ML SYRINGE IVP SCH (14:56)
[2017-05-14 14:58] VITALS: BP 136/73; PULSE 82; RESP 20
== END 2017-05-14 16:10 | disposition home or self-care (01) | DRG 191 ==
LOC: EC 11:59 → 6PED 16:55 → 3SUR 22:18
PROVIDERS: ADMIT Family Medicine; ATTEND Family Medicine
DX: J44.0 Chronic obstructive pulmonary disease with (acute) lower respiratory infection (principal); J45.41 Moderate persistent asthma with (acute) exacerbation; E11.649 Type 2 diabetes mellitus with hypoglycemia without coma; I11.0 Hypertensive heart disease with heart failure; I48.91 Unspecified atrial fibrillation; I50.9 Heart failure, unspecified; K21.9 Gastro-esophageal reflux disease without esophagitis; G40.909 Epilepsy, unspecified, not intractable, without status epilepticus; E03.9 Hypothyroidism, unspecified; J98.11 Atelectasis; J20.9 Acute bronchitis, unspecified; E78.5 Hyperlipidemia, unspecified; F17.210 Nicotine dependence, cigarettes, uncomplicated; J44.1 Chronic obstructive pulmonary disease with (acute) exacerbation; G47.33 Obstructive sleep apnea (adult) (pediatric); I25.10 Atherosclerotic heart disease of native coronary artery without angina pectoris; Z96.1 Presence of intraocular lens; Z79.01 Long term (current) use of anticoagulants; Z79.82 Long term (current) use of aspirin; Z79.84 Long term (current) use of oral hypoglycemic drugs; Z79.899 Other long term (current) drug therapy; Z82.49 Family history of ischemic heart disease and other diseases of the circulatory system; Z88.0 Allergy status to penicillin; Z88.2 Allergy status to sulfonamides; Z91.040 Latex allergy status
CPT/HCPCS: 36415; 71046; 80053; 83036; 83605; 85025; 85610; 87040; 87070; 87205; 87502; 93005; 94640; 94667; 94760; 96365; 96375; 99284

== ENCOUNTER 2017-05-29 11:17 | Emergency (ER) | payer BC, MEDICARE ==
[2017-05-29] MEDS ORDERED: SODIUM CHLORIDE 0.9% 1,000 ML IV STA (11:32)
[2017-05-29] MEDS ORDERED: IPRATROPIUM-ALBUTEROL 3 ML NEB INHALATION STA (11:32)
--- NOTE | 2017-05-29 11:39 | ED ---
SOB HPI - General Chief Complaint: Shortness of Breath Stated Complaint: POSS PNEUMONIA Time Seen by Provider: 05/29/17 11:23 Source: patient, RN notes reviewed Mode of arrival: ambulatory Limitations: no limitations - History of Present Illness Initial Comments: This is a 66-year-old female with a history of a recent admission for pneumonia who presents today with 2-3 days of right-sided chest pain shortness of breath the pain is achy in nature she states she had a fever 2 days ago. The pain is 9 /10 severity is worse it does increase with coughing she states normally was on the left side. She denies any other complaints that are new at this time she finished her antibiotics several days ago also the steroids. MD Complaint: shortness of breath, chest pain - Related Data Home Medications Medication Instructions Recorded Confirmed Fluticasone/Vilanterol [Breo 1 puff INHALATION RT-BID 10/08/16 05/29/17 Ellipta 200-25 Mcg INH] Apixaban [Eliquis] 2.5 mg PO DAILY 01/01/17 05/29/17 Aspirin 81 mg PO DAILY 01/01/17 05/29/17 Atorvastatin [Lipitor] 40 mg PO HS 05/10/17 05/29/17 Metoprolol Tartrate [Lopressor] 25 mg PO BID 05/10/17 05/29/17 Umeclidinium [place] [Incruse 1 puff INHALATION RT-DAILY 05/10/17 05/29/17 Ellipta] glipiZIDE [Glucotrol] 2.5 mg PO AC-BID 05/10/17 05/29/17 traMADol HCL [Ultram] 50 mg PO DAILY PRN 05/10/17 05/29/17 predniSONE See Taper PO DIRECTED 05/29/17 05/29/17 Previous Rx's Medication Instructions Recorded Gabapentin [Neurontin] 300 mg PO HS #30 cap 10/30/16 predniSONE 20 mg PO BID #10 tab 05/29/17 Allergies Allergy/AdvReac Type Severity Reaction Status Date / Time latex Allergy Rash/Hives Verified 05/29/17 11:40 Penicillins Allergy Rash/Hives Verified 05/29/17 11:40 Sulfa (Sulfonamide Allergy Rash/Hives Verified 05/29/17 11:40 Antibiotics) Review of Systems ROS Statement: Those systems with pertinent positive or pertinent negative responses have been documented in the HPI. ROS Other: All systems not noted in ROS Statement are negative. Past Medical History Past Medical History: Atrial Fibrillation, Atrial Flutter, Asthma, Coronary Artery Disease (CAD), Heart Failure, COPD, Diabetes Mellitus, Deep Vein Thrombosis (DVT), GERD/Reflux, Hyperlipidemia, Hypertension, Pneumonia, Seizure Disorder, Thyroid Disorder Additional Past Medical History / Comment(s): NIDDM type II-checks blood sugars , does not take diabetic meds. 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 Anthony Edmonds 12-23-16 and states she may need surgery on her L leg due to a clot. Has not taken her Eliquis for 1 yr. Patient also has electrodes for a Loop recorder & states it needs to be removed. He client relation specialist is in [place] & has not seen him in a couple of years. History of Any Multi-Drug Resistant Organisms: None Reported Past Surgical History: Breast Surgery, Heart Catheterization Additional Past Surgical History / Comment(s): L breast biopsy-twice and benign , L parotid gland bx-benign, colonoscopy-normal, bilateral cataract removals with lens implants. L Thyroid bx. Past Anesthesia/Blood Transfusion Reactions: No Reported Reaction Past Psychological History: No Psychological Hx Reported Smoking Status: Current every day smoker Past Alcohol Use History: None Reported Past Drug Use History: None Reported - Past Family History Mother Additional Family Medical History / Comment(s): Mother of sepsis at the age of 63 yrs. Father Family Medical History: Myocardial Infarction ([place]) Additional Family Medical History / Comment(s): Father during a carotid endartectomy. General Exam - General Exam Comments Initial Comments: This is a well-developed well-nourished awake alert oriented 3 female Limitations: no limitations General appearance: alert, anxious Head exam: Present: atraumatic, normocephalic, normal inspection Eye exam: Present: normal appearance, PERRL, EOMI. Absent: scleral icterus, conjunctival injection, periorbital swelling ENT exam: Present: normal exam, mucous membranes moist Neck exam: Present: normal inspection. Absent: tenderness, meningismus, lymphadenopathy Respiratory exam: Present: chest wall tenderness (Tenderness palpation on the right lateral chest wall no rashes noted), decreased breath sounds. Absent: respiratory distress, wheezes, rales, rhonchi, stridor Cardiovascular Exam: Present: regular rate, normal rhythm, normal heart sounds. Absent: systolic murmur, diastolic murmur, rubs, gallop, clicks GI/Abdominal exam: Present: soft, normal bowel sounds. Absent: distended, tenderness, guarding, rebound, rigid Extremities exam: Present: normal inspection, full ROM, normal capillary refill. Absent: tenderness, pedal edema, joint swelling, calf tenderness Back exam: Present: normal inspection Neurological exam: Present: alert, oriented X3, CN II-XII intact Psychiatric exam: Present: normal affect, normal mood Skin exam: Present: warm, dry, intact, normal color. Absent: rash Course Vital Signs 05/29/17 05/29/17 05/29/17 11:19 11:56 12:06 Temperature 98.2 F Pulse Rate 95 80 77 Respiratory 22 Rate Blood Pressure 133/64 O2 Sat by Pulse 100 Oximetry 05/29/17 13:08 Temperature 98.2 F Pulse Rate 80 Respiratory 18 Rate Blood Pressure 161/70 O2 Sat by Pulse 100 Oximetry Medical Decision Making - Medical Decision Making Patient is feeling much improved I did reevaluate him several occasions her aeration is proved she has no wheezing good aeration bilaterally. She would like to go home she'll be discharged on oral steroids she does have an inhaler at home that is up-to-date. She is a follow-up with her doctor. - Lab Data Result diagrams: 05/29/17 12:20 05/29/17 12:20 Lab Results 05/29/17 05/29/17 05/29/17 Range/Units 12:20 12:20 12:20 WBC 6.2 (3.8-10.6) k/uL RBC 3.88 (3.80-5.40) m/uL Hgb 12.2 (11.4-16.0) gm/dL Hct 35.5 (34.0-46.0) % MCV 91.5 (80.0-100.0) fL MCH 31.4 (25.0-35.0) pg MCHC 34.3 (31.0-37.0) g/dL RDW 12.5 (11.5-15.5) % Plt Count 260 (150-450) k/uL Neutrophils % 63 % Lymphocytes % 28 % Monocytes % 5 % Eosinophils % 3 % Basophils % 1 % Neutrophils # 3.9 (1.3-7.7) k/uL Lymphocytes # 1.7 (1.0-4.8) k/uL Monocytes # 0.3 (0-1.0) k/uL Eosinophils # 0.2 (0-0.7) k/uL Basophils # 0.0 (0-0.2) k/uL PT (9.0-12.0) sec INR (<1.2) APTT (22.0-30.0) sec D-Dimer (<0.60) mg/L FEU Sodium 141 (137-145) mmol/L Potassium 4.6 (3.5-5.1) mmol/L Chloride 105 (98-107) mmol/L Carbon Dioxide 26 (22-30) mmol/L Anion Gap 10 mmol/L BUN 9 (7-17) mg/dL Creatinine 0.70 (0.52-1.04) mg/dL Est GFR (CKD-EPI)AfAm >90 (>60 ml/min/1.73 sqM) Est GFR (CKD-EPI)NonAf >90 (>60 ml/min/1.73 sqM) Glucose 99 (74-99) mg/dL Calcium 8.8 (8.4-10.2) mg/dL Magnesium 2.0 (1.6-2.3) mg/dL Total Bilirubin 0.7 (0.2-1.3) mg/dL AST 20 (14-36) U/L ALT 11 (9-52) U/L Alkaline Phosphatase 63 (38-126) U/L Total Creatine Kinase 72 (30-135) U/L CK-MB (CK-2) 0.6 (0.0-2.4) ng/mL CK-MB (CK-2) Rel Index 0.8 Troponin I <0.012 (0.000-0.034) ng/mL NT-Pro-B Natriuret Pep pg/mL Total Protein 6.2 L (6.3-8.2) g/dL Albumin 3.3 L (3.5-5.0) g/dL 05/29/17 05/29/17 Range/Units 12:20 12:20 WBC (3.8-10.6) k/uL RBC (3.80-5.40) m/uL Hgb (11.4-16.0) gm/dL Hct (34.0-46.0) % MCV (80.0-100.0) fL MCH (25.0-35.0) pg MCHC (31.0-37.0) g/dL RDW (11.5-15.5) % Plt Count (150-450) k/uL Neutrophils % % Lymphocytes % % Monocytes % % Eosinophils % % Basophils % % Neutrophils # (1.3-7.7) k/uL Lymphocytes # (1.0-4.8) k/uL Monocytes # (0-1.0) k/uL Eosinophils # (0-0.7) k/uL Basophils # (0-0.2) k/uL PT 10.4 (9.0-12.0) sec INR 1.1 (<1.2) APTT 24.5 (22.0-30.0) sec D-Dimer 0.36 (<0.60) mg/L FEU Sodium (137-145) mmol/L Potassium (3.5-5.1) mmol/L Chloride (98-107) mmol/L Carbon Dioxide (22-30) mmol/L Anion Gap mmol/L BUN (7-17) mg/dL Creatinine (0.52-1.04) mg/dL Est GFR (CKD-EPI)AfAm (>60 ml/min/1.73 sqM) Est GFR (CKD-EPI)NonAf (>60 ml/min/1.73 sqM) Glucose (74-99) mg/dL Calcium (8.4-10.2) mg/dL Magnesium (1.6-2.3) mg/dL Total Bilirubin (0.2-1.3) mg/dL AST (14-36) U/L ALT (9-52) U/L Alkaline Phosphatase (38-126) U/L Total Creatine Kinase (30-135) U/L CK-MB (CK-2) (0.0-2.4) ng/mL CK-MB (CK-2) Rel Index Troponin I (0.000-0.034) ng/mL NT-Pro-B Natriuret Pep 136 pg/mL Total Protein (6.3-8.2) g/dL Albumin (3.5-5.0) g/dL - EKG Data -: EKG Interpreted by Me EKG shows normal: sinus rhythm, axis, intervals, QRS complexes, ST-T waves ( Normal sinus rhythm of 86. Interval 120 QRS duration 76 daily since QTC of 362/ 433 st-t wave changes.) Rate: normal - Radiology Data Radiology results: report reviewed (I did review the imaging and report no acute findings.), image reviewed Disposition Clinical Impression: Acute exacerbation of chronic obstructive airways disease Disposition: HOME SELF-CARE Condition: Good Instructions: COPD (Chronic Obstructive Pulmonary Disease) (ED) Prescriptions: predniSONE 20 mg PO BID #10 tab Referrals: Jet Edmonds MD [Primary Care Provider] - 1-2 days
[2017-05-29 12:39] LABS: Basophils % (A) 1 %; Eosinophils # (A) 0.2 k/uL (0-0.7); Eosinophils % (A) 3 %; HCT 35.5 % (34.0-46.0); HGB 12.2 gm/dL (11.4-16.0); Lymphocytes # (A) 1.7 k/uL (1.0-4.8); Lymphocytes % (A) 28 %; MCH 31.4 pg (25.0-35.0); MCHC 34.3 g/dL (31.0-37.0); MCV 91.5 fL (80.0-100.0); Mean Platelet Volume 7.3; Monocytes # (A) 0.3 k/uL (0-1.0); Monocytes % (A) 5 %; Neutrophils # (A) 3.9 k/uL (1.3-7.7); Neutrophils % (A) 63 %; Platelet Count 260 k/uL (150-450); RBC 3.88 m/uL (3.80-5.40); RDW 12.5 % (11.5-15.5); WBC 6.2 k/uL (3.8-10.6)
--- NOTE | 2017-05-29 12:46 | XR ---
EXAMINATION TYPE: XR chest 2V DATE OF EXAM: 05/29/2017 COMPARISON: 05/11/2017 HISTORY: difficulty breathing TECHNIQUE: Frontal and lateral views of the chest are obtained. FINDINGS: There is no focal air space opacity. No evidence for pneumothorax. No pleural effusion. The cardiac silhouette size is within normal limits. The osseous structures are grossly intact. IMPRESSION: 1. No acute cardiopulmonary process.
[2017-05-29 12:49] LABS: ALT 11 U/L (9-52); AST 20 U/L (14-36); Albumin 3.3 g/dL (3.5-5.0); Alkaline Phosphatase 63 U/L (38-126); Anion Gap 10 mmol/L; Blood Urea Nitrogen 9 mg/dL (7-17); Calcium 8.8 mg/dL (8.4-10.2); Carbon Dioxide 26 mmol/L (22-30); Chloride 105 mmol/L (98-107); Glucose 99 mg/dL (74-99); Sodium 141 mmol/L (137-145); Total Bilirubin 0.7 mg/dL (0.2-1.3); Total Protein 6.2 g/dL (6.3-8.2)
[2017-05-29 12:53] LABS: D-Dimer 0.36 mg/L FEU (<0.60); INR 1.1 (<1.2); Partial Thromboplastin Time 24.5 sec (22.0-30.0); Prothrombin Time 10.4 sec (9.0-12.0)
[2017-05-29 13:02] LABS: Potassium 4.6 mmol/L (3.5-5.1)
[2017-05-29 13:09] VITALS: RESP 18
[2017-05-29 13:17] LABS: Creatine Kinase 72 U/L (30-135)
[2017-05-29 13:28] LABS: Creatine Kinase MB 0.6 ng/mL (0.0-2.4); Troponin I <0.012 ng/mL (0.000-0.034)
[2017-05-29] MEDS ORDERED: methylPREDNISolone SOD SUCCI 125 MG/2 ML VIAL IV STA (14:08)
[2017-05-29 14:18] VITALS: BP 164/75; PULSE 75
[2017-05-29 14:24] VITALS: TEMP 97
== END 2017-05-29 14:24 | disposition home or self-care (01) ==
LOC: EC 11:17
DX: J44.1 Chronic obstructive pulmonary disease with (acute) exacerbation (principal); I25.10 Atherosclerotic heart disease of native coronary artery without angina pectoris; I48.91 Unspecified atrial fibrillation; I48.92 Unspecified atrial flutter; I11.0 Hypertensive heart disease with heart failure; I50.9 Heart failure, unspecified; E11.9 Type 2 diabetes mellitus without complications; E78.5 Hyperlipidemia, unspecified; F17.200 Nicotine dependence, unspecified, uncomplicated; Z86.718 Personal history of other venous thrombosis and embolism; Z79.51 Long term (current) use of inhaled steroids; Z79.82 Long term (current) use of aspirin; Z79.52 Long term (current) use of systemic steroids; Z79.84 Long term (current) use of oral hypoglycemic drugs; Z79.01 Long term (current) use of anticoagulants; Z79.899 Other long term (current) drug therapy; Z88.0 Allergy status to penicillin; Z88.2 Allergy status to sulfonamides; Z91.040 Latex allergy status
CPT/HCPCS: 36415; 94640; 93005; 85379; 83880; 80053; 82550; 82553; 83735; 84484; 85025; 85610; 85730; 71046; 99285; 96374; 96361; J2930

== ENCOUNTER 2017-07-10 16:53 | Inpatient (IN) | payer BC, MEDICARE ==
[2017-07-10] MEDS ORDERED: methylPREDNISolone SOD SUCCI 125 MG/2 ML VIAL IV STA (17:16)
[2017-07-10] MEDS ORDERED: IPRATROPIUM 0.5 MG/2.5 ML NEBU INHALATION STA (17:16)
[2017-07-10] MEDS ORDERED: ALBUTEROL NEBULIZED 2.5 MG/3 ML INHALATION STA (17:16)
[2017-07-10] MEDS ORDERED: MAGNESIUM SULFATE-D5W PMX 1 GM in DEXTROSE/WATER 1 100ML.BAG IVPB STA (17:16)
[2017-07-10] MEDS ORDERED: TERBUTALINE 1 MG/ML VIAL SQ STA (17:16)
[2017-07-10] MEDS ORDERED: IBUPROFEN 800 MG TAB PO STA (17:30)
[2017-07-10] MEDS ORDERED: ACETAMINOPHEN TAB 500 MG TAB PO STA (17:31)
--- NOTE | 2017-07-10 17:32 | ED ---
SOB HPI - General Chief Complaint: Shortness of Breath Stated Complaint: Shortness of Breath Time Seen by Provider: 07/10/17 17:13 Source: patient Mode of arrival: wheelchair Limitations: physical limitation - History of Present Illness Initial Comments: Patient complains of shortness of breath. She has asthma and COPD. She has diffuse wheezing. She has taken medication at home with no relief. She has no chest pain or tightness. She has no palpitations. She has no pain or swelling the legs. She was not doing anything when this began. Her symptoms have been getting worse for days. She has no back pain or belly pain. - Related Data Home Medications Medication Instructions Recorded Confirmed Aspirin 81 mg PO DAILY 01/01/17 07/10/17 Umeclidinium [place] [Incruse 1 puff INHALATION RT-DAILY 05/10/17 07/10/17 Ellipta] Gabapentin [Neurontin] 100 mg PO TID 07/10/17 07/10/17 Varenicline [Chantix Starter Pack] See Taper PO DIRECTED 07/10/17 07/10/17 amLODIPine [Norvasc] 5 mg PO DAILY 07/10/17 07/10/17 Allergies Allergy/AdvReac Type Severity Reaction Status Date / Time latex Allergy Rash/Hives Verified 07/10/17 17:29 Penicillins Allergy Rash/Hives Verified 07/10/17 17:29 Sulfa (Sulfonamide Allergy Rash/Hives Verified 07/10/17 17:29 Antibiotics) Review of Systems ROS Statement: Those systems with pertinent positive or pertinent negative responses have been documented in the HPI. ROS Other: All systems not noted in ROS Statement are negative. Past Medical History Past Medical History: Atrial Fibrillation, Atrial Flutter, Asthma, Coronary Artery Disease (CAD), Heart Failure, COPD, Diabetes Mellitus, Deep Vein Thrombosis (DVT), GERD/Reflux, Hyperlipidemia, Hypertension, Pneumonia, Seizure Disorder, Thyroid Disorder Additional Past Medical History / Comment(s): NIDDM type II-checks blood sugars , does not take diabetic meds. 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 Anthony Edmonds 12-23-16 and states she may need surgery on her L leg due to a clot. Has not taken her Eliquis for 1 yr. Patient also has electrodes for a Loop recorder & states it needs to be removed. He geoscientist is in [place] & has not seen him in a couple of years. History of Any Multi-Drug Resistant Organisms: None Reported Past Surgical History: Breast Surgery, Heart Catheterization Additional Past Surgical History / Comment(s): L breast biopsy-twice and benign , L parotid gland bx-benign, colonoscopy-normal, bilateral cataract removals with lens implants. L Thyroid bx. Past Anesthesia/Blood Transfusion Reactions: No Reported Reaction Past Psychological History: No Psychological Hx Reported Smoking Status: Current every day smoker Past Alcohol Use History: None Reported Past Drug Use History: None Reported - Past Family History Mother Additional Family Medical History / Comment(s): Mother of sepsis at the age of 63 yrs. Father Family Medical History: Myocardial Infarction ([place]) Additional Family Medical History / Comment(s): Father during a carotid endartectomy. General Exam Limitations: physical limitation General appearance: alert, in no apparent distress Head exam: Present: atraumatic, normocephalic, normal inspection Eye exam: Present: normal appearance, PERRL, EOMI. Absent: scleral icterus, conjunctival injection, periorbital swelling ENT exam: Present: normal exam, mucous membranes moist Neck exam: Present: normal inspection. Absent: tenderness, meningismus, lymphadenopathy Respiratory exam: Present: respiratory distress, wheezes, decreased breath sounds, prolonged expiratory. Absent: rales, rhonchi, stridor Cardiovascular Exam: Present: regular rate, normal rhythm, normal heart sounds. Absent: systolic murmur, diastolic murmur, rubs, gallop, clicks GI/Abdominal exam: Present: soft, normal bowel sounds. Absent: distended, tenderness, guarding, rebound, rigid Extremities exam: Present: normal inspection, full ROM, normal capillary refill. Absent: tenderness, pedal edema, joint swelling, calf tenderness Back exam: Present: normal inspection Neurological exam: Present: alert, oriented X3, CN II-XII intact Psychiatric exam: Present: normal affect, normal mood Skin exam: Present: warm, dry, intact, normal color. Absent: rash Course Vital Signs 07/10/17 07/10/17 07/10/17 17:02 18:04 18:35 Temperature 101.9 F H Pulse Rate 110 H 103 H 110 H Respiratory 22 Rate Blood Pressure 196/86 O2 Sat by Pulse 95 Oximetry 07/10/17 19:12 Temperature Pulse Rate 115 H Respiratory Rate Blood Pressure O2 Sat by Pulse Oximetry Medical Decision Making - Medical Decision Making Patient is not feeling any better. She will be admitted to the hospital. - Lab Data Result diagrams: 07/10/17 17:52 07/10/17 17:52 Lab Results 07/10/17 07/10/17 07/10/17 Range/Units 17:52 17:52 17:52 WBC 4.8 (3.8-10.6) k/uL RBC 4.24 (3.80-5.40) m/uL Hgb 12.9 (11.4-16.0) gm/dL Hct 39.6 (34.0-46.0) % MCV 93.4 (80.0-100.0) fL MCH 30.5 (25.0-35.0) pg MCHC 32.7 (31.0-37.0) g/dL RDW 12.9 (11.5-15.5) % Plt Count 163 (150-450) k/uL Neutrophils % 72 % Lymphocytes % 15 % Monocytes % 10 % Eosinophils % 2 % Basophils % 0 % Neutrophils # 3.5 (1.3-7.7) k/uL Lymphocytes # 0.7 L (1.0-4.8) k/uL Monocytes # 0.5 (0-1.0) k/uL Eosinophils # 0.1 (0-0.7) k/uL Basophils # 0.0 (0-0.2) k/uL PT (9.0-12.0) sec INR (<1.2) APTT (22.0-30.0) sec Sodium 139 (137-145) mmol/L Potassium 4.1 (3.5-5.1) mmol/L Chloride 102 (98-107) mmol/L Carbon Dioxide 27 (22-30) mmol/L Anion Gap 10 mmol/L BUN 11 (7-17) mg/dL Creatinine 0.77 (0.52-1.04) mg/dL Est GFR (CKD-EPI)AfAm >90 (>60 ml/min/1.73 sqM) Est GFR (CKD-EPI)NonAf 81 (>60 ml/min/1.73 sqM) Glucose 105 H (74-99) mg/dL Plasma Lactic Acid [place] (0.7-2.0) mmol/L Calcium 8.9 (8.4-10.2) mg/dL Magnesium 1.7 (1.6-2.3) mg/dL Total Bilirubin 0.9 (0.2-1.3) mg/dL AST 17 (14-36) U/L ALT 23 (9-52) U/L Alkaline Phosphatase 59 (38-126) U/L Troponin I (0.000-0.034) ng/mL NT-Pro-B Natriuret Pep 250 pg/mL Total Protein 6.3 (6.3-8.2) g/dL Albumin 3.8 (3.5-5.0) g/dL 07/10/17 07/10/17 07/10/17 Range/Units 17:52 17:52 17:52 WBC (3.8-10.6) k/uL RBC (3.80-5.40) m/uL Hgb (11.4-16.0) gm/dL Hct (34.0-46.0) % MCV (80.0-100.0) fL MCH (25.0-35.0) pg MCHC (31.0-37.0) g/dL RDW (11.5-15.5) % Plt Count (150-450) k/uL Neutrophils % % Lymphocytes % % Monocytes % % Eosinophils % % Basophils % % Neutrophils # (1.3-7.7) k/uL Lymphocytes # (1.0-4.8) k/uL Monocytes # (0-1.0) k/uL Eosinophils # (0-0.7) k/uL Basophils # (0-0.2) k/uL PT 10.6 (9.0-12.0) sec INR 1.1 (<1.2) APTT 26.0 (22.0-30.0) sec Sodium (137-145) mmol/L Potassium (3.5-5.1) mmol/L Chloride (98-107) mmol/L Carbon Dioxide (22-30) mmol/L Anion Gap mmol/L BUN (7-17) mg/dL Creatinine (0.52-1.04) mg/dL Est GFR (CKD-EPI)AfAm (>60 ml/min/1.73 sqM) Est GFR (CKD-EPI)NonAf (>60 ml/min/1.73 sqM) Glucose (74-99) mg/dL Plasma Lactic Acid [place] 0.9 (0.7-2.0) mmol/L Calcium (8.4-10.2) mg/dL Magnesium (1.6-2.3) mg/dL Total Bilirubin (0.2-1.3) mg/dL AST (14-36) U/L ALT (9-52) U/L Alkaline Phosphatase (38-126) U/L Troponin I <0.012 (0.000-0.034) ng/mL NT-Pro-B Natriuret Pep pg/mL Total Protein (6.3-8.2) g/dL Albumin (3.5-5.0) g/dL 07/10/17 17:42 Twelve-lead EKG shows ventricular rate 96 bpm, normal MS interval and QRS complex is, no ST elevation or depression, interpreted by me as normal sinus rhythm. Disposition Clinical Impression: COPD (chronic obstructive pulmonary disease) Disposition: ADMITTED IP TO THIS HOSP Condition: Serious Is patient prescribed a controlled substance at d/c from ED?: No Referrals: Jet Edmonds MD [Primary Care Provider] - 1-2 days
[2017-07-10 18:12] LABS: Basophils % (A) 0 %; Eosinophils # (A) 0.1 k/uL (0-0.7); Eosinophils % (A) 2 %; HCT 39.6 % (34.0-46.0); HGB 12.9 gm/dL (11.4-16.0); Lymphocytes # (A) 0.7 k/uL (1.0-4.8); Lymphocytes % (A) 15 %; MCH 30.5 pg (25.0-35.0); MCHC 32.7 g/dL (31.0-37.0); MCV 93.4 fL (80.0-100.0); Mean Platelet Volume 8.6; Monocytes # (A) 0.5 k/uL (0-1.0); Monocytes % (A) 10 %; Neutrophils # (A) 3.5 k/uL (1.3-7.7); Neutrophils % (A) 72 %; Platelet Count 163 k/uL (150-450); RBC 4.24 m/uL (3.80-5.40); RDW 12.9 % (11.5-15.5); WBC 4.8 k/uL (3.8-10.6)
[2017-07-10 18:19] LABS: ALT 23 U/L (9-52); AST 17 U/L (14-36); Albumin 3.8 g/dL (3.5-5.0); Alkaline Phosphatase 59 U/L (38-126); Anion Gap 10 mmol/L; Blood Urea Nitrogen 11 mg/dL (7-17); Calcium 8.9 mg/dL (8.4-10.2); Carbon Dioxide 27 mmol/L (22-30); Chloride 102 mmol/L (98-107); Glucose 105 mg/dL (74-99); Magnesium 1.7 mg/dL (1.6-2.3); Potassium 4.1 mmol/L (3.5-5.1); Sodium 139 mmol/L (137-145); Total Bilirubin 0.9 mg/dL (0.2-1.3); Total Protein 6.3 g/dL (6.3-8.2)
[2017-07-10 18:30] LABS: INR 1.1 (<1.2); Prothrombin Time 10.6 sec (9.0-12.0)
--- NOTE | 2017-07-10 18:51 | XR ---
EXAMINATION TYPE: XR chest 1V portable DATE OF EXAM: 07/10/2017 COMPARISON: 05/29/2017 HISTORY: Cough and short of breath TECHNIQUE: Single frontal view of the chest is obtained. FINDINGS: There is no heart failure nor confluent pneumonic infiltrate. Costophrenic angles are angie r. There are chest leads. Bony thorax is intact. Thoracic aorta is atheromatous. IMPRESSION: No active cardiopulmonary disease. No change.
[2017-07-10] MEDS ORDERED: ONDANSETRON 4 MG/2 ML VIAL IVP PRN (20:01)
[2017-07-10] MEDS ORDERED: NALOXONE 0.4 MG/ML 1 ML VIAL IV PRN (20:01)
[2017-07-10 21:56] LABS: Glucose,Whole Blood 298 mg/dL (75-99)
[2017-07-10 22:00] VITALS: BMI 34.3
[2017-07-10] MEDS: FAMOTIDINE 20 MG TAB PO SCH (22:08)
[2017-07-10] MEDS: GABAPENTIN 100 MG CAP PO SCH (22:08)
[2017-07-10] MEDS ORDERED: INSULIN ASPART 100 UNIT/ML 1 ML 10 ML VIAL SQ ONE (23:00)
[2017-07-10] MEDS: NICOTINE 21MG/24HR PATCH TRANSDERM SCH (23:19)
[2017-07-11 03:43] LABS: Appearance,Urine Clear (Clear); Bilirubin,Urine Negative (Negative); Blood,Urine Negative (Negative); Color,Urine Yellow; Glucose,Urine (UA) 4+ (Negative); Ketones,Urine Negative (Negative); Leukocyte Esterase,Urine Negative (Negative); Nitrite,Urine Negative (Negative); PH, Urine 5.5 (5.0-8.0); Protein,Urine Negative (Negative); Specific Gravity,Urine 1.018 (1.001-1.035); Urobilinogen,Urine <2.0 mg/dL (<2.0)
[2017-07-11 03:54] LABS: Glucose,Whole Blood 277 mg/dL (75-99)
[2017-07-11 07:11] LABS: Glucose,Whole Blood 333 mg/dL (75-99)
[2017-07-11] MEDS: IPRATROPIUM 0.5 MG/2.5 ML NEBU INHALATION SCH ×4 (07:40→19:48)
[2017-07-11] MEDS: NICOTINE 21MG/24HR PATCH TRANSDERM SCH (07:55)
[2017-07-11] MEDS: INSULIN ASPART 100 UNIT/ML 1 ML 10 ML VIAL SQ SCH ×4 (07:56→21:03)
[2017-07-11] MEDS: ASPIRIN 81 MG PO SCH (07:56)
[2017-07-11] MEDS: methylPREDNISolone SOD SUCCI 125 MG/2 ML VIAL IV SCH ×2 (07:56→15:53)
[2017-07-11] MEDS: FAMOTIDINE 20 MG TAB PO SCH ×2 (07:56→21:04)
[2017-07-11] MEDS: GABAPENTIN 100 MG CAP PO SCH ×3 (07:56→21:03)
[2017-07-11] MEDS: amLODIPine 5 MG TAB PO SCH (07:56)
[2017-07-11] MEDS ORDERED: APIXABAN 5 MG TAB PO SCH (09:00)
--- NOTE | 2017-07-11 11:49 | HP ---
HISTORY AND PHYSICAL CHIEF COMPLAINT: Cwira[age]eso[age]or-old white female with shortness of breath. She has a history of asthma and COPD. Her wheezing got worse. She came to the hospital. Failed updraft treatments in the ER. IV Solu-Medrol 125 was given. She was admitted to hospital after failing outpatient treatment with updraft treatments, etc. HOME MEDICINES: 1. Aspirin. 2. Incruse Ellipta. 3. Neurontin 100 t.i.d. 4. Chantix 0.5 b.i.d. 5. Norvasc 5 mg daily. ALLERGIES: 1. LATEX. 2. PENICILLIN. 3. SULFA. REVIEW OF SYSTEMS: Fourteen-point review of systems negative except for mentioned in HPI. PAST MEDICAL HISTORY: 1. Atrial flutter. 2. Atrial fibrillation. 3. Coronary artery disease. 4. Seizure disorder. 5. Thyroid disorder. 6. Pneumonia. 7. Hypertension. 8. GERD. 9. Dyslipidemia. 10.DVT. 11.Heart failure. 12.Diabetes mellitus. 13.Carpal tunnel syndrome. 14.Chronic thrombocytopenia. 15.Thyroid nodules. She sees a sample hand in [place]. She has a loop recorder. She is on Eliquis due to a clot in her leg. PAST SURGICAL HISTORY: 1. Breast surgery. 2. Heart catheterization. 3. Left breast biopsy twice; benign. 4. Left parotid; benign. 5. Colonoscopy; normal. 6. Cataract surgery with lens implants. 7. Thyroid biopsy; negative. SOCIAL HISTORY: Current everyday smoker. No alcohol. No illicit drugs. FAMILY HISTORY: Mother with sepsis. Father with myocardial infarction, carotid endarterectomy. PHYSICAL EXAMINATION: T-max 101.9, heart rate 103 to 110, respiratory rate 18 to 22, blood pressure 196/86, oxygen 95% on room air. LUNGS: Scattered wheeze x4. Decreased breath sounds x4. CARDIOVASCULAR: Regular rate and rhythm. No murmurs, rubs or gallops. GI: Soft, nontender. No mass. No organomegaly. EXTREMITIES: No cyanosis, clubbing, edema. BACK: Normal inspection. PSYCH: Cranial nerves are intact. SKIN: Warm, dry, intact. HEENT: Normocephalic, atraumatic. OPHTHALMOLOGIC: Pupils equal, round, reactive to light and accommodation. White count 4.8, hemoglobin 12.9. BUN 11, creatinine 0.77. BNP 250. D-dimer pending. EKG sinus rhythm. ASSESSMENT: 1. Chronic obstructive pulmonary disease exacerbation. 2. Acute hypoxemic respiratory failure. Waiting on D-dimer. IV Solu-Medrol will be given. Updraft treatments. Pulmonary consult will be given. Electrolyte replacement. MMODL / IJN: [id number] /
[2017-07-11] MEDS ORDERED: FUROSEMIDE 10 MG/ML 10 ML VIAL IV STA (12:21)
[2017-07-11 12:33] LABS: Glucose,Whole Blood 167 mg/dL (75-99)
--- NOTE | 2017-07-11 13:19 | CONS ---
CONSULTATION Concepcion Steele is a 66-year-old female who presented to the ED at [facility] with increasing shortness of breath of about 2-3 days duration. This has been associated with wheezing. She had some chest tightness, cough with some clear phlegm. She subsequently was seen in the ED and admitted for further evaluation. She states that she did have fever as well. PAST MEDICAL HISTORY: Past medical history is positive for asthma, COPD, coronary artery disease, hypertension, atrial fibrillation, previous stent, breast biopsy, pacemaker. ALLERGIES: The patient is allergic to LATEX, PENICILLIN, AND SULFA. FAMILY HISTORY: Positive for sepsis in mother who at age 63. Father had an CA and during coronary endarterectomy. SOCIAL HISTORY: Patient smokes cigarettes, quarter pack for about 40 years with a 10 pack history of smoking. She does not drink alcohol excessively. MEDICATIONS: Prior to admission will be Chantix, Norvasc, Ellipta, Neurontin and aspirin. PHYSICAL EXAMINATION: Respiratory rate is 20, pulse rate of 80, temperature 97.8, blood pressure 140/73, O2 saturation on 2 L by nasal cannula is 100%. HEENT reveals pupils that are equal, Mallampati III. Chest reveals prolonged expiration with expiratory wheeze. Cardiovascular system reveals S1, S2. Abdomen is soft. There is no pedal edema. White count is 4.8 with 0.1000 eosinophils. Sodium 139, potassium 4.1, chloride 102, bicarb 27, glucose 105. Chest x-ray shows no discrete infiltrate. IMPRESSION: At this time: 1. Asthma with acute exacerbation. 2. Possible baseline chronic obstructive pulmonary disease. 3. Obesity. 4. Previously IgE of 96 with positivity to aeroallergens. At this point in time, keep her on IV steroids, bronchodilators, aerosolized steroids, Singulair, GI and DVT prophylaxis. She may be a candidate for a biologic as her asthma is relatively uncontrolled. We will follow her closely during her hospital stay and appreciate the opportunity to participate in her care. MMODL / IJN: [id number] /
[2017-07-11] MEDS: traMADol 50 MG TAB PO PRN ×2 (15:56→22:42)
[2017-07-11 17:32] LABS: Glucose,Whole Blood 290 mg/dL (75-99)
[2017-07-11 20:38] LABS: Glucose,Whole Blood 212 mg/dL (75-99)
[2017-07-11] MEDS ORDERED: MONTELUKAST 10 MG TAB PO SCH (21:00)
[2017-07-11] MEDS: APIXABAN 2.5 MG TABLET PO SCH (21:04)
[2017-07-12] MEDS ORDERED: IPRATROPIUM 0.5 MG/2.5 ML NEBU INHALATION PRN (00:51)
[2017-07-12] MEDS: methylPREDNISolone SOD SUCCI 125 MG/2 ML VIAL IV SCH ×2 (00:52→07:37)
[2017-07-12] MEDS ORDERED: IPRATROPIUM-ALBUTEROL 3 ML NEB INHALATION PRN (01:47)
[2017-07-12] MEDS ORDERED: POLYETHYLENE GLYCOL 3350 17 GM POWD.PACK PO SCH (06:00)
[2017-07-12 06:35] VITALS: BP 142/81; RESP 22; TEMP 97.7
[2017-07-12 07:05] LABS: Glucose,Whole Blood 216 mg/dL (75-99)
[2017-07-12] MEDS: GABAPENTIN 100 MG CAP PO SCH (07:37)
[2017-07-12] MEDS: ASPIRIN 81 MG PO SCH (07:37)
[2017-07-12] MEDS: amLODIPine 5 MG TAB PO SCH (07:37)
[2017-07-12] MEDS: APIXABAN 2.5 MG TABLET PO SCH (07:37)
[2017-07-12] MEDS: FAMOTIDINE 20 MG TAB PO SCH (07:37)
[2017-07-12] MEDS: NICOTINE 21MG/24HR PATCH TRANSDERM SCH (07:37)
[2017-07-12] MEDS: INSULIN ASPART 100 UNIT/ML 1 ML 10 ML VIAL SQ SCH (07:37)
[2017-07-12] MEDS: IPRATROPIUM 0.5 MG/2.5 ML NEBU INHALATION SCH (08:35)
[2017-07-12 08:44] VITALS: PULSE 92
--- NOTE | 2017-07-19 18:11 | CDI ---
Last Revision, January 2017 Documentation Clarification Form Date: 07/19/17 From: Malgorzata Hinkle Phone: If you have a question regarding this query, please contact Patricia Jameson at [phone] between 8am and 5pm. Admit Date: 07/10/2017 8:03:00 PM Patient Name: Concepcion Steele Visit Number: [id number] Discharge Date: 07/12/17 ATTENTION: The Clinical Documentation Specialists (CDI) and [facility] Coding Staff appreciate your assistance in clarifying documentation. Please respond to the clarification below the line at the bottom and electronically sign. The CDI & [facility] Coding staff will review the response and follow-up if needed. Please note: Queries are made part of the Legal Health Record. If you have any questions, please contact the author of this message via ITS. Dr. Gilberto Mccallum Asthma is documented in the H&P and in your consult note.. Patient history/risk factors: Patient has possible baseline COPD and asthma. Clinical Indicators: Shortness of breath and wheezing. Radiology: No active cardiopulmonary disease. Vital Signs: T. 101.9, P. 110, R. 22, BP 196/86, Pulse ox. 95 on room air. Treatment: Venotlin inhalation, Atrovent inhalation, IV solu-medrol In your professional opinion, can you please further specify the following, if known? Severity: Mild intermittent Mild persistent Moderate persistent Severe persistent Other, please specify ____ Unable to determine Form or Type: Cough variant Childhood Exercise induced bronchospasm Extrinsic allergic Idiosyncratic Intrinsic nonallergic Late-onset Mixed Other, please specify____ Unable to determine MTDD
== END 2017-07-12 09:19 | disposition home or self-care (01) | DRG 202 ==
LOC: EC 16:53 → 4MS4W 20:03
PROVIDERS: ADMIT Family Medicine; ATTEND Family Medicine
DX: J45.901 Unspecified asthma with (acute) exacerbation (principal); I48.92 Unspecified atrial flutter; I48.91 Unspecified atrial fibrillation; D69.6 Thrombocytopenia, unspecified; E11.9 Type 2 diabetes mellitus without complications; J44.9 Chronic obstructive pulmonary disease, unspecified; E66.9 Obesity, unspecified; E78.5 Hyperlipidemia, unspecified; F17.210 Nicotine dependence, cigarettes, uncomplicated; G40.909 Epilepsy, unspecified, not intractable, without status epilepticus; I25.10 Atherosclerotic heart disease of native coronary artery without angina pectoris; K21.9 Gastro-esophageal reflux disease without esophagitis; E04.2 Nontoxic multinodular goiter; I10 Essential (primary) hypertension; M50.30 Other cervical disc degeneration, unspecified cervical region; R51 Headache; Z68.34 Body mass index [BMI] 34.0-34.9, adult; Z79.01 Long term (current) use of anticoagulants; Z79.82 Long term (current) use of aspirin; Z88.0 Allergy status to penicillin; Z88.2 Allergy status to sulfonamides; Z91.040 Latex allergy status; Z86.718 Personal history of other venous thrombosis and embolism; Z79.899 Other long term (current) drug therapy; Z95.5 Presence of coronary angioplasty implant and graft; Z95.0 Presence of cardiac pacemaker; Z98.42 Cataract extraction status, left eye; Z98.41 Cataract extraction status, right eye; Z96.1 Presence of intraocular lens; Z82.49 Family history of ischemic heart disease and other diseases of the circulatory system
CPT/HCPCS: 36415; 71045; 80053; 81003; 83605; 83735; 83880; 84484; 85025; 85379; 85610; 85730; 87040; 87086; 93005; 94640; 94644; 94760; 96365; 96366; 96372; 96375; 99285

== ENCOUNTER 2017-07-13 14:14 | Inpatient (IN) | payer BC, MEDICARE ==
[2017-07-13] MEDS ORDERED: SODIUM CHLORIDE 0.9% 1,000 ML IV STA (14:21)
[2017-07-13] MEDS ORDERED: IPRATROPIUM 0.5 MG/2.5 ML NEBU INHALATION STA (14:21)
[2017-07-13] MEDS ORDERED: ALBUTEROL NEBULIZED 2.5 MG/3 ML INHALATION STA (14:21)
--- NOTE | 2017-07-13 14:45 | ED ---
General Adult HPI - General Chief complaint: Shortness of Breath Stated complaint: CHAVA Time Seen by Provider: 07/13/17 14:21 Source: patient, RN notes reviewed, old records reviewed Mode of arrival: wheelchair Limitations: no limitations - History of Present Illness Initial comments: This is a 66-year-old female the ER with significant shortness of breath severe shortness of breath and difficulty breathing. Recent hospital admission for CHF , pneumonia. Patient was at family doctor's office today and sent to ER for felt outpatient treatment, worsening outpatient breathing and status. - Related Data Home Medications Medication Instructions Recorded Confirmed Aspirin 81 mg PO DAILY 01/01/17 07/13/17 Umeclidinium [place] [Incruse 1 puff INHALATION RT-DAILY 05/10/17 07/13/17 Ellipta] Gabapentin [Neurontin] 100 mg PO TID 07/10/17 07/13/17 Varenicline [Chantix Starter Pack] See Taper PO DIRECTED 07/10/17 07/13/17 amLODIPine [Norvasc] 5 mg PO DAILY 07/10/17 07/13/17 Previous Rx's Medication Instructions Recorded Apixaban [Eliquis] 2.5 mg PO BID tablet 07/12/17 Famotidine [Pepcid] 20 mg PO BID tab 07/12/17 Insulin Aspart [NovoLOG 0 unit SQ ACHS vial 07/12/17 (formulary)] Montelukast [Singulair] 10 mg PO HS tab 07/12/17 Ondansetron [Zofran] 4 mg IVP Q8HR PRN vial 07/12/17 Polyethylene Glycol 3350 [Miralax] 17 gm PO DAILY@0600 powd.pack 07/12/17 traMADol HCl [Ultram] 50 mg PO Q6H PRN tab 07/12/17 Allergies Allergy/AdvReac Type Severity Reaction Status Date / Time latex Allergy Rash/Hives Verified 07/13/17 14:27 Penicillins Allergy Rash/Hives Verified 07/13/17 14:27 Sulfa (Sulfonamide Allergy Rash/Hives Verified 07/13/17 14:27 Antibiotics) Review of Systems ROS Statement: Those systems with pertinent positive or pertinent negative responses have been documented in the HPI. ROS Other: All systems not noted in ROS Statement are negative. Past Medical History Past Medical History: Atrial Fibrillation, Atrial Flutter, Asthma, Coronary Artery Disease (CAD), Heart Failure, COPD, Diabetes Mellitus, Deep Vein Thrombosis (DVT), GERD/Reflux, Hyperlipidemia, Hypertension, Pneumonia, Seizure Disorder, Thyroid Disorder Additional Past Medical History / Comment(s): NIDDM type II-checks blood sugars , does not take diabetic meds. 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 Anthony Edmonds 12-23-16 and states she may need surgery on her L leg due to a clot. Has not taken her Eliquis for 1 yr. Patient also has electrodes for a Loop recorder & states it needs to be removed. He bezel cutter is in [place] & has not seen him in a couple of years. History of Any Multi-Drug Resistant Organisms: None Reported Past Surgical History: Breast Surgery, Heart Catheterization Additional Past Surgical History / Comment(s): L breast biopsy-twice and benign , L parotid gland bx-benign, colonoscopy-normal, bilateral cataract removals with lens implants. L Thyroid bx. Past Anesthesia/Blood Transfusion Reactions: No Reported Reaction Past Psychological History: No Psychological Hx Reported Smoking Status: Current some day smoker Past Alcohol Use History: None Reported Past Drug Use History: None Reported - Past Family History Mother Additional Family Medical History / Comment(s): Mother of sepsis at the age of 63 yrs. Father Family Medical History: Myocardial Infarction ([place]) Additional Family Medical History / Comment(s): Father during a carotid endartectomy. General Exam Limitations: no limitations General appearance: alert, in no apparent distress Head exam: Present: atraumatic, normocephalic, normal inspection Eye exam: Present: normal appearance, PERRL, EOMI. Absent: scleral icterus, conjunctival injection, periorbital swelling ENT exam: Present: normal exam, mucous membranes moist Neck exam: Present: normal inspection. Absent: tenderness, meningismus, lymphadenopathy Respiratory exam: Present: normal lung sounds bilaterally. Absent: respiratory distress, wheezes, rales, rhonchi, stridor Cardiovascular Exam: Present: regular rate, normal rhythm, normal heart sounds. Absent: systolic murmur, diastolic murmur, rubs, gallop, clicks GI/Abdominal exam: Present: soft, normal bowel sounds. Absent: distended, tenderness, guarding, rebound, rigid Extremities exam: Present: normal inspection, full ROM, normal capillary refill. Absent: tenderness, pedal edema, joint swelling, calf tenderness Back exam: Present: normal inspection Neurological exam: Present: alert, oriented X3, CN II-XII intact Psychiatric exam: Present: normal affect, normal mood Skin exam: Present: warm, dry, intact, normal color. Absent: rash Course Vital Signs 07/13/17 07/13/17 07/13/17 14:18 14:29 15:05 Temperature 99 F Pulse Rate 112 H 104 H 106 H Respiratory 42 H Rate Blood Pressure 159/119 O2 Sat by Pulse 95 Oximetry 07/13/17 07/13/17 07/13/17 16:00 16:09 16:10 Temperature 98.0 F Pulse Rate 102 H 94 100 Respiratory 24 Rate Blood Pressure 141/64 O2 Sat by Pulse 97 Oximetry 07/13/17 16:46 Temperature Pulse Rate 102 H Respiratory 20 Rate Blood Pressure 140/63 O2 Sat by Pulse 95 Oximetry EKG Findings - EKG Comments: EKG Findings:: EKG shows sinus tachycardia rate 111, UT 100, QRS 76, QTc 446 Medical Decision Making - Medical Decision Making 66 female the ER for evaluation of shortness of breath cough and congestion positive CHF, positive COPD, will admit for cardiopulmonary resuscitation - Lab Data Result diagrams: 07/13/17 14:30 07/14/17 03:39 Lab Results 07/13/17 07/13/17 07/13/17 Range/Units 14:30 14:30 14:30 WBC 7.2 (3.8-10.6) k/uL RBC 4.41 (3.80-5.40) m/uL Hgb 13.4 (11.4-16.0) gm/dL Hct 41.2 (34.0-46.0) % MCV 93.4 (80.0-100.0) fL MCH 30.4 (25.0-35.0) pg MCHC 32.5 (31.0-37.0) g/dL RDW 13.0 (11.5-15.5) % Plt Count 160 (150-450) k/uL Neutrophils % 72 % Lymphocytes % 18 % Monocytes % 7 % Eosinophils % 1 % Basophils % 0 % Neutrophils # 5.2 (1.3-7.7) k/uL Lymphocytes # 1.3 (1.0-4.8) k/uL Monocytes # 0.5 (0-1.0) k/uL Eosinophils # 0.1 (0-0.7) k/uL Basophils # 0.0 (0-0.2) k/uL PT (9.0-12.0) sec INR (<1.2) APTT (22.0-30.0) sec D-Dimer (<0.60) mg/L FEU Sodium 140 (137-145) mmol/L Potassium 4.6 (3.5-5.1) mmol/L Chloride 101 (98-107) mmol/L Carbon Dioxide 27 (22-30) mmol/L Anion Gap 12 mmol/L BUN 26 H (7-17) mg/dL Creatinine 0.90 (0.52-1.04) mg/dL Est GFR (CKD-EPI)AfAm 77 (>60 ml/min/1.73 sqM) Est GFR (CKD-EPI)NonAf 67 (>60 ml/min/1.73 sqM) Glucose 110 H (74-99) mg/dL Calcium 9.1 (8.4-10.2) mg/dL Magnesium 2.0 (1.6-2.3) mg/dL Total Bilirubin 0.7 (0.2-1.3) mg/dL AST 47 H (14-36) U/L ALT 31 (9-52) U/L Alkaline Phosphatase 63 (38-126) U/L Total Creatine Kinase 735 H (30-135) U/L CK-MB (CK-2) 4.2 H* (0.0-2.4) ng/mL CK-MB (CK-2) Rel Index 0.6 Troponin I <0.012 (0.000-0.034) ng/mL Total Protein 6.6 (6.3-8.2) g/dL Albumin 4.0 (3.5-5.0) g/dL 07/13/17 Range/Units 14:30 WBC (3.8-10.6) k/uL RBC (3.80-5.40) m/uL Hgb (11.4-16.0) gm/dL Hct (34.0-46.0) % MCV (80.0-100.0) fL MCH (25.0-35.0) pg MCHC (31.0-37.0) g/dL RDW (11.5-15.5) % Plt Count (150-450) k/uL Neutrophils % % Lymphocytes % % Monocytes % % Eosinophils % % Basophils % % Neutrophils # (1.3-7.7) k/uL Lymphocytes # (1.0-4.8) k/uL Monocytes # (0-1.0) k/uL Eosinophils # (0-0.7) k/uL Basophils # (0-0.2) k/uL PT 10.2 (9.0-12.0) sec INR 1.0 (<1.2) APTT 22.3 (22.0-30.0) sec D-Dimer 0.35 (<0.60) mg/L FEU Sodium (137-145) mmol/L Potassium (3.5-5.1) mmol/L Chloride (98-107) mmol/L Carbon Dioxide (22-30) mmol/L Anion Gap mmol/L BUN (7-17) mg/dL Creatinine (0.52-1.04) mg/dL Est GFR (CKD-EPI)AfAm (>60 ml/min/1.73 sqM) Est GFR (CKD-EPI)NonAf (>60 ml/min/1.73 sqM) Glucose (74-99) mg/dL Calcium (8.4-10.2) mg/dL Magnesium (1.6-2.3) mg/dL Total Bilirubin (0.2-1.3) mg/dL AST (14-36) U/L ALT (9-52) U/L Alkaline Phosphatase (38-126) U/L Total Creatine Kinase (30-135) U/L CK-MB (CK-2) (0.0-2.4) ng/mL CK-MB (CK-2) Rel Index Troponin I (0.000-0.034) ng/mL Total Protein (6.3-8.2) g/dL Albumin (3.5-5.0) g/dL - Radiology Data Radiology results: report reviewed (CTA chest is negative for acute disease), image reviewed Disposition Clinical Impression: Congestive heart failure, Acute exacerbation of chronic obstructive airways disease, CAP (community acquired pneumonia), COPD (chronic obstructive pulmonary disease), Hypoxia, Dyspnea Disposition: ADMITTED IP TO THIS HOSP Condition: Fair Is patient prescribed a controlled substance at d/c from ED?: No
[2017-07-13 14:48] LABS: Basophils % (A) 0 %; Eosinophils # (A) 0.1 k/uL (0-0.7); Eosinophils % (A) 1 %; HCT 41.2 % (34.0-46.0); HGB 13.4 gm/dL (11.4-16.0); Lymphocytes # (A) 1.3 k/uL (1.0-4.8); Lymphocytes % (A) 18 %; MCH 30.4 pg (25.0-35.0); MCHC 32.5 g/dL (31.0-37.0); MCV 93.4 fL (80.0-100.0); Mean Platelet Volume 8.8; Monocytes # (A) 0.5 k/uL (0-1.0); Monocytes % (A) 7 %; Neutrophils # (A) 5.2 k/uL (1.3-7.7); Neutrophils % (A) 72 %; Platelet Count 160 k/uL (150-450); RBC 4.41 m/uL (3.80-5.40); WBC 7.2 k/uL (3.8-10.6)
[2017-07-13 15:04] LABS: Calcium 9.1 mg/dL (8.4-10.2); Total Bilirubin 0.7 mg/dL (0.2-1.3); Total Protein 6.6 g/dL (6.3-8.2)
[2017-07-13 15:05] LABS: Creatine Kinase 735 U/L (30-135)
[2017-07-13 15:06] LABS: Potassium 4.6 mmol/L (3.5-5.1)
[2017-07-13 15:09] LABS: D-Dimer 0.35 mg/L FEU (<0.60); Partial Thromboplastin Time 22.3 sec (22.0-30.0); Prothrombin Time 10.2 sec (9.0-12.0)
[2017-07-13 15:18] LABS: Creatine Kinase MB 4.2 ng/mL (0.0-2.4); Troponin I <0.012 ng/mL (0.000-0.034)
--- NOTE | 2017-07-13 15:42 | XR ---
EXAMINATION TYPE: XR chest 2V DATE OF EXAM: 07/13/2017 COMPARISON: Prior chest x-ray 07/10/2017 HISTORY: Difficulty breathing, asthma TECHNIQUE: Frontal and lateral views of the chest are obtained. FINDINGS: There is no focal air space opacity, pleural effusion, or pneumothorax seen. The cardiac silhouette size is within normal limits. Overlying loop recorder is present at the level of the hear t. There are overlying cardiac leads. The osseous structures are intact. IMPRESSION: No acute cardiopulmonary process.
[2017-07-13] MEDS: IPRATROPIUM-ALBUTEROL 3 ML NEB INHALATION SCH ×2 (15:59→20:00)
[2017-07-13] MEDS: FUROSEMIDE 10 MG/ML 4 ML VIAL IV SCH (16:55)
[2017-07-13 17:38] LABS: Glucose,Whole Blood 143 mg/dL (75-99)
[2017-07-13 18:04] VITALS: BMI 34.7
[2017-07-13] MEDS ORDERED: ONDANSETRON 4 MG/2 ML VIAL IVP PRN (19:34)
[2017-07-13] MEDS ORDERED: cefTRIAXone IN SWFI 1,000 MG/10 ML SYRINGE IVP SCH (19:45)
[2017-07-13] MEDS: traMADol 50 MG TAB PO PRN (19:58)
[2017-07-13] MEDS ORDERED: AZITHROMYCIN 500 MG in SODIUM CHLORIDE 0.9% 250 ML IVPB SCH (20:00)
[2017-07-13 20:34] LABS: Glucose,Whole Blood 265 mg/dL (75-99)
[2017-07-13] MEDS: MONTELUKAST 10 MG TAB PO SCH (20:56)
[2017-07-13] MEDS: FAMOTIDINE 20 MG TAB PO SCH (20:56)
[2017-07-13] MEDS: APIXABAN 2.5 MG TABLET PO SCH (20:56)
[2017-07-13] MEDS: NICOTINE 14MG/24HR PATCH TRANSDERM SCH (20:56)
[2017-07-13] MEDS: GABAPENTIN 100 MG CAP PO SCH (20:56)
[2017-07-13] MEDS: INSULIN ASPART 100 UNIT/ML 1 ML 10 ML VIAL SQ SCH (20:57)
--- NOTE | 2017-07-13 22:40 | CT ---
EXAMINATION TYPE: CT chest wo con DATE OF EXAM: 07/13/2017 COMPARISON: 09/17/2012 HISTORY: Increasing SOB CT DLP: 700 mGycm. Automated Exposure Control for Dose Reduction was Utilized. TECHNIQUE: CT scan of the thorax is performed without IV contrast. FINDINGS: There is a patchy interstitial and nodular infiltrate in the mid and lower lung lynch. This is sligh tly worse on the right side. There is no pleural effusion. There is no pericardial effusion. There ar e calcified granuloma at the right pulmonary hilum. There are some paratracheal lymph nodes that amanda ure up to 1.5 cm. The bony thorax is intact. I see no compression fracture. Thoracic aorta is atherom atous. There is no evidence of aortic aneurysm.. IMPRESSION: There is new patchy interstitial and nodular pulmonary infiltrates compared to old exam. No pulmonary mass. This probably relates to inflammatory process. There is slight increased paratrach eal adenopathy compared to old exam. Healed granulomatous disease. 1 cm calcified right lower lobe gr anuloma. Calcified gallstones. Multiple hepatic cysts. This appears similar to old exam.
[2017-07-13] MEDS: IPRATROPIUM-ALBUTEROL 3 ML NEB INHALATION PRN (23:53)
[2017-07-14] MEDS: FUROSEMIDE 10 MG/ML 4 ML VIAL IV SCH ×3 (00:08→15:57)
[2017-07-14] MEDS: methylPREDNISolone SOD SUCCI 125 MG/2 ML VIAL IV SCH ×3 (00:08→17:19)
[2017-07-14] MEDS: traMADol 50 MG TAB PO PRN ×3 (02:44→20:37)
[2017-07-14] MEDS: IPRATROPIUM-ALBUTEROL 3 ML NEB INHALATION PRN (03:48)
[2017-07-14] MEDS: POLYETHYLENE GLYCOL 3350 17 GM POWD.PACK PO SCH (06:28)
[2017-07-14 07:12] LABS: Glucose,Whole Blood 179 mg/dL (75-99)
[2017-07-14] MEDS: INSULIN ASPART 100 UNIT/ML 1 ML 10 ML VIAL SQ SCH ×4 (07:45→21:31)
[2017-07-14] MEDS: amLODIPine 5 MG TAB PO SCH (07:46)
[2017-07-14] MEDS: ASPIRIN 81 MG PO SCH (07:46)
[2017-07-14] MEDS: FAMOTIDINE 20 MG TAB PO SCH (07:46)
[2017-07-14] MEDS: APIXABAN 2.5 MG TABLET PO SCH ×2 (07:46→20:39)
[2017-07-14] MEDS: GABAPENTIN 100 MG CAP PO SCH ×3 (07:47→20:39)
[2017-07-14] MEDS ORDERED: NON-FORMULARY DRUG (Umeclidinium Bromide [Incruse Ellipta] 1 PUFF) INHALATION SCH (08:00)
[2017-07-14] MEDS: IPRATROPIUM-ALBUTEROL 3 ML NEB INHALATION SCH ×4 (09:35→20:06)
[2017-07-14] MEDS ORDERED: VANCOMYCIN IV PER PHARMACY 1 EACH MISC MISCELLANE PRN (10:06)
[2017-07-14] MEDS ORDERED: CEFEPIME 2 GM in SODIUM CHLORIDE 0.9% 50 ML IVPB SCH (10:15)
[2017-07-14] MEDS ORDERED: VANCOMYCIN 1,750 MG in SODIUM CHLORIDE 0.9% 250 ML IVPB ONE (10:30)
--- NOTE | 2017-07-14 10:42 | P.CNPUL ---
History of Present Illness Consult date: 07/14/17 Requesting physician: Jet Edmonds Reason for consult: pneumonia Chief complaint: shortness of breath History of present illness: Patient is being seen examined and evaluated today on rounds for consultation. This patient originally came into the hospital on 07/10/2017 and was discharged on 07/12/2017 with antibiotics and steroids. The the patient went back to her primary care physician's office yesterday on 07/13/2017 and was directed to, over to the hospital for failed outpatient treatment as well as respiratory status was worsening. Workup in the emergency room did reveal she had a pneumonia with progressive severe shortness of breath. CT of the chest was reviewed and did show new patchy infiltrates compared to old exam showed a 1 cm right lower lobe granuloma that was calcified. She'll fed calcified gallstones and multiple hepatic cyst. Upon examination the patient's resting up in bed on 2 L of supplemental oxygen via nasal cannula. She does continue to have shortness of breath with exertion and activity. She also complains of a congested cough however unable to bring up secretions at this time. She is afebrile no further complaints. Review of Systems 14 point review of systems was completed and is negative ABOVE IN THE HPI. Past Medical History Past Medical History: Atrial Fibrillation, Atrial Flutter, Asthma, Coronary Artery Disease (CAD), Heart Failure, COPD, Diabetes Mellitus, Deep Vein Thrombosis (DVT), GERD/Reflux, Hyperlipidemia, Hypertension, Pneumonia, Seizure Disorder, Thyroid Disorder Additional Past Medical History / Comment(s): NIDDM type II-checks blood sugars , does not take diabetic meds. 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 Anthony Edmonds 12-23-16 and states she may need surgery on her L leg due to a clot. Has not taken her Eliquis for 1 yr. Patient also has electrodes for a Loop recorder & states it needs to be removed. He bus company manager is in [place] & has not seen him in a couple of years. History of Any Multi-Drug Resistant Organisms: None Reported Past Surgical History: Breast Surgery, Heart Catheterization Additional Past Surgical History / Comment(s): L breast biopsy-twice and benign , L parotid gland bx-benign, colonoscopy-normal, bilateral cataract removals with lens implants. L Thyroid bx. Past Anesthesia/Blood Transfusion Reactions: No Reported Reaction Past Psychological History: No Psychological Hx Reported Additional Psychological History / Comment(s): Pt resides alone at this time. She is from her spouse. She uses no device. She drives. She has a nebulizer and an old glucometer. Smoking Status: Current some day smoker Past Alcohol Use History: None Reported Additional Past Alcohol Use History / Comment(s): Pt states she started smoking in 1964, currently smokes about 4 cig's per day. Past Drug Use History: None Reported - Past Family History Mother Additional Family Medical History / Comment(s): Mother of sepsis at the age of 63 yrs. Father Family Medical History: Myocardial Infarction ([place]) Additional Family Medical History / Comment(s): Father during a carotid endartectomy. Medications and Allergies Home Medications Medication Instructions Recorded Confirmed Type Aspirin 81 mg PO DAILY 01/01/17 07/13/17 History Umeclidinium [place] [Incruse 1 puff INHALATION RT-DAILY 05/10/17 07/13/17 History Ellipta] Gabapentin [Neurontin] 100 mg PO TID 07/10/17 07/13/17 History Varenicline [Chantix Starter Pack] See Taper PO DIRECTED 07/10/17 07/13/17 History amLODIPine [Norvasc] 5 mg PO DAILY 07/10/17 07/13/17 History Apixaban [Eliquis] 2.5 mg PO BID tablet 07/12/17 07/13/17 Rx Famotidine [Pepcid] 20 mg PO BID tab 07/12/17 07/13/17 Rx Insulin Aspart [NovoLOG 0 unit SQ ACHS vial 07/12/17 07/13/17 Rx (formulary)] Montelukast [Singulair] 10 mg PO HS tab 07/12/17 07/13/17 Rx Ondansetron [Zofran] 4 mg IVP Q8HR PRN vial 07/12/17 07/13/17 Rx Polyethylene Glycol 3350 [Miralax] 17 gm PO DAILY@0600 powd.pack 07/12/1707/13 Rx traMADol HCl [Ultram] 50 mg PO Q6H PRN tab 07/12/17 07/13/17 Rx Allergies Allergy/AdvReac Type Severity Reaction Status Date / Time latex Allergy Rash/Hives Verified 07/13/17 14:27 Penicillins Allergy Rash/Hives Verified 07/13/17 14:27 Sulfa (Sulfonamide Allergy Rash/Hives Verified 07/13/17 14:27 Antibiotics) Physical Exam Vitals: Vital Signs Temp Pulse Pulse Resp BP BP Pulse Ox 07/14/17 09:44 88 07/14/17 09:35 88 07/14/17 06:10 97.2 F L 86 24 136/76 98 07/14/17 03:59 100 07/14/17 03:48 100 07/14/17 00:04 96 07/13/17 23:54 92 07/13/17 23:00 98.0 F 90 24 110/63 97 07/13/17 20:14 96 07/13/17 20:03 94 07/13/17 17:26 98.7 F 93 20 152/81 99 07/13/17 16:46 102 H 20 140/63 95 07/13/17 16:10 100 07/13/17 16:09 98.0 F 94 24 141/64 97 07/13/17 16:00 102 H 07/13/17 15:05 106 H 07/13/17 14:29 104 H 07/13/17 14:18 99 F 112 H 42 H 159/119 95 Intake and Output 07/13/17 07/14/17 07/14/17 22:59 06:59 14:59 Other: # Voids 1 1 # Bowel Movements 0 Weight 83.461 kg 83.461 kg GENERAL EXAM: Alert, weak comfortable in no apparent distress. HEAD: Normocephalic. EYES: Normal reaction of pupils, equal size. NOSE: Clear with pink turbinates. THROAT: No erythema or exudates. NECK: No masses, no JVD. CHEST: No chest wall deformity. LUNGS: Lungs noted to be significantly coarse throughout with some expiratory and expiratory wheezing noted. Bases diminished. CVS: S1 and S2 normal with no audible mumurs, regular rhythm. ABDOMEN: No hepatosplenomegaly, normal bowel sounds, no guarding or rigidity. EXTREMITIES: No edema noted, pedal pulses palpable. CENTRAL NERVOUS SYSTEM: No focal deficits, tone is normal in all 4 extremities. Results - Laboratory Findings CBC and BMP: 07/13/17 14:30 07/13/17 14:30 PT/INR, D-dimer PT 10.2 sec (9.0-12.0) 07/13/17 14:30 INR 1.0 (<1.2) 07/13/17 14:30 D-Dimer 0.35 mg/L FEU (<0.60) 07/13/17 14:30 Abnormal lab findings: Abnormal Labs 07/13/17 07/13/17 07/13/17 14:30 14:30 17:21 BUN 26 H Glucose 110 H POC Glucose (mg/dL) 143 H AST 47 H Total Creatine Kinase 735 H CK-MB (CK-2) 4.2 H* 07/13/17 07/14/17 20:33 07:08 BUN Glucose POC Glucose (mg/dL) 265 H 179 H AST Total Creatine Kinase CK-MB (CK-2) - Diagnostic Findings Chest x-ray: report reviewed, image reviewed CT scan - chest: report reviewed, image reviewed Assessment and Plan Assessment: Assessment Acute exacerbation of chronic persistent asthma Healthcare acquired pneumonia Elevated IgE level with a possible hypersensitivity pneumonitis Underlying COPD Nicotine dependence Generalized Weakness Plan Medications have been reviewed and will be continued as ordered. Patient's antibiotics will be switched over to vancomycin and cefepime for coverage for healthcare acquired pneumonia. We will add budesonide to her current nebulizer treatments. Abdomen Mucinex. Initiate and encourage incentive spirometer and flutter valve. Obtain sputum culture. Continue with pulmonary hygiene, coughing and deep breathing exercises, and supportive care. Supplemental oxygen to maintain oxygen saturations of 92% or better. Patient could be a candidate for possible biologic with her uncontrolled asthma and the outpatient setting. Smoking sensation. Continue nebulizer treatments. GI and DVT prophylaxis. Increase activity as tolerated add on PT and OT. We will continue to monitor labs/results and adjust treatment as necessary. Further recommendations pending. I performed an examination of the patient and discussed their management with the nurse practitioner. I have reviewed the nurse practitioner's note and agree with the documented findings and plan of care.
[2017-07-14 10:44] LABS: Calcium 8.3 mg/dL (8.4-10.2); Potassium 4.2 mmol/L (3.5-5.1)
[2017-07-14] MEDS: guaiFENesin 600 MG TABLET.ER PO SCH ×2 (11:03→20:39)
[2017-07-14 12:05] LABS: Glucose,Whole Blood 269 mg/dL (75-99)
[2017-07-14] MEDS: CYCLOBENZAPRINE 5 MG TAB PO PRN (14:11)
[2017-07-14 14:16] LABS: Hemoglobin A1C 5.6 % (4.0-6.0)
[2017-07-14 17:19] LABS: Glucose,Whole Blood 150 mg/dL (75-99)
[2017-07-14] MEDS: BUDESONIDE 1 MG/2 ML NEBU INHALATION SCH (20:06)
[2017-07-14] MEDS: MONTELUKAST 10 MG TAB PO SCH (20:39)
[2017-07-14 20:44] LABS: Glucose,Whole Blood 303 mg/dL (75-99)
[2017-07-14] MEDS: NICOTINE 14MG/24HR PATCH TRANSDERM SCH (21:31)
--- NOTE | 2017-07-14 23:01 | PN ---
PROGRESS NOTE SUBJECTIVE: A 66-year-old female who states her breathing is improved today. She is on IV antibiotics x2, IV steroids, and IV Lasix. CT scan was done without contrast. The impression is a new patchy interstitial nodular pulmonary infiltrates compared to other exam. No pulmonary mass, inflammatory process. Tracheal adenopathy slightly improved granulomatous disease, 1 cm calcified right lower lobe granuloma, calcific gallstones, hepatic cyst. CARDIOVASCULAR: S1-S2. LUNGS: Transmitted upper sounds, scattered rhonchi and wheeze, respiratory distress slightly improved today. VITAL SIGNS: Reviewed. HEMATOLOGY: Negative Abby's. White count 7.2, hemoglobin 13.4. ASSESSMENT: 1. Eofiq-os-adafcbt persistent asthma. 2. Healthcare acquired pneumonia. 3. Elevated IgE with hypersensitivity pneumonitis. 4. Chronic obstructive pulmonary disease. 5. Nicotine addiction. Antibiotics will be switched to vancomycin and cefepime for healthcare acquired pneumonia, which will improve her breathing. Continues on updrafts treatments, IV steroids and IV Lasix. Guarded prognosis. MMODL / IJN: [id number] /
[2017-07-15] MEDS: methylPREDNISolone SOD SUCCI 125 MG/2 ML VIAL IV SCH ×3 (00:47→17:10)
[2017-07-15] MEDS: FUROSEMIDE 10 MG/ML 4 ML VIAL IV SCH ×3 (00:48→17:10)
[2017-07-15] MEDS: IPRATROPIUM-ALBUTEROL 3 ML NEB INHALATION PRN (03:36)
[2017-07-15] MEDS: POLYETHYLENE GLYCOL 3350 17 GM POWD.PACK PO SCH (05:59)
[2017-07-15 07:26] LABS: Glucose,Whole Blood 268 mg/dL (75-99)
[2017-07-15 08:11] LABS: Basophils % (A) 0 %; Eosinophils # (A) 0.1 k/uL (0-0.7); Eosinophils % (A) 2 %; HCT 40.3 % (34.0-46.0); Lymphocytes # (A) 0.6 k/uL (1.0-4.8); Lymphocytes % (A) 9 %; MCH 30.5 pg (25.0-35.0); MCHC 32.4 g/dL (31.0-37.0); MCV 94.3 fL (80.0-100.0); Mean Platelet Volume 9.1; Monocytes # (A) 0.1 k/uL (0-1.0); Monocytes % (A) 2 %; Neutrophils # (A) 5.6 k/uL (1.3-7.7); Neutrophils % (A) 83 %; Platelet Count 148 k/uL (150-450); RBC 4.27 m/uL (3.80-5.40); RDW 12.9 % (11.5-15.5); WBC 6.8 k/uL (3.8-10.6)
[2017-07-15] MEDS: FAMOTIDINE 20 MG TAB PO SCH (08:27)
[2017-07-15] MEDS: ASPIRIN 81 MG PO SCH (08:27)
[2017-07-15] MEDS: GABAPENTIN 100 MG CAP PO SCH ×3 (08:27→21:03)
[2017-07-15] MEDS: guaiFENesin 600 MG TABLET.ER PO SCH ×2 (08:27→21:03)
[2017-07-15] MEDS: APIXABAN 2.5 MG TABLET PO SCH ×2 (08:27→21:03)
[2017-07-15] MEDS: amLODIPine 5 MG TAB PO SCH (08:27)
[2017-07-15] MEDS: INSULIN ASPART 100 UNIT/ML 1 ML 10 ML VIAL SQ SCH ×4 (08:27→21:11)
[2017-07-15] MEDS: CEFEPIME 2 GM in SODIUM CHLORIDE 0.9% 50 ML IVPB SCH (08:30)
[2017-07-15 08:32] LABS: Albumin 3.7 g/dL (3.5-5.0); Calcium 8.8 mg/dL (8.4-10.2); Magnesium 2.1 mg/dL (1.6-2.3); Potassium 4.6 mmol/L (3.5-5.1); Total Bilirubin 0.4 mg/dL (0.2-1.3); Total Protein 6.1 g/dL (6.3-8.2)
[2017-07-15] MEDS: IPRATROPIUM-ALBUTEROL 3 ML NEB INHALATION SCH ×4 (08:39→21:09)
[2017-07-15] MEDS: BUDESONIDE 1 MG/2 ML NEBU INHALATION SCH ×2 (08:39→21:09)
[2017-07-15] MEDS ORDERED: VANCOMYCIN 1,500 MG in SODIUM CHLORIDE 0.9% 250 ML IVPB SCH (09:00)
--- NOTE | 2017-07-15 10:17 | P.PN ---
Subjective Progress Note Date: 07/15/17 HPI: Patient is being seen examined and evaluated today on rounds for consultation. This patient originally came into the hospital on 07/10/2017 and was discharged on 07/12/2017 with antibiotics and steroids. The the patient went back to her primary care physician's office yesterday on 07/13/2017 and was directed to, over to the hospital for failed outpatient treatment as well as respiratory status was worsening. Workup in the emergency room did reveal she had a pneumonia with progressive severe shortness of breath. CT of the chest was reviewed and did show new patchy infiltrates compared to old exam showed a 1 cm right lower lobe granuloma that was calcified. She'll fed calcified gallstones and multiple hepatic cyst. Upon examination the patient's resting up in bed on 2 L of supplemental oxygen via nasal cannula. She does continue to have shortness of breath with exertion and activity. She also complains of a congested cough however unable to bring up secretions at this time. She is afebrile no further complaints. Interval History 07/15/17- patient is being seen examined and evaluated on rounds. She continues to have some shortness of breath cough and congestion. Sputum sample has been sent to the lab. She continues on cefepime and vancomycin as well as nebulizer treatments and steroids. Objective - Vital Signs Vital signs: Vital Signs Temp 97 F L 07/15/17 07:00 Pulse 96 07/15/17 08:55 Resp 17 07/15/17 07:00 BP 124/70 07/15/17 07:00 Pulse Ox 96 07/15/17 07:00 Intake & Output 07/14/17 07/15/17 07/15/17 18:59 06:59 18:59 Weight 83.461 kg 83 kg Other: Voiding Method Toilet # Voids 1 1 - Exam GENERAL EXAM: Alert, weak comfortable in no apparent distress. HEAD: Normocephalic. EYES: Normal reaction of pupils, equal size. NOSE: Clear with pink turbinates. THROAT: No erythema or exudates. NECK: No masses, no JVD. CHEST: No chest wall deformity. LUNGS: Lungs noted to be significantly coarse throughout with some expiratory and expiratory wheezing noted. Bases diminished. CVS: S1 and S2 normal with no audible mumurs, regular rhythm. ABDOMEN: No hepatosplenomegaly, normal bowel sounds, no guarding or rigidity. EXTREMITIES: No edema noted, pedal pulses palpable. CENTRAL NERVOUS SYSTEM: No focal deficits, tone is normal in all 4 extremities. - Labs CBC & Chem 7: 07/15/17 07:48 07/15/17 07:48 Labs: Abnormal Lab Results - Last 24 Hours (Table) 07/14/17 07/14/17 07/14/17 Range/Units 03:39 11:48 17:17 Plt Count (150-450) k/uL Lymphocytes # (1.0-4.8) k/uL Chloride (98-107) mmol/L Carbon Dioxide (22-30) mmol/L BUN 22 H (7-17) mg/dL Glucose 159 H (74-99) mg/dL POC Glucose (mg/dL) 269 H 150 H (75-99) mg/dL Calcium 8.3 L (8.4-10.2) mg/dL Total Protein (6.3-8.2) g/dL 07/14/17 07/15/17 07/15/17 Range/Units 20:42 07:24 07:48 Plt Count 148 L (150-450) k/uL Lymphocytes # 0.6 L (1.0-4.8) k/uL Chloride (98-107) mmol/L Carbon Dioxide (22-30) mmol/L BUN (7-17) mg/dL Glucose (74-99) mg/dL POC Glucose (mg/dL) 303 H 268 H (75-99) mg/dL Calcium (8.4-10.2) mg/dL Total Protein (6.3-8.2) g/dL 07/15/17 Range/Units 07:48 Plt Count (150-450) k/uL Lymphocytes # (1.0-4.8) k/uL Chloride 93 L (98-107) mmol/L Carbon Dioxide 31 H (22-30) mmol/L BUN 28 H (7-17) mg/dL Glucose 275 H (74-99) mg/dL POC Glucose (mg/dL) (75-99) mg/dL Calcium (8.4-10.2) mg/dL Total Protein 6.1 L (6.3-8.2) g/dL Assessment and Plan Assessment: Assessment Acute exacerbation of chronic persistent asthma Healthcare acquired pneumonia Elevated IgE level with a possible hypersensitivity pneumonitis Underlying COPD Nicotine dependence Generalized Weakness Plan Medications have been reviewed and will be continued as ordered. Patient's antibiotics will be switched over to vancomycin and cefepime for coverage for healthcare acquired pneumonia. Steroids not ready for taper at this time. Mucinex. Initiate and encourage incentive spirometer and flutter valve. Sputum culture pending.. Continue with pulmonary hygiene, coughing and deep breathing exercises, and supportive care. Supplemental oxygen to maintain oxygen saturations of 92% or better. Patient could be a candidate for possible biologic with her uncontrolled asthma and the outpatient setting. Smoking sensation. Continue nebulizer treatments. GI and DVT prophylaxis. Increase activity as tolerated add on PT and OT. We will continue to monitor labs/ results and adjust treatment as necessary. Further recommendations pending. I performed an examination of the patient and discussed their management with the nurse practitioner. I have reviewed the nurse practitioner's note and agree with the documented findings and plan of care.
[2017-07-15 12:18] LABS: Glucose,Whole Blood 404 mg/dL (75-99)
--- NOTE | 2017-07-15 14:47 | PN ---
PROGRESS NOTE SUBJECTIVE: A 66-year-old -[place] female with bibasilar pneumonia seen on CAT scan. She came in with fevers. Failed outpatient treatment with updrafts and steroids. She came in almost coding from respiratory code. She was placed on BiPAP and oxygen in the ER. She feels much better now that she is on IV steroids as well as IV cefepime and vancomycin for healthcare acquired pneumonia. She is sitting up in a chair today. States she is breathing better but does not want to be rushed out of the hospital, she states. Pulse is in 80s to 90s, on 2 L oxygen in the mid 90s. CARDIOVASCULAR: S1, S2. LUNGS: Scattered rhonchi and wheeze. HEMATOLOGY: Negative Homans. PSYCH: Fair mood and affect. White count 6.8, platelets 148, sodium 137, potassium 4.6, BUN is 20, and creatinine 0.8. Sugars are in the 404 to 150s. ASSESSMENT: 1. Healthcare associated pneumonia, bilaterally. 2. Bibasilar acute hypoxic respiratory distress secondary to pneumonia. 3. Chronic obstructive pulmonary disease/asthma exacerbation. 4. Insulin-dependent diabetes mellitus. 5. Obesity. 6. History of thyroid cyst. Continue with IV steroids, IV broad-spectrum antibiotics, cefepime as well as vancomycin. Updraft treatments will be continued. Prognosis guarded. MMODL / IJN: [id number] /
[2017-07-15] MEDS: traMADol 50 MG TAB PO PRN ×2 (15:13→21:11)
[2017-07-15 17:18] LABS: Glucose,Whole Blood 313 mg/dL (75-99)
[2017-07-15] MEDS: CYCLOBENZAPRINE 5 MG TAB PO PRN (18:16)
[2017-07-15 21:02] LABS: Glucose,Whole Blood 391 mg/dL (75-99)
[2017-07-15] MEDS: MONTELUKAST 10 MG TAB PO SCH (21:03)
[2017-07-15] MEDS: NICOTINE 14MG/24HR PATCH TRANSDERM SCH (21:03)
[2017-07-16] MEDS: VANCOMYCIN 1,500 MG in SODIUM CHLORIDE 0.9% 250 ML IVPB SCH ×2 (00:14→17:05)
[2017-07-16] MEDS: FUROSEMIDE 10 MG/ML 4 ML VIAL IV SCH ×3 (00:14→17:05)
[2017-07-16] MEDS: methylPREDNISolone SOD SUCCI 125 MG/2 ML VIAL IV SCH ×2 (00:14→08:17)
[2017-07-16] MEDS: POLYETHYLENE GLYCOL 3350 17 GM POWD.PACK PO SCH (06:31)
[2017-07-16 07:05] LABS: Glucose,Whole Blood 229 mg/dL (75-99)
[2017-07-16] MEDS: guaiFENesin 600 MG TABLET.ER PO SCH ×2 (08:17→21:01)
[2017-07-16] MEDS: CEFEPIME 2 GM in SODIUM CHLORIDE 0.9% 50 ML IVPB SCH (08:17)
[2017-07-16] MEDS: APIXABAN 2.5 MG TABLET PO SCH ×2 (08:17→21:01)
[2017-07-16] MEDS: INSULIN ASPART 100 UNIT/ML 1 ML 10 ML VIAL SQ SCH ×4 (08:17→21:02)
[2017-07-16] MEDS: FAMOTIDINE 20 MG TAB PO SCH (08:17)
[2017-07-16] MEDS: GABAPENTIN 100 MG CAP PO SCH ×3 (08:17→21:01)
[2017-07-16] MEDS: ASPIRIN 81 MG PO SCH (08:17)
[2017-07-16] MEDS: amLODIPine 5 MG TAB PO SCH (08:17)
[2017-07-16 08:26] LABS: Basophils % (A) 0 %; Eosinophils # (A) 0.1 k/uL (0-0.7); Eosinophils % (A) 1 %; HCT 40.4 % (34.0-46.0); HGB 12.9 gm/dL (11.4-16.0); Lymphocytes # (A) 0.8 k/uL (1.0-4.8); Lymphocytes % (A) 9 %; MCH 30.5 pg (25.0-35.0); MCV 95.2 fL (80.0-100.0); Mean Platelet Volume 8.4; Monocytes # (A) 0.2 k/uL (0-1.0); Monocytes % (A) 2 %; Neutrophils # (A) 8.1 k/uL (1.3-7.7); Neutrophils % (A) 87 %; Platelet Count 176 k/uL (150-450); RBC 4.24 m/uL (3.80-5.40); WBC 9.4 k/uL (3.8-10.6)
[2017-07-16 08:37] LABS: Albumin 3.7 g/dL (3.5-5.0); Calcium 8.8 mg/dL (8.4-10.2); Potassium 4.7 mmol/L (3.5-5.1); Total Bilirubin 0.5 mg/dL (0.2-1.3); Total Protein 6.3 g/dL (6.3-8.2)
[2017-07-16] MEDS: IPRATROPIUM-ALBUTEROL 3 ML NEB INHALATION SCH ×4 (08:46→20:07)
[2017-07-16] MEDS: BUDESONIDE 1 MG/2 ML NEBU INHALATION SCH ×2 (08:46→20:07)
[2017-07-16 11:54] LABS: Glucose,Whole Blood 369 mg/dL (75-99)
--- NOTE | 2017-07-16 13:14 | P.PN ---
Subjective Progress Note Date: 07/16/17 Principal diagnosis: Healthcare associated pneumonia HPI: Patient is being seen examined and evaluated today on rounds for consultation. This patient originally came into the hospital on 07/10/2017 and was discharged on 07/12/2017 with antibiotics and steroids. The the patient went back to her primary care physician's office yesterday on 07/13/2017 and was directed to, over to the hospital for failed outpatient treatment as well as respiratory status was worsening. Workup in the emergency room did reveal she had a pneumonia with progressive severe shortness of breath. CT of the chest was reviewed and did show new patchy infiltrates compared to old exam showed a 1 cm right lower lobe granuloma that was calcified. She'll fed calcified gallstones and multiple hepatic cyst. Upon examination the patient's resting up in bed on 2 L of supplemental oxygen via nasal cannula. She does continue to have shortness of breath with exertion and activity. She also complains of a congested cough however unable to bring up secretions at this time. She is afebrile no further complaints. Interval History 07/15/17- patient is being seen examined and evaluated on rounds. She continues to have some shortness of breath cough and congestion. Sputum sample has been sent to the lab. She continues on cefepime and vancomycin as well as nebulizer treatments and steroids. 07/16/2017: Patient seen and examined. Patient states that she is having pain with deep inspiration. She is also having pain with cough. The patient is complaining of shortness of breath which seems to be worse at night when she is trying to sleep. The patient denies fevers and chills. Objective - Vital Signs Vital signs: Vital Signs Temp 97.0 F L 07/16/17 06:05 Pulse 84 07/16/17 12:27 Resp 16 07/16/17 06:05 BP 118/59 07/16/17 06:05 Pulse Ox 96 07/16/17 06:05 Intake & Output 07/15/17 07/16/17 07/16/17 18:59 06:59 18:59 Intake Total 300 Balance 300 Intake: Intake, IV Titration 300 Amount Cefepime 2 gm In Sodium 50 Chloride 0.9% 50 ml @ 100 mls/hr IVPB Q24HR [facility] Rx #:[id number] Vancomycin 1,500 mg In 250 Sodium Chloride 0.9% 250 ml @ 125 mls/hr IVPB Q16H [facility] Rx#:[id number] Other: Voiding Method Toilet # Voids 3 2 - Exam GENERAL EXAM: Alert, weak comfortable in no apparent distress. HEAD: Normocephalic. EYES: Normal reaction of pupils, equal size. NOSE: Clear with pink turbinates. THROAT: No erythema or exudates. NECK: No masses, no JVD. CHEST: No chest wall deformity. LUNGS: Lungs noted to be significantly coarse throughout with expiratory wheezing noted. Bases diminished. CVS: S1 and S2 normal with no audible mumurs, regular rhythm. ABDOMEN: No hepatosplenomegaly, normal bowel sounds, no guarding or rigidity. EXTREMITIES: No edema noted, pedal pulses palpable. CENTRAL NERVOUS SYSTEM: No focal deficits, tone is normal in all 4 extremities. - Labs CBC & Chem 7: 07/16/17 07:58 07/16/17 07:58 Labs: Abnormal Lab Results - Last 24 Hours (Table) 07/15/17 07/15/17 07/16/17 Range/Units 17:17 21:01 07:02 Neutrophils # (1.3-7.7) k/uL Lymphocytes # (1.0-4.8) k/uL Chloride (98-107) mmol/L Carbon Dioxide (22-30) mmol/L BUN (7-17) mg/dL Glucose (74-99) mg/dL POC Glucose (mg/dL) 313 H 391 H 229 H (75-99) mg/dL 07/16/17 07/16/17 07/16/17 Range/Units 07:58 07:58 11:23 Neutrophils # 8.1 H (1.3-7.7) k/uL Lymphocytes # 0.8 L (1.0-4.8) k/uL Chloride 93 L (98-107) mmol/L Carbon Dioxide 35 H (22-30) mmol/L BUN 32 H (7-17) mg/dL Glucose 234 H (74-99) mg/dL POC Glucose (mg/dL) 369 H (75-99) mg/dL Microbiology - Last 24 Hours (Table) 07/15/17 03:40 Gram Stain - Preliminary Sputum Sputum Culture - Preliminary Leighann albicans Assessment and Plan Assessment: Acute exacerbation of chronic severe persistent asthma Healthcare acquired pneumonia Elevated IgE level with a possible hypersensitivity pneumonitis Underlying COPD Nicotine dependence Generalized Weakness Pleuritic chest pain Plan Medications have been reviewed and will be continued as ordered. Continue vancomycin and cefepime for coverage for healthcare acquired pneumonia. Steroids taper. Mucinex. Initiate and encourage incentive spirometer and flutter valve. Sputum culture pending.. Continue with pulmonary hygiene, coughing and deep breathing exercises, and supportive care. Supplemental oxygen to maintain oxygen saturations of 92% or better. Patient could be a candidate for possible biologic with her uncontrolled asthma and the outpatient setting. Smoking cessation. Continue nebulizer treatments. GI and DVT prophylaxis. Increase activity as tolerated add on PT and OT. We will continue to monitor labs/results and adjust treatment as necessary. Further recommendations pending. Add toradol for pleurisy.
[2017-07-16] MEDS: KETOROLAC 30 MG/ML 1 ML VIAL IVP SCH ×2 (14:29→17:50)
[2017-07-16] MEDS: methylPREDNISolone SOD SUCCI 40 MG/ML 1 ML VIAL IV SCH (14:29)
[2017-07-16 18:10] LABS: Glucose,Whole Blood 374 mg/dL (75-99)
[2017-07-16 20:40] LABS: Glucose,Whole Blood 307 mg/dL (75-99)
[2017-07-16] MEDS: NICOTINE 14MG/24HR PATCH TRANSDERM SCH (21:00)
[2017-07-16] MEDS: MONTELUKAST 10 MG TAB PO SCH (21:00)
[2017-07-16] MEDS: traMADol 50 MG TAB PO PRN (21:01)
[2017-07-16] MEDS ORDERED: guaiFENesin-DM 100-10MG/5ML 10 ML CUP PO PRN (22:18)
--- NOTE | 2017-07-16 23:24 | PN ---
PROGRESS NOTE SUBJECTIVE: A 66-year-old white female with COPD, CHF, healthcare-acquired pneumonia. She still has large amounts of wheezing, shortness of breath today despite vancomycin, cefepime. CARDIOVASCULAR: S1, S2. Lungs show scattered wheeze x4. HEMATOLOGY: Negative Homans'. PSYCH: Fair mood and affect. She is on: 1. IV Solu-Medrol. 2. IV vancomycin. 3. Cefepime. 4. Pulmicort 1 mg b.i.d. 5. DuoNeb q.i.d. PLAN: Continue current treatment, nicotine patch. She will get cough syrup per her recommendations. Follow up in the next 24-48 hours. MMODL / IJN: [id number] /
[2017-07-17] MEDS: methylPREDNISolone SOD SUCCI 40 MG/ML 1 ML VIAL IV SCH ×4 (01:44→23:42)
[2017-07-17] MEDS: KETOROLAC 30 MG/ML 1 ML VIAL IVP SCH ×5 (01:46→23:43)
[2017-07-17] MEDS: FUROSEMIDE 10 MG/ML 4 ML VIAL IV SCH ×4 (01:47→23:42)
[2017-07-17] MEDS ORDERED: VANCOMYCIN TROUGH DUE 1 EACH MISC MISCELLANE ONE (07:00)
[2017-07-17 07:11] LABS: Glucose,Whole Blood 222 mg/dL (75-99)
[2017-07-17 07:44] LABS: Basophils % (A) 0 %; Eosinophils # (A) 0.1 k/uL (0-0.7); Eosinophils % (A) 0 %; HCT 38.5 % (34.0-46.0); HGB 12.2 gm/dL (11.4-16.0); Lymphocytes # (A) 0.7 k/uL (1.0-4.8); Lymphocytes % (A) 7 %; MCH 30.9 pg (25.0-35.0); MCHC 31.8 g/dL (31.0-37.0); MCV 97.1 fL (80.0-100.0); Mean Platelet Volume 8.1; Monocytes # (A) 0.3 k/uL (0-1.0); Monocytes % (A) 3 %; Neutrophils # (A) 9.3 k/uL (1.3-7.7); Neutrophils % (A) 90 %; Platelet Count 174 k/uL (150-450); RBC 3.97 m/uL (3.80-5.40); RDW 12.9 % (11.5-15.5); WBC 10.4 k/uL (3.8-10.6)
[2017-07-17 07:45] LABS: Albumin 3.3 g/dL (3.5-5.0); Calcium 8.8 mg/dL (8.4-10.2); Potassium 5.2 mmol/L (3.5-5.1); Total Bilirubin 0.4 mg/dL (0.2-1.3); Total Protein 5.6 g/dL (6.3-8.2)
[2017-07-17] MEDS: BUDESONIDE 1 MG/2 ML NEBU INHALATION SCH ×2 (07:55→20:19)
[2017-07-17] MEDS: IPRATROPIUM-ALBUTEROL 3 ML NEB INHALATION SCH ×4 (07:55→20:19)
[2017-07-17] MEDS: CEFEPIME 2 GM in SODIUM CHLORIDE 0.9% 50 ML IVPB SCH (08:39)
[2017-07-17] MEDS: FAMOTIDINE 20 MG TAB PO SCH (08:40)
[2017-07-17] MEDS: INSULIN ASPART 100 UNIT/ML 1 ML 10 ML VIAL SQ SCH ×6 (08:40→20:56)
[2017-07-17] MEDS: APIXABAN 2.5 MG TABLET PO SCH ×2 (08:41→20:56)
[2017-07-17] MEDS: GABAPENTIN 100 MG CAP PO SCH ×3 (08:41→20:57)
[2017-07-17] MEDS: ASPIRIN 81 MG PO SCH (08:41)
[2017-07-17] MEDS: guaiFENesin 600 MG TABLET.ER PO SCH ×2 (08:41→20:56)
[2017-07-17] MEDS: amLODIPine 5 MG TAB PO SCH (08:41)
[2017-07-17] MEDS: traMADol 50 MG TAB PO PRN (09:10)
[2017-07-17] MEDS: POLYETHYLENE GLYCOL 3350 17 GM POWD.PACK PO SCH (09:11)
[2017-07-17] MEDS: VANCOMYCIN 1,500 MG in SODIUM CHLORIDE 0.9% 250 ML IVPB SCH ×2 (09:42→23:43)
--- NOTE | 2017-07-17 10:56 | P.PN ---
Subjective Progress Note Date: 07/17/17 HPI: Patient is being seen examined and evaluated today on rounds for consultation. This patient originally came into the hospital on 07/10/2017 and was discharged on 07/12/2017 with antibiotics and steroids. The the patient went back to her primary care physician's office yesterday on 07/13/2017 and was directed to, over to the hospital for failed outpatient treatment as well as respiratory status was worsening. Workup in the emergency room did reveal she had a pneumonia with progressive severe shortness of breath. CT of the chest was reviewed and did show new patchy infiltrates compared to old exam showed a 1 cm right lower lobe granuloma that was calcified. She'll fed calcified gallstones and multiple hepatic cyst. Upon examination the patient's resting up in bed on 2 L of supplemental oxygen via nasal cannula. She does continue to have shortness of breath with exertion and activity. She also complains of a congested cough however unable to bring up secretions at this time. She is afebrile no further complaints. Interval History 07/15/17- patient is being seen examined and evaluated on rounds. She continues to have some shortness of breath cough and congestion. Sputum sample has been sent to the lab. She continues on cefepime and vancomycin as well as nebulizer treatments and steroids. 07/16/2017: Patient seen and examined. Patient states that she is having pain with deep inspiration. She is also having pain with cough. The patient is complaining of shortness of breath which seems to be worse at night when she is trying to sleep. The patient denies fevers and chills. 07/17/17- patient is being seen examined and evaluated today on rounds. She is resting in bed and has just done some physical therapy. She continues to have shortness of breath with exertion or activity. She feels her breathing is somewhat better today. She does have some cough and congestion that is continued. She states the Mucinex and breathing treatments are helping though. She is afebrile all labs and reports have been reviewed. Objective - Vital Signs Vital signs: Vital Signs Temp 96.6 F L 07/17/17 05:48 Pulse 79 07/17/17 08:16 Resp 18 07/17/17 05:48 BP 135/75 07/17/17 05:48 Pulse Ox 96 07/17/17 07:55 Intake & Output 07/16/17 07/17/17 07/17/17 18:59 06:59 18:59 Intake Total 240 Balance 240 Weight 84 kg Intake: Oral 240 Other: Voiding Method Toilet # Voids 2 2 1 - Exam GENERAL EXAM: Alert, weak comfortable in no apparent distress. HEAD: Normocephalic. EYES: Normal reaction of pupils, equal size. NOSE: Clear with pink turbinates. THROAT: No erythema or exudates. NECK: No masses, no JVD. CHEST: No chest wall deformity. LUNGS: Lungs noted to be significantly coarse throughout with some expiratory and expiratory wheezing noted. Bases diminished. Slightly improved CVS: S1 and S2 normal with no audible mumurs, regular rhythm. ABDOMEN: No hepatosplenomegaly, normal bowel sounds, no guarding or rigidity. EXTREMITIES: No edema noted, pedal pulses palpable. CENTRAL NERVOUS SYSTEM: No focal deficits, tone is normal in all 4 extremities. - Labs CBC & Chem 7: 07/17/17 06:47 07/17/17 06:47 Labs: Abnormal Lab Results - Last 24 Hours (Table) 07/16/17 07/16/17 07/16/17 Range/Units 11:23 17:15 20:27 Neutrophils # (1.3-7.7) k/uL Lymphocytes # (1.0-4.8) k/uL Sodium (137-145) mmol/L Potassium (3.5-5.1) mmol/L Chloride (98-107) mmol/L Carbon Dioxide (22-30) mmol/L BUN (7-17) mg/dL Creatinine (0.52-1.04) mg/dL Glucose (74-99) mg/dL POC Glucose (mg/dL) 369 H 374 H 307 H (75-99) mg/dL Total Protein (6.3-8.2) g/dL Albumin (3.5-5.0) g/dL 07/17/17 07/17/17 07/17/17 Range/Units 06:47 06:47 06:48 Neutrophils # 9.3 H (1.3-7.7) k/uL Lymphocytes # 0.7 L (1.0-4.8) k/uL Sodium 136 L (137-145) mmol/L Potassium 5.2 H (3.5-5.1) mmol/L Chloride 94 L (98-107) mmol/L Carbon Dioxide 34 H (22-30) mmol/L BUN 35 H (7-17) mg/dL Creatinine 1.13 H (0.52-1.04) mg/dL Glucose 229 H (74-99) mg/dL POC Glucose (mg/dL) 222 H (75-99) mg/dL Total Protein 5.6 L (6.3-8.2) g/dL Albumin 3.3 L (3.5-5.0) g/dL Microbiology - Last 24 Hours (Table) 07/15/17 03:40 Gram Stain - Preliminary Sputum Sputum Culture - Preliminary Leighann albicans Assessment and Plan Assessment: Assessment Acute exacerbation of chronic persistent asthma Healthcare acquired pneumonia Elevated IgE level with a possible hypersensitivity pneumonitis Underlying COPD Nicotine dependence Generalized Weakness Pleuritic chest pain Plan Medications have been reviewed and will be continued as ordered. Patient's antibiotics will be switched over to vancomycin and cefepime for coverage for healthcare acquired pneumonia. Steroids taper. Toradol for pleurisy Mucinex. Initiate and encourage incentive spirometer and flutter valve. Sputum culture pending.. Continue with pulmonary hygiene, coughing and deep breathing exercises, and supportive care. Supplemental oxygen to maintain oxygen saturations of 92% or better. Patient could be a candidate for possible biologic with her uncontrolled asthma and the outpatient setting. Smoking sensation. Continue nebulizer treatments. GI and DVT prophylaxis. Increase activity as tolerated add on PT and OT. We will continue to monitor labs/ results and adjust treatment as necessary. Further recommendations pending. I performed an examination of the patient and discussed their management with the nurse practitioner. I have reviewed the nurse practitioner's note and agree with the documented findings and plan of care.
[2017-07-17 12:30] LABS: Glucose,Whole Blood 229 mg/dL (75-99)
[2017-07-17 17:24] LABS: Glucose,Whole Blood 494 mg/dL (75-99)
[2017-07-17 17:24] LABS: Glucose,Whole Blood 474 mg/dL (75-99)
[2017-07-17 20:52] LABS: Glucose,Whole Blood 412 mg/dL (75-99)
[2017-07-17 20:52] LABS: Glucose,Whole Blood 478 mg/dL (75-99)
[2017-07-17] MEDS: NICOTINE 14MG/24HR PATCH TRANSDERM SCH (20:56)
[2017-07-17] MEDS: MONTELUKAST 10 MG TAB PO SCH (20:56)
[2017-07-17 20:58] LABS: Glucose,Whole Blood 437 mg/dL (75-99)
[2017-07-18 00:59] LABS: Glucose,Whole Blood 211 mg/dL (75-99)
[2017-07-18] MEDS: KETOROLAC 30 MG/ML 1 ML VIAL IVP SCH ×3 (05:49→17:32)
[2017-07-18 06:56] LABS: Glucose,Whole Blood 402 mg/dL (75-99)
[2017-07-18] MEDS: INSULIN ASPART 100 UNIT/ML 1 ML 10 ML VIAL SQ SCH ×7 (07:47→22:05)
[2017-07-18] MEDS: POLYETHYLENE GLYCOL 3350 17 GM POWD.PACK PO SCH (07:48)
[2017-07-18] MEDS: FUROSEMIDE 10 MG/ML 4 ML VIAL IV SCH ×3 (07:48→22:06)
[2017-07-18] MEDS: GABAPENTIN 100 MG CAP PO SCH ×3 (07:48→22:05)
[2017-07-18] MEDS: methylPREDNISolone SOD SUCCI 40 MG/ML 1 ML VIAL IV SCH ×2 (07:48→22:05)
[2017-07-18] MEDS: APIXABAN 2.5 MG TABLET PO SCH ×2 (07:49→22:05)
[2017-07-18] MEDS: amLODIPine 5 MG TAB PO SCH (07:49)
[2017-07-18] MEDS: ASPIRIN 81 MG PO SCH (07:49)
[2017-07-18] MEDS: guaiFENesin 600 MG TABLET.ER PO SCH ×2 (07:49→22:05)
[2017-07-18] MEDS: FAMOTIDINE 20 MG TAB PO SCH (07:49)
[2017-07-18] MEDS: CEFEPIME 2 GM in SODIUM CHLORIDE 0.9% 50 ML IVPB SCH (07:51)
[2017-07-18] MEDS: traMADol 50 MG TAB PO PRN ×3 (07:55→22:14)
[2017-07-18] MEDS: IPRATROPIUM-ALBUTEROL 3 ML NEB INHALATION SCH ×4 (08:55→21:00)
[2017-07-18] MEDS: BUDESONIDE 1 MG/2 ML NEBU INHALATION SCH ×2 (08:55→21:00)
[2017-07-18] MEDS: CYCLOBENZAPRINE 5 MG TAB PO PRN (09:21)
--- NOTE | 2017-07-18 10:21 | P.PN ---
Subjective Progress Note Date: 07/18/17 Principal diagnosis: Acute exacerbation of asthma and COPD HPI: Patient is being seen examined and evaluated today on rounds for consultation. This patient originally came into the hospital on 07/10/2017 and was discharged on 07/12/2017 with antibiotics and steroids. The the patient went back to her primary care physician's office yesterday on 07/13/2017 and was directed to, over to the hospital for failed outpatient treatment as well as respiratory status was worsening. Workup in the emergency room did reveal she had a pneumonia with progressive severe shortness of breath. CT of the chest was reviewed and did show new patchy infiltrates compared to old exam showed a 1 cm right lower lobe granuloma that was calcified. She'll fed calcified gallstones and multiple hepatic cyst. Upon examination the patient's resting up in bed on 2 L of supplemental oxygen via nasal cannula. She does continue to have shortness of breath with exertion and activity. She also complains of a congested cough however unable to bring up secretions at this time. She is afebrile no further complaints. Interval History 07/15/17- patient is being seen examined and evaluated on rounds. She continues to have some shortness of breath cough and congestion. Sputum sample has been sent to the lab. She continues on cefepime and vancomycin as well as nebulizer treatments and steroids. 07/16/2017: Patient seen and examined. Patient states that she is having pain with deep inspiration. She is also having pain with cough. The patient is complaining of shortness of breath which seems to be worse at night when she is trying to sleep. The patient denies fevers and chills. 07/17/17- patient is being seen examined and evaluated today on rounds. She is resting in bed and has just done some physical therapy. She continues to have shortness of breath with exertion or activity. She feels her breathing is somewhat better today. She does have some cough and congestion that is continued. She states the Mucinex and breathing treatments are helping though. She is afebrile all labs and reports have been reviewed. 07/18/2017: Patient seen and examined. Patient states she is starting to feel a little bit better. She did just get out of the shower and states she had some shortness of breath with exertion. Her cough is slightly improving. She does continue to have wheezing but is having better air movement today. She denies fevers and chills. Objective - Vital Signs Vital signs: Vital Signs Temp 98.4 F 07/18/17 06:20 Pulse 78 07/18/17 09:10 Resp 20 07/18/17 06:20 BP 126/75 07/18/17 06:20 Pulse Ox 96 07/18/17 06:20 Intake & Output 07/17/17 07/18/17 07/18/17 18:59 06:59 18:59 Intake Total 240 500 Balance 240 500 Weight 86 kg 86 kg Intake: Oral 240 500 Other: Voiding Method Toilet Toilet # Voids 1 1 1 # Bowel Movements 0 - Exam GENERAL EXAM: Alert, weak comfortable in no apparent distress. HEAD: Normocephalic. EYES: Normal reaction of pupils, equal size. NOSE: Clear with pink turbinates. THROAT: No erythema or exudates. NECK: No masses, no JVD. CHEST: No chest wall deformity. LUNGS: Bilateral expiratory wheezing, improving aeration CVS: S1 and S2 normal with no audible mumurs, regular rhythm. ABDOMEN: No hepatosplenomegaly, normal bowel sounds, no guarding or rigidity. EXTREMITIES: No edema noted, pedal pulses palpable. CENTRAL NERVOUS SYSTEM: No focal deficits, tone is normal in all 4 extremities. - Labs CBC & Chem 7: 07/17/17 06:47 07/17/17 06:47 Labs: Abnormal Lab Results - Last 24 Hours (Table) 07/17/17 07/17/17 07/17/17 Range/Units 12:24 17:20 17:22 POC Glucose (mg/dL) 229 H 494 H 474 H (75-99) mg/dL 07/17/17 07/17/17 07/17/17 Range/Units 20:47 20:50 20:53 POC Glucose (mg/dL) 412 H 478 H 437 H (75-99) mg/dL 07/18/17 07/18/17 Range/Units 00:55 06:54 POC Glucose (mg/dL) 211 H 402 H (75-99) mg/dL Microbiology - Last 24 Hours (Table) 07/15/17 03:40 Gram Stain - Final Sputum Sputum Culture - Final Leighann albicans Leighann glabrata Assessment and Plan Assessment: Acute exacerbation of chronic severe persistent asthma/COPD Healthcare acquired pneumonia Elevated IgE level with a possible hypersensitivity pneumonitis Underlying COPD Nicotine dependence Generalized Weakness Pleuritic chest pain Hyperglycemia secondary to steroids Plan Medications have been reviewed and will be continued as ordered. Continue efepime for coverage for healthcare acquired pneumonia, discontinue vanco. Steroids taper. Toradol for pleurisy. Mucinex. Initiate and encourage incentive spirometer and flutter valve. Continue with pulmonary hygiene, coughing and deep breathing exercises, and supportive care. Supplemental oxygen to maintain oxygen saturations of 92% or better. Patient could be a candidate for possible biologic with her uncontrolled asthma and the outpatient setting. Smoking sensation. Continue nebulizer treatments. GI and DVT prophylaxis. Increase activity as tolerated add on PT and OT. We will continue to monitor labs/results and adjust treatment as necessary. Further recommendations pending. Encourage ambulation.
[2017-07-18 10:39] LABS: Basophils % (A) 0 %; Eosinophils # (A) 0.2 k/uL (0-0.7); Eosinophils % (A) 2 %; HCT 40.2 % (34.0-46.0); HGB 12.8 gm/dL (11.4-16.0); Lymphocytes # (A) 0.5 k/uL (1.0-4.8); Lymphocytes % (A) 5 %; MCH 30.6 pg (25.0-35.0); MCHC 31.9 g/dL (31.0-37.0); Mean Platelet Volume 8.3; Monocytes # (A) 0.3 k/uL (0-1.0); Monocytes % (A) 2 %; Neutrophils # (A) 9.8 k/uL (1.3-7.7); Neutrophils % (A) 91 %; Platelet Count 176 k/uL (150-450); RBC 4.19 m/uL (3.80-5.40); WBC 10.8 k/uL (3.8-10.6)
[2017-07-18 11:03] LABS: Calcium 8.7 mg/dL (8.4-10.2); Potassium 4.4 mmol/L (3.5-5.1)
[2017-07-18 11:42] LABS: Glucose,Whole Blood 231 mg/dL (75-99)
--- NOTE | 2017-07-18 16:38 | PN ---
PROGRESS NOTE SUBJECTIVE: female with bibasilar pneumonia, hospital-acquired pneumonia, COPD exacerbation. Continues to do well. Slow improvement. She has congestive cough and wheezing, but she is greatly improved. CARDIOVASCULAR: S1, S2. LUNGS: Scattered rhonchi and wheeze x4. HEMATOLOGY: Negative Homans. PSYCH: Fair mood and affect. ASSESSMENT: 1. Bibasilar pneumonia. 2. Chronic obstructive pulmonary disease exacerbation. 3. Acute hypoxemic respiratory distress. 4. Acute diastolic congestive heart failure. PLAN: Continue with IV antibiotics updraft treatments, IV steroids. Prognosis guarded, but improving. MMODL / IJN: [id number] /
[2017-07-18 17:10] LABS: Glucose,Whole Blood 323 mg/dL (75-99)
[2017-07-18 21:05] LABS: Glucose,Whole Blood 414 mg/dL (75-99)
[2017-07-18] MEDS: NICOTINE 14MG/24HR PATCH TRANSDERM SCH (22:04)
[2017-07-18] MEDS: MONTELUKAST 10 MG TAB PO SCH (22:05)
[2017-07-19] MEDS: KETOROLAC 30 MG/ML 1 ML VIAL IVP SCH ×2 (00:56→05:59)
[2017-07-19 02:00] LABS: Glucose,Whole Blood 157 mg/dL (75-99)
[2017-07-19 07:39] LABS: Glucose,Whole Blood 271 mg/dL (75-99)
[2017-07-19] MEDS: INSULIN ASPART 100 UNIT/ML 1 ML 10 ML VIAL SQ SCH ×7 (07:56→21:11)
[2017-07-19] MEDS: CEFEPIME 2 GM in SODIUM CHLORIDE 0.9% 50 ML IVPB SCH (07:56)
[2017-07-19] MEDS: GABAPENTIN 100 MG CAP PO SCH ×3 (07:56→21:11)
[2017-07-19] MEDS: POLYETHYLENE GLYCOL 3350 17 GM POWD.PACK PO SCH (07:57)
[2017-07-19] MEDS: guaiFENesin 600 MG TABLET.ER PO SCH ×2 (07:57→21:11)
[2017-07-19] MEDS: methylPREDNISolone SOD SUCCI 40 MG/ML 1 ML VIAL IV SCH (07:57)
[2017-07-19] MEDS: FUROSEMIDE 10 MG/ML 4 ML VIAL IV SCH ×2 (07:57→15:55)
[2017-07-19] MEDS: FAMOTIDINE 20 MG TAB PO SCH (07:57)
[2017-07-19] MEDS: amLODIPine 5 MG TAB PO SCH (07:58)
[2017-07-19] MEDS: APIXABAN 2.5 MG TABLET PO SCH ×2 (07:58→21:11)
[2017-07-19] MEDS: ASPIRIN 81 MG PO SCH (07:58)
[2017-07-19] MEDS: traMADol 50 MG TAB PO PRN ×2 (07:58→17:57)
[2017-07-19] MEDS: CYCLOBENZAPRINE 5 MG TAB PO PRN ×2 (08:13→21:47)
[2017-07-19] MEDS: IPRATROPIUM-ALBUTEROL 3 ML NEB INHALATION SCH ×4 (09:01→20:15)
[2017-07-19] MEDS: BUDESONIDE 1 MG/2 ML NEBU INHALATION SCH ×2 (09:01→20:15)
--- NOTE | 2017-07-19 10:14 | P.PN ---
<Steffi Rosa E - Last Filed: 07/19/17 10:09> Subjective Progress Note Date: 07/19/17 HPI: Patient is being seen examined and evaluated today on rounds for consultation. This patient originally came into the hospital on 07/10/2017 and was discharged on 07/12/2017 with antibiotics and steroids. The the patient went back to her primary care physician's office yesterday on 07/13/2017 and was directed to, over to the hospital for failed outpatient treatment as well as respiratory status was worsening. Workup in the emergency room did reveal she had a pneumonia with progressive severe shortness of breath. CT of the chest was reviewed and did show new patchy infiltrates compared to old exam showed a 1 cm right lower lobe granuloma that was calcified. She'll fed calcified gallstones and multiple hepatic cyst. Upon examination the patient's resting up in bed on 2 L of supplemental oxygen via nasal cannula. She does continue to have shortness of breath with exertion and activity. She also complains of a congested cough however unable to bring up secretions at this time. She is afebrile no further complaints. Interval History 07/15/17- patient is being seen examined and evaluated on rounds. She continues to have some shortness of breath cough and congestion. Sputum sample has been sent to the lab. She continues on cefepime and vancomycin as well as nebulizer treatments and steroids. 07/16/2017: Patient seen and examined. Patient states that she is having pain with deep inspiration. She is also having pain with cough. The patient is complaining of shortness of breath which seems to be worse at night when she is trying to sleep. The patient denies fevers and chills. 07/17/17- patient is being seen examined and evaluated today on rounds. She is resting in bed and has just done some physical therapy. She continues to have shortness of breath with exertion or activity. She feels her breathing is somewhat better today. She does have some cough and congestion that is continued. She states the Mucinex and breathing treatments are helping though. She is afebrile all labs and reports have been reviewed. 07/18/2017: Patient seen and examined. Patient states she is starting to feel a little bit better. She did just get out of the shower and states she had some shortness of breath with exertion. Her cough is slightly improving. She does continue to have wheezing but is having better air movement today. She denies fevers and chills. 07/19/17- patient is being seen examined and evaluated today on rounds. She continues to improve in regards to her respiratory status. She is on 2 L of supplemental oxygen. States she has some cough with white sputum production. She feels like she is slowly getting better. She also has her lungs sounds today. She is afebrile no further complaints. Objective - Vital Signs Vital signs: Vital Signs Temp 97.0 F L 07/19/17 07:00 Pulse 84 07/19/17 09:15 Resp 16 07/19/17 07:00 BP 112/50 07/19/17 07:00 Pulse Ox 99 07/19/17 07:00 Intake & Output 07/18/17 07/19/17 07/19/17 18:59 06:59 18:59 Intake Total 884 100 170 Balance 884 100 170 Weight 86 kg 85.5 kg Intake: Intake, IV Titration 50 50 Amount Cefepime 2 gm In Sodium 50 50 Chloride 0.9% 50 ml @ 100 mls/hr IVPB Q24HR [facility] Rx #:[id number] Oral 834 100 120 Other: Voiding Method Toilet # Voids 1 1 # Bowel Movements 0 - Exam GENERAL EXAM: Alert, weak comfortable in no apparent distress. HEAD: Normocephalic. EYES: Normal reaction of pupils, equal size. NOSE: Clear with pink turbinates. THROAT: No erythema or exudates. NECK: No masses, no JVD. CHEST: No chest wall deformity. LUNGS: Bilateral expiratory wheezing, improving aeration CVS: S1 and S2 normal with no audible mumurs, regular rhythm. ABDOMEN: No hepatosplenomegaly, normal bowel sounds, no guarding or rigidity. EXTREMITIES: No edema noted, pedal pulses palpable. CENTRAL NERVOUS SYSTEM: No focal deficits, tone is normal in all 4 extremities. - Labs CBC & Chem 7: 07/18/17 10:29 07/18/17 10:29 Labs: Abnormal Lab Results - Last 24 Hours (Table) 07/18/17 07/18/17 07/18/17 Range/Units 10:29 10:29 11:39 WBC 10.8 H (3.8-10.6) k/uL Neutrophils # 9.8 H (1.3-7.7) k/uL Lymphocytes # 0.5 L (1.0-4.8) k/uL Chloride 93 L (98-107) mmol/L Carbon Dioxide 32 H (22-30) mmol/L BUN 42 H (7-17) mg/dL Creatinine 1.15 H (0.52-1.04) mg/dL Glucose 295 H (74-99) mg/dL POC Glucose (mg/dL) 231 H (75-99) mg/dL 07/18/17 07/18/17 07/19/17 Range/Units 16:56 20:55 01:56 WBC (3.8-10.6) k/uL Neutrophils # (1.3-7.7) k/uL Lymphocytes # (1.0-4.8) k/uL Chloride (98-107) mmol/L Carbon Dioxide (22-30) mmol/L BUN (7-17) mg/dL Creatinine (0.52-1.04) mg/dL Glucose (74-99) mg/dL POC Glucose (mg/dL) 323 H 414 H 157 H (75-99) mg/dL 07/19/17 Range/Units 07:27 WBC (3.8-10.6) k/uL Neutrophils # (1.3-7.7) k/uL Lymphocytes # (1.0-4.8) k/uL Chloride (98-107) mmol/L Carbon Dioxide (22-30) mmol/L BUN (7-17) mg/dL Creatinine (0.52-1.04) mg/dL Glucose (74-99) mg/dL POC Glucose (mg/dL) 271 H (75-99) mg/dL Assessment and Plan Assessment: Acute exacerbation of chronic severe persistent asthma/COPD Healthcare acquired pneumonia Elevated IgE level with a possible hypersensitivity pneumonitis Underlying COPD Nicotine dependence Generalized Weakness Pleuritic chest pain Hyperglycemia secondary to steroids Plan Medications have been reviewed and will be continued as ordered. Continue efepime for coverage for healthcare acquired pneumonia, discontinue vanco. Steroids taper, switch to oral. Discontinue Toradol, switch to Motrin for pain. Mucinex. Initiate and encourage incentive spirometer and flutter valve. Continue with pulmonary hygiene, coughing and deep breathing exercises, and supportive care. Supplemental oxygen to maintain oxygen saturations of 92% or better. Patient could be a candidate for possible biologic with her uncontrolled asthma and the outpatient setting. Smoking sensation. Continue nebulizer treatments. GI and DVT prophylaxis. Increase activity as tolerated add on PT and OT. We will continue to monitor labs/results and adjust treatment as necessary. Further recommendations pending. Encourage ambulation. I performed an examination of the patient and discussed their management with the nurse practitioner. I have reviewed the nurse practitioner's note and agree with the documented findings and plan of care. <Concha Hughes - Last Filed: 07/19/17 10:16> Objective - Vital Signs Vital signs: Vital Signs Temp 97.0 F L 07/19/17 07:00 Pulse 84 07/19/17 09:15 Resp 16 07/19/17 07:00 BP 112/50 07/19/17 07:00 Pulse Ox 99 07/19/17 07:00 Intake & Output 07/18/17 07/19/17 07/19/17 18:59 06:59 18:59 Intake Total 884 100 170 Balance 884 100 170 Weight 86 kg 85.5 kg Intake: Intake, IV Titration 50 50 Amount Cefepime 2 gm In Sodium 50 50 Chloride 0.9% 50 ml @ 100 mls/hr IVPB Q24HR [facility] Rx #:[id number] Oral 834 100 120 Other: Voiding Method Toilet # Voids 1 1 # Bowel Movements 0 - Labs CBC & Chem 7: 07/18/17 10:29 07/18/17 10:29 Labs: Abnormal Lab Results - Last 24 Hours (Table) 07/18/17 07/18/17 07/18/17 Range/Units 10:29 10:29 11:39 WBC 10.8 H (3.8-10.6) k/uL Neutrophils # 9.8 H (1.3-7.7) k/uL Lymphocytes # 0.5 L (1.0-4.8) k/uL Chloride 93 L (98-107) mmol/L Carbon Dioxide 32 H (22-30) mmol/L BUN 42 H (7-17) mg/dL Creatinine 1.15 H (0.52-1.04) mg/dL Glucose 295 H (74-99) mg/dL POC Glucose (mg/dL) 231 H (75-99) mg/dL 07/18/17 07/18/17 07/19/17 Range/Units 16:56 20:55 01:56 WBC (3.8-10.6) k/uL Neutrophils # (1.3-7.7) k/uL Lymphocytes # (1.0-4.8) k/uL Chloride (98-107) mmol/L Carbon Dioxide (22-30) mmol/L BUN (7-17) mg/dL Creatinine (0.52-1.04) mg/dL Glucose (74-99) mg/dL POC Glucose (mg/dL) 323 H 414 H 157 H (75-99) mg/dL 07/19/17 Range/Units 07:27 WBC (3.8-10.6) k/uL Neutrophils # (1.3-7.7) k/uL Lymphocytes # (1.0-4.8) k/uL Chloride (98-107) mmol/L Carbon Dioxide (22-30) mmol/L BUN (7-17) mg/dL Creatinine (0.52-1.04) mg/dL Glucose (74-99) mg/dL POC Glucose (mg/dL) 271 H (75-99) mg/dL Assessment and Plan Assessment: Patient seen and examined. Patient states she is starting to feel better. She is complaining of continued pain with cough. Her wheezing is markedly improved today. Will switch to PO Prednisone. Continue ABX. Discharge planning. ~Concha Hughes DO
[2017-07-19] MEDS ORDERED: NITROGLYCERIN SL TABS 0.4 MG TAB SUBLINGUAL STA (11:24)
[2017-07-19] MEDS ORDERED: NITROGLYCERIN SL TABS 0.4 MG TAB SUBLINGUAL PRN (11:35)
[2017-07-19] MEDS: predniSONE 20 MG TAB PO SCH (11:46)
[2017-07-19 12:09] LABS: Glucose,Whole Blood 248 mg/dL (75-99)
[2017-07-19 12:20] LABS: Basophils % (A) 0 %; Eosinophils % (A) 0 %; HCT 39.7 % (34.0-46.0); HGB 12.6 gm/dL (11.4-16.0); Lymphocytes # (A) 0.8 k/uL (1.0-4.8); Lymphocytes % (A) 6 %; MCH 30.5 pg (25.0-35.0); MCHC 31.7 g/dL (31.0-37.0); MCV 96.2 fL (80.0-100.0); Monocytes # (A) 0.3 k/uL (0-1.0); Monocytes % (A) 3 %; Neutrophils # (A) 11.2 k/uL (1.3-7.7); Neutrophils % (A) 90 %; Platelet Count 191 k/uL (150-450); RBC 4.13 m/uL (3.80-5.40); WBC 12.4 k/uL (3.8-10.6)
[2017-07-19 12:38] LABS: Calcium 8.4 mg/dL (8.4-10.2); Potassium 4.4 mmol/L (3.5-5.1)
[2017-07-19] MEDS: IBUPROFEN 600 MG TAB PO PRN (12:45)
--- NOTE | 2017-07-19 16:02 | P.CRDCN ---
History of Present Illness History of present illness: Mrs. Steele is a pleasant 66-year-old -[place] female past medical history significant for hypertension, COPD, dyslipidemia, paroxysmal atrial fibrillation with loop recorder in place and chronic nicotine dependence. We have been asked to see her in consultation for complaints of chest pain. She states she follows with a flow coordinator out of [place] but has not seen him in quite a few years. She has been admitted into the hospital since 07/13 being treated for pneumonia. She states just prior to my exam she felt an intermittent chest discomfort in the left precordial region described as tightness. She denies associated shortness of breath, dizziness, palpitations, nausea, vomiting or diaphoresis. She states she has felt similar pains in the past and has been diagnosed with angina. Nitorglycerin was given per the nursing staff and the pain subsided. EKG on arrival reveals sinus mechanism with nonspecific abnormalities. Repeat EKG at the time of the chest pain again shows sinus mechanism with no acute ST or T-wave abnormalities. Chest x-ray obtained 07/13 reveals no acute cardiopulmonary process. CT chest reveals new patchy interstitial and nodular pulmonary infiltrates compared to old exam with no pulmonary mass. Probably relatable to an inflammatory process. Healed granulomatous disease with a 1 cm right lower lobe granuloma. Laboratory data reviewed, WBC 12.4, hemoglobin 12.6, platelets 191, sodium 138, potassium 4.4, creatinine 1.1, cardiac enzymes negative 4 since admission, proBNP 250, d-dimer 0.46. Current cardiac medications include Eliquis 2.5 mg twice a day, aspirin 81 mg daily and amlodipine 5 mg daily. She has been receiving Lasix 40 mg IV every 8 hours since admission on July 13. Review of Systems At the time of my exam: CONSTITUTIONAL: Denies fever. Denies chills. EYES: Denies blurred vision. Denies vision changes. Denies eye pain. EARS, NOSE, MOUTH & THROAT: Denies headache. Denies sore throat. Denies ear pain. CARDIOVASCULAR: Denies chest pain. Denies shortness of breath. Denies orthopnea. Denies PND. Denies palpitations. RESPIRATORY: Denies cough. GASTROINTESTINAL: Denies abdominal pain. Denies diarrhea. Denies constipation. Denies nausea. Denies vomiting. MUSCULOSKELETAL: Denies myalgias. INTEGUMENTARY: Denies pruitis. Denies rash. NEUROLOGIC: Denies numbness. Denies tingling. Denies weakness. PSYCHIATRIC: Denies anxiety. Denies depression. ENDOCRINE: Denies fatigue. Denies weight change. Denies polydipsia. Denies polyurina. GENITOURINARY: Denies burning, hematuria or urgency with micturation. HEMATOLOGIC: Denies history of anemia. Denies bleeding. Past Medical History Past Medical History: Atrial Fibrillation, Atrial Flutter, Asthma, Coronary Artery Disease (CAD), Heart Failure, COPD, Diabetes Mellitus, Deep Vein Thrombosis (DVT), GERD/Reflux, Hyperlipidemia, Hypertension, Pneumonia, Seizure Disorder, Thyroid Disorder Additional Past Medical History / Comment(s): NIDDM type II-checks blood sugars , does not take diabetic meds. 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 Anthony Edmonds 12-23-16 and states she may need surgery on her L leg due to a clot. Has not taken her Eliquis for 1 yr. Patient also has electrodes for a Loop recorder & states it needs to be removed. He flow coordinator is in [place] & has not seen him in a couple of years. History of Any Multi-Drug Resistant Organisms: None Reported Past Surgical History: Breast Surgery, Heart Catheterization Additional Past Surgical History / Comment(s): L breast biopsy-twice and benign , L parotid gland bx-benign, colonoscopy-normal, bilateral cataract removals with lens implants. L Thyroid bx. Past Anesthesia/Blood Transfusion Reactions: No Reported Reaction Past Psychological History: No Psychological Hx Reported Smoking Status: Current some day smoker Past Alcohol Use History: None Reported Past Drug Use History: None Reported - Past Family History Mother Additional Family Medical History / Comment(s): Mother of sepsis at the age of 63 yrs. Father Family Medical History: Myocardial Infarction ([place]) Additional Family Medical History / Comment(s): Father during a carotid endartectomy. Medications and Allergies Home Medications Medication Instructions Recorded Confirmed Type Aspirin 81 mg PO DAILY 01/01/17 07/13/17 History Umeclidinium [place] [Incruse 1 puff INHALATION RT-DAILY 05/10/17 07/13/17 History Ellipta] Gabapentin [Neurontin] 100 mg PO TID 07/10/17 07/13/17 History Varenicline [Chantix Starter Pack] See Taper PO DIRECTED 07/10/17 07/13/17 History amLODIPine [Norvasc] 5 mg PO DAILY 07/10/17 07/13/17 History Apixaban [Eliquis] 2.5 mg PO BID tablet 07/12/17 07/13/17 Rx Famotidine [Pepcid] 20 mg PO BID tab 07/12/17 07/13/17 Rx Insulin Aspart [NovoLOG 0 unit SQ ACHS vial 07/12/17 07/13/17 Rx (formulary)] Montelukast [Singulair] 10 mg PO HS tab 07/12/17 07/13/17 Rx Ondansetron [Zofran] 4 mg IVP Q8HR PRN vial 07/12/17 07/13/17 Rx Polyethylene Glycol 3350 [Miralax] 17 gm PO DAILY@0600 powd.pack 07/12/1707/13 Rx traMADol HCl [Ultram] 50 mg PO Q6H PRN tab 07/12/17 07/13/17 Rx Allergies Allergy/AdvReac Type Severity Reaction Status Date / Time latex Allergy Rash/Hives Verified 07/13/17 14:27 Penicillins Allergy Rash/Hives Verified 07/13/17 14:27 Sulfa (Sulfonamide Allergy Rash/Hives Verified 07/13/17 14:27 Antibiotics) Physical Exam Vitals: Vital Signs Temp Pulse Pulse Pulse Resp BP Pulse Ox 07/19/17 15:00 97.9 F 75 18 118/63 97 07/19/17 11:59 84 18 133/68 97 07/19/17 11:35 87 132/69 96 07/19/17 09:15 84 07/19/17 09:01 82 07/19/17 08:00 18 07/19/17 07:00 97.0 F L 74 16 112/50 99 07/18/17 22:35 97.6 F 88 17 153/75 99 07/18/17 21:09 84 07/18/17 21:00 88 07/18/17 16:33 80 07/18/17 16:20 80 Intake and Output 07/19/17 07/19/17 07/19/17 06:59 14:59 22:59 Intake Total 100 290 Balance 100 290 Intake: Intake, IV Titration 50 Amount Cefepime 2 gm In Sodium 50 Chloride 0.9% 50 ml @ 100 mls/hr IVPB Q24HR [facility] Rx #:[id number] Oral 100 240 Other: Voiding Method Toilet # Voids 1 Weight 85.5 kg Blood pressure 119/63 heart rate 75 afebrile maintaining oxygen saturation on cannula 2 L GENERAL: This is a 66-year-old -[place] female in no apparent distress at the time of my examination. Obese. HEENT: Head is atraumatic, normocephalic. Pupils are equal, round. Sclerae anicteric. Conjunctivae are clear. Mucous membranes of the mouth are moist. Neck is supple. There is no jugular venous distention. No carotid bruit is heard. LUNGS: Clear to auscultation no wheezes, rales or rhonchi. No chest wall tenderness is noted on palpation or with deep breathing. Diminished bilaterally HEART: Regular rate and rhythm without murmurs, rubs or gallops. S1 and S2 heard. ABDOMEN: Soft, nontender. Bowel sounds are heard. No organomegaly noted. EXTREMITIES: No evidence of peripheral edema and no calf tenderness noted. VASCULAR: Radial and dorsalis pedis pulses palpated, no evidence of clubbing. NEUROLOGIC: Patient is awake, alert and oriented x3. Results 07/19/17 11:47 07/19/17 11:45 Cardiac Enzymes 07/19/17 Range/Units 11:42 Troponin I <0.012 (0.000-0.034) ng/mL CBC 07/19/17 Range/Units 11:47 WBC 12.4 H (3.8-10.6) k/uL RBC 4.13 (3.80-5.40) m/uL Hgb 12.6 (11.4-16.0) gm/dL Hct 39.7 (34.0-46.0) % Plt Count 191 (150-450) k/uL Comprehensive Metabolic Panel 07/19/17 Range/Units 11:45 Sodium 138 (137-145) mmol/L Potassium 4.4 (3.5-5.1) mmol/L Chloride 93 L (98-107) mmol/L Carbon Dioxide 34 H (22-30) mmol/L BUN 44 H (7-17) mg/dL Creatinine 1.10 H (0.52-1.04) mg/dL Glucose 226 H (74-99) mg/dL Calcium 8.4 (8.4-10.2) mg/dL Current Medications Generic Name Dose Route Start Last Admin Trade Name Freq PRN Reason Stop Dose Admin Albuterol/Ipratropium 3 ml 07/13/17 16:00 07/19/17 13:14 Duoneb 0.5 Mg-3 Mg/3 Ml Soln INHALATION Not Given RT-QID LYLY Albuterol/Ipratropium 3 ml 07/13/17 20:04 07/15/17 03:36 Duoneb 0.5 Mg-3 Mg/3 Ml Soln INHALATION 3 ml RT-Q4H PRN Administration Shortness Of Breath Or Wheezing Amlodipine Besylate 5 mg 07/14/17 09:00 07/19/17 07:58 Norvasc PO 5 mg DAILY LYLY Administration Apixaban 2.5 mg 07/13/17 21:00 07/19/17 07:58 Eliquis PO 2.5 mg BID LYLY Administration Aspirin 81 mg 07/14/17 09:00 07/19/17 07:58 Aspirin PO 81 mg DAILY LYLY Administration Budesonide 1 mg 07/14/17 20:00 07/19/17 09:01 Pulmicort INHALATION 1 mg RT-BID LYLY Administration Cyclobenzaprine HCl 5 mg 07/14/17 12:29 07/19/17 08:13 Flexeril PO 5 mg TID PRN Administration Muscle Spasm Famotidine 20 mg 07/15/17 09:00 07/19/17 07:57 Pepcid PO 20 mg DAILY LYLY Administration Furosemide 40 mg 07/13/17 16:00 07/19/17 07:57 Lasix IV 40 mg Q8H LYLY Administration Gabapentin 100 mg 07/13/17 22:00 07/19/17 07:56 Neurontin PO 100 mg TID LYLY Administration Guaifenesin 1,200 mg 07/14/17 10:30 07/19/17 07:57 Mucinex PO 1,200 mg Q12HR LYLY Administration Guaifenesin/Dextromethorphan 10 ml 07/16/17 22:18 07/19/17 08:13 Robitussin Dm PO 10 ml Q6H PRN Administration Cough Cefepime HCl 2 gm/ Sodium 50 mls @ 100 mls/hr 07/15/17 09:00 07/19/17 07:56 Chloride IVPB 100 mls/hr Q24HR LY[facility] Administration Ibuprofen 600 mg 07/19/17 10:12 07/19/17 12:45 Motrin PO 600 mg QID PRN Administration Mild to Moderate Pain Insulin Aspart 0 unit 07/13/17 21:00 07/19/17 12:45 Novolog SQ 8 unit ACHS LYLY Administration Protocol Insulin Aspart 3 unit 07/17/17 12:30 07/19/17 12:45 Novolog SQ 3 unit AC-TID LYLY Administration Montelukast Sodium 10 mg 07/13/17 21:00 07/18/17 22:05 Singulair PO 10 mg HS LYLY Administration Nicotine 1 patch 07/13/17 21:00 07/18/17 22:04 Habitrol 14mg/24hr Patch TRANSDERM 1 patch HS [facility] Administration Nitroglycerin 0.4 mg 07/19/17 11:35 Nitrostat SUBLINGUAL Q5M PRN Chest Pain Ondansetron HCl 4 mg 07/13/17 19:34 Zofran IVP Q8HR PRN Nausea And Vomiting Polyethylene Glycol 17 gm 07/17/17 09:00 07/19/17 07:57 Miralax PO 17 gm DAILY@0900 [facility] Administration Prednisone 60 mg 07/19/17 10:15 07/19/17 11:46 PO 60 mg DAILY LYLY Administration Tramadol HCl 50 mg 07/13/17 19:34 07/19/17 07:58 Ultram PO 50 mg Q6H PRN Administration Moderate Pain Intake and Output 07/19/17 07/19/17 07/19/17 06:59 14:59 22:59 Intake Total 100 290 Balance 100 290 Intake: Intake, IV Titration 50 Amount Cefepime 2 gm In Sodium 50 Chloride 0.9% 50 ml @ 100 mls/hr IVPB Q24HR [facility] Rx #:[id number] Oral 100 240 Other: Voiding Method Toilet # Voids 1 Weight 85.5 kg 07/19/17 11:47 07/19/17 11:45 Assessment and Plan Assessment: ASSESSMENT 1. Chest pain, atypical. There have been for negative troponin since admission we will check 1 more. 2. History of coronary artery disease, details unavailable to me at this time we will attempt to obtain those records. 3. Hypertension 4. Paroxysmal atrial fibrillation on long-term anticoagulation currently maintaining sinus mechanism with a loop recorder in place 5. COPD 6. Pneumonia 7. Acute kidney injury 8. Chronic nicotine dependence 9. Diabetes mellitus PLAN Obtain 2-D echocardiogram and Doppler study to assess cardiac structure and function. Discontinue IV Lasix. Check 1 more troponin to rule out an acute coronary event. Obtain records from her flow coordinator. Further recommendations to follow. Repeat kidney function in the morning and is normal consider starting by mouth Lasix. Nurse Practitioner note has been reviewed, I agree with a documented findings and plan of care. Patient was seen and examined.
[2017-07-19 17:32] LABS: Glucose,Whole Blood 214 mg/dL (75-99)
[2017-07-19 20:50] LABS: Glucose,Whole Blood 397 mg/dL (75-99)
[2017-07-19] MEDS: MONTELUKAST 10 MG TAB PO SCH (21:11)
[2017-07-19] MEDS: NICOTINE 14MG/24HR PATCH TRANSDERM SCH (21:11)
--- NOTE | 2017-07-19 22:11 | PN ---
PROGRESS NOTE SUBJECTIVE: A 66-year-old white female states she has been having some chest pain and tightness in her chest today, being treated for pneumonia, gram-negative pneumonia. EKG shows sinus rhythm, no ST-T changes. Cardiology consult is appreciated today. Lungs show scattered rhonchi and wheeze. Decreased . CARDIOVASCULAR: S1-S2. HEMATOLOGY: Negative Abby's. PSYCH: Fair mood and affect. ASSESSMENT: 1. Atypical chest pain. Cardiology is on the case and going to check another troponin. 2. Hypertension. 3. Paroxysmal atrial fibrillation, loop recorder. 4. Chronic obstructive pulmonary disease. 5. Pneumonia. 6. Chronic kidney disease. 7. Chronic nicotine dependence. 8. Diabetes mellitus. Cardiology is going to do a troponin and echo. Stop her Lasix. Get Cardiology old records. Review kidney function in the morning. Please see further orders. Continue with IV antibiotics. MMODL / IJN: [id number] /
[2017-07-20 07:09] LABS: Glucose,Whole Blood 160 mg/dL (75-99)
[2017-07-20] MEDS: IPRATROPIUM-ALBUTEROL 3 ML NEB INHALATION SCH ×4 (07:26→20:28)
[2017-07-20] MEDS: BUDESONIDE 1 MG/2 ML NEBU INHALATION SCH ×2 (07:26→20:27)
[2017-07-20] MEDS: predniSONE 20 MG TAB PO SCH (08:19)
[2017-07-20] MEDS: INSULIN ASPART 100 UNIT/ML 1 ML 10 ML VIAL SQ SCH ×7 (08:19→20:49)
[2017-07-20] MEDS: POLYETHYLENE GLYCOL 3350 17 GM POWD.PACK PO SCH (08:19)
[2017-07-20] MEDS: CEFEPIME 2 GM in SODIUM CHLORIDE 0.9% 50 ML IVPB SCH (08:20)
[2017-07-20] MEDS: GABAPENTIN 100 MG CAP PO SCH ×3 (08:20→20:29)
[2017-07-20] MEDS: FAMOTIDINE 20 MG TAB PO SCH (08:20)
[2017-07-20] MEDS: amLODIPine 5 MG TAB PO SCH (08:20)
[2017-07-20] MEDS: ASPIRIN 81 MG PO SCH (08:20)
[2017-07-20] MEDS: guaiFENesin 600 MG TABLET.ER PO SCH ×2 (08:31→20:30)
[2017-07-20 08:53] LABS: Calcium 8.5 mg/dL (8.4-10.2); Potassium 4.5 mmol/L (3.5-5.1)
[2017-07-20] MEDS ORDERED: FUROSEMIDE 20 MG TAB PO SCH (09:00)
[2017-07-20] MEDS: APIXABAN 2.5 MG TABLET PO SCH ×2 (09:01→20:29)
--- NOTE | 2017-07-20 10:31 | P.PN ---
Subjective Progress Note Date: 07/20/17 HPI: Patient is being seen examined and evaluated today on rounds for consultation. This patient originally came into the hospital on 07/10/2017 and was discharged on 07/12/2017 with antibiotics and steroids. The the patient went back to her primary care physician's office yesterday on 07/13/2017 and was directed to, over to the hospital for failed outpatient treatment as well as respiratory status was worsening. Workup in the emergency room did reveal she had a pneumonia with progressive severe shortness of breath. CT of the chest was reviewed and did show new patchy infiltrates compared to old exam showed a 1 cm right lower lobe granuloma that was calcified. She'll fed calcified gallstones and multiple hepatic cyst. Upon examination the patient's resting up in bed on 2 L of supplemental oxygen via nasal cannula. She does continue to have shortness of breath with exertion and activity. She also complains of a congested cough however unable to bring up secretions at this time. She is afebrile no further complaints. Interval History 07/15/17- patient is being seen examined and evaluated on rounds. She continues to have some shortness of breath cough and congestion. Sputum sample has been sent to the lab. She continues on cefepime and vancomycin as well as nebulizer treatments and steroids. 07/16/2017: Patient seen and examined. Patient states that she is having pain with deep inspiration. She is also having pain with cough. The patient is complaining of shortness of breath which seems to be worse at night when she is trying to sleep. The patient denies fevers and chills. 07/17/17- patient is being seen examined and evaluated today on rounds. She is resting in bed and has just done some physical therapy. She continues to have shortness of breath with exertion or activity. She feels her breathing is somewhat better today. She does have some cough and congestion that is continued. She states the Mucinex and breathing treatments are helping though. She is afebrile all labs and reports have been reviewed. 07/18/2017: Patient seen and examined. Patient states she is starting to feel a little bit better. She did just get out of the shower and states she had some shortness of breath with exertion. Her cough is slightly improving. She does continue to have wheezing but is having better air movement today. She denies fevers and chills. 07/19/17- patient is being seen examined and evaluated today on rounds. She continues to improve in regards to her respiratory status. She is on 2 L of supplemental oxygen. States she has some cough with white sputum production. She feels like she is slowly getting better. She also has her lungs sounds today. She is afebrile no further complaints. 07/20/17- patient is being seen examined and evaluated today on rounds. She is resting up in bed on room air, states she is feeling much better today. She feels her breathing has improved significantly. She does continue have congested cough however is much less frequent and harsh. She was switched over to oral prednisone yesterday. Chest x-ray was reviewed. She is afebrile denies any further complaints. Cardiology was consulted yesterday and patient will be undergoing an echocardiogram. Discharge planning in progress. Objective - Vital Signs Vital signs: Vital Signs Temp 97.0 F L 07/20/17 07:00 Pulse 76 07/20/17 07:37 Resp 16 07/20/17 07:00 BP 119/65 07/20/17 07:00 Pulse Ox 93 L 07/20/17 07:00 Intake & Output 07/19/17 07/20/17 07/20/17 18:59 06:59 18:59 Intake Total 290 Balance 290 Weight 85.5 kg 85.5 kg Intake: Intake, IV Titration 50 Amount Cefepime 2 gm In Sodium 50 Chloride 0.9% 50 ml @ 100 mls/hr IVPB Q24HR [facility] Rx #:[id number] Oral 240 Other: Voiding Method Toilet # Voids 1 1 - Exam GENERAL EXAM: Alert, weak comfortable in no apparent distress. HEAD: Normocephalic. EYES: Normal reaction of pupils, equal size. NOSE: Clear with pink turbinates. THROAT: No erythema or exudates. NECK: No masses, no JVD. CHEST: No chest wall deformity. LUNGS: Bilateral expiratory wheezing, improving aeration. Bases diminished CVS: S1 and S2 normal with no audible mumurs, regular rhythm. ABDOMEN: No hepatosplenomegaly, normal bowel sounds, no guarding or rigidity. EXTREMITIES: No edema noted, pedal pulses palpable. CENTRAL NERVOUS SYSTEM: No focal deficits, tone is normal in all 4 extremities. - Labs CBC & Chem 7: 07/19/17 11:47 07/20/17 08:32 Labs: Abnormal Lab Results - Last 24 Hours (Table) 07/19/17 07/19/17 07/19/17 Range/Units 11:45 11:47 12:00 WBC 12.4 H (3.8-10.6) k/uL Neutrophils # 11.2 H (1.3-7.7) k/uL Lymphocytes # 0.8 L (1.0-4.8) k/uL Sodium (137-145) mmol/L Chloride 93 L (98-107) mmol/L Carbon Dioxide 34 H (22-30) mmol/L BUN 44 H (7-17) mg/dL Creatinine 1.10 H (0.52-1.04) mg/dL Glucose 226 H (74-99) mg/dL POC Glucose (mg/dL) 248 H (75-99) mg/dL 07/19/17 07/19/17 07/20/17 Range/Units 17:20 20:49 07:03 WBC (3.8-10.6) k/uL Neutrophils # (1.3-7.7) k/uL Lymphocytes # (1.0-4.8) k/uL Sodium (137-145) mmol/L Chloride (98-107) mmol/L Carbon Dioxide (22-30) mmol/L BUN (7-17) mg/dL Creatinine (0.52-1.04) mg/dL Glucose (74-99) mg/dL POC Glucose (mg/dL) 214 H 397 H 160 H (75-99) mg/dL 07/20/17 Range/Units 08:32 WBC (3.8-10.6) k/uL Neutrophils # (1.3-7.7) k/uL Lymphocytes # (1.0-4.8) k/uL Sodium 136 L (137-145) mmol/L Chloride 89 L (98-107) mmol/L Carbon Dioxide 38 H (22-30) mmol/L BUN 41 H (7-17) mg/dL Creatinine (0.52-1.04) mg/dL Glucose 228 H (74-99) mg/dL POC Glucose (mg/dL) (75-99) mg/dL Assessment and Plan Assessment: Acute exacerbation of chronic severe persistent asthma/COPD Healthcare acquired pneumonia Elevated IgE level with a possible hypersensitivity pneumonitis Underlying COPD Nicotine dependence Generalized Weakness Pleuritic chest pain Hyperglycemia secondary to steroids Plan Patient is cleared for discharge from pulmonary standpoint. Medications have been reviewed and will be continued as ordered. Patient switched to oral steroids. Chest x-ray was reviewed. Mucinex. Initiate and encourage incentive spirometer and flutter valve. Continue with pulmonary hygiene, coughing and deep breathing exercises, and supportive care. Supplemental oxygen to maintain oxygen saturations of 92% or better. Patient could be a candidate for possible biologic with her uncontrolled asthma and the outpatient setting. Smoking sensation. Continue nebulizer treatments. GI and DVT prophylaxis. Increase activity as tolerated add on PT and OT. We will continue to monitor labs/results and adjust treatment as necessary. Further recommendations pending. Encourage ambulation. I performed an examination of the patient and discussed their management with the nurse practitioner. I have reviewed the nurse practitioner's note and agree with the documented findings and plan of care.
--- NOTE | 2017-07-20 10:46 | XR ---
EXAMINATION TYPE: XR chest 1V portable DATE OF EXAM: 07/20/2017 COMPARISON: Prior chest x-ray and chest CT 07/13/2017 HISTORY: COPD, congestive heart failure, pneumonia TECHNIQUE: Single frontal view of the chest is obtained. FINDINGS: The patchy basilar density, upper lobe groundglass opacity seen on previous exam is no tucker kike evident. No evident pneumothorax or sizable effusion, patient is rotated. There is an overlying l oop recorder. Cardiomediastinal silhouette, pulmonary vascularity and awais felt to be stable. The oss eous structures are intact. IMPRESSION: Improvement in aeration.
[2017-07-20 11:23] LABS: Glucose,Whole Blood 274 mg/dL (75-99)
--- NOTE | 2017-07-20 13:06 | ECHOF ---
Referral Reason:cp MEASUREMENTS -------- HEIGHT: 154.9 cm WEIGHT: 85.3 kg BP: 141/63 RVIDd: 3.0 cm (< 3.3) IVSd: 1.3 cm (0.6 - 1.1) LVIDd: 4.0 cm (3.9 - 5.3) LVPWd: 1.1 cm (0.6 - 1.1) IVSs: 1.6 cm LVIDs: 2.4 cm LVPWs: 1.9 cm LA Diam: 3.5 cm (2.7 - 3.8) LAESV Index (A-L): 24.95 ml/m Ao Diam: 2.8 cm (2.0 - 3.7) AV Cusp: 1.5 cm (1.5 - 2.6) MV EXCURSION: 18.547 mm (> 18.000) MV EF SLOPE: 141 mm/s (70 - 150) EPSS: 0.4 cm MV E Ck: 0.77 m/s MV DecT: 247 ms MV A Ck: 0.74 m/s MV E/A Ratio: 1.04 RAP: 5.00 mmHg RVSP: 29.40 mmHg FINDINGS -------- Sinus rhythm. This was a technically adequate study. The left ventricular size is normal. There is mild concentric left ventricular hypertrophy. Overa ll left ventricular systolic function is normal with, an EF between 60 - 65 %. The right ventricle is normal in size. Normal LA size by volume 22+/-6 ml/m2. The right atrium is normal in size. There is mild aortic valve sclerosis. Mild mitral annular calcification present. Mild tricuspid regurgitation present. Right ventricular systolic pressure is normal at < 35 mmHg. Trace/mild (physiologic) pulmonic regurgitation. The aortic root size is normal. Normal inferior vena cava with normal inspiratory collapse consistent with estimated right atrial pre ssure of 5 mmHg. There is no pericardial effusion. CONCLUSIONS -------- 1. Sinus rhythm. 2. This was a technically adequate study. 3. The left ventricular size is normal. 4. There is mild concentric left ventricular hypertrophy. 5. Overall left ventricular systolic function is normal with, an EF between 60 - 65 %. 6. The right ventricle is normal in size. 7. Normal LA size by volume 22+/-6 ml/m2. 8. The right atrium is normal in size. 9. There is mild aortic valve sclerosis. 10. Mild mitral annular calcification present. 11. Mild tricuspid regurgitation present. 12. Right ventricular systolic pressure is normal at < 35 mmHg. 13. Trace/mild (physiologic) pulmonic regurgitation. 14. The aortic root size is normal. 15. Normal inferior vena cava with normal inspiratory collapse consistent with estimated right atrial pressure of 5 mmHg. 16. There is no pericardial effusion. FIELD GEOLOGIST: Marcella Saunders RDCS
--- NOTE | 2017-07-20 14:10 | P.PN ---
Subjective Mrs. Steele is a pleasant 66-year-old -[place] female past medical history significant for hypertension, COPD, dyslipidemia, paroxysmal atrial fibrillation with loop recorder in place and chronic nicotine dependence. We have been asked to see her in consultation for complaints of chest pain. She states she follows with a geriatric aide out of [place] but has not seen him in quite a few years. She has been admitted into the hospital since 07/13 being treated for pneumonia. She states just prior to my exam she felt an intermittent chest discomfort in the left precordial region described as tightness. She denies associated shortness of breath, dizziness, palpitations, nausea, vomiting or diaphoresis. She states she has felt similar pains in the past and has been diagnosed with angina. Nitorglycerin was given per the nursing staff and the pain subsided. EKG on arrival reveals sinus mechanism with nonspecific abnormalities. Repeat EKG at the time of the chest pain again shows sinus mechanism with no acute ST or T-wave abnormalities. Chest x-ray obtained 07/13 reveals no acute cardiopulmonary process. CT chest reveals new patchy interstitial and nodular pulmonary infiltrates compared to old exam with no pulmonary mass. Probably relatable to an inflammatory process. Healed granulomatous disease with a 1 cm right lower lobe granuloma. Laboratory data reviewed, WBC 12.4, hemoglobin 12.6, platelets 191, sodium 138, potassium 4.4, creatinine 1.1, cardiac enzymes negative 4 since admission, proBNP 250, d-dimer 0.46. Current cardiac medications include Eliquis 2.5 mg twice a day, aspirin 81 mg daily and amlodipine 5 mg daily. She has been receiving Lasix 40 mg IV every 8 hours since admission on July 13. 07/20/2017 Mrs. Steele is seen resting comfortably in bed in no acute distress. She denies any further symptoms of chest pain or shortness of breath. EKG obtained while having chest pain was unremarkable for changes. Troponin values came in to be negative. An acute coronary event has been ruled out. IV lasix was discontinued yesterday and renal function has improved, creatinine 1.0. Sodium 136, potassium 4.5. Blood pressure 119/65 heart rate 77 afebrile and maintaining oxygen saturation on room air. Echocardiogram performed yesterday reveals preserved left ventricular systolic function with ejection fraction 60- 65%, mild concentric left ventricular hypertrophy, mild aortic valve sclerosis with no stenosis and mild TR. Repeat chest x-ray this morning shows improved aeration. Objective - Vital Signs Vital signs: Vital Signs Temp 97.0 F L 07/20/17 07:00 Pulse 84 07/20/17 11:07 Resp 16 07/20/17 08:00 BP 119/65 07/20/17 07:00 Pulse Ox 93 L 07/20/17 07:00 Intake & Output 07/19/17 07/20/17 07/20/17 18:59 06:59 18:59 Intake Total 290 Balance 290 Weight 85.5 kg 85.5 kg Intake: Intake, IV Titration 50 Amount Cefepime 2 gm In Sodium 50 Chloride 0.9% 50 ml @ 100 mls/hr IVPB Q24HR [facility] Rx #:[id number] Oral 240 Other: Voiding Method Toilet Toilet # Voids 1 1 - Exam GENERAL: Well-appearing, well-nourished and in no acute distress. NECK: Supple without JVD or thyromegaly. LUNGS: Faint expiratory bibasilar wheezes with scattered rhonchi, no rales. Respiration equal and unlabored. HEART: Regular rate and rhythm without murmurs, rubs or gallops. S1 and S2 heard. EXTREMITIES: Normal range of motion, no edema. No clubbing or cyanosis. Peripheral pulses intact and strong. - Labs CBC & Chem 7: 07/19/17 11:47 07/20/17 08:32 Labs: Abnormal Lab Results - Last 24 Hours (Table) 07/19/17 07/19/17 07/20/17 Range/Units 17:20 20:49 07:03 Sodium (137-145) mmol/L Chloride (98-107) mmol/L Carbon Dioxide (22-30) mmol/L BUN (7-17) mg/dL Glucose (74-99) mg/dL POC Glucose (mg/dL) 214 H 397 H 160 H (75-99) mg/dL 07/20/17 07/20/17 Range/Units 08:32 11:20 Sodium 136 L (137-145) mmol/L Chloride 89 L (98-107) mmol/L Carbon Dioxide 38 H (22-30) mmol/L BUN 41 H (7-17) mg/dL Glucose 228 H (74-99) mg/dL POC Glucose (mg/dL) 274 H (75-99) mg/dL Assessment and Plan Assessment: ASSESSMENT 1. Chest pain, atypical. There have been for negative troponin since admission we will check 1 more. 2. History of coronary artery disease, details unavailable to me at this time we will attempt to obtain those records. 3. Hypertension 4. Paroxysmal atrial fibrillation on long-term anticoagulation currently maintaining sinus mechanism with a loop recorder in place 5. COPD 6. Pneumonia 7. Acute kidney injury 8. Chronic nicotine dependence 9. Diabetes mellitus PLAN An acute coronary event has been ruled out with no EKG evidence of acute ischemia and negative cardiac enzymes. Kidney function has improved with discontinuation of IV lasix. Stable from a cardiac perspective, follow up with Dr. Johnson in 2 weeks. Nurse Practitioner note has been reviewed, I agree with a documented findings and plan of care. Patient was seen and examined.
[2017-07-20 17:03] LABS: Glucose,Whole Blood 325 mg/dL (75-99)
[2017-07-20] MEDS: traMADol 50 MG TAB PO PRN (20:27)
[2017-07-20] MEDS: CEFDINIR 300 MG CAP PO SCH (20:27)
[2017-07-20] MEDS: MONTELUKAST 10 MG TAB PO SCH (20:29)
[2017-07-20] MEDS: NICOTINE 14MG/24HR PATCH TRANSDERM SCH (20:30)
[2017-07-20 20:49] LABS: Glucose,Whole Blood 341 mg/dL (75-99)
[2017-07-20] MEDS ORDERED: CEFEPIME 2 GM in SODIUM CHLORIDE 0.9% 50 ML IVPB SCH (21:00)
--- NOTE | 2017-07-20 22:43 | PN ---
PROGRESS NOTE SUBJECTIVE: This is a black female with gram-negative pneumonia, acute hypoxemic respiratory distress. The patient was switched to oral Omnicef and possibly be discharged home tomorrow. CARDIOVASCULAR: S1-S2. LUNGS: Showed scattered rhonchi. HEMATOLOGY: Negative Abby's. PSYCH: Fair mood and affect. NEUROLOGIC: Alert and orient x3. ASSESSMENT: Gram-negative pneumonia greatly improving. Prednisone taper. Possible discharge home in the next 24 to 48 hours. Echocardiogram was done. Cardiology saw the patient and stabilized home medications from their standpoint. Echo shows EF 60% to 65%. Possible discharge home next 24 to 48 hours. MMODL / IJN: [id number] /
[2017-07-21] MEDS: IPRATROPIUM-ALBUTEROL 3 ML NEB INHALATION SCH ×2 (07:14→11:21)
[2017-07-21] MEDS: BUDESONIDE 1 MG/2 ML NEBU INHALATION SCH (07:14)
[2017-07-21 07:21] VITALS: BP 138/72; RESP 17; TEMP 98
[2017-07-21 07:21] LABS: Glucose,Whole Blood 118 mg/dL (75-99)
[2017-07-21] MEDS: INSULIN ASPART 100 UNIT/ML 1 ML 10 ML VIAL SQ SCH ×4 (07:24→12:42)
[2017-07-21] MEDS: predniSONE 20 MG TAB PO SCH (07:49)
[2017-07-21] MEDS: guaiFENesin 600 MG TABLET.ER PO SCH (07:49)
[2017-07-21] MEDS: POLYETHYLENE GLYCOL 3350 17 GM POWD.PACK PO SCH (07:49)
[2017-07-21] MEDS: CEFDINIR 300 MG CAP PO SCH (07:49)
[2017-07-21] MEDS: APIXABAN 2.5 MG TABLET PO SCH (07:50)
[2017-07-21] MEDS: amLODIPine 5 MG TAB PO SCH (07:50)
[2017-07-21] MEDS: ASPIRIN 81 MG PO SCH (07:50)
[2017-07-21] MEDS: GABAPENTIN 100 MG CAP PO SCH (07:50)
[2017-07-21] MEDS: FAMOTIDINE 20 MG TAB PO SCH (07:50)
[2017-07-21] MEDS: IBUPROFEN 600 MG TAB PO PRN (07:51)
[2017-07-21] MEDS: traMADol 50 MG TAB PO PRN (07:51)
[2017-07-21] MEDS ORDERED: BUDESONIDE 0.5 MG/2 ML NEBU INHALATION SCH (09:39)
--- NOTE | 2017-07-21 09:40 | P.PN ---
Subjective Progress Note Date: 07/21/17 HPI: Patient is being seen examined and evaluated today on rounds for consultation. This patient originally came into the hospital on 07/10/2017 and was discharged on 07/12/2017 with antibiotics and steroids. The the patient went back to her primary care physician's office yesterday on 07/13/2017 and was directed to, over to the hospital for failed outpatient treatment as well as respiratory status was worsening. Workup in the emergency room did reveal she had a pneumonia with progressive severe shortness of breath. CT of the chest was reviewed and did show new patchy infiltrates compared to old exam showed a 1 cm right lower lobe granuloma that was calcified. She'll fed calcified gallstones and multiple hepatic cyst. Upon examination the patient's resting up in bed on 2 L of supplemental oxygen via nasal cannula. She does continue to have shortness of breath with exertion and activity. She also complains of a congested cough however unable to bring up secretions at this time. She is afebrile no further complaints. Interval History 07/15/17- patient is being seen examined and evaluated on rounds. She continues to have some shortness of breath cough and congestion. Sputum sample has been sent to the lab. She continues on cefepime and vancomycin as well as nebulizer treatments and steroids. 07/16/2017: Patient seen and examined. Patient states that she is having pain with deep inspiration. She is also having pain with cough. The patient is complaining of shortness of breath which seems to be worse at night when she is trying to sleep. The patient denies fevers and chills. 07/17/17- patient is being seen examined and evaluated today on rounds. She is resting in bed and has just done some physical therapy. She continues to have shortness of breath with exertion or activity. She feels her breathing is somewhat better today. She does have some cough and congestion that is continued. She states the Mucinex and breathing treatments are helping though. She is afebrile all labs and reports have been reviewed. 07/18/2017: Patient seen and examined. Patient states she is starting to feel a little bit better. She did just get out of the shower and states she had some shortness of breath with exertion. Her cough is slightly improving. She does continue to have wheezing but is having better air movement today. She denies fevers and chills. 07/19/17- patient is being seen examined and evaluated today on rounds. She continues to improve in regards to her respiratory status. She is on 2 L of supplemental oxygen. States she has some cough with white sputum production. She feels like she is slowly getting better. She also has her lungs sounds today. She is afebrile no further complaints. 07/20/17- patient is being seen examined and evaluated today on rounds. She is resting up in bed on room air, states she is feeling much better today. She feels her breathing has improved significantly. She does continue have congested cough however is much less frequent and harsh. She was switched over to oral prednisone yesterday. Chest x-ray was reviewed. She is afebrile denies any further complaints. Cardiology was consulted yesterday and patient will be undergoing an echocardiogram. Discharge planning in progress. 07/21/17- patient is being seen examined and evaluated today on rounds. She is resting up in bed on room air. She continues to feel better. She is looking forward for discharge. She is on oral prednisone and oral antibiotics. She is cleared for discharge from pulmonary standpoint. Objective - Vital Signs Vital signs: Vital Signs Temp 98 F 07/21/17 07:21 Pulse 80 07/21/17 07:24 Resp 17 07/21/17 07:21 BP 138/72 07/21/17 07:21 Pulse Ox 98 07/21/17 07:21 Intake & Output 07/20/17 07/21/17 07/21/17 18:59 06:59 18:59 Intake Total 1200 540 Balance 1200 540 Weight 85 kg Intake: Oral 1200 540 Other: Voiding Method Toilet Toilet # Voids 1 2 # Bowel Movements 1 - Exam GENERAL EXAM: Alert, weak comfortable in no apparent distress. HEAD: Normocephalic. EYES: Normal reaction of pupils, equal size. NOSE: Clear with pink turbinates. THROAT: No erythema or exudates. NECK: No masses, no JVD. CHEST: No chest wall deformity. LUNGS: Bilateral expiratory wheezing, improving aeration. Bases diminished CVS: S1 and S2 normal with no audible mumurs, regular rhythm. ABDOMEN: No hepatosplenomegaly, normal bowel sounds, no guarding or rigidity. EXTREMITIES: No edema noted, pedal pulses palpable. CENTRAL NERVOUS SYSTEM: No focal deficits, tone is normal in all 4 extremities. - Labs CBC & Chem 7: 07/19/17 11:47 07/20/17 08:32 Labs: Abnormal Lab Results - Last 24 Hours (Table) 07/20/17 07/20/17 07/20/17 Range/Units 11:20 17:00 20:46 POC Glucose (mg/dL) 274 H 325 H 341 H (75-99) mg/dL 07/21/17 Range/Units 07:18 POC Glucose (mg/dL) 118 H (75-99) mg/dL Assessment and Plan Assessment: Acute exacerbation of chronic severe persistent asthma/COPD Healthcare acquired pneumonia Elevated IgE level with a possible hypersensitivity pneumonitis Underlying COPD Nicotine dependence Generalized Weakness Pleuritic chest pain Hyperglycemia secondary to steroids Plan Patient is cleared for discharge from pulmonary standpoint. Medications have been reviewed and will be continued as ordered. Oral antibiotics. Patient switched to oral steroids. Chest x-ray was reviewed. Mucinex. Initiate and encourage incentive spirometer and flutter valve. Continue with pulmonary hygiene, coughing and deep breathing exercises, and supportive care. Supplemental oxygen to maintain oxygen saturations of 92% or better. Patient could be a candidate for possible biologic with her uncontrolled asthma and the outpatient setting. Smoking sensation. Continue nebulizer treatments. GI and DVT prophylaxis. Increase activity as tolerated add on PT and OT. We will continue to monitor labs/results and adjust treatment as necessary. Further recommendations pending. Encourage ambulation. I performed an examination of the patient and discussed their management with the nurse practitioner. I have reviewed the nurse practitioner's note and agree with the documented findings and plan of care.
[2017-07-21 11:40] LABS: Glucose,Whole Blood 224 mg/dL (75-99)
[2017-07-21 11:55] VITALS: PULSE 86
--- NOTE | 2017-07-22 11:21 | CDI ---
Last Revision, January 2017 Documentation Clarification Form Date: 07/22/17 From: Mitzy Ramy Patricia Jameson, Tower Equipment Installer Hours-8:30 am & 5 pm M-F Admit Date: 07/13/2017 3:24:00 PM Patient Name: Concepcion Steele Visit Number: [id number] Discharge Date: 07/21/17 ATTENTION: The Clinical Documentation Specialists (CDI) and [facility] Coding Staff appreciate your assistance in clarifying documentation. Please respond to the clarification below the line at the bottom and electronically sign. The CDI & [facility] Coding staff will review the response and follow-up if needed. Please note: Queries are made part of the Legal Health Record. If you have any questions, please contact the author of this message via ITS. Dr. eJt Edmonds CKD documented in your 07/19 progress note. Patient with HTN and DM. No H&P or DS. Current BUN: 26, 22, 28, 32, 35, 42, 44, 41 Current CR: .90, .86, .80, 1.03, 1.13, 1.15, 1.10, 1.00 Current GFR: 77, 82, 89, 66, 59, 57, 61, 68 DC'd Motrin In order to capture the severity of condition, please clarify if the condition signifies: CKD Ruled Out CKD Stage 1 (GFR > 90) CKD Stage 2 (GFR 60-89) CKD Stage 3 (GFR 30-59) CKD Stage 4 (GFR 15-29) CKD Stage 5 (GFR <15) ESRD Other, please specify Unable to determine Please continue to document in your progress notes and discharge summary in order to capture severity of illness and risk of mortality. Include clinical findings that support your diagnosis. MTDD
--- NOTE | 2017-07-29 12:05 | CDI ---
Last Revision, January 2017 Documentation Clarification Form Date: 07/29/2017 From: Mitzy Ramy Patricia Jameson, Resident In Diagnostic Radiology Hours-8:30 am & 5 pm M-F Admit Date: 07/13/2017 3:24:00 PM Patient Name: Concepcion Steele Visit Number: [id number] Discharge Date: 07/21/17 ATTENTION: The Clinical Documentation Specialists (CDI) and [facility] Coding Staff appreciate your assistance in clarifying documentation. Please respond to the clarification below the line at the bottom and electronically sign. The CDI & [facility] Coding staff will review the response and follow-up if needed. Please note: Queries are made part of the Legal Health Record. If you have any questions, please contact the author of this message via ITS. Dr. Jet Edmonds CKD documented in your 07/19 progress note. Patient with HTN and DM. No H&P or DS. Current BUN: 26, 22, 28, 32, 35, 42, 44, 41 Current CR: .90, .86, .80, 1.03, 1.13, 1.15, 1.10, 1.00 Current GFR: 77, 82, 89, 66, 59, 57, 61, 68 DC'd Motrin In order to capture the severity of condition, please clarify if the condition signifies: CKD Ruled Out CKD Stage 1 (GFR > 90) CKD Stage 2 (GFR 60-89) CKD Stage 3 (GFR 30-59) CKD Stage 4 (GFR 15-29) CKD Stage 5 (GFR <15) ESRD Other, please specify Unable to determine Please continue to document in your progress notes and discharge summary in order to capture severity of illness and risk of mortality. Include clinical findings that support your diagnosis. MTDD
--- NOTE | 2017-07-31 08:36 | CDI ---
Last Revision, January 2017 Documentation Clarification Form Date: 07/31/17 From: Mitzy Ramy Patricia Jameson, [employer] Hours-8:30 am & 5 pm M-F Admit Date: 07/13/2017 3:24:00 PM Patient Name: Concepcion Steele Visit Number: [id number] Discharge Date: 07/21/17 ATTENTION: The Clinical Documentation Specialists (CDI) and [facility] Coding Staff appreciate your assistance in clarifying documentation. Please respond to the clarification below the line at the bottom and electronically sign. The CDI & [facility] Coding staff will review the response and follow-up if needed. Please note: Queries are made part of the Legal Health Record. If you have any questions, please contact the author of this message via ITS. Dr. Jet Edmonds CKD documented in your 07/19 progress note. Patient with HTN and DM. No H&P or DS. Current BUN: 26, 22, 28, 32, 35, 42, 44, 41 Current CR: .90, .86, .80, 1.03, 1.13, 1.15, 1.10, 1.00 Current GFR: 77, 82, 89, 66, 59, 57, 61, 68 DC'd Motrin In order to capture the severity of condition, please clarify if the condition signifies: CKD Ruled Out CKD Stage 1 (GFR > 90) CKD Stage 2 (GFR 60-89) CKD Stage 3 (GFR 30-59) CKD Stage 4 (GFR 15-29) CKD Stage 5 (GFR <15) ESRD Other, please specify Unable to determine Please continue to document in your progress notes and discharge summary in order to capture severity of illness and risk of mortality. Include clinical findings that support your diagnosis. MTDD
== END 2017-07-21 12:49 | disposition home health service (06) | DRG 177 ==
LOC: EC 14:14 → 4MS4W 15:24
PROVIDERS: ADMIT Family Medicine; ATTEND Family Medicine
DX: J15.6 Pneumonia due to other Gram-negative bacteria (principal); I50.31 Acute diastolic (congestive) heart failure; J45.51 Severe persistent asthma with (acute) exacerbation; J44.0 Chronic obstructive pulmonary disease with (acute) lower respiratory infection; J44.1 Chronic obstructive pulmonary disease with (acute) exacerbation; I13.0 Hypertensive heart and chronic kidney disease with heart failure and stage 1 through stage 4 chronic kidney disease, or unspecified chronic kidney disease; N17.9 Acute kidney failure, unspecified; J67.9 Hypersensitivity pneumonitis due to unspecified organic dust; I48.0 Paroxysmal atrial fibrillation; E11.65 Type 2 diabetes mellitus with hyperglycemia; D71 Functional disorders of polymorphonuclear neutrophils; K76.89 Other specified diseases of liver; Y95 Nosocomial condition; K80.20 Calculus of gallbladder without cholecystitis without obstruction; R06.03 Acute respiratory distress; T38.0X5A Adverse effect of glucocorticoids and synthetic analogues, initial encounter; K21.9 Gastro-esophageal reflux disease without esophagitis; I35.8 Other nonrheumatic aortic valve disorders; G40.909 Epilepsy, unspecified, not intractable, without status epilepticus; R59.9 Enlarged lymph nodes, unspecified; G56.03 Carpal tunnel syndrome, bilateral upper limbs; E78.5 Hyperlipidemia, unspecified; F17.210 Nicotine dependence, cigarettes, uncomplicated; Z71.6 Tobacco abuse counseling; I25.119 Atherosclerotic heart disease of native coronary artery with unspecified angina pectoris; E66.9 Obesity, unspecified; Z68.35 Body mass index [BMI] 35.0-35.9, adult; Z71.3 Dietary counseling and surveillance; Z79.82 Long term (current) use of aspirin; Z79.01 Long term (current) use of anticoagulants; Z79.4 Long term (current) use of insulin; Z79.899 Other long term (current) drug therapy; Z86.718 Personal history of other venous thrombosis and embolism; Z86.39 Personal history of other endocrine, nutritional and metabolic disease; Z90.89 Acquired absence of other organs; Z86.79 Personal history of other diseases of the circulatory system; Z98.42 Cataract extraction status, left eye; Z98.41 Cataract extraction status, right eye; Z88.0 Allergy status to penicillin; Z88.2 Allergy status to sulfonamides; Z91.040 Latex allergy status; Z96.1 Presence of intraocular lens; Z82.49 Family history of ischemic heart disease and other diseases of the circulatory system; Z83.1 Family history of other infectious and parasitic diseases
CPT/HCPCS: 36415; 71045; 71046; 71250; 80048; 80053; 80202; 82550; 82553; 83036; 83735; 84484; 85025; 85379; 85610; 85730; 87070; 87205; 93005; 93306; 94640; 94667; 94760; 96361; 96374; 99285

== ENCOUNTER → 2017-09-08 | Outpatient (CLI) | payer BC, MEDICARE ==
[2017-09-08 14:18] LABS: Blood Urea Nitrogen 12 mg/dL (7-17)
--- NOTE | 2017-09-08 14:58 | CT ---
EXAMINATION TYPE: CT soft tissue neck w con DATE OF EXAM: 09/08/2017 COMPARISON: 02/14/2013 HISTORY: Recent removal of benign thyroid mass CT DLP: 386.7 mGycm CONTRAST: CT scan of the neck is performed with IV Contrast, patient injected with 100 mL of Isovue 300. Contrast enhanced CT of the neck was performed from the skull base through the lung apices. AIRWAY: The supraglottic, glottic, and subglottic portions of the airway appear patent and free of mass. SALIVARY GLANDS: The submandibular and parotid glands are free of mass or inflammatory process. THYROID GLAND: Left-sided thyroidectomy change. No recurrent or residual mass. Right thyroid lobe and portion of the thyroid isthmus are unremarkable. LYMPH NODES: No adenopathy seen greater than 1cm. LUNG APICES: No nodule or mass is seen. OTHER: Vascular structures are patent. No significant degenerative change of the cervical spine. N o abscess seen. IMPRESSION: 1. Changes of left-sided thyroidectomy without evidence for recurrent or residual nodule. No evidence for adenopathy.
== END ==
LOC: RADCTMAIN 13:25
PROVIDERS: ATTEND Family Medicine
DX: R22.1 Localized swelling, mass and lump, neck (principal)
CPT/HCPCS: 82565; 84520; 70491; 36415; Q9967

== ENCOUNTER 2017-09-24 10:48 | Day surgery (SDC) | payer BC, MEDICARE ==
[2017-09-18 11:13] VITALS: BMI 33.8
[~2017-09-24 10:48] MED LIST changes: +CLINDAMYCIN 900 MG in DEXTROSE 5% IN WATER 50 ML IVPB ONE; -HEPARIN SODIUM,PORCINE 5,000 UNIT/ML 1 ML VIAL SQ ONE; -LACTATED RINGERS 1,000 ML IV SCH; -MIDAZOLAM 2 MG/2 ML VIAL IV PRN; -MORPHINE SULFATE 2 MG/ML SYRINGE IV PRN; -ONDANSETRON 4 MG/2 ML VIAL IVP PRN; -Pre Op ABX Message 1 EACH MISC MISCELLANE ONE; +SODIUM CHLORIDE 0.9% 1,000 ML IV SCH
[2017-09-24 11:31] VITALS: RESP 16; TEMP 98.1
[2017-09-24] MEDS ORDERED: SODIUM CHLORIDE 0.9% 500 ML IV ONE (12:11)
[2017-09-24] MEDS ORDERED: MIDAZOLAM 2 MG/2 ML VIAL IV ONE (12:11)
[2017-09-24] MEDS: fentaNYL (PF) 50 MCG/ML 2 ML AMP IV ONE ×2 (12:11→12:18)
[2017-09-24] MEDS: LIDOCAINE 1% INJ 10MG/ML (20 ML MDV) SQ ONE ×2 (12:14→12:26)
[2017-09-24] MEDS ORDERED: LIDOCAINE 1% INJ 10MG/ML (20 ML MDV) SQ ONE (13:06)
[2017-09-24] MEDS ORDERED: ACETAMINOPHEN TAB 325 MG TAB PO PRN (13:18)
[2017-09-24] MEDS ORDERED: HYDROcodone/APAP 5-325MG 1 EACH TAB PO PRN (13:18)
[2017-09-24] MEDS ORDERED: traMADol 50 MG TAB PO PRN (13:20)
--- NOTE | 2017-09-24 13:28 | P.PCN ---
Date of Procedure: 09/24/17 Description of Procedure: This is a 66-year-old female who had a loop Implantation done about 6 years ago. Patient wanted to have the loop explanted because of the constant pain. She was explained the risks and benefits of the procedure. Procedure: Explantation of the loop recorder. Patient was brought to the lab in a fasting state. Patient returned was prepped and draped in the usual fashion. Patient was given Versed in boluses for about 1 mg and also fentanyl 100 g in boluses. An incision was made in the medial end of the previous incision and was deepened until the device is exposed. There was a thick capsule was is cut open. The device was a deep and required deep dissection and actions of the incision both medially and laterally. Blunt dissection the device was freed. The device was connected to the depletion tissue with a suture which was removed. Subsequently the device was pulled out of the pocket. The incision was subsequently closed with 3 layers using 2-0, 3-0 and also 4-0 Prolene. A single silk suture was applied at the end. Patient tolerated the procedure well. Steri-Strips were applied. Patient will be discharged home later today. Plan: Discharge patient home later today. Keep the incision dry. Continue prophylactic antibiotics. Follow-up in one week in the office
[2017-09-24] MEDS ORDERED: BENRALIZUMAB 30 MG SQ SCH (13:30)
[2017-09-24] MEDS ORDERED: IPRATROPIUM-ALBUTEROL 3 ML NEB INHALATION SCH (16:00)
[2017-09-24 16:32] VITALS: BP 136/76; PULSE 72
[2017-09-24] MEDS ORDERED: BUDESONIDE 0.5 MG/2 ML NEBU INHALATION SCH (20:00)
[2017-09-24] MEDS ORDERED: MONTELUKAST 10 MG TAB PO SCH (21:00)
[2017-09-24] MEDS ORDERED: NICOTINE 14MG/24HR PATCH TRANSDERM SCH (21:00)
[2017-09-24] MEDS ORDERED: guaiFENesin 600 MG TABLET.ER PO SCH (21:00)
[2017-09-25] MEDS ORDERED: amLODIPine 5 MG TAB PO SCH (09:00)
[2017-09-25] MEDS ORDERED: HYDROCHLOROTHIAZIDE 25 MG TAB PO SCH (09:00)
== END 2017-09-24 16:33 | disposition home or self-care (01) ==
LOC: CATHEP 10:48
PROVIDERS: ATTEND Internal Medicine Cardiovascular Disease
DX: Z45.09 Encounter for adjustment and management of other cardiac device (principal); I48.1 Persistent atrial fibrillation; E66.9 Obesity, unspecified; Z68.34 Body mass index [BMI] 34.0-34.9, adult; E11.9 Type 2 diabetes mellitus without complications; I10 Essential (primary) hypertension; E78.00 Pure hypercholesterolemia, unspecified; F17.210 Nicotine dependence, cigarettes, uncomplicated; Z82.49 Family history of ischemic heart disease and other diseases of the circulatory system; Z79.01 Long term (current) use of anticoagulants; Z79.82 Long term (current) use of aspirin; Z79.891 Long term (current) use of opiate analgesic; Z79.899 Other long term (current) drug therapy; Z88.0 Allergy status to penicillin; Z88.2 Allergy status to sulfonamides; Z91.040 Latex allergy status
CPT/HCPCS: 33284; J2250; J2001; J3010

== ENCOUNTER 2017-11-12 18:30 | Emergency (ER) | payer BC, MEDICARE ==
[2017-11-12] MEDS ORDERED: SODIUM CHLORIDE 0.9% 1,000 ML IV STA (18:54)
[2017-11-12 19:34] LABS: Basophils % (A) 0 %; Eosinophils # (A) 0.1 k/uL (0-0.7); Eosinophils % (A) 1 %; HCT 41.4 % (34.0-46.0); HGB 13.2 gm/dL (11.4-16.0); Lymphocytes # (A) 1.6 k/uL (1.0-4.8); Lymphocytes % (A) 30 %; MCH 30.8 pg (25.0-35.0); MCHC 31.8 g/dL (31.0-37.0); MCV 96.8 fL (80.0-100.0); Mean Platelet Volume 8.1; Monocytes # (A) 0.3 k/uL (0-1.0); Monocytes % (A) 5 %; Neutrophils # (A) 3.2 k/uL (1.3-7.7); Neutrophils % (A) 61 %; Platelet Count 168 k/uL (150-450); RBC 4.28 m/uL (3.80-5.40); RDW 12.9 % (11.5-15.5); WBC 5.3 k/uL (3.8-10.6)
[2017-11-12 19:43] LABS: Albumin 3.4 g/dL (3.5-5.0); Calcium 8.7 mg/dL (8.4-10.2); Magnesium 1.9 mg/dL (1.6-2.3); Potassium 4.2 mmol/L (3.5-5.1); Total Bilirubin 0.4 mg/dL (0.2-1.3); Total Protein 5.9 g/dL (6.3-8.2)
--- NOTE | 2017-11-12 19:48 | ED ---
Back Pain HPI - General Chief Complaint: Back Pain/Injury Stated Complaint: back pain between shoulder blades left fingers num Time Seen by Provider: 11/12/17 18:40 Source: patient Limitations: no limitations - History of Present Illness Initial Comments: This is a 66yo female with PMH of DM, HTN, COPD, CHF and current smoker who presents today for CC of mid back pain x3 days. Pt states that it was a gradual onset of mid thoracic back pain that increases with inspiration. Pt denies abdominal pain, fever, chills, chest pain, cough, palpitations, injury/trauma to the back, nausea, vomiting, melena, hematochezia, hx of PE, recent travel, estrogen use. Pt did state that she had a loop recorder removed September 30 that was placed "due to my CHF". Pt states that she experienced back pain in this region before, however not to this extent. Upon arrival to the ER pt VS stable 141/69, HR 96, 98.3F, 99% on RA. - Related Data Home Medications Medication Instructions Recorded Confirmed Aspirin 81 mg PO DAILY 01/01/17 11/12/17 amLODIPine [Norvasc] 5 mg PO DAILY 07/10/17 11/12/17 Hydrochlorothiazide 25 mg PO DAILY 09/18/17 11/12/17 Apixaban [Eliquis] 2.5 mg PO BID 11/12/17 11/12/17 Gabapentin [Neurontin] 300 mg PO TID 11/12/17 11/12/17 Omeprazole 20 mg PO DAILY 11/12/17 11/12/17 Previous Rx's Medication Instructions Recorded Montelukast [Singulair] 10 mg PO HS tab 07/12/17 traMADol HCl [Ultram] 50 mg PO Q6H PRN tab 07/12/17 Budesonide [Pulmicort] 0.5 mg INHALATION RT-BID nebu 07/21/17 Ipratropium-Albuterol Nebulize 3 ml INHALATION RT-QID ampul.neb 07/21/17 [Duoneb 0.5 mg-3 mg/3 ml Soln] Acetaminophen Tab [Tylenol Tab] 500 mg PO Q6H 5 Days #20 tablet 11/12/17 Allergies Allergy/AdvReac Type Severity Reaction Status Date / Time latex Allergy Rash/Hives Verified 11/12/17 19:10 Penicillins Allergy Rash/Hives Verified 11/12/17 19:10 Sulfa (Sulfonamide Allergy Rash/Hives Verified 11/12/17 19:10 Antibiotics) Review of Systems ROS Statement: Those systems with pertinent positive or pertinent negative responses have been documented in the HPI. ROS Other: All systems not noted in ROS Statement are negative. Constitutional: Denies: fever, chills, weight change, night sweats Eyes: Denies: vision change Respiratory: Denies: cough, dyspnea, wheezes, hemoptysis, stridor Cardiovascular: Denies: chest pain, palpitations, dyspnea on exertion Endocrine: Denies: fatigue Gastrointestinal: Denies: abdominal pain, nausea, vomiting, diarrhea, constipation, hematemesis, melena, hematochezia Genitourinary: Denies: urgency, dysuria, frequency, hematuria Musculoskeletal: Reports: back pain. Denies: joint swelling, arthralgia Skin: Denies: rash, lesions, pruritus Neurological: Denies: headache, weakness, numbness, paresthesias, confusion, abnormal gait Past Medical History Past Medical History: Atrial Fibrillation, Atrial Flutter, Asthma, Coronary Artery Disease (CAD), Heart Failure, COPD, Diabetes Mellitus, Deep Vein Thrombosis (DVT), GERD/Reflux, Hyperlipidemia, Hypertension, Pneumonia, Seizure Disorder, Thyroid Disorder Additional Past Medical History / Comment(s): bronchitis, last seizure was 15 years ago, bilateral CARPAL TUNNEL syndrome, Hx.chronic thrombocytopenia, thyroid nodules, chronic headaches, cervical disc disease, saw Dr. Anthony Edmonds 12-23-16 and states she may need surgery on her L leg due to a clot. History of Any Multi-Drug Resistant Organisms: None Reported Past Surgical History: Breast Surgery, Heart Catheterization Additional Past Surgical History / Comment(s): L breast biopsy-twice and benign , L parotid gland bx-benign, colonoscopy-normal, bilateral cataract removals with lens implants. L Thyroid bx., loop recorder Past Anesthesia/Blood Transfusion Reactions: No Reported Reaction Type of Cardiac Device: Loop Device Placement Date:: 2011 Past Psychological History: No Psychological Hx Reported Smoking Status: Current every day smoker Past Alcohol Use History: None Reported Past Drug Use History: None Reported - Past Family History Mother Additional Family Medical History / Comment(s): Mother of sepsis at the age of 63 yrs. Father Family Medical History: Myocardial Infarction ([place]) Additional Family Medical History / Comment(s): Father during a carotid endartectomy. Sister(s) Family Medical History: Deep Vein Thrombosis (DVT) General Exam - General Exam Comments Initial Comments: General: The patient is awake and alert, in no distress, and does not appear acutely ill. Eye: Pupils are equal, round and reactive to light, extra-ocular movements are intact. No nystagmus. There is normal conjunctiva bilaterally. No signs of icterus. Ears, nose, mouth and throat: There are moist mucous membranes and no oral lesions. Neck: The neck is supple, there is no tenderness or JVD. No midline tenderness to palpation of the C-spine. Full ROM C-spine. No paravertebral tenderness. Cardiovascular: There is a regular rate and rhythm. No murmur, rub or gallop is appreciated. Respiratory: Lungs are clear to auscultation, respirations are non-labored, breath sounds are equal. No wheezes, stridor, rales, or rhonchi. Gastrointestinal: Soft, non-distended, non-tender abdomen without masses or organomegaly noted. There is no rebound or guarding present. No CVA tenderness. Bowel sounds are unremarkable Musculoskeletal: Normal ROM of the UE and LE equally b/l, no tenderness. Strength 5/5 UE including hands 5/5 equally b/l. Sensation intact of the UE and LE equally b/l including the all digits of the hands equally b/l, no saddle parathesias. Radial and DP pulses equal bilaterally 2+. There is midline tenderness to palpation of the thoracic spine, pt is able to point localized discomfort it is reproducible to deep palpation, increased pain at the paravertebral muscles in comparison with midline. With ROM of the back including forward flexion pt admits to increased pain in the thoracic region. No rashes or lesion noted. Neurological: A&O x 3. CN II-XII intact, There are no obvious motor or sensory deficits. Coordination appears grossly intact. Speech is normal. Skin: Skin is warm and dry and no rashes or lesions are noted. Psychiatric: Cooperative, appropriate mood & affect, normal judgment. Limitations: no limitations Course Vital Signs 11/12/17 11/12/17 18:33 20:36 Temperature 98.3 F 97.6 F Pulse Rate 96 79 Respiratory 20 18 Rate Blood Pressure 141/69 160/70 O2 Sat by Pulse 99 100 Oximetry Medical Decision Making - Medical Decision Making PE found thoracic pain that was reproducible to palpation both midline and paravertebral. Pt was able to point localize the pain. However given that pt stated that the pain increased with respiration at time and had additional complaints to tingling in first three digits. I wanted to r/o given RF, ACS and PE. Laboratory findings as above. (-) D-dimer, troponins and cardiac profile. EKG no acute changes. CXR (-). Thoracic XR obtained revealing no fractures or acute bony process, disc height appeared maintained. Pt given 500mg tylenol for pain mgmt. Case discussed with both patient and Dr. Medrano at this time we feel the pain is musculoskeletal given it is reproducible, upon a repeat examination pt even stated that it felt like a muscle strain, she did not disclose this earlier. The patient appears stable for d/c with PCP 1-2 days.Pt agreed with plan and with instruction to return for any change, worsening symptoms. Pt d/c in stable condition. - Lab Data Result diagrams: 11/12/17 19:23 11/12/17 19:23 Lab Results 11/12/17 11/12/17 11/12/17 Range/Units 19:23 19:23 19:23 WBC 5.3 (3.8-10.6) k/uL RBC 4.28 (3.80-5.40) m/uL Hgb 13.2 (11.4-16.0) gm/dL Hct 41.4 (34.0-46.0) % MCV 96.8 (80.0-100.0) fL MCH 30.8 (25.0-35.0) pg MCHC 31.8 (31.0-37.0) g/dL RDW 12.9 (11.5-15.5) % Plt Count 168 (150-450) k/uL Neutrophils % 61 % Lymphocytes % 30 % Monocytes % 5 % Eosinophils % 1 % Basophils % 0 % Neutrophils # 3.2 (1.3-7.7) k/uL Lymphocytes # 1.6 (1.0-4.8) k/uL Monocytes # 0.3 (0-1.0) k/uL Eosinophils # 0.1 (0-0.7) k/uL Basophils # 0.0 (0-0.2) k/uL PT (9.0-12.0) sec INR (<1.2) APTT (22.0-30.0) sec D-Dimer (<0.60) mg/L FEU Sodium 143 (137-145) mmol/L Potassium 4.2 (3.5-5.1) mmol/L Chloride 107 (98-107) mmol/L Carbon Dioxide 31 H (22-30) mmol/L Anion Gap 5 mmol/L BUN 12 (7-17) mg/dL Creatinine 1.09 H (0.52-1.04) mg/dL Est GFR (CKD-EPI)AfAm 61 (>60 ml/min/1.73 sqM) Est GFR (CKD-EPI)NonAf 53 (>60 ml/min/1.73 sqM) Glucose 116 H (74-99) mg/dL Calcium 8.7 (8.4-10.2) mg/dL Magnesium 1.9 (1.6-2.3) mg/dL Total Bilirubin 0.4 (0.2-1.3) mg/dL AST 15 (14-36) U/L ALT 19 (9-52) U/L Alkaline Phosphatase 68 (38-126) U/L Total Creatine Kinase 58 (30-135) U/L CK-MB (CK-2) 0.4 (0.0-2.4) ng/mL CK-MB (CK-2) Rel Index 0.7 Troponin I <0.012 (0.000-0.034) ng/mL Total Protein 5.9 L (6.3-8.2) g/dL Albumin 3.4 L (3.5-5.0) g/dL Amylase 49 (30-110) U/L Lipase 68 (23-300) U/L 11/12/17 Range/Units 19:23 WBC (3.8-10.6) k/uL RBC (3.80-5.40) m/uL Hgb (11.4-16.0) gm/dL Hct (34.0-46.0) % MCV (80.0-100.0) fL MCH (25.0-35.0) pg MCHC (31.0-37.0) g/dL RDW (11.5-15.5) % Plt Count (150-450) k/uL Neutrophils % % Lymphocytes % % Monocytes % % Eosinophils % % Basophils % % Neutrophils # (1.3-7.7) k/uL Lymphocytes # (1.0-4.8) k/uL Monocytes # (0-1.0) k/uL Eosinophils # (0-0.7) k/uL Basophils # (0-0.2) k/uL PT 10.1 (9.0-12.0) sec INR 1.0 (<1.2) APTT 24.6 (22.0-30.0) sec D-Dimer 0.29 (<0.60) mg/L FEU Sodium (137-145) mmol/L Potassium (3.5-5.1) mmol/L Chloride (98-107) mmol/L Carbon Dioxide (22-30) mmol/L Anion Gap mmol/L BUN (7-17) mg/dL Creatinine (0.52-1.04) mg/dL Est GFR (CKD-EPI)AfAm (>60 ml/min/1.73 sqM) Est GFR (CKD-EPI)NonAf (>60 ml/min/1.73 sqM) Glucose (74-99) mg/dL Calcium (8.4-10.2) mg/dL Magnesium (1.6-2.3) mg/dL Total Bilirubin (0.2-1.3) mg/dL AST (14-36) U/L ALT (9-52) U/L Alkaline Phosphatase (38-126) U/L Total Creatine Kinase (30-135) U/L CK-MB (CK-2) (0.0-2.4) ng/mL CK-MB (CK-2) Rel Index Troponin I (0.000-0.034) ng/mL Total Protein (6.3-8.2) g/dL Albumin (3.5-5.0) g/dL Amylase (30-110) U/L Lipase (23-300) U/L - EKG Data -: EKG Interpreted by Me (& Dr. Dieudonne Medrano) EKG Comments: Ventricular rate 87 bpm, [place] interval 116, QRS 72 ms, QT 440/QTc 529 ms. Prolonged QT. No evidence of ST elevation or depression T-wave inversion. Prolonged QT otherwise normal EKG. EKG reviewed by myself and Dr. Medrano. No acute changes. Disposition Clinical Impression: Back pain Disposition: HOME SELF-CARE Condition: Good Instructions: Acute Low Back Pain (ED) Additional Instructions: Please use medication as discussed. Please follow-up with family doctor in the next 2 days.. Please return to emergency room if the symptoms increase or worsen or for any other concerns. Prescriptions: Acetaminophen Tab [Tylenol Tab] 500 mg PO Q6H 5 Days #20 tablet Is patient prescribed a controlled substance at d/c from ED?: No Referrals: Jet Edmonds MD [Primary Care Provider] - 1-2 days Time of Disposition: 20:13
--- NOTE | 2017-11-12 19:51 | XR ---
EXAMINATION TYPE: XR chest 2V DATE OF EXAM: 11/12/2017 COMPARISON: 07/20/2017 HISTORY: Back pain TECHNIQUE: Frontal and lateral views of the chest are obtained. FINDINGS: Heart and mediastinum are normal. Lungs are clear of infiltrate. Costophrenic angles are c lear. Bony thorax is intact. IMPRESSION: No cardiopulmonary disease. No change.
--- NOTE | 2017-11-12 19:54 | XR ---
EXAMINATION TYPE: XR thoracic spine complete DATE OF EXAM: 11/12/2017 COMPARISON: Chest x-ray 07/13/2017 HISTORY: Back pain TECHNIQUE: 3 views FINDINGS: Thoracic vertebra have fairly normal spacing and alignment. I see no compression fracture. Posterior elements are intact. There is no paraspinal mass. IMPRESSION: No fracture seen. No change compared to old chest x-ray.
[2017-11-12 19:56] LABS: Creatine Kinase 58 U/L (30-135)
[2017-11-12 19:58] LABS: D-Dimer 0.29 mg/L FEU (<0.60); Partial Thromboplastin Time 24.6 sec (22.0-30.0); Prothrombin Time 10.1 sec (9.0-12.0)
[2017-11-12 20:09] LABS: Creatine Kinase MB 0.4 ng/mL (0.0-2.4); Troponin I <0.012 ng/mL (0.000-0.034)
[2017-11-12] MEDS ORDERED: KETOROLAC 30 MG/ML 1 ML VIAL IM STA (20:19)
[2017-11-12 20:38] VITALS: BP 160/70; PULSE 79; RESP 18; TEMP 97.6
== END 2017-11-12 20:38 | disposition home or self-care (01) ==
LOC: EC 18:30
DX: M54.9 Dorsalgia, unspecified (principal); R20.0 Anesthesia of skin; I48.91 Unspecified atrial fibrillation; I48.92 Unspecified atrial flutter; I25.10 Atherosclerotic heart disease of native coronary artery without angina pectoris; J44.9 Chronic obstructive pulmonary disease, unspecified; I11.0 Hypertensive heart disease with heart failure; I50.9 Heart failure, unspecified; E11.9 Type 2 diabetes mellitus without complications; F17.200 Nicotine dependence, unspecified, uncomplicated; Z79.01 Long term (current) use of anticoagulants; Z79.82 Long term (current) use of aspirin; Z79.899 Other long term (current) drug therapy; Z91.040 Latex allergy status; Z88.0 Allergy status to penicillin; Z88.2 Allergy status to sulfonamides; Z95.1 Presence of aortocoronary bypass graft
CPT/HCPCS: 36415; 71046; 72072; 80053; 82150; 82550; 82553; 83690; 83735; 84484; 85025; 85379; 85610; 85730; 93005; 96360; 96372; 99284

== ENCOUNTER 2017-11-21 06:01 | Emergency (ER) | payer BC, MEDICARE ==
[2017-11-21] MEDS ORDERED: HYDROcodone/APAP 5-325MG 1 EACH TAB PO STA (06:22)
[2017-11-21] MEDS ORDERED: IBUPROFEN 400 MG TAB PO STA (06:22)
[2017-11-21] MEDS ORDERED: CEPHALEXIN 500 MG CAP PO STA (06:23)
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
[2017-11-21 07:19] VITALS: BP 164/75; PULSE 70; RESP 16; TEMP 97.4
== END 2017-11-21 07:21 | disposition home or self-care (01) ==
LOC: EC 06:01
DX: L03.312 Cellulitis of back [any part except buttock and flank] (principal); I48.91 Unspecified atrial fibrillation; I11.0 Hypertensive heart disease with heart failure; I50.9 Heart failure, unspecified; I25.10 Atherosclerotic heart disease of native coronary artery without angina pectoris; K21.9 Gastro-esophageal reflux disease without esophagitis; F17.200 Nicotine dependence, unspecified, uncomplicated; Z88.0 Allergy status to penicillin; Z88.2 Allergy status to sulfonamides; Z91.040 Latex allergy status; Z79.01 Long term (current) use of anticoagulants; Z79.82 Long term (current) use of aspirin; Z79.899 Other long term (current) drug therapy; Z86.718 Personal history of other venous thrombosis and embolism
CPT/HCPCS: 99283

== ENCOUNTER → 2017-12-02 | Outpatient (CLI) | payer BC, MEDICARE ==
--- NOTE | 2017-12-03 07:40 | US ---
EXAMINATION TYPE: US abdomen limited DATE OF EXAM: 12/02/2017 COMPARISON: NONE CLINICAL HISTORY: L02.212 MID BACK ABCESS. Painful area mid back x 1 year, gotten worse recently. Midline back at area of concern: 1.3 x 0.6 x 1.3cm superficial hyperechoic area. IMPRESSION: Subcutaneous abnormality within soft tissues is nonspecific. Borders are somewhat less d istinct than expected for typical abscess which is within the differential. Underlying mass could be considered. Consider MRI for additional evaluation.
== END | disposition home or self-care (01) ==
LOC: RADUSWWP 16:00
PROVIDERS: ATTEND Family Medicine
DX: L02.212 Cutaneous abscess of back [any part, except buttock and flank] (principal)
CPT/HCPCS: 76705

== ENCOUNTER → 2017-12-31 | Outpatient (CLI) | payer BC, MEDICARE ==
--- NOTE | 2017-12-31 17:28 | MR ---
EXAMINATION TYPE: MR thoracic spine wo con DATE OF EXAM: 12/31/2017 COMPARISON: None HISTORY: Skin abscess of trunk CONTRAST: None TECHNIQUE: Multiplanar, multiecho imaging on a 3.0 Ananya magnet is performed through the subcutaneous tissues at the level of a skin lesion. The lesion was marked with vitamin E capsule. A cutaneous subcutaneous and deep tissues at the level marked by the vitamin E capsule appear normal as the adjacent regions. No underlying masses are identified. No signal abnormality is identified. No underlying skin abscess is identified. No thoracic spinal canal stenosis is evident. Note is made of areas of canal stenosis within the cerv ical spine on the traffic manager images. IMPRESSIONS: 1. No suspicious MRI abnormality at the level of the skin lesion. No deeper abnormality evident. Clin ical and Dermatologic management recommended.
== END ==
LOC: RADMRIMAIN 13:45
PROVIDERS: ATTEND Family Medicine
DX: L02.219 Cutaneous abscess of trunk, unspecified (principal)
CPT/HCPCS: 72146

== ENCOUNTER 2018-03-11 17:48 | Inpatient (IN) | payer BC, MEDICARE ==
[2018-03-11] MEDS ORDERED: ONDANSETRON 4 MG/2 ML VIAL IVP STA (18:12)
[2018-03-11] MEDS ORDERED: SODIUM CHLORIDE 0.9% 500 ML 500 ML IV STA (18:12)
[2018-03-11] MEDS ORDERED: IBUPROFEN 600 MG TAB PO STA (18:39)
[2018-03-11] MEDS ORDERED: ACETAMINOPHEN TAB 500 MG TAB PO STA (18:39)
[2018-03-11] MEDS ORDERED: ALBUTEROL NEBULIZED 7.5 MG, IPRATROPIUM NEBULIZED 0.5 MG, SODIUM CHLORIDE 0.9% NEBULIZ ... INHALATION ONE ×3 (18:39)
[2018-03-11] MEDS ORDERED: methylPREDNISolone SOD SUCCI 125 MG/2 ML VIAL IV STA (18:40)
--- NOTE | 2018-03-11 18:57 | ED ---
General Adult HPI - General Chief complaint: Shortness of Breath Stated complaint: pneumonia Time Seen by Provider: 03/11/18 18:00 Source: patient, RN notes reviewed Mode of arrival: ambulatory Limitations: no limitations - History of Present Illness Initial comments: This is a 67-year-old female who presents emergency Department with a past medical history significant for COPD. Patient comes in today because having a difficult time breathing and has the chills. Patient states she's been coughing quite a bit as well. Patient states she recently stopped smoking. Patient denies any chest pain or palpitations. She does have cardiac history according to her. Patient denies any abdominal pain patient denies nausea vomiting diarrhea. Patient denies headache patient denies numbness weakness. Patient denies any lightheadedness or dizziness. Patient denies any swelling to her legs or any calf tenderness. I took the patient's temperature was 102.4 - Related Data Home Medications Medication Instructions Recorded Confirmed Aspirin 81 mg PO DAILY 01/01/17 03/11/18 amLODIPine [Norvasc] 5 mg PO DAILY 07/10/17 03/11/18 Hydrochlorothiazide 25 mg PO DAILY 09/18/17 03/11/18 Apixaban [Eliquis] 2.5 mg PO BID 11/12/17 03/11/18 Gabapentin [Neurontin] 300 mg PO TID 11/12/17 03/11/18 Omeprazole 20 mg PO DAILY 11/12/17 03/11/18 Acetaminophen Tab [Tylenol Tab] 500 mg PO Q6H PRN 03/11/18 03/11/18 Previous Rx's Medication Instructions Recorded Montelukast [Singulair] 10 mg PO HS tab 07/12/17 traMADol HCl [Ultram] 50 mg PO Q6H PRN tab 07/12/17 Budesonide [Pulmicort] 0.5 mg INHALATION RT-BID nebu 07/21/17 Ipratropium-Albuterol Nebulize 3 ml INHALATION RT-QID ampul.neb 07/21/17 [Duoneb 0.5 mg-3 mg/3 ml Soln] Allergies Allergy/AdvReac Type Severity Reaction Status Date / Time latex Allergy Rash/Hives Verified 03/11/18 18:58 Penicillins Allergy Rash/Hives Verified 03/11/18 18:58 Sulfa (Sulfonamide Allergy Rash/Hives Verified 03/11/18 18:58 Antibiotics) Review of Systems ROS Statement: Those systems with pertinent positive or pertinent negative responses have been documented in the HPI. ROS Other: All systems not noted in ROS Statement are negative. Past Medical History Past Medical History: Atrial Fibrillation, Atrial Flutter, Asthma, Coronary Artery Disease (CAD), Heart Failure, COPD, Diabetes Mellitus, Deep Vein Thrombosis (DVT), GERD/Reflux, Hyperlipidemia, Hypertension, Pneumonia, Seizure Disorder, Thyroid Disorder Additional Past Medical History / Comment(s): bronchitis, last seizure was 15 years ago, bilateral CARPAL TUNNEL syndrome, Hx.chronic thrombocytopenia, thyroid nodules, chronic headaches, cervical disc disease, saw Dr. Anthony Edmonds 12-23-16 and states she may need surgery on her L leg due to a clot. History of Any Multi-Drug Resistant Organisms: None Reported Past Surgical History: Breast Surgery, Heart Catheterization Additional Past Surgical History / Comment(s): L breast biopsy-twice and benign , L parotid gland bx-benign, colonoscopy-normal, bilateral cataract removals with lens implants. L Thyroid bx., loop recorder Past Anesthesia/Blood Transfusion Reactions: No Reported Reaction Type of Cardiac Device: Loop Device Placement Date:: 2011 Past Psychological History: No Psychological Hx Reported Smoking Status: Current every day smoker Past Alcohol Use History: None Reported Past Drug Use History: None Reported - Past Family History Mother Additional Family Medical History / Comment(s): Mother of sepsis at the age of 63 yrs. Father Family Medical History: Myocardial Infarction (MS) Additional Family Medical History / Comment(s): Father during a carotid endartectomy. Sister(s) Family Medical History: Deep Vein Thrombosis (DVT) General Exam - General Exam Comments Initial Comments: GENERAL: Patient is well-developed and well-nourished. Patient is nontoxic and well- hydrated and is in mild distress. ENT: Neck is soft and supple. No significant lymphadenopathy is noted. Oropharynx is clear. Moist mucous membranes. Neck has full range of motion without eliciting any pain. EYES: The sclera were anicteric and conjunctiva were pink and moist. Extraocular movements were intact and pupils were equal round and reactive to light. Eyelids were unremarkable. PULMONARY: Patient has diffuse expiratory wheezing. CARDIOVASCULAR: Patient is tachycardic ABDOMEN: Soft and nontender with normal bowel sounds. No palpable organomegaly was noted. There is no palpable pulsatile mass. SKIN: Skin is clear with no lesions or rashes and otherwise unremarkable. NEUROLOGIC: Patient is alert and oriented x3. Cranial nerves II through XII are grossly intact. Motor and sensory are also intact. Normal speech, volume and content. Symmetrical smile. MUSCULOSKELETAL: Normal extremities with adequate strength and full range of motion. No lower extremity swelling or edema. No calf tenderness. LYMPHATICS: No significant lymphadenopathy is noted PSYCHIATRIC: Normal psychiatric evaluation. Limitations: no limitations Course Vital Signs 03/11/18 03/11/18 03/11/18 18:06 19:15 19:28 Temperature 99.8 F H Pulse Rate 118 H 103 H 105 H Respiratory 26 H Rate Blood Pressure 135/80 O2 Sat by Pulse 95 Oximetry Medical Decision Making - Medical Decision Making Patient's chest x-ray shows a left lower lobe pneumonia. I started the patient on Rocephin and Zithromax. Patient also has a bad exacerbation of COPD. I gave the patient breathing treatments and steroids in the emergency department and though she improved she continued to be wheezing diffusely. I spoke with Dr. Jet Edmonds he agreed to admit the patient admitted the patient I consult pulmonology I continued antibiotics albuterol and steroids on the floor. - Lab Data Result diagrams: 03/11/18 18:51 03/11/18 18:51 Lab Results 03/11/18 03/11/18 03/11/18 Range/Units 18:51 18:51 18:51 WBC 4.9 (3.8-10.6) k/uL RBC 4.12 (3.80-5.40) m/uL Hgb 13.4 (11.4-16.0) gm/dL Hct 39.4 (34.0-46.0) % MCV 95.5 (80.0-100.0) fL MCH 32.4 (25.0-35.0) pg MCHC 34.0 (31.0-37.0) g/dL RDW 13.4 (11.5-15.5) % Plt Count 140 L (150-450) k/uL Neutrophils % 79 % Lymphocytes % 11 % Monocytes % 8 % Eosinophils % 1 % Basophils % 0 % Neutrophils # 3.9 (1.3-7.7) k/uL Lymphocytes # 0.5 L (1.0-4.8) k/uL Monocytes # 0.4 (0-1.0) k/uL Eosinophils # 0.0 (0-0.7) k/uL Basophils # 0.0 (0-0.2) k/uL PT 10.3 (9.0-12.0) sec INR 1.0 (<1.2) APTT 24.1 (22.0-30.0) sec Sodium 137 (137-145) mmol/L Potassium 3.7 (3.5-5.1) mmol/L Chloride 100 (98-107) mmol/L Carbon Dioxide 31 H (22-30) mmol/L Anion Gap 6 mmol/L BUN 11 (7-17) mg/dL Creatinine 1.10 H (0.52-1.04) mg/dL Est GFR (CKD-EPI)AfAm 60 (>60 ml/min/1.73 sqM) Est GFR (CKD-EPI)NonAf 52 (>60 ml/min/1.73 sqM) Glucose 126 H (74-99) mg/dL Calcium 8.6 (8.4-10.2) mg/dL Total Bilirubin 1.2 (0.2-1.3) mg/dL AST 23 (14-36) U/L ALT 24 (9-52) U/L Alkaline Phosphatase 50 (38-126) U/L Total Protein 6.2 L (6.3-8.2) g/dL Albumin 3.7 (3.5-5.0) g/dL Urine Color Urine Appearance (Clear) Urine pH (5.0-8.0) Ur Specific [place] (1.001-1.035) Urine Protein (Negative) Urine Glucose (UA) (Negative) Urine Ketones (Negative) Urine Blood (Negative) Urine Nitrite (Negative) Urine Bilirubin (Negative) Urine Urobilinogen (<2.0) mg/dL Ur Leukocyte Esterase (Negative) Urine RBC (0-5) /hpf Urine WBC (0-5) /hpf Ur Squamous Epith Cells (0-4) /hpf Amorphous Sediment (None) /hpf Hyaline Casts (0-2) /lpf Urine Mucus (None) /hpf Influenza Type A RNA (Not Detectd) Influenza Type B (PCR) (Not Detectd) 01/10/19 01/10/19 Range/Units 18:53 19:05 WBC (3.8-10.6) k/uL RBC (3.80-5.40) m/uL Hgb (11.4-16.0) gm/dL Hct (34.0-46.0) % MCV (80.0-100.0) fL MCH (25.0-35.0) pg MCHC (31.0-37.0) g/dL RDW (11.5-15.5) % Plt Count (150-450) k/uL Neutrophils % % Lymphocytes % % Monocytes % % Eosinophils % % Basophils % % Neutrophils # (1.3-7.7) k/uL Lymphocytes # (1.0-4.8) k/uL Monocytes # (0-1.0) k/uL Eosinophils # (0-0.7) k/uL Basophils # (0-0.2) k/uL PT (9.0-12.0) sec INR (<1.2) APTT (22.0-30.0) sec Sodium (137-145) mmol/L Potassium (3.5-5.1) mmol/L Chloride (98-107) mmol/L Carbon Dioxide (22-30) mmol/L Anion Gap mmol/L BUN (7-17) mg/dL Creatinine (0.52-1.04) mg/dL Est GFR (CKD-EPI)AfAm (>60 ml/min/1.73 sqM) Est GFR (CKD-EPI)NonAf (>60 ml/min/1.73 sqM) Glucose (74-99) mg/dL Calcium (8.4-10.2) mg/dL Total Bilirubin (0.2-1.3) mg/dL AST (14-36) U/L ALT (9-52) U/L Alkaline Phosphatase (38-126) U/L Total Protein (6.3-8.2) g/dL Albumin (3.5-5.0) g/dL Urine Color [place] Urine Appearance Turbid H (Clear) Urine pH 6.0 (5.0-8.0) Ur Specific [place]vin 1.024 (1.001-1.035) Urine Protein 1+ H (Negative) Urine Glucose (UA) Negative (Negative) Urine Ketones Negative (Negative) Urine Blood Trace H (Negative) Urine Nitrite Negative (Negative) Urine Bilirubin Negative (Negative) Urine Urobilinogen 4.0 (<2.0) mg/dL Ur Leukocyte Esterase Moderate H (Negative) Urine RBC 1 (0-5) /hpf Urine WBC 17 H (0-5) /hpf Ur Squamous Epith Cells 66 H (0-4) /hpf Amorphous Sediment Rare H (None) /hpf Hyaline Casts 52 H (0-2) /lpf Urine Mucus Many H (None) /hpf Influenza Type A RNA Not Detected (Not Detectd) Influenza Type B (PCR) Not Detected (Not Detectd) Critical Care Time Critical Care Time: Yes Total Critical Care Time: 35 Disposition Clinical Impression: Acute exacerbation of chronic obstructive airways disease, Pneumonia Disposition: ADMITTED IP TO THIS HOSP Referrals: Jet Edmonds MD [Primary Care Provider] - 1-2 days Time of Disposition: 20:32
[2018-03-11] MEDS: SODIUM CHLORIDE 0.9% 500 ML 500 ML IV SCH ×2 (19:00→21:35)
[2018-03-11 19:57] LABS: Basophils % (A) 0 %; Eosinophils % (A) 1 %; HCT 39.4 % (34.0-46.0); HGB 13.4 gm/dL (11.4-16.0); Lymphocytes # (A) 0.5 k/uL (1.0-4.8); Lymphocytes % (A) 11 %; MCH 32.4 pg (25.0-35.0); MCV 95.5 fL (80.0-100.0); Mean Platelet Volume 8.5; Monocytes # (A) 0.4 k/uL (0-1.0); Monocytes % (A) 8 %; Neutrophils # (A) 3.9 k/uL (1.3-7.7); Neutrophils % (A) 79 %; Platelet Count 140 k/uL (150-450); RBC 4.12 m/uL (3.80-5.40); RDW 13.4 % (11.5-15.5); WBC 4.9 k/uL (3.8-10.6)
--- NOTE | 2018-03-11 20:02 | XR ---
EXAMINATION TYPE: XR chest 2V DATE OF EXAM: 03/11/2018 COMPARISON: 11/12/2017 HISTORY: Fever TECHNIQUE: Frontal and lateral views of the chest are obtained. FINDINGS: There is no heart failure. There is a mild infiltrate in the left lower lobe. The other chris ng lynch are clear. Heart and mediastinum are normal. Diaphragm is normal. Bony thorax is intact. IMPRESSION: Mild new left lower lobe pneumonia compared to old exam.
[2018-03-11 20:06] LABS: Albumin 3.7 g/dL (3.5-5.0); Calcium 8.6 mg/dL (8.4-10.2); Potassium 3.7 mmol/L (3.5-5.1); Total Bilirubin 1.2 mg/dL (0.2-1.3); Total Protein 6.2 g/dL (6.3-8.2)
[2018-03-11 20:07] LABS: Partial Thromboplastin Time 24.1 sec (22.0-30.0); Prothrombin Time 10.3 sec (9.0-12.0)
[2018-03-11 20:07] LABS: Amorphous Sediment,Urine Rare /hpf; Appearance,Urine Turbid (Clear); Bilirubin,Urine Negative (Negative); Blood,Urine Trace (Negative); Color,Urine Orange; Glucose,Urine (UA) Negative (Negative); Hyaline Casts,Urine 52 /lpf (0-2); Ketones,Urine Negative (Negative); Leukocyte Esterase,Urine Moderate (Negative); Mucus,Urine Many /hpf; Nitrite,Urine Negative (Negative); Protein,Urine 1+ (Negative); RBC,Urine 1 /hpf (0-5); Specific Gravity,Urine 1.024 (1.001-1.035); Squamous Epithelial Cell,Urine 66 /hpf (0-4); WBC,Urine 17 /hpf (0-5)
[2018-03-11] MEDS ORDERED: cefTRIAXone 2,000 MG in SODIUM CHLORIDE 0.9% 100 ML IVPB STA (20:32)
[2018-03-11] MEDS ORDERED: AZITHROMYCIN 500 MG in SODIUM CHLORIDE 0.9% 250 ML IVPB STA (20:33)
[2018-03-11] MEDS ORDERED: ACETAMINOPHEN TAB 500 MG TAB PO PRN (22:10)
[2018-03-11] MEDS: GABAPENTIN 300 MG CAP PO SCH (23:42)
[2018-03-11] MEDS: methylPREDNISolone SOD SUCCI 125 MG/2 ML VIAL IV SCH (23:45)
[2018-03-11] MEDS: traMADol 50 MG TAB PO PRN (23:46)
[2018-03-12] MEDS: AZITHROMYCIN 500 MG in SODIUM CHLORIDE 0.9% 250 ML IVPB SCH ×2 (00:15→21:09)
[2018-03-12] MEDS: methylPREDNISolone SOD SUCCI 125 MG/2 ML VIAL IV SCH ×4 (05:41→23:37)
[2018-03-12 07:02] LABS: Glucose,Whole Blood 251 mg/dL (75-99)
[2018-03-12] MEDS: APIXABAN 2.5 MG TABLET PO SCH ×2 (07:58→20:34)
[2018-03-12] MEDS: GABAPENTIN 300 MG CAP PO SCH ×3 (07:58→20:34)
[2018-03-12] MEDS: HYDROCHLOROTHIAZIDE 25 MG TAB PO SCH (07:58)
[2018-03-12] MEDS: PANTOPRAZOLE 40 MG TABLET PO SCH (07:58)
[2018-03-12] MEDS: amLODIPine 5 MG TAB PO SCH (07:58)
[2018-03-12] MEDS: INSULIN ASPART 100 UNIT/ML 1 ML 10 ML VIAL SQ SCH ×4 (07:58→21:09)
[2018-03-12] MEDS: ASPIRIN 81 MG PO SCH (07:58)
[2018-03-12] MEDS: BUDESONIDE 0.5 MG/2 ML NEBU INHALATION SCH ×3 (08:02→20:02)
[2018-03-12 11:32] LABS: Glucose,Whole Blood 256 mg/dL (75-99)
[2018-03-12] MEDS: IPRATROPIUM-ALBUTEROL 3 ML NEB INHALATION PRN (11:48)
[2018-03-12 12:08] LABS: Hemoglobin A1C 5.3 % (4.0-6.0)
[2018-03-12] MEDS: traMADol 50 MG TAB PO PRN ×2 (13:59→20:34)
--- NOTE | 2018-03-12 15:34 | P.CNPUL ---
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 Patient states she's been coughing quite a bit as well. Patient states she recently stopped smoking. Patient denies any chest pain or palpitations. She does have cardiac history according to her. Patient denies any abdominal pain patient denies nausea vomiting diarrhea. Patient denies headache patient denies numbness weakness. Patient denies any lightheadedness or dizziness. Patient denies any swelling to her legs or any calf tenderness. On arrival temperature was 102.4, currently patient is being treated with broad-spectrum antibiotics IV steroids antibiotics, chest x-ray suggestive of left lower lobe pneumonia, labs reviewed medications reviewed Review of Systems All systems: negative Past Medical History Past Medical History: Atrial Fibrillation, Atrial Flutter, Asthma, Coronary Artery Disease (CAD), Heart Failure, COPD, Diabetes Mellitus, Deep Vein Thrombosis (DVT), GERD/Reflux, Hyperlipidemia, Hypertension, Pneumonia, Seizure Disorder, Thyroid Disorder Additional Past Medical History / Comment(s): bronchitis, last seizure was 15 years ago, bilateral CARPAL TUNNEL syndrome, Hx.chronic thrombocytopenia, thyroid nodules, chronic headaches, cervical disc disease, saw Dr. Anthony Edmonds 12-23-16 and states she may need surgery on her L leg due to a clot.cyst on back History of Any Multi-Drug Resistant Organisms: None Reported Past Surgical History: Breast Surgery, Heart Catheterization Additional Past Surgical History / Comment(s): L breast biopsy-twice and benign , L parotid gland bx-benign, colonoscopy-normal, bilateral cataract removals with lens implants. L Thyroid bx., loop recorder, "bx on back-neg" Past Anesthesia/Blood Transfusion Reactions: No Reported Reaction Type of Cardiac Device: Loop Device Placement Date:: 2011 Smoking Status: Former smoker - Past Family History Mother Additional Family Medical History / Comment(s): Mother of sepsis at the age of 63 yrs. Father Family Medical History: Myocardial Infarction (CT) Additional Family Medical History / Comment(s): Father during a carotid endartectomy. Sister(s) Family Medical History: Deep Vein Thrombosis (DVT) Medications and Allergies Home Medications Medication Instructions Recorded Confirmed Type Aspirin 81 mg PO DAILY 01/01/17 03/11/18 History amLODIPine [Norvasc] 5 mg PO DAILY 07/10/17 03/11/18 History Montelukast [Singulair] 10 mg PO HS tab 07/12/17 03/11/18 Rx traMADol HCl [Ultram] 50 mg PO Q6H PRN tab 07/12/17 03/11/18 Rx Budesonide [Pulmicort] 0.5 mg INHALATION RT-BID nebu 07/21/17 03/11/18 Rx Ipratropium-Albuterol Nebulize 3 ml INHALATION RT-QID ampul.neb 07/21/17 Rx [Duoneb 0.5 mg-3 mg/3 ml Soln] Hydrochlorothiazide 25 mg PO DAILY 09/18/17 03/11/18 History Apixaban [Eliquis] 2.5 mg PO BID 11/12/17 03/11/18 History Gabapentin [Neurontin] 300 mg PO TID 11/12/17 03/11/18 History Omeprazole 20 mg PO DAILY 11/12/17 03/11/18 History Acetaminophen Tab [Tylenol Tab] 500 mg PO Q6H PRN 03/11/18 03/11/18 History Allergies Allergy/AdvReac Type Severity Reaction Status Date / Time latex Allergy Rash/Hives Verified 03/11/18 18:58 Penicillins Allergy Rash/Hives Verified 03/11/18 18:58 Sulfa (Sulfonamide Allergy Rash/Hives Verified 03/11/18 18:58 Antibiotics) Physical Exam Vitals: Vital Signs Temp Pulse Pulse Resp BP BP Pulse Ox 03/12/18 13:58 97.4 F L 94 18 102/63 94 L 03/12/18 12:00 100 03/12/18 11:50 100 03/12/18 06:54 97.4 F L 73 16 123/74 93 L 03/11/18 23:00 98.6 F 99 24 133/75 94 L 03/11/18 22:40 18 03/11/18 21:36 98.9 F 98 18 139/75 97 03/11/18 21:29 97 03/11/18 20:00 101 H 18 136/64 100 03/11/18 19:28 105 H 03/11/18 19:15 103 H 03/11/18 18:06 99.8 F H 118 H 26 H 135/80 95 Intake and Output 03/12/18 03/12/18 03/12/18 06:59 14:59 22:59 Intake Total 600 Balance 600 Intake: Oral 600 Other: # Voids 1 2 # Bowel Movements 0 GENERAL: Patient is well-developed and well-nourished. Patient is nontoxic and well- hydrated and is in mild distress. ENT: Neck is soft and supple. No significant lymphadenopathy is noted. Oropharynx is clear. Moist mucous membranes. Neck has full range of motion without eliciting any pain. EYES: The sclera were anicteric and conjunctiva were pink and moist. Extraocular movements were intact and pupils were equal round and reactive to light. Eyelids were unremarkable. PULMONARY: Patient has diffuse expiratory wheezing. CARDIOVASCULAR: Patient is tachycardic ABDOMEN: Soft and nontender with normal bowel sounds. No palpable organomegaly was noted. There is no palpable pulsatile mass. SKIN: Skin is clear with no lesions or rashes and otherwise unremarkable. NEUROLOGIC: Patient is alert and oriented x3. Cranial nerves II through XII are grossly intact. Motor and sensory are also intact. Normal speech, volume and content. Symmetrical smile. MUSCULOSKELETAL: Normal extremities with adequate strength and full range of motion. No lower extremity swelling or edema. No calf tenderness. LYMPHATICS: No significant lymphadenopathy is noted PSYCHIATRIC: Normal psychiatric evaluation. Results - Laboratory Findings CBC and BMP: 03/11/18 18:51 03/11/18 18:51 PT/INR, D-dimer PT 10.3 sec (9.0-12.0) 03/11/18 18:51 INR 1.0 (<1.2) 03/11/18 18:51 Abnormal lab findings: Abnormal Labs 03/11/18 03/11/18 03/11/18 18:51 18:51 19:05 Plt Count 140 L Lymphocytes # 0.5 L Carbon Dioxide 31 H Creatinine 1.10 H Glucose 126 H POC Glucose (mg/dL) Total Protein 6.2 L Urine Appearance Turbid H Urine Protein 1+ H Urine Blood Trace H Ur Leukocyte Esterase Moderate H Urine WBC 17 H Ur Squamous Epith Cells 66 H Amorphous Sediment Rare H Hyaline Casts 52 H Urine Mucus Many H 03/12/18 03/12/18 06:52 11:20 Plt Count Lymphocytes # Carbon Dioxide Creatinine Glucose POC Glucose (mg/dL) 251 H 256 H Total Protein Urine Appearance Urine Protein Urine Blood Ur Leukocyte Esterase Urine WBC Ur Squamous Epith Cells Amorphous Sediment Hyaline Casts Urine Mucus - Diagnostic Findings Chest x-ray: report reviewed, image reviewed Assessment and Plan Assessment: Left lower lobe pneumonia, likely community-acquired Sirs-like process related pneumonia Baseline COPD Chronic atrial fibrillation Coronary artery disease, History of DVT History of seizure disorder Hypothyroidism Plan: Continue home medications including anticoagulation Broad-spectrum antibiotics IV steroids Breathing treatments Follow-up on culture results and report Further recommendations pending plan of care as per clinical response of the patient Time with Patient: Greater than 30
[2018-03-12] MEDS: NICOTINE 14MG/24HR PATCH TRANSDERM SCH (16:25)
[2018-03-12 17:06] LABS: Glucose,Whole Blood 307 mg/dL (75-99)
[2018-03-12] MEDS: MONTELUKAST 10 MG TAB PO SCH (20:34)
[2018-03-12 20:56] LABS: Glucose,Whole Blood 418 mg/dL (75-99)
[2018-03-12] MEDS ORDERED: INSULIN ASPART 100 UNIT/ML 1 ML 10 ML VIAL SQ ONE (20:59)
[2018-03-13] MEDS: methylPREDNISolone SOD SUCCI 125 MG/2 ML VIAL IV SCH ×4 (06:04→23:59)
[2018-03-13 07:42] LABS: Glucose,Whole Blood 196 mg/dL (75-99)
[2018-03-13] MEDS: BUDESONIDE 0.5 MG/2 ML NEBU INHALATION SCH ×2 (08:01→19:51)
[2018-03-13] MEDS: IPRATROPIUM-ALBUTEROL 3 ML NEB INHALATION PRN ×3 (08:01→15:49)
[2018-03-13] MEDS: INSULIN ASPART 100 UNIT/ML 1 ML 10 ML VIAL SQ SCH ×4 (09:02→21:04)
[2018-03-13] MEDS: amLODIPine 5 MG TAB PO SCH (09:02)
[2018-03-13] MEDS: ASPIRIN 81 MG PO SCH (09:02)
[2018-03-13] MEDS: HYDROCHLOROTHIAZIDE 25 MG TAB PO SCH (09:02)
[2018-03-13] MEDS: PANTOPRAZOLE 40 MG TABLET PO SCH (09:02)
[2018-03-13] MEDS: APIXABAN 2.5 MG TABLET PO SCH ×2 (09:02→21:04)
[2018-03-13] MEDS: GABAPENTIN 300 MG CAP PO SCH ×3 (09:02→21:04)
[2018-03-13] MEDS: NICOTINE 14MG/24HR PATCH TRANSDERM SCH (09:05)
--- NOTE | 2018-03-13 11:20 | HP ---
HISTORY AND PHYSICAL CHIEF COMPLAINT: A 67-year-old white female admitted with COPD, hypoxemia, pneumonia, cough, congestion for 5 days. Worsening, stopped smoking, but her breathing became worse, at which time she was admitted to hospital with a temperature 102.4. Broad-spectrum antibiotics were given for her left lower lobe pneumonia. History of atrial fibrillation/flutter, asthma, COPD, coronary artery disease, heart failure, diabetes mellitus, DVT, GERD, dyslipidemia, pneumonia, seizure disorder, hypothyroidism, hypertension, carpal tunnel syndrome, thyroid nodule, cervical disc disease. SURGERY: Heart catheterization. FAMILY HISTORY: Mother with sepsis. Father with myocardial infarction, carotid endarterectomy. Sister with DVT. HOME MEDICATIONS: 1. Aspirin. 2. Norvasc. 3. Singulair. 4. Ultram. 5. Pulmicort. 6. DuoNeb. 7. Hydrochlorothiazide. 8. Eliquis. 9. Neurontin. 10.Omeprazole. 11.Tylenol. ALLERGIES: LATEX, PENICILLIN, SULFA. VITAL SIGNS: Blood pressure is 101 to 130s/60s to 70s, O2 is 94% to 100%, temperature 97 to 99. CARDIOVASCULAR: S1, S2. LUNGS: Scattered wheeze and rhonchi x4. Decreased breath sounds x4. ABDOMEN: Soft, nontender. SKIN: Warm and dry. NEUROLOGIC: Alert and oriented x3. MUSCULOSKELETAL: Range of motion - full. LYMPHATIC: No lymphadenopathy. PSYCH: Okay. INTEGUMENT: She has a mid back lesion for which she is scheduled to have skin surgery in a couple of weeks. ASSESSMENT: 1. Community-acquired pneumonia, left lower lobe pneumonia, SIRS-like process related to pneumonia. 2. Chronic obstructive pulmonary disease. 3. Chronic atrial fibrillation. 4. Coronary artery disease. 5. Seizure disorder. 6. Hypothyroidism. HOME MEDICATIONS: 1. Anticoagulation. 2. IV broad-spectrum antibiotics. 3. IV steroids. Continue current treatment, follow up in the next 24 to 48 hours. MMODL / IJN: [id number] /
[2018-03-13 12:26] LABS: Glucose,Whole Blood 299 mg/dL (75-99)
[2018-03-13] MEDS ORDERED: FUROSEMIDE 10 MG/ML 4 ML VIAL IV STA (14:56)
[2018-03-13] MEDS ORDERED: VANCOMYCIN IV PER PHARMACY 1 EACH MISC MISCELLANE PRN (15:20)
[2018-03-13] MEDS: LEVOFLOXACIN 500MG-D5W PMX 500 MG in DEXTROSE/WATER 1 100ML.BAG IVPB SCH (15:47)
[2018-03-13] MEDS: guaiFENesin-DM 100-10MG/5ML 10 ML CUP PO PRN ×2 (15:47→21:59)
[2018-03-13] MEDS: IPRATROPIUM-ALBUTEROL 3 ML NEB INHALATION SCH ×2 (15:58→19:51)
[2018-03-13] MEDS ORDERED: VANCOMYCIN 1,500 MG in SODIUM CHLORIDE 0.9% 250 ML IVPB ONE (16:00)
--- NOTE | 2018-03-13 16:19 | XR ---
EXAMINATION TYPE: XR chest 1V portable DATE OF EXAM: 03/13/2018 COMPARISON: Prior chest x-ray 03/11/2018 HISTORY: Wheezing TECHNIQUE: Single frontal view of the chest is obtained. FINDINGS: There is no focal air space opacity, pleural effusion, or pneumothorax seen. The cardiac silhouette size is within normal limits. The osseous structures are intact. Suspect there is bronch ial wall thickening. IMPRESSION: Correlate for bronchitis, reactive airways disease.
[2018-03-13 16:34] LABS: Potassium 3.7 mmol/L (3.5-5.1)
[2018-03-13 16:52] LABS: Glucose,Whole Blood 353 mg/dL (75-99)
[2018-03-13 20:37] LABS: Glucose,Whole Blood 361 mg/dL (75-99)
[2018-03-13] MEDS: MONTELUKAST 10 MG TAB PO SCH (21:04)
--- NOTE | 2018-03-13 21:27 | PN ---
PROGRESS NOTE SUBJECTIVE: 67-year-old white female, community-acquired pneumonia, COPD exacerbation. He is on IV steroids, IV antibiotics, updraft treatments. He was having no chest pain, but has severe worsening of her breathing today. IV Lasix was given. Her antibiotics were switched to Levaquin and vancomycin as she has been failing azithromycin and Rocephin. She has severe audible wheezing. On physical exam, respiratory 25 to 35. Lungs show scattered rhonchi and wheeze x4. GI is soft. Psych: Fair mood and affect. ASSESSMENT: 1. Community acquired pneumonia with prior pneumonia. Possible immune compromise conditions. 2. Chronic obstructive pulmonary disease exacerbation. 3. Possible some diastolic congestive heart failure. Lasix will be given. Antibiotics were switched to vanco and Levaquin. Continue in the next 24 to 48 hours. MMODL / IJN: [id number] /
[2018-03-14] MEDS: methylPREDNISolone SOD SUCCI 125 MG/2 ML VIAL IV SCH ×4 (06:12→23:44)
[2018-03-14] MEDS: IPRATROPIUM-ALBUTEROL 3 ML NEB INHALATION SCH ×4 (07:22→18:51)
[2018-03-14] MEDS: BUDESONIDE 0.5 MG/2 ML NEBU INHALATION SCH ×2 (07:22→18:52)
[2018-03-14 07:26] LABS: Glucose,Whole Blood 235 mg/dL (75-99)
[2018-03-14] MEDS: NICOTINE 14MG/24HR PATCH TRANSDERM SCH (08:28)
[2018-03-14] MEDS: INSULIN ASPART 100 UNIT/ML 1 ML 10 ML VIAL SQ SCH ×4 (08:28→21:02)
[2018-03-14] MEDS: HYDROCHLOROTHIAZIDE 25 MG TAB PO SCH (08:29)
[2018-03-14] MEDS: ASPIRIN 81 MG PO SCH (08:29)
[2018-03-14] MEDS: GABAPENTIN 300 MG CAP PO SCH ×3 (08:29→21:02)
[2018-03-14] MEDS: PANTOPRAZOLE 40 MG TABLET PO SCH (08:29)
[2018-03-14] MEDS: amLODIPine 5 MG TAB PO SCH (08:29)
[2018-03-14] MEDS: VANCOMYCIN 1,500 MG in SODIUM CHLORIDE 0.9% 250 ML IVPB SCH (08:30)
[2018-03-14] MEDS: APIXABAN 2.5 MG TABLET PO SCH ×2 (08:30→21:02)
[2018-03-14] MEDS: traMADol 50 MG TAB PO PRN ×3 (08:40→22:25)
[2018-03-14] MEDS: guaiFENesin-DM 100-10MG/5ML 10 ML CUP PO PRN ×2 (08:53→15:31)
[2018-03-14] MEDS ORDERED: ALPRAZolam 0.5 MG TAB PO PRN (09:37)
[2018-03-14] MEDS: IPRATROPIUM-ALBUTEROL 3 ML NEB INHALATION PRN ×2 (09:37→23:26)
[2018-03-14] MEDS ORDERED: FUROSEMIDE 10 MG/ML 4 ML VIAL IV STA (09:37)
--- NOTE | 2018-03-14 10:01 | P.PN ---
Subjective Progress Note Date: 03/13/18 (late entry note) Principal diagnosis: Left lower lobe pneumonia likely community-acquired, acute COPD exacerbation, Sirs-like process, severe COPD, chronic atrial fibrillation, history of prior DVT PE, coronary artery disease, seizure disorder, hypothyroidism 03/13/2018, patient seen eval examined during the rounds earlier this morning had a episode of shortness of breath no more wheezing patient was giving Lasix 40 mg she put out good amount of urine clinically slightly more stable antibiotics have been adjusted by primary service patient remains on bronchodilators around the clock as well as IV steroids reviewed medications reviewed care plan discussed with the staff at length Objective - Vital Signs Vital signs: Vital Signs Temp 98.2 F 03/14/18 06:10 Pulse 80 03/14/18 09:50 Resp 22 03/14/18 06:10 BP 121/75 03/14/18 06:10 Pulse Ox 97 03/14/18 06:10 Intake & Output 03/13/18 03/14/18 03/14/18 18:59 06:59 18:59 Intake Total 500 Balance 500 Intake: Oral 500 Other: # Voids 1 2 - Exam GENERAL: Patient is well-developed and well-nourished. Patient is nontoxic and well- hydrated and is in mild distress. ENT: Neck is soft and supple. No significant lymphadenopathy is noted. Oropharynx is clear. Moist mucous membranes. Neck has full range of motion without eliciting any pain. EYES: The sclera were anicteric and conjunctiva were pink and moist. Extraocular movements were intact and pupils were equal round and reactive to light. Eyelids were unremarkable. PULMONARY: Patient has diffuse expiratory wheezing. Severity appears to be have improved compared to earlier this morning CARDIOVASCULAR: Patient is tachycardic ABDOMEN: Soft and nontender with normal bowel sounds. No palpable organomegaly was noted. There is no palpable pulsatile mass. SKIN: Skin is clear with no lesions or rashes and otherwise unremarkable. NEUROLOGIC: Patient is alert and oriented x3. Cranial nerves II through XII are grossly intact. Motor and sensory are also intact. Normal speech, volume and content. Symmetrical smile. MUSCULOSKELETAL: Normal extremities with adequate strength and full range of motion. No lower extremity swelling or edema. No calf tenderness. LYMPHATICS: No significant lymphadenopathy is noted PSYCHIATRIC: Normal psychiatric evaluation. - Labs CBC & Chem 7: 03/11/18 18:51 03/13/18 15:50 Labs: Abnormal Lab Results - Last 24 Hours (Table) 03/13/18 03/13/18 03/13/18 Range/Units 12:10 15:50 16:49 BUN 19 H (7-17) mg/dL Glucose 302 H (74-99) mg/dL POC Glucose (mg/dL) 299 H 353 H (75-99) mg/dL 03/13/18 03/14/18 Range/Units 20:27 07:19 BUN (7-17) mg/dL Glucose (74-99) mg/dL POC Glucose (mg/dL) 361 H 235 H (75-99) mg/dL Microbiology - Last 24 Hours (Table) 03/13/18 16:00 Gram Stain - Preliminary Sputum 03/11/18 18:51 Blood Culture - Preliminary Blood No Growth after 48 hours 03/11/18 19:05 Urine Culture - Final Urine,Voided Assessment and Plan Assessment: Left lower lobe pneumonia, likely community-acquired Sirs-like process related pneumonia Baseline COPD Chronic atrial fibrillation Coronary artery disease, History of DVT History of seizure disorder Hypothyroidism Plan: Continue home medications including anticoagulation Broad-spectrum antibiotics Trial of IV furosemide patient might need some Lasix on a regular basis Consider anxiolytics as well as needed IV steroids Breathing treatments Follow-up on culture results and report Further recommendations pending plan of care as per clinical response of the patient Time with Patient: Greater than 30
--- NOTE | 2018-03-14 10:04 | P.PN ---
Subjective Progress Note Date: 03/14/18 Principal diagnosis: Left lower lobe pneumonia likely community-acquired, acute COPD exacerbation, Sirs-like process, severe COPD, chronic atrial fibrillation, history of prior DVT PE, coronary artery disease, seizure disorder, hypothyroidism 03/14/2018, patient seen eval examined during the rounds clinically patient has improved though cuff congestion shortness of breath still present patient usually have episode of shortness breath is anxiety earlier in the morning hours gradually settles down as the day progresses will put patient on small dose of Xanax 3 times a day when necessary we'll continue bronchodilator and as needed repeat labs tomorrow will give another dose of Lasix today followed by by mouth 20 mg daily we'll check the labs tomorrow follow-up x-ray performed on March 13 remains unchanged continue show bronchitis Petrin 03/13/2018, patient seen eval examined during the rounds earlier this morning had a episode of shortness of breath no more wheezing patient was giving Lasix 40 mg she put out good amount of urine clinically slightly more stable antibiotics have been adjusted by primary service patient remains on bronchodilators around the clock as well as IV steroids reviewed medications reviewed care plan discussed with the staff at length 67-year-old female who was seen eval reexamined on fourth floor this patient has 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 Patient states she's been coughing quite a bit as well. Patient states she recently stopped smoking. Patient denies any chest pain or palpitations. She does have cardiac history according to her. Patient denies any abdominal pain patient denies nausea vomiting diarrhea. Patient denies headache patient denies numbness weakness. Patient denies any lightheadedness or dizziness. Patient denies any swelling to her legs or any calf tenderness. On arrival temperature was 102.4, currently patient is being treated with broad-spectrum antibiotics IV steroids antibiotics, chest x-ray suggestive of left lower lobe pneumonia, labs reviewed medications reviewed Objective - Vital Signs Vital signs: Vital Signs Temp 98.2 F 03/14/18 06:10 Pulse 80 03/14/18 09:50 Resp 22 03/14/18 06:10 BP 121/75 03/14/18 06:10 Pulse Ox 97 03/14/18 06:10 Intake & Output 03/13/18 03/14/18 03/14/18 18:59 06:59 18:59 Intake Total 500 Balance 500 Intake: Oral 500 Other: # Voids 1 2 - Exam GENERAL: Patient is well-developed and well-nourished. Patient is nontoxic and well- hydrated and is in mild distress. ENT: Neck is soft and supple. No significant lymphadenopathy is noted. Oropharynx is clear. Moist mucous membranes. Neck has full range of motion without eliciting any pain. EYES: The sclera were anicteric and conjunctiva were pink and moist. Extraocular movements were intact and pupils were equal round and reactive to light. Eyelids were unremarkable. PULMONARY: Patient has diffuse expiratory wheezing. Severity appears to be have improved compared to earlier this morning CARDIOVASCULAR: Patient is tachycardic ABDOMEN: Soft and nontender with normal bowel sounds. No palpable organomegaly was noted. There is no palpable pulsatile mass. SKIN: Skin is clear with no lesions or rashes and otherwise unremarkable. NEUROLOGIC: Patient is alert and oriented x3. Cranial nerves II through XII are grossly intact. Motor and sensory are also intact. Normal speech, volume and content. Symmetrical smile. MUSCULOSKELETAL: Normal extremities with adequate strength and full range of motion. No lower extremity swelling or edema. No calf tenderness. LYMPHATICS: No significant lymphadenopathy is noted PSYCHIATRIC: Normal psychiatric evaluation. - Labs CBC & Chem 7: 03/11/18 18:51 03/13/18 15:50 Labs: Abnormal Lab Results - Last 24 Hours (Table) 03/13/18 03/13/18 03/13/18 Range/Units 12:10 15:50 16:49 BUN 19 H (7-17) mg/dL Glucose 302 H (74-99) mg/dL POC Glucose (mg/dL) 299 H 353 H (75-99) mg/dL 03/13/18 03/14/18 Range/Units 20:27 07:19 BUN (7-17) mg/dL Glucose (74-99) mg/dL POC Glucose (mg/dL) 361 H 235 H (75-99) mg/dL Microbiology - Last 24 Hours (Table) 03/13/18 16:00 Gram Stain - Preliminary Sputum 03/11/18 18:51 Blood Culture - Preliminary Blood No Growth after 48 hours 03/11/18 19:05 Urine Culture - Final Urine,Voided Assessment and Plan Assessment: Left lower lobe pneumonia, likely community-acquired Sirs-like process related pneumonia Baseline COPD Fluid overload and diastolic heart failure Chronic atrial fibrillation Coronary artery disease, History of DVT History of seizure disorder Hypothyroidism Plan: Continue home medications including anticoagulation Broad-spectrum antibiotics Trial of IV furosemide patient might need some Lasix on a regular basis Consider anxiolytics as well as needed IV steroids. Gentle diuresis will obtain an echocardiogram, obtain labs tomorrow Breathing treatments Follow-up on culture results and report Further recommendations pending plan of care as per clinical response of the patient Time with Patient: Greater than 30
[2018-03-14 12:14] LABS: Glucose,Whole Blood 362 mg/dL (75-99)
[2018-03-14] MEDS: LEVOFLOXACIN 500MG-D5W PMX 500 MG in DEXTROSE/WATER 1 100ML.BAG IVPB SCH (15:31)
--- NOTE | 2018-03-14 16:55 | PN ---
PROGRESS NOTE DATE OF SERVICE: 03/14/2018 She was seen on March2018, as I am covering for Dr. Jet Edmonds. She has been having shortness of breath associated with wheezing and actively follows in our office with Dr. Concha Hughes who the patient actually requested to see. She had been given on January2017 and was seen in our office on January2017 and activity follows there. She continues to have shortness of breath. PHYSICAL EXAMINATION: Her respiratory rate is 20, pulse rate of 92, temperature 98.4, blood pressure 122/57, O2 saturation on 2 L by nasal cannula is 97%. HEENT reveals pupils are equal. Chest reveals expiratory wheeze. Cardiovascular system reveals S1, S2. Abdomen is soft. There is trace to 1+ pedal edema. LABORATORY DATA: Sodium is 140, potassium 3.7, chloride 100, bicarb 27, BUN 19, creatinine 0.92. Her influenza A and B have been negative. IMPRESSION: At this time: 1. Severe asthma with acute exacerbation. 2. Chronic obstructive pulmonary disease. 3. Congestive heart failure. Continue to optimize her fluid status. Continue IV steroids, bronchodilators, aerosolized steroids, montelukast. Her prognosis is guarded. Per her wishes, we shall have Dr. Concha Hughes follow this patient. Depending on how she does, we shall make further changes to her care. MMODL / IJN: [id number] /
[2018-03-14 17:39] LABS: Glucose,Whole Blood 467 mg/dL (75-99)
[2018-03-14 20:56] LABS: Glucose,Whole Blood 509 mg/dL (75-99)
[2018-03-14 20:56] LABS: Glucose,Whole Blood 435 mg/dL (75-99)
[2018-03-14] MEDS: MONTELUKAST 10 MG TAB PO SCH (21:02)
[2018-03-15] MEDS: IPRATROPIUM-ALBUTEROL 3 ML NEB INHALATION PRN (02:42)
[2018-03-15] MEDS: methylPREDNISolone SOD SUCCI 125 MG/2 ML VIAL IV SCH ×2 (05:28→12:09)
[2018-03-15 07:14] LABS: Glucose,Whole Blood 158 mg/dL (75-99)
[2018-03-15] MEDS: traMADol 50 MG TAB PO PRN (08:11)
[2018-03-15] MEDS: INSULIN ASPART 100 UNIT/ML 1 ML 10 ML VIAL SQ SCH ×4 (08:12→22:15)
[2018-03-15] MEDS: guaiFENesin-DM 100-10MG/5ML 10 ML CUP PO PRN ×2 (08:12→17:22)
[2018-03-15] MEDS: GABAPENTIN 300 MG CAP PO SCH ×3 (08:12→22:15)
[2018-03-15] MEDS: VANCOMYCIN 1,500 MG in SODIUM CHLORIDE 0.9% 250 ML IVPB SCH (08:12)
[2018-03-15] MEDS: amLODIPine 5 MG TAB PO SCH (08:12)
[2018-03-15] MEDS: HYDROCHLOROTHIAZIDE 25 MG TAB PO SCH (08:12)
[2018-03-15] MEDS: FUROSEMIDE 20 MG TAB PO SCH (08:12)
[2018-03-15] MEDS: APIXABAN 2.5 MG TABLET PO SCH ×2 (08:12→22:15)
[2018-03-15] MEDS: ASPIRIN 81 MG PO SCH (08:12)
[2018-03-15] MEDS: PANTOPRAZOLE 40 MG TABLET PO SCH (08:12)
[2018-03-15 08:17] LABS: Basophils % (A) 0 %; Eosinophils # (A) 0.1 k/uL (0-0.7); Eosinophils % (A) 1 %; HCT 37.6 % (34.0-46.0); HGB 11.7 gm/dL (11.4-16.0); Lymphocytes # (A) 0.6 k/uL (1.0-4.8); Lymphocytes % (A) 6 %; MCH 30.3 pg (25.0-35.0); MCHC 31.1 g/dL (31.0-37.0); MCV 97.3 fL (80.0-100.0); Mean Platelet Volume 7.8; Monocytes # (A) 0.3 k/uL (0-1.0); Monocytes % (A) 3 %; Neutrophils # (A) 8.8 k/uL (1.3-7.7); Neutrophils % (A) 89 %; Platelet Count 173 k/uL (150-450); RBC 3.86 m/uL (3.80-5.40); RDW 13.2 % (11.5-15.5); WBC 9.9 k/uL (3.8-10.6)
[2018-03-15 08:38] LABS: Albumin 3.5 g/dL (3.5-5.0); Calcium 8.2 mg/dL (8.4-10.2); Magnesium 2.2 mg/dL (1.6-2.3); Phosphorus 4.6 mg/dL (2.5-4.5); Potassium 3.8 mmol/L (3.5-5.1); Total Bilirubin 0.4 mg/dL (0.2-1.3); Total Protein 5.9 g/dL (6.3-8.2)
[2018-03-15] MEDS: NICOTINE 14MG/24HR PATCH TRANSDERM SCH (09:00)
[2018-03-15] MEDS: IPRATROPIUM-ALBUTEROL 3 ML NEB INHALATION SCH ×4 (09:01→20:13)
[2018-03-15] MEDS: BUDESONIDE 0.5 MG/2 ML NEBU INHALATION SCH ×2 (09:01→20:13)
--- NOTE | 2018-03-15 11:56 | CONS ---
CONSULTATION Concepcion Steele is a 67-year-old female who presented to the ER on 03/11/2018. At that time the patient had been having increasing shortness of breath. She follows with Dr. Hughes in our office and had been treated for severe asthma with a biologic . Her last shot was January of 2018, after which she had been feeling somewhat better overall. Please see Dr. Jet Edmonds's history and physical and the ER room notes for circumstances of her initial admission to the hospital. PAST MEDICAL HISTORY: Positive for asthma with COPD. SOCIAL HISTORY: Patient is an ex smoker. Does not drink alcohol excessively. Today, she continues to have shortness of breath and on physical examination respiratory rate is 18, pulse rate of 74, temperature 97.5, blood pressure 130/78, O2 SAT on 3 L by nasal cannula is 95%. HEENT is unremarkable. Chest reveals decreased breath sounds. Prolonged expiration with expiratory wheeze. Cardiovascular system reveals an S1, S2. Abdomen is soft. There is trace pedal edema. White count is 9.9, hemoglobin of 11.7, eosinophilic count of 0.1000. Sodium 139, potassium 3.8, chloride 98, bicarb 33, BUN 29, creatinine of 1.1. IMPRESSION: 1. Severe asthma with acute exacerbation. 2. Chronic obstructive pulmonary disease. 3. Congestive heart failure. Continue IV steroids, bronchodilators. I did discuss her condition with her primary bowstring maker, Dr. Concha Hughes, as well. Continue with current medications. Increase her activity level. Her prognosis is fair. MMODL / IJN: [id number] /
[2018-03-15 12:16] LABS: Glucose,Whole Blood 258 mg/dL (75-99)
[2018-03-15] MEDS: LEVOFLOXACIN 500MG-D5W PMX 500 MG in DEXTROSE/WATER 1 100ML.BAG IVPB SCH (14:58)
[2018-03-15] MEDS ORDERED: INSULIN ASPART 100 UNIT/ML 1 ML 10 ML VIAL SQ ONE (17:13)
[2018-03-15] MEDS: HYDROcodone/APAP 5-325MG 1 EACH TAB PO PRN ×2 (17:22→22:20)
--- NOTE | 2018-03-15 17:29 | PN ---
PROGRESS NOTE SUBJECTIVE: 67-year-old white female admitted to hospital for COPD exacerbation. Cardiovascular S1, S2. Lungs are scattered rhonchi and wheeze. She is complaining of severe pain in her left flank with coughing. Medicines will be altered. ASSESSMENT: 1. Asthma. 2. Chronic obstructive pulmonary disease. 3. Congestive heart failure. Continue current treatment. Follow up in the next 24-48 hours. MMODL / IJN: [id number] /
[2018-03-15 17:38] LABS: Glucose,Whole Blood 502 mg/dL (75-99)
[2018-03-15 17:38] LABS: Glucose,Whole Blood >600 mg/dL (75-99)
--- NOTE | 2018-03-15 20:30 | ECHOF ---
Referral Reason:pulmnary hypertension MEASUREMENTS -------- HEIGHT: 154.9 cm WEIGHT: 81.2 kg BP: 130/71 RVIDd: 2.8 cm (< 3.3) IVSd: 1.2 cm (0.6 - 1.1) LVIDd: 4.0 cm (3.9 - 5.3) LVPWd: 1.0 cm (0.6 - 1.1) IVSs: 1.6 cm LVIDs: 2.6 cm LVPWs: 1.7 cm LA Diam: 3.4 cm (2.7 - 3.8) LAESV Index (A-L): 19.21 ml/m Ao Diam: 3.1 cm (2.0 - 3.7) AV Cusp: 1.8 cm (1.5 - 2.6) MV EXCURSION: 18.829 mm (> 18.000) MV EF SLOPE: 116 mm/s (70 - 150) EPSS: 0.8 cm MV E Ck: 0.84 m/s MV DecT: 197 ms MV A Ck: 0.73 m/s MV E/A Ratio: 1.15 RAP: 5.00 mmHg RVSP: 33.95 mmHg FINDINGS -------- Sinus rhythm. This was a technically good study. The left ventricular size is normal. There is borderline concentric left ventricular hypertrophy. Overall left ventricular systolic function is normal with, an EF between 60 - 65 %. The right ventricle is normal in size. Normal LA size by volume 22+/-6 ml/m2. The right atrium is normal in size. The aortic valve is trileaflet and appears structurally normal. The mitral valve is normal. Mild tricuspid regurgitation present. There is borderline pulmonary hypertension. The right ventr icular systolic pressure, as measured by Doppler, is 33.95mmHg. There is no pulmonic regurgitation present. The aortic root size is normal. IVC Not well visulized. There is no pericardial effusion. CONCLUSIONS -------- 1. Sinus rhythm. 2. This was a technically good study. 3. The left ventricular size is normal. 4. There is borderline concentric left ventricular hypertrophy. 5. Overall left ventricular systolic function is normal with, an EF between 60 - 65 %. 6. The right ventricle is normal in size. 7. Normal LA size by volume 22+/-6 ml/m2. 8. The right atrium is normal in size. 9. The aortic valve is trileaflet and appears structurally normal. 10. The mitral valve is normal. 11. Mild tricuspid regurgitation present. 12. There is borderline pulmonary hypertension. 13. The right ventricular systolic pressure, as measured by Doppler, is 33.95mmHg. 14. There is no pulmonic regurgitation present. 15. The aortic root size is normal. 16. IVC Not well visulized. 17. There is no pericardial effusion. [employer] TECHNICIAN: Marcella Saunders RDCS
[2018-03-15 21:01] LABS: Glucose,Whole Blood 528 mg/dL (75-99)
[2018-03-15 21:01] LABS: Glucose,Whole Blood 536 mg/dL (75-99)
[2018-03-15] MEDS ORDERED: INSULIN REGULAR 100 UNIT/ML VIAL SQ ONE (21:30)
[2018-03-15] MEDS: MONTELUKAST 10 MG TAB PO SCH (22:14)
[2018-03-16] MEDS: methylPREDNISolone SOD SUCCI 40 MG/ML 1 ML VIAL IV SCH ×3 (00:23→15:20)
[2018-03-16] MEDS: IPRATROPIUM-ALBUTEROL 3 ML NEB INHALATION PRN (02:09)
[2018-03-16 07:38] LABS: Glucose,Whole Blood 214 mg/dL (75-99)
[2018-03-16] MEDS ORDERED: VANCOMYCIN TROUGH DUE 1 EACH MISC MISCELLANE ONE (08:00)
[2018-03-16] MEDS: APIXABAN 2.5 MG TABLET PO SCH ×2 (08:16→22:55)
[2018-03-16] MEDS: INSULIN ASPART 100 UNIT/ML 1 ML 10 ML VIAL SQ SCH ×4 (08:16→22:56)
[2018-03-16] MEDS: NICOTINE 14MG/24HR PATCH TRANSDERM SCH (08:16)
[2018-03-16] MEDS: guaiFENesin-DM 100-10MG/5ML 10 ML CUP PO PRN (08:17)
[2018-03-16] MEDS: GABAPENTIN 300 MG CAP PO SCH ×3 (08:17→22:55)
[2018-03-16] MEDS: FUROSEMIDE 20 MG TAB PO SCH (08:17)
[2018-03-16] MEDS: ASPIRIN 81 MG PO SCH (08:17)
[2018-03-16] MEDS: HYDROCHLOROTHIAZIDE 25 MG TAB PO SCH (08:17)
[2018-03-16] MEDS: amLODIPine 5 MG TAB PO SCH (08:17)
[2018-03-16] MEDS: PANTOPRAZOLE 40 MG TABLET PO SCH (08:17)
[2018-03-16] MEDS: VANCOMYCIN 1,500 MG in SODIUM CHLORIDE 0.9% 250 ML IVPB SCH (08:20)
[2018-03-16] MEDS: HYDROcodone/APAP 5-325MG 1 EACH TAB PO PRN ×2 (08:26→20:29)
[2018-03-16] MEDS: IPRATROPIUM-ALBUTEROL 3 ML NEB INHALATION SCH ×4 (08:54→20:52)
[2018-03-16] MEDS: BUDESONIDE 0.5 MG/2 ML NEBU INHALATION SCH (08:54)
[2018-03-16] MEDS ORDERED: SENNOSIDES-DOCUSATE SODIUM 1 EACH TAB PO STA (09:38)
--- NOTE | 2018-03-16 09:42 | P.PN ---
Subjective Progress Note Date: 03/16/18 Interval history: 03/16/2017patient is being seen examined and evaluated today on rounds. She is resting up in bed on 3 L of supplemental oxygen via nasal cannula which is what her home doses. Her chest x-ray is reviewed and is consistent with reactive airway disease. She does continue to complain of a cough and congestion with kan/brown sputum. She is on antibiotics. Sputum culture pending. She does have some shortness breath with exertion and activity as well as multiple wheezing. She is complaining of some constipation and weakness today. All labs and reports have been reviewed. Objective - Vital Signs Vital signs: Vital Signs Temp 97.9 F 03/16/18 07:06 Pulse 92 03/16/18 09:06 Resp 16 03/16/18 07:06 BP 161/63 03/16/18 07:06 Pulse Ox 98 03/16/18 07:06 Intake & Output 03/15/18 03/16/18 03/16/18 18:59 06:59 18:59 Intake Total 1200 0 Balance 1200 0 Intake: Intake, IV Titration 0 Amount Levofloxacin 500Mg-D5w 0 Pmx 500 mg In Dextrose/ Water 1 100ml.bag @ 100 mls/hr IVPB Q24H LYLY Rx#: [id number] Oral 1200 Other: # Voids 1 2 - Exam GENERAL EXAM: Alert, comfortable in no apparent distress. HEAD: Normocephalic. EYES: Normal reaction of pupils, equal size. NOSE: Clear with pink turbinates. THROAT: No erythema or exudates. NECK: No masses, no JVD. CHEST: No chest wall deformity. LUNGS: Prolonged expiration with expiratory wheezing CVS: S1 and S2 normal with no audible mumurs, regular rhythm. ABDOMEN: No hepatosplenomegaly, normal bowel sounds, no guarding or rigidity. EXTREMITIES: Trace edema noted, pedal pulses palpable. CENTRAL NERVOUS SYSTEM: No focal deficits, tone is normal in all 4 extremities. - Labs CBC & Chem 7: 03/15/18 07:55 03/15/18 07:55 Labs: Abnormal Lab Results - Last 24 Hours (Table) 03/15/18 03/15/18 03/15/18 Range/Units 12:11 17:06 17:07 POC Glucose (mg/dL) 258 H 502 H >600 H (75-99) mg/dL 03/15/18 03/15/18 03/16/18 Range/Units 20:54 20:55 07:08 POC Glucose (mg/dL) 528 H 536 H 214 H (75-99) mg/dL Microbiology - Last 24 Hours (Table) 03/11/18 18:51 Blood Culture - Preliminary Blood No Growth after 96 hours 03/13/18 16:00 Gram Stain - Final Sputum Sputum Culture - Final Assessment and Plan Assessment: Assessment Acute on chronic hypoxic respiratory failure requiring supplemental oxygen Acute exacerbation of chronic persistent severe asthma Acute exacerbation of COPD Tracheobronchitis Possible early pneumonia CHF Constipation Plan Medications have been reviewed and will be continued as ordered. Antibiotics and steroid taper Mucinex Sputum culture pending Add Senokot for constipation Continue with pulmonary hygiene, coughing and deep breathing exercises, and supportive care. Supplemental oxygen to maintain oxygen saturations of 92% or better. Continue nebulizer treatments. Increase budesonide to 1 mg GI and DVT prophylaxis. Increase activity as tolerated PT and OT We will continue to monitor labs/results and adjust treatment as necessary. Further recommendations pending. I, the signing physician performed an examination of the patient, discussed and directed their management with the nurse practitioner. I have reviewed the nurse practitioner's note and agree with the documented findings, orders and plan of care. Nurse practitioner acting as a scribe for the signing physician.
[2018-03-16] MEDS: guaiFENesin 600 MG TABLET.ER PO SCH ×2 (09:43→22:55)
[2018-03-16 12:03] LABS: Glucose,Whole Blood 197 mg/dL (75-99)
[2018-03-16] MEDS: LEVOFLOXACIN 250 MG TAB PO SCH (15:21)
[2018-03-16 16:37] LABS: Glucose,Whole Blood 279 mg/dL (75-99)
[2018-03-16 20:35] LABS: Glucose,Whole Blood 290 mg/dL (75-99)
[2018-03-16] MEDS: BUDESONIDE 1 MG/2 ML NEBU INHALATION SCH (20:52)
[2018-03-16] MEDS: MONTELUKAST 10 MG TAB PO SCH (22:55)
[2018-03-17] MEDS: methylPREDNISolone SOD SUCCI 40 MG/ML 1 ML VIAL IV SCH ×4 (01:10→23:52)
[2018-03-17] MEDS: HYDROcodone/APAP 5-325MG 1 EACH TAB PO PRN ×3 (05:39→22:03)
[2018-03-17 07:41] LABS: Glucose,Whole Blood 376 mg/dL (75-99)
[2018-03-17] MEDS: HYDROCHLOROTHIAZIDE 25 MG TAB PO SCH (07:55)
[2018-03-17] MEDS: SENNOSIDES-DOCUSATE SODIUM 1 EACH TAB PO SCH (07:55)
[2018-03-17] MEDS: APIXABAN 2.5 MG TABLET PO SCH ×2 (07:55→20:37)
[2018-03-17] MEDS: ASPIRIN 81 MG PO SCH (07:55)
[2018-03-17] MEDS: PANTOPRAZOLE 40 MG TABLET PO SCH (07:55)
[2018-03-17] MEDS: NICOTINE 14MG/24HR PATCH TRANSDERM SCH (07:55)
[2018-03-17] MEDS: guaiFENesin 600 MG TABLET.ER PO SCH ×2 (07:55→20:37)
[2018-03-17] MEDS: FUROSEMIDE 20 MG TAB PO SCH (07:55)
[2018-03-17] MEDS: GABAPENTIN 300 MG CAP PO SCH ×3 (07:55→20:37)
[2018-03-17] MEDS: INSULIN ASPART 100 UNIT/ML 1 ML 10 ML VIAL SQ SCH ×4 (07:56→22:03)
[2018-03-17] MEDS: amLODIPine 5 MG TAB PO SCH (07:56)
[2018-03-17] MEDS: BUDESONIDE 1 MG/2 ML NEBU INHALATION SCH ×2 (08:44→19:27)
[2018-03-17] MEDS: IPRATROPIUM-ALBUTEROL 3 ML NEB INHALATION SCH ×5 (08:44→23:25)
[2018-03-17] MEDS ORDERED: VANCOMYCIN 1,750 MG in SODIUM CHLORIDE 0.9% 500 ML 500 ML IVPB SCH (09:00)
[2018-03-17 10:11] LABS: Calcium 8.2 mg/dL (8.4-10.2); Potassium 4.2 mmol/L (3.5-5.1)
[2018-03-17] MEDS ORDERED: ALBUTEROL NEBULIZED (CONC) 5 MG, SODIUM CHLORIDE 0.9% NEBULIZ 3 ML INHALATION STA ×2 (10:17)
--- NOTE | 2018-03-17 10:18 | P.PN ---
Subjective Progress Note Date: 03/17/18 03/16/2018patient is being seen examined and evaluated today on rounds. She is resting up in bed on 3 L of supplemental oxygen via nasal cannula which is what her home doses. Her chest x-ray is reviewed and is consistent with reactive airway disease. She does continue to complain of a cough and congestion with kan/brown sputum. She is on antibiotics. Sputum culture pending. She does have some shortness breath with exertion and activity as well as multiple wheezing. She is complaining of some constipation and weakness today. All labs and reports have been reviewed. 03/17/2018: Patient seen and examined. Patient is currently working with physical therapy and ambulating in her room. She is using a walker. The patient is extremely weak and short of breath. Her O2 saturation is 92% with 2 L nasal cannula. She states she is not feeling much better than yesterday. She is complaining of continued wheezing. Objective - Vital Signs Vital signs: Vital Signs Temp 97.2 F L 03/17/18 06:00 Pulse 80 03/17/18 09:05 Resp 20 03/17/18 06:00 BP 118/67 03/17/18 06:00 Pulse Ox 97 03/17/18 06:00 Intake & Output 03/16/18 03/17/18 03/17/18 18:59 06:59 18:59 Intake Total 600 300 Balance 600 300 Intake: Oral 600 300 Other: Voiding Method Toilet Toilet # Voids 1 2 # Bowel Movements 1 - Exam GENERAL EXAM: Alert, comfortable in no apparent distress. HEAD: Normocephalic. EYES: Normal reaction of pupils, equal size. NOSE: Clear with pink turbinates. THROAT: No erythema or exudates. NECK: No masses, no JVD. CHEST: No chest wall deformity. LUNGS: Prolonged expiration with expiratory wheezing CVS: S1 and S2 normal with no audible mumurs, regular rhythm. ABDOMEN: No hepatosplenomegaly, normal bowel sounds, no guarding or rigidity. EXTREMITIES: Trace edema noted, pedal pulses palpable. CENTRAL NERVOUS SYSTEM: No focal deficits, tone is normal in all 4 extremities. - Labs CBC & Chem 7: 03/15/18 07:55 03/17/18 09:24 Labs: Abnormal Lab Results - Last 24 Hours (Table) 03/16/18 03/16/18 03/16/18 Range/Units 11:34 16:28 20:32 Sodium (137-145) mmol/L Chloride (98-107) mmol/L Carbon Dioxide (22-30) mmol/L BUN (7-17) mg/dL Creatinine (0.52-1.04) mg/dL Glucose (74-99) mg/dL POC Glucose (mg/dL) 197 H 279 H 290 H (75-99) mg/dL Calcium (8.4-10.2) mg/dL 03/17/18 03/17/18 Range/Units 07:38 09:24 Sodium 135 L (137-145) mmol/L Chloride 92 L (98-107) mmol/L Carbon Dioxide 35 H (22-30) mmol/L BUN 30 H (7-17) mg/dL Creatinine 1.08 H (0.52-1.04) mg/dL Glucose 399 H (74-99) mg/dL POC Glucose (mg/dL) 376 H (75-99) mg/dL Calcium 8.2 L (8.4-10.2) mg/dL Microbiology - Last 24 Hours (Table) 03/11/18 18:51 Blood Culture - Preliminary Blood No Growth after 120 hours Assessment and Plan Assessment: Acute on chronic hypoxic respiratory failure requiring supplemental oxygen Acute exacerbation of chronic persistent severe asthma Acute exacerbation of COPD Tracheobronchitis Possible early pneumonia CHF Constipation Plan Medications have been reviewed and will be continued as ordered. Antibiotics and steroid taper Mucinex Add Senokot for constipation Continue with pulmonary hygiene, coughing and deep breathing exercises, and supportive care. Supplemental oxygen to maintain oxygen saturations of 92% or better. Continue nebulizer treatments. Increase budesonide to 1 mg GI and DVT prophylaxis. Increase activity as tolerated PT and OT We will continue to monitor labs/results and adjust treatment as necessary. Further recommendations pending. Repeat chest x-ray today Continue Solu-Medrol at same dose for now Albuterol 5mg nebs x 1 now BRIDGET Lea
[2018-03-17 11:41] LABS: Glucose,Whole Blood 346 mg/dL (75-99)
[2018-03-17] MEDS: LEVOFLOXACIN 250 MG TAB PO SCH (14:37)
[2018-03-17] MEDS: guaiFENesin-DM 100-10MG/5ML 10 ML CUP PO PRN (14:38)
--- NOTE | 2018-03-17 15:31 | CDI ---
Documentation Clarification Form Date: 03/17/2018 3:21:05 PM From: Serina ReesMaxwellJOSE ANGEL miner, CCDS Admit Date: 03/11/2018 8:34:00 PM Patient Name: Concepcion Steele Visit Number: [id number] Discharge Date: 03/19/2018 ATTENTION: The Clinical Documentation Specialists (CDI) and [facility] Coding Staff appreciate your assistance in clarifying documentation. Please respond to the clarification below the line at the bottom and electronically sign. The CDI & [facility] Coding staff will review the response and follow-up if needed. Please note: Queries are made part of the Legal Health Record. If you have any questions, please contact the author of this message via ITS. Dr. Jet Edmonds: CHF is documented in the attending progress notes as diastolic CHF. History/Risk Factors: COPD, Atrial fibrillation, Atrial flutter, Asthma, CAD, CHF, DM, DVT, GERD, Hyperlipidemia, hypertension, Pneumonia, Seizure Disorder. Clinical Indicators: Presented with SOB, history of COPD. VS: T 99.8^, P 118^, R 26^ (SOB, cough), BP 135/80, PO 95 ra Echocardiogram Results: EF 60-65%, systolic function wnl, Mild TR, borderline pulmonary hypertension. Chest X Ray 03/11: No CHF. Chest X Ray 03/13: Correlate for bronchitis, reactive airways disease. Treatment: IV Zofran, IV fl bolus, Albuterol INH, IV Solumedrol, IV fluid 1000 , IV Rocephin. IV Azithrymycin. In your professional opinion, can you please clarify the acuity and type of CHF if known? Diastolic Heart Failure: o Acute o Chronic o Acute on Chronic Unable to Determine Other, please specify: (Last Revision: May 2017) MTDD
[2018-03-17 16:51] LABS: Glucose,Whole Blood 190 mg/dL (75-99)
[2018-03-17] MEDS: MONTELUKAST 10 MG TAB PO SCH (20:37)
[2018-03-17 21:25] LABS: Glucose,Whole Blood 407 mg/dL (75-99)
--- NOTE | 2018-03-18 00:54 | PN ---
PROGRESS NOTE SUBJECTIVE: A 67-year-old white female with COPD exacerbation, tracheobronchitis. Does not appear to be getting that much better. Her updrafts were increased today. Her steroids were increased. Lungs show scattered wheeze x4. Cardiovascular S1, S2. Lungs scattered wheeze and rhonchi. Abdomen is soft. Hematology negative Homans. ASSESSMENT: 1. Chronic obstructive pulmonary disease exacerbation. 2. Tracheobronchitis. 3. Acute hypoxemic respiratory failure. PLAN: Continue on current treatments. Await pulmonary recommendations. Possible rehab center in a few days. MMODL / IJN: [id number] /
[2018-03-18] MEDS: IPRATROPIUM-ALBUTEROL 3 ML NEB INHALATION SCH ×5 (03:37→19:59)
[2018-03-18] MEDS: BUDESONIDE 1 MG/2 ML NEBU INHALATION SCH ×2 (07:36→19:59)
[2018-03-18 08:00] LABS: Glucose,Whole Blood 312 mg/dL (75-99)
[2018-03-18] MEDS: methylPREDNISolone SOD SUCCI 40 MG/ML 1 ML VIAL IV SCH ×3 (08:12→23:22)
[2018-03-18] MEDS: NICOTINE 14MG/24HR PATCH TRANSDERM SCH (08:12)
[2018-03-18] MEDS: amLODIPine 5 MG TAB PO SCH (08:13)
[2018-03-18] MEDS: GABAPENTIN 300 MG CAP PO SCH ×3 (08:13→20:45)
[2018-03-18] MEDS: ASPIRIN 81 MG PO SCH (08:13)
[2018-03-18] MEDS: FUROSEMIDE 20 MG TAB PO SCH (08:13)
[2018-03-18] MEDS: PANTOPRAZOLE 40 MG TABLET PO SCH (08:13)
[2018-03-18] MEDS: HYDROCHLOROTHIAZIDE 25 MG TAB PO SCH (08:13)
[2018-03-18] MEDS: guaiFENesin 600 MG TABLET.ER PO SCH ×2 (08:13→20:44)
[2018-03-18] MEDS: APIXABAN 2.5 MG TABLET PO SCH ×2 (08:13→20:44)
[2018-03-18] MEDS: SENNOSIDES-DOCUSATE SODIUM 1 EACH TAB PO SCH (08:13)
[2018-03-18] MEDS: INSULIN ASPART 100 UNIT/ML 1 ML 10 ML VIAL SQ SCH ×4 (08:39→21:00)
--- NOTE | 2018-03-18 09:29 | P.PN ---
Subjective Progress Note Date: 03/18/18 Interval history: 03/16/2017patient is being seen examined and evaluated today on rounds. She is resting up in bed on 3 L of supplemental oxygen via nasal cannula which is what her home doses. Her chest x-ray is reviewed and is consistent with reactive airway disease. She does continue to complain of a cough and congestion with kan/brown sputum. She is on antibiotics. Sputum culture pending. She does have some shortness breath with exertion and activity as well as multiple wheezing. She is complaining of some constipation and weakness today. All labs and reports have been reviewed. 03/17/2018: Patient seen and examined. Patient is currently working with physical therapy and ambulating in her room. She is using a walker. The patient is extremely weak and short of breath. Her O2 saturation is 92% with 2 L nasal cannula. She states she is not feeling much better than yesterday. She is complaining of continued wheezing. 03/18/2017patient is being seen examined and evaluated today on rounds. She continues on 2 L of supplemental oxygen via nasal cannula. She has been working with therapy. She continues to feel weak however slowly improving. Her breathing is also slowly and proving. She does have a occasional cough production and occasional wheeze. She is afebrile no further complaints. Objective - Vital Signs Vital signs: Vital Signs Temp 97.4 F L 03/18/18 05:23 Pulse 76 03/18/18 07:56 Resp 20 03/18/18 05:23 BP 108/63 03/18/18 05:23 Pulse Ox 97 03/18/18 05:23 Intake & Output 03/17/18 03/18/18 03/18/18 18:59 06:59 18:59 Intake Total 300 Balance 300 Intake: Oral 300 Other: Voiding Method Toilet Toilet # Voids 1 1 - Exam GENERAL EXAM: Alert, comfortable in no apparent distress. HEAD: Normocephalic. EYES: Normal reaction of pupils, equal size. NOSE: Clear with pink turbinates. THROAT: No erythema or exudates. NECK: No masses, no JVD. CHEST: No chest wall deformity. LUNGS: Overall diminished with Prolonged expiration with expiratory wheezing CVS: S1 and S2 normal with no audible mumurs, regular rhythm. ABDOMEN: No hepatosplenomegaly, normal bowel sounds, no guarding or rigidity. EXTREMITIES: Trace edema noted, pedal pulses palpable. CENTRAL NERVOUS SYSTEM: No focal deficits, tone is normal in all 4 extremities. - Labs CBC & Chem 7: 03/15/18 07:55 03/17/18 09:24 Labs: Abnormal Lab Results - Last 24 Hours (Table) 03/17/18 03/17/18 03/17/18 Range/Units 09:24 11:40 16:50 Sodium 135 L (137-145) mmol/L Chloride 92 L (98-107) mmol/L Carbon Dioxide 35 H (22-30) mmol/L BUN 30 H (7-17) mg/dL Creatinine 1.08 H (0.52-1.04) mg/dL Glucose 399 H (74-99) mg/dL POC Glucose (mg/dL) 346 H 190 H (75-99) mg/dL Calcium 8.2 L (8.4-10.2) mg/dL 03/17/18 03/18/18 Range/Units 21:22 07:54 Sodium (137-145) mmol/L Chloride (98-107) mmol/L Carbon Dioxide (22-30) mmol/L BUN (7-17) mg/dL Creatinine (0.52-1.04) mg/dL Glucose (74-99) mg/dL POC Glucose (mg/dL) 407 H 312 H (75-99) mg/dL Calcium (8.4-10.2) mg/dL Microbiology - Last 24 Hours (Table) 03/11/18 18:51 Blood Culture - Final Blood No Growth after 144 hours Assessment and Plan Assessment: Assessment Acute on chronic hypoxic respiratory failure requiring supplemental oxygen Acute exacerbation of chronic persistent severe asthma Acute exacerbation of COPD Tracheobronchitis Possible early pneumonia CHF Constipation Plan Medications have been reviewed and will be continued as ordered. Antibiotics and steroid taper, switch to oral steroids tomorrow Mucinex Sputum culture pending Add Senokot for constipation Continue with pulmonary hygiene, coughing and deep breathing exercises, and supportive care. Supplemental oxygen to maintain oxygen saturations of 92% or better. Continue nebulizer treatments. Increase budesonide to 1 mg GI and DVT prophylaxis. Increase activity as tolerated PT and OT We will continue to monitor labs/results and adjust treatment as necessary. Further recommendations pending. I, the signing physician performed an examination of the patient, discussed and directed their management with the nurse practitioner. I have reviewed the nurse practitioner's note and agree with the documented findings, orders and plan of care. Nurse practitioner acting as a scribe for the signing physician.
[2018-03-18 09:39] LABS: Basophils % (A) 0 %; Eosinophils # (A) 0.2 k/uL (0-0.7); Eosinophils % (A) 2 %; HCT 39.3 % (34.0-46.0); Lymphocytes # (A) 0.7 k/uL (1.0-4.8); Lymphocytes % (A) 5 %; MCH 30.4 pg (25.0-35.0); MCHC 30.4 g/dL (31.0-37.0); Mean Platelet Volume 7.8; Monocytes # (A) 0.2 k/uL (0-1.0); Monocytes % (A) 2 %; Neutrophils # (A) 11.3 k/uL (1.3-7.7); Neutrophils % (A) 91 %; Platelet Count 165 k/uL (150-450); RBC 3.93 m/uL (3.80-5.40); RDW 12.9 % (11.5-15.5); WBC 12.4 k/uL (3.8-10.6)
[2018-03-18 09:56] LABS: Albumin 3.3 g/dL (3.5-5.0); Calcium 8.5 mg/dL (8.4-10.2); Potassium 4.3 mmol/L (3.5-5.1); Total Bilirubin 0.6 mg/dL (0.2-1.3); Total Protein 5.6 g/dL (6.3-8.2)
--- NOTE | 2018-03-18 10:39 | XR ---
EXAMINATION TYPE: XR chest 1V portable DATE OF EXAM: 03/18/2018 COMPARISON: 03/13/2018 HISTORY: Wheezing. Concern for pneumonia. TECHNIQUE: Single frontal view of the chest is obtained. FINDINGS: There is a new patchy right basilar opacity and right hemidiaphragm elevation with obscura tion of the left hemidiaphragm. Central peribronchial cuffing is less evident on today's exam than th e prior. Cardia mediastinal silhouette is relatively enlarged given the portable nature of the exam. IMPRESSION: New right basilar opacity likely relates to atelectasis as there is also right hemidiaph ragm elevation, secondary volume loss. Obscuration of the left hemidiaphragm is also new and could re late to atelectasis or less likely developing pneumonia.
[2018-03-18 11:39] VITALS: BMI 33.8
[2018-03-18 11:59] LABS: Glucose,Whole Blood 360 mg/dL (75-99)
[2018-03-18] MEDS: LEVOFLOXACIN 250 MG TAB PO SCH (16:11)
[2018-03-18] MEDS: HYDROcodone/APAP 5-325MG 1 EACH TAB PO PRN ×2 (16:39→20:50)
[2018-03-18 17:16] LABS: Glucose,Whole Blood 160 mg/dL (75-99)
[2018-03-18] MEDS: MONTELUKAST 10 MG TAB PO SCH (20:44)
[2018-03-18 20:56] LABS: Glucose,Whole Blood 443 mg/dL (75-99)
[2018-03-18] MEDS: guaiFENesin-DM 100-10MG/5ML 10 ML CUP PO PRN (21:01)
--- NOTE | 2018-03-19 00:07 | PN ---
PROGRESS NOTE SUBJECTIVE: A 67-year-old white female with COPD exacerbation, slightly improved. She wants to go to the rehab center [facility] for further treatment due to extreme leg weakness. Lungs: Scattered wheeze. Cardiovascular S1, S2. Hematology negative Homans. ASSESSMENT: 1. Chronic obstructive pulmonary disease exacerbation. 2. Diastolic congestive heart failure. 3. Asthma. 4. Tracheobronchitis. Continue current treatments. PT/OT. Possible discharge to [facility] tomorrow. MMODL / IJN: [id number] /
[2018-03-19] MEDS: IPRATROPIUM-ALBUTEROL 3 ML NEB INHALATION SCH ×5 (00:36→16:20)
[2018-03-19 07:23] LABS: Glucose,Whole Blood 346 mg/dL (75-99)
[2018-03-19] MEDS: BUDESONIDE 1 MG/2 ML NEBU INHALATION SCH (07:55)
[2018-03-19] MEDS: methylPREDNISolone SOD SUCCI 40 MG/ML 1 ML VIAL IV SCH (08:08)
[2018-03-19] MEDS: amLODIPine 5 MG TAB PO SCH (08:43)
[2018-03-19] MEDS: HYDROCHLOROTHIAZIDE 25 MG TAB PO SCH (08:44)
[2018-03-19] MEDS: ASPIRIN 81 MG PO SCH (08:45)
[2018-03-19] MEDS: PANTOPRAZOLE 40 MG TABLET PO SCH (08:45)
[2018-03-19] MEDS: APIXABAN 2.5 MG TABLET PO SCH (08:46)
[2018-03-19] MEDS: FUROSEMIDE 20 MG TAB PO SCH (08:46)
[2018-03-19] MEDS: GABAPENTIN 300 MG CAP PO SCH ×2 (08:47→16:21)
[2018-03-19] MEDS: guaiFENesin 600 MG TABLET.ER PO SCH (08:47)
[2018-03-19] MEDS: NICOTINE 14MG/24HR PATCH TRANSDERM SCH (08:49)
[2018-03-19] MEDS: SENNOSIDES-DOCUSATE SODIUM 1 EACH TAB PO SCH (08:49)
[2018-03-19] MEDS: INSULIN ASPART 100 UNIT/ML 1 ML 10 ML VIAL SQ SCH ×2 (08:49→13:14)
--- NOTE | 2018-03-19 09:26 | P.PN ---
Subjective Progress Note Date: 03/19/18 Interval history: 03/16/2017patient is being seen examined and evaluated today on rounds. She is resting up in bed on 3 L of supplemental oxygen via nasal cannula which is what her home doses. Her chest x-ray is reviewed and is consistent with reactive airway disease. She does continue to complain of a cough and congestion with kan/brown sputum. She is on antibiotics. Sputum culture pending. She does have some shortness breath with exertion and activity as well as multiple wheezing. She is complaining of some constipation and weakness today. All labs and reports have been reviewed. 03/17/2018: Patient seen and examined. Patient is currently working with physical therapy and ambulating in her room. She is using a walker. The patient is extremely weak and short of breath. Her O2 saturation is 92% with 2 L nasal cannula. She states she is not feeling much better than yesterday. She is complaining of continued wheezing. 03/18/2017patient is being seen examined and evaluated today on rounds. She continues on 2 L of supplemental oxygen via nasal cannula. She has been working with therapy. She continues to feel weak however slowly improving. Her breathing is also slowly and proving. She does have a occasional cough production and occasional wheeze. She is afebrile no further complaints. 03/19/18- patient is being seen examined and evaluated today on rounds. She is resting up in bed on room air today. She feels a little bit stronger today. She does have continued occasional cough. With some expiratory wheeze however overall her lungs are improving. She has been hemodynamically stable. Is looking forward to discharge to rehab. All labs and reports reviewed Objective - Vital Signs Vital signs: Vital Signs Temp 97.7 F 03/19/18 06:24 Pulse 84 03/19/18 08:11 Resp 18 03/19/18 08:00 BP 152/89 03/19/18 06:24 Pulse Ox 94 L 03/19/18 07:56 Intake & Output 03/18/18 03/19/18 03/19/18 18:59 06:59 18:59 Weight 81.193 kg Other: Voiding Method Bedside Commode Bedside Commode # Voids 2 1 1 # Bowel Movements 0 1 - Exam GENERAL EXAM: Alert, comfortable in no apparent distress. HEAD: Normocephalic. EYES: Normal reaction of pupils, equal size. NOSE: Clear with pink turbinates. THROAT: No erythema or exudates. NECK: No masses, no JVD. CHEST: No chest wall deformity. LUNGS: Overall diminished with Prolonged expiration with expiratory wheezing CVS: S1 and S2 normal with no audible mumurs, regular rhythm. ABDOMEN: No hepatosplenomegaly, normal bowel sounds, no guarding or rigidity. EXTREMITIES: no edema noted, pedal pulses palpable. CENTRAL NERVOUS SYSTEM: No focal deficits, tone is normal in all 4 extremities. - Labs CBC & Chem 7: 03/18/18 09:20 03/18/18 09:20 Labs: Abnormal Lab Results - Last 24 Hours (Table) 03/18/18 03/18/18 03/18/18 Range/Units 09:20 09:20 11:52 WBC 12.4 H (3.8-10.6) k/uL MCHC 30.4 L (31.0-37.0) g/dL Neutrophils # 11.3 H (1.3-7.7) k/uL Lymphocytes # 0.7 L (1.0-4.8) k/uL Sodium 136 L (137-145) mmol/L Chloride 93 L (98-107) mmol/L Carbon Dioxide 35 H (22-30) mmol/L BUN 30 H (7-17) mg/dL Glucose 398 H (74-99) mg/dL POC Glucose (mg/dL) 360 H (75-99) mg/dL Total Protein 5.6 L (6.3-8.2) g/dL Albumin 3.3 L (3.5-5.0) g/dL 03/18/18 03/18/18 03/19/18 Range/Units 17:07 20:53 07:21 WBC (3.8-10.6) k/uL MCHC (31.0-37.0) g/dL Neutrophils # (1.3-7.7) k/uL Lymphocytes # (1.0-4.8) k/uL Sodium (137-145) mmol/L Chloride (98-107) mmol/L Carbon Dioxide (22-30) mmol/L BUN (7-17) mg/dL Glucose (74-99) mg/dL POC Glucose (mg/dL) 160 H 443 H 346 H (75-99) mg/dL Total Protein (6.3-8.2) g/dL Albumin (3.5-5.0) g/dL Assessment and Plan Assessment: Assessment Acute on chronic hypoxic respiratory failure requiring supplemental oxygen Acute exacerbation of chronic persistent severe asthma Acute exacerbation of COPD Tracheobronchitis Possible early pneumonia CHF Constipation Plan Patient is cleared from pulmonary standpoint for discharge to rehab Medications have been reviewed and will be continued as ordered. Antibiotics and steroid taper, switch to oral steroids Mucinex Sputum culture negative Senokot for constipation Continue with pulmonary hygiene, coughing and deep breathing exercises, and supportive care. Supplemental oxygen to maintain oxygen saturations of 92% or better. Continue nebulizer treatments. Increase budesonide to 1 mg GI and DVT prophylaxis. Increase activity as tolerated PT and OT We will continue to monitor labs/results and adjust treatment as necessary. Further recommendations pending. I, the signing physician performed an examination of the patient, discussed and directed their management with the nurse practitioner. I have reviewed the nurse practitioner's note and agree with the documented findings, orders and plan of care. Nurse practitioner acting as a scribe for the signing physician.
[2018-03-19] MEDS: HYDROcodone/APAP 5-325MG 1 EACH TAB PO PRN (10:54)
[2018-03-19] MEDS: guaiFENesin-DM 100-10MG/5ML 10 ML CUP PO PRN (10:57)
[2018-03-19 11:53] LABS: Glucose,Whole Blood 278 mg/dL (75-99)
[2018-03-19] MEDS ORDERED: predniSONE 20 MG TAB PO SCH (12:00)
--- NOTE | 2018-03-19 12:29 | US ---
EXAMINATION TYPE: US abdomen complete DATE OF EXAM: 03/19/2018 COMPARISON: NONE CLINICAL HISTORY: abdominal pain. left abd pain EXAM MEASUREMENTS: Liver Length: 14.9 cm Gallbladder Wall: NOT SEEN CBD: 0.4 cm Spleen: 10.1 cm Right Kidney: 7.7 x 4.1 x 3.9 cm Left Kidney: 8.5 x 4.0 x 5.5 cm *Very limited imaging due to bowel gas Pancreas: limited views appear wnl Liver: limited views with simple appearing cystic areas noted within right lobe Gallbladder: pt states she has GB but could not seen organ with certainty, bowel gas limits views Evidence for sonographic Ballard's sign: no CBD: wnl Spleen: wnl Right Kidney: wnl Left Kidney: wnl Upper IVC: wnl Abd Aorta: limited views appear wnl IMPRESSION: 1. Simple appearing hepatic cysts. 2. Gallbladder is not clearly identified. Correlate with surgical history. Patient reports no prior c holecystectomy.
--- NOTE | 2018-03-19 14:54 | DS ---
DISCHARGE SUMMARY DISCHARGE DIAGNOSES: 1. Acute exacerbation of chronic obstructive pulmonary disease. 2. Community-acquired pneumonia. 3. Congestive heart failure, diastolic. 4. Hypertension. 5. Lumbar disc disease. 6. History of atrial fibrillation. 7. Nicotine addiction. HOME MEDICATIONS: 1. Lasix 20 mg daily. 2. Mucinex 1200 mg q.12. 3. [place] 5/325 q.8 hours p.r.n. 4. NovoLog before meals and at bedtime. 5. Accu-Cheks. 6. Levaquin 250 mg daily for 5 days. 7. Nicotine patch 14 mg patch every 24 hours. 8. Protonix 40 mg daily. 9. Prednisone taper 60 mg for 4 days, 40 mg for 4 days, 20 mg for 4 days, 10 mg for 4 days. 10.Aspirin 81 mg daily. 11.Norvasc 5 mg daily. 12.Singulair 10 mg daily. 13.Pulmicort nebulizer 0.5 mg b.i.d. 14.DuoNeb nebulizer q.i.d. 15.Neurontin 300 mg t.i.d. 16.Eliquis 2.5 b.i.d. 17.Tylenol 500 q.6 hours p.r.n. HOSPITAL COURSE: This is a white female 67 years old, admitted with COPD exacerbation and community- acquired pneumonia, diastolic heart failure, who was admitted with community-acquired pneumonia and severe breathing, which took multiple days to get better. She had wheeze and high-dose steroids for multiple days on IV antibiotics. She has slowly cleared up and due to poor ambulation, her legs given out. She has a bad lumbar disc disease. She was sent to Physical Therapy and will need a rehab placement. She was switched over from IV antibiotics to Levaquin 250 mg daily for another 7 days and low-dose Lasix is given for diuresis, Eliquis for atrial fibrillation, DuoNeb updrafts for breathing. Follow up in the next 24 to 48 hours. I will see her in the [facility]. MMODL / IJN: [id number] /
[2018-03-19 14:56] VITALS: BP 137/71; PULSE 82; RESP 16; TEMP 97.7
[2018-03-19] MEDS: LEVOFLOXACIN 250 MG TAB PO SCH (16:21)
--- NOTE | 2018-03-28 18:31 | DS ---
DISCHARGE SUMMARY ADDENDUM: Acute on chronic CHF. MMODL / IJN: [id number] /
--- NOTE | 2018-03-28 21:01 | DS ---
DISCHARGE SUMMARY ADDENDUM: Please add : DISCHARGE DIAGNOSIS: 1. Acute diastolic heart failure. MMODL / IJN: [id number] /
== END 2018-03-19 16:50 | DRG 193 ==
LOC: EC 17:48 → 4MS4W 20:34
PROVIDERS: ADMIT Family Medicine; ATTEND Family Medicine
DX: J18.9 Pneumonia, unspecified organism (principal); J96.21 Acute and chronic respiratory failure with hypoxia; I50.33 Acute on chronic diastolic (congestive) heart failure; J44.0 Chronic obstructive pulmonary disease with (acute) lower respiratory infection; J44.1 Chronic obstructive pulmonary disease with (acute) exacerbation; J45.51 Severe persistent asthma with (acute) exacerbation; E03.9 Hypothyroidism, unspecified; E04.1 Nontoxic single thyroid nodule; E11.9 Type 2 diabetes mellitus without complications; E78.5 Hyperlipidemia, unspecified; F17.200 Nicotine dependence, unspecified, uncomplicated; F41.9 Anxiety disorder, unspecified; G40.909 Epilepsy, unspecified, not intractable, without status epilepticus; G56.00 Carpal tunnel syndrome, unspecified upper limb; I48.2 Chronic atrial fibrillation; I11.0 Hypertensive heart disease with heart failure; I25.10 Atherosclerotic heart disease of native coronary artery without angina pectoris; K21.9 Gastro-esophageal reflux disease without esophagitis; K59.00 Constipation, unspecified; M50.90 Cervical disc disorder, unspecified, unspecified cervical region; M51.9 Unspecified thoracic, thoracolumbar and lumbosacral intervertebral disc disorder; Z79.01 Long term (current) use of anticoagulants; Z79.82 Long term (current) use of aspirin; Z79.899 Other long term (current) drug therapy; Z82.49 Family history of ischemic heart disease and other diseases of the circulatory system; Z86.718 Personal history of other venous thrombosis and embolism; Z87.01 Personal history of pneumonia (recurrent); Z98.42 Cataract extraction status, left eye; Z98.41 Cataract extraction status, right eye; Z96.1 Presence of intraocular lens
CPT/HCPCS: 36415; 71045; 71046; 76700; 80048; 80053; 80202; 81001; 83036; 83605; 83735; 84100; 84484; 85025; 85610; 85730; 87040; 87070; 87086; 87205; 87502; 93306; 94640; 94667; 94760; 96374; 99291

== ENCOUNTER 2018-03-22 08:46 | Observation (INO) | payer BC, MEDICARE ==
[2018-03-22] MEDS ORDERED: SODIUM CHLORIDE 0.9% 1,000 ML IV STA (09:05)
--- NOTE | 2018-03-22 09:24 | ED ---
General Adult HPI - General Chief complaint: Abdominal Pain Stated complaint: abd pain Time Seen by Provider: 03/22/18 08:53 Source: patient, EMS, RN notes reviewed, old records reviewed Mode of arrival: EMS Limitations: no limitations - History of Present Illness Initial comments: Patient's a 67-year-old female presented to the emergency room today by EMS, the chief complaint of increased nausea vomiting. She does admit that she's had some increased upper abdominal pain along with some lower chest pain. She does admit that she's currently at rehab Center because of a recent pneumonia. States he believes that she's done with her antibiotic was feeling better with the cough congestion but began having symptoms of nausea vomiting last night. Patient states feeling better after medications given by EMS. Still having some discomfort upper abdomen. Denies any other complaints or symptoms at this time. Patient denies any recent fever, chills, shortness of breath, numbness or tingling, dysuria or hematuria, constipation or diarrhea, headaches or visual changes, or any other complaints. - Related Data Home Medications Medication Instructions Recorded Confirmed Aspirin 81 mg PO DAILY 01/01/17 03/22/18 amLODIPine [Norvasc] 5 mg PO DAILY 07/10/17 03/22/18 Apixaban [Eliquis] 2.5 mg PO BID@0800,1600 11/12/17 03/22/18 Gabapentin [Neurontin] 300 mg PO TID@0800,1200,1800 11/12/17 03/22/18 Budesonide [Pulmicort] 0.5 mg INHALATION RT-BID@0800,1600 03/22/18 03/22/18 HYDROcodone/APAP 5-325MG [[place] 1 tab PO Q8H PRN 03/22/18 03/22/18 5-325] Insulin Aspart [NovoLOG 7 unit SQ ACHS 03/22/18 03/22/18 (formulary)] Previous Rx's Medication Instructions Recorded Montelukast [Singulair] 10 mg PO HS tab 07/12/17 Ipratropium-Albuterol Nebulize 3 ml INHALATION RT-QID ampul.neb 07/21/17 [Duoneb 0.5 mg-3 mg/3 ml Soln] Furosemide [Lasix] 20 mg PO DAILY tab 03/19/18 Levofloxacin [Levaquin] 250 mg PO DAILY@1600 tab 03/19/18 Nicotine 14Mg/24Hr Patch [Habitrol] 1 patch TRANSDERM DAILY patch 03/19/18 Pantoprazole [Protonix] 40 mg PO DAILY tablet. 03/19/18 guaiFENesin [Mucinex] 1,200 mg PO Q12HR tablet.er 03/19/18 predniSONE 60 mg PO DAILY tab 03/19/18 Allergies Allergy/AdvReac Type Severity Reaction Status Date / Time latex Allergy Rash/Hives Verified 03/22/18 09:09 Penicillins Allergy Rash/Hives Verified 03/22/18 09:09 Sulfa (Sulfonamide Allergy Rash/Hives Verified 03/22/18 09:09 Antibiotics) Review of Systems ROS Statement: Those systems with pertinent positive or pertinent negative responses have been documented in the HPI. ROS Other: All systems not noted in ROS Statement are negative. Past Medical History Past Medical History: Atrial Fibrillation, Atrial Flutter, Asthma, Coronary Artery Disease (CAD), Heart Failure, COPD, Diabetes Mellitus, Deep Vein Thrombosis (DVT), GERD/Reflux, Hyperlipidemia, Hypertension, Pneumonia, Seizure Disorder, Thyroid Disorder Additional Past Medical History / Comment(s): bronchitis, last seizure was 15 years ago, bilateral CARPAL TUNNEL syndrome, Hx.chronic thrombocytopenia, thyroid nodules, chronic headaches, cervical disc disease, saw Dr. Anthony Edmonds 12-23-16 and states she may need surgery on her L leg due to a clot.cyst on back History of Any Multi-Drug Resistant Organisms: None Reported Past Surgical History: Breast Surgery, Heart Catheterization Additional Past Surgical History / Comment(s): L breast biopsy-twice and benign , L parotid gland bx-benign, colonoscopy-normal, bilateral cataract removals with lens implants. L Thyroid bx., loop recorder, "bx on back-neg" Past Anesthesia/Blood Transfusion Reactions: No Reported Reaction Type of Cardiac Device: Loop Device Placement Date:: 2011 Past Psychological History: No Psychological Hx Reported Smoking Status: Former smoker Past Alcohol Use History: Occasional Past Drug Use History: None Reported - Past Family History Mother Additional Family Medical History / Comment(s): Mother of sepsis at the age of 63 yrs. Father Family Medical History: Myocardial Infarction (HI) Additional Family Medical History / Comment(s): Father during a carotid endartectomy. Sister(s) Family Medical History: Deep Vein Thrombosis (DVT) General Exam - General Exam Comments Initial Comments: General: The patient is awake and alert, in no distress, and does not appear acutely ill. Eye: There is normal conjunctiva bilaterally. No signs of icterus. Ears, nose, mouth and throat: There are moist mucous membranes and no oral lesions. Neck: The neck is supple, there is no tenderness or JVD. Cardiovascular: There is a regular rate and rhythm. No murmur, rub or gallop is appreciated. Respiratory: Lungs are clear to auscultation, respirations are non-labored, breath sounds are equal. No wheezes, stridor, rales, or rhonchi. Gastrointestinal: Abdomen soft on palpation. Patient does have tenderness epigastric and upper quadrants. No rebound, guarding. Musculoskeletal: Normal ROM, no tenderness. Strength 5/5. Sensation intact. Pulses equal bilaterally 2+. Neurological: A&O x 3. CN II-XII intact, There are no obvious motor or sensory deficits. Coordination appears grossly intact. Speech is normal. Skin: Skin is warm and dry and no rashes or lesions are noted. Psychiatric: Cooperative, appropriate mood & affect, normal judgment. Limitations: no limitations Course Vital Signs 03/22/18 03/22/18 03/22/18 08:49 09:21 10:30 Temperature 98.9 F Pulse Rate 80 85 82 Respiratory 18 17 18 Rate Blood Pressure 149/73 133/76 165/86 O2 Sat by Pulse 95 98 100 Oximetry 03/22/18 03/22/18 11:00 11:30 Temperature Pulse Rate 82 85 Respiratory 18 18 Rate Blood Pressure 170/89 158/80 O2 Sat by Pulse 95 98 Oximetry Medical Decision Making - Medical Decision Making Patient's labs reviewed does show 15,000 white count. Patient was recently admitted for pneumonia. Patient's chest x-ray shows no acute abnormality today. Patient's did have symptoms of nausea vomiting starting middle of night. Patient's admitting to abdominal pain upper abdomen. Patient's symptoms improved after nausea medication here in emergency room. CT the abdomen and pelvis was obtained which shows possible masses in the adrenal gland , uterus,colon. Case discussed and seen by attending physician Dr. Castellano who did discuss the case with Dr. Edmonds will admit the patient with consult to surgery. - Lab Data Result diagrams: 03/22/18 09:05 03/22/18 09:05 Lab Results 03/22/18 03/22/18 03/22/18 Range/Units 09:05 09:05 09:05 WBC 15.7 H (3.8-10.6) k/uL RBC 4.26 (3.80-5.40) m/uL Hgb 13.4 (11.4-16.0) gm/dL Hct 41.1 (34.0-46.0) % MCV 96.5 (80.0-100.0) fL MCH 31.4 (25.0-35.0) pg MCHC 32.5 (31.0-37.0) g/dL RDW 13.1 (11.5-15.5) % Plt Count 123 L (150-450) k/uL Neutrophils % 87 % Lymphocytes % 7 % Monocytes % 5 % Eosinophils % 1 % Basophils % 0 % Neutrophils # 13.7 H (1.3-7.7) k/uL Lymphocytes # 1.0 (1.0-4.8) k/uL Monocytes # 0.7 (0-1.0) k/uL Eosinophils # 0.1 (0-0.7) k/uL Basophils # 0.1 (0-0.2) k/uL PT (9.0-12.0) sec INR (<1.2) APTT (22.0-30.0) sec Sodium 135 L (137-145) mmol/L Potassium 4.7 (3.5-5.1) mmol/L Chloride 101 (98-107) mmol/L Carbon Dioxide 31 H (22-30) mmol/L Anion Gap 3 mmol/L BUN 26 H (7-17) mg/dL Creatinine 0.84 (0.52-1.04) mg/dL Est GFR (CKD-EPI)AfAm 83 (>60 ml/min/1.73 sqM) Est GFR (CKD-EPI)NonAf 72 (>60 ml/min/1.73 sqM) Glucose 160 H (74-99) mg/dL Calcium 8.0 L (8.4-10.2) mg/dL Total Bilirubin 1.1 (0.2-1.3) mg/dL AST 20 (14-36) U/L ALT 30 (9-52) U/L Alkaline Phosphatase 51 (38-126) U/L Total Creatine Kinase 66 (30-135) U/L CK-MB (CK-2) 0.6 (0.0-2.4) ng/mL CK-MB (CK-2) Rel Index 0.9 Troponin I <0.012 (0.000-0.034) ng/mL Total Protein 5.7 L (6.3-8.2) g/dL Albumin 3.3 L (3.5-5.0) g/dL Amylase 53 (30-110) U/L Lipase 50 (23-300) U/L Urine Color Urine Appearance (Clear) Urine pH (5.0-8.0) Ur Specific [place] (1.001-1.035) Urine Protein (Negative) Urine Glucose (UA) (Negative) Urine Ketones (Negative) Urine Blood (Negative) Urine Nitrite (Negative) Urine Bilirubin (Negative) Urine Urobilinogen (<2.0) mg/dL Ur Leukocyte Esterase (Negative) 03/22/18 03/22/18 Range/Units 09:05 10:36 WBC (3.8-10.6) k/uL RBC (3.80-5.40) m/uL Hgb (11.4-16.0) gm/dL Hct (34.0-46.0) % MCV (80.0-100.0) fL MCH (25.0-35.0) pg MCHC (31.0-37.0) g/dL RDW (11.5-15.5) % Plt Count (150-450) k/uL Neutrophils % % Lymphocytes % % Monocytes % % Eosinophils % % Basophils % % Neutrophils # (1.3-7.7) k/uL Lymphocytes # (1.0-4.8) k/uL Monocytes # (0-1.0) k/uL Eosinophils # (0-0.7) k/uL Basophils # (0-0.2) k/uL PT 10.1 (9.0-12.0) sec INR 0.9 (<1.2) APTT 19.7 L (22.0-30.0) sec Sodium (137-145) mmol/L Potassium (3.5-5.1) mmol/L Chloride (98-107) mmol/L Carbon Dioxide (22-30) mmol/L Anion Gap mmol/L BUN (7-17) mg/dL Creatinine (0.52-1.04) mg/dL Est GFR (CKD-EPI)AfAm (>60 ml/min/1.73 sqM) Est GFR (CKD-EPI)NonAf (>60 ml/min/1.73 sqM) Glucose (74-99) mg/dL Calcium (8.4-10.2) mg/dL Total Bilirubin (0.2-1.3) mg/dL AST (14-36) U/L ALT (9-52) U/L Alkaline Phosphatase (38-126) U/L Total Creatine Kinase (30-135) U/L CK-MB (CK-2) (0.0-2.4) ng/mL CK-MB (CK-2) Rel Index Troponin I (0.000-0.034) ng/mL Total Protein (6.3-8.2) g/dL Albumin (3.5-5.0) g/dL Amylase (30-110) U/L Lipase (23-300) U/L Urine Color Yellow Urine Appearance Clear (Clear) Urine pH 8.5 H (5.0-8.0) Ur Specific [place] 1.017 (1.001-1.035) Urine Protein Trace H (Negative) Urine Glucose (UA) Negative (Negative) Urine Ketones Negative (Negative) Urine Blood Negative (Negative) Urine Nitrite Negative (Negative) Urine Bilirubin Negative (Negative) Urine Urobilinogen 2.0 (<2.0) mg/dL Ur Leukocyte Esterase Negative (Negative) Disposition Clinical Impression: Nausea & vomiting, Abdominal pain, Abdominal mass Disposition: ADMITTED IP TO THIS HOSP Condition: Stable Is patient prescribed a controlled substance at d/c from ED?: No Referrals: Jet Edmonds MD [Primary Care Provider] - 1-2 days Time of Disposition: 12:51
[2018-03-22 09:38] LABS: Albumin 3.3 g/dL (3.5-5.0); Potassium 4.7 mmol/L (3.5-5.1); Total Bilirubin 1.1 mg/dL (0.2-1.3); Total Protein 5.7 g/dL (6.3-8.2)
[2018-03-22 09:41] LABS: Basophils # (A) 0.1 k/uL (0-0.2); Basophils % (A) 0 %; Eosinophils # (A) 0.1 k/uL (0-0.7); Eosinophils % (A) 1 %; HCT 41.1 % (34.0-46.0); HGB 13.4 gm/dL (11.4-16.0); Lymphocytes % (A) 7 %; MCH 31.4 pg (25.0-35.0); MCHC 32.5 g/dL (31.0-37.0); MCV 96.5 fL (80.0-100.0); Mean Platelet Volume 7.9; Monocytes # (A) 0.7 k/uL (0-1.0); Monocytes % (A) 5 %; Neutrophils # (A) 13.7 k/uL (1.3-7.7); Neutrophils % (A) 87 %; Platelet Count 123 k/uL (150-450); RBC 4.26 m/uL (3.80-5.40); RDW 13.1 % (11.5-15.5); WBC 15.7 k/uL (3.8-10.6)
--- NOTE | 2018-03-22 09:44 | XR ---
EXAMINATION TYPE: XR chest 2V DATE OF EXAM: 03/22/2018 COMPARISON: 03/18/2018 HISTORY: 67 year-old female abdominal pain and weakness TECHNIQUE: AP and lateral views FINDINGS: Heart upper limits of normal in size. Some strandy atelectasis at the lung bases. Mild interstitial p rominence appears largely chronic. No consolidation or pleural effusion are seen. IMPRESSION: Chronic changes without acute cardiopulmonary process.
[2018-03-22 09:45] LABS: INR 0.9 (<1.2); Prothrombin Time 10.1 sec (9.0-12.0)
--- NOTE | 2018-03-22 09:45 | XR ---
EXAMINATION TYPE: XR KUB DATE OF EXAM: 03/22/2018 CLINICAL DATA: 67-year-old female with abdominal pain and weakness, [facility] COMPARISON: 06/13/2009 FINDINGS: Supine imaging limited for assessment of free intraperitoneal air. Moderate stool in the right-sided the abdomen. Imaging limited for assessment of free air. No abnormally dilated small bowel loops are seen. Surgical clips in the left side of the pelvis. IMPRESSION: Moderate stool in the right side of the abdomen. No evidence of bowel obstruction.
[2018-03-22 09:52] LABS: Partial Thromboplastin Time 19.7 sec (22.0-30.0)
[2018-03-22 09:53] LABS: Creatine Kinase 66 U/L (30-135)
[2018-03-22 10:06] LABS: Creatine Kinase MB 0.6 ng/mL (0.0-2.4); Troponin I <0.012 ng/mL (0.000-0.034)
[2018-03-22] MEDS ORDERED: ONDANSETRON 4 MG/2 ML VIAL IVP STA (10:40)
[2018-03-22] MEDS ORDERED: MORPHINE SULFATE 4 MG/ML SYRINGE IVP STA (10:40)
[2018-03-22 11:13] LABS: Appearance,Urine Clear (Clear); Bilirubin,Urine Negative (Negative); Blood,Urine Negative (Negative); Color,Urine Yellow; Glucose,Urine (UA) Negative (Negative); Ketones,Urine Negative (Negative); Leukocyte Esterase,Urine Negative (Negative); Nitrite,Urine Negative (Negative); PH, Urine 8.5 (5.0-8.0); Protein,Urine Trace (Negative); Specific Gravity,Urine 1.017 (1.001-1.035)
--- NOTE | 2018-03-22 12:13 | CT ---
EXAMINATION TYPE: CT abdomen pelvis w con DATE OF EXAM: 03/22/2018 HISTORY: bilateral upper abdominal pain. CT DLP: 961.7mGycm Automated Exposure Control for Dose Reduction was Utilized. CONTRAST: CT scan of the abdomen and pelvis is performed without oral but with IV Contrast, patient injected wi th 100 mL of Isovue 300. COMPARISON: CT abdomen pelvis June 13, 2009 FINDINGS: LUNG BASES: Dependent atelectasis both bases is present. LIVER/GB: Dependent small rim calcified gallstones are now present. There are scattered rounded low d ense lesions throughout the liver that are felt to reflect simple thin-walled cysts. PANCREAS: No significant abnormality is seen. SPLEEN: No significant abnormality is seen. ADRENALS: Nonspecific right adrenal mass measures 2.5 x 2.1 cm current study image 20 enlarged in siz e from prior study. Advise adrenal protocol CT or MRI to further evaluate. KIDNEYS: No significant abnormality is seen. BOWEL: No suspicious small or large bowel dilatation. Evaluation bowel is suboptimal secondary to la ck of enteric contrast. Some scattered diverticula throughout the colon are present without CT eviden ce for acute diverticulitis. Nonspecific mild to moderate wall thickening near level of hepatic flexu re coronal image 50 should be correlated with colonoscopy if has not been performed in last 3-5 years as concentric mass or neoplasm is not excluded. UTERUS/ADNEXA: Anteverted uterus is seen. Tubal ligation clips in the left pelvis axial image 73 is n oted. Central hypodense endometrium is prominent for postmenopausal female and warrants follow-up LYMPH NODES: No greater than 1cm abdominal or pelvic lymph nodes are appreciated. OSSEOUS STRUCTURES: No significant abnormality is seen. OTHER: Mild to moderate calcified plaque of aorta extends into branch vessels. IMPRESSION: No bowel obstruction. No suspicious acute finding identified. Advise nonemergent follow-u p for right adrenal lesion, uterus, and possible colon lesion near hepatic flexure.
[2018-03-22] MEDS ORDERED: MORPHINE SULFATE 4 MG/ML SYRINGE IV PRN (12:51)
[2018-03-22] MEDS ORDERED: SODIUM CHLORIDE 0.9% 1,000 ML IV ONE ×2 (12:51→14:25)
[2018-03-22] MEDS ORDERED: ACETAMINOPHEN TAB 325 MG TAB PO PRN (12:51)
[2018-03-22] MEDS ORDERED: NALOXONE 0.4 MG/ML 1 ML VIAL IV PRN (12:51)
[2018-03-22] MEDS ORDERED: ONDANSETRON 4 MG/2 ML VIAL IVP PRN (12:51)
[2018-03-22] MEDS: IOPAMIDOL-300 CONTRAST 30 ML VIAL (ORAL USE) PO PRN ×2 (14:28→15:35)
[2018-03-22] MEDS: MORPHINE SULFATE 4 MG/ML SYRINGE IV PRN ×3 (14:32→22:21)
--- NOTE | 2018-03-22 14:45 | P.GSCN ---
History of Present Illness Consult date: 03/22/18 Reason for Consult: abdominal pain Requesting physician: Mike Santamaria History of present illness: CHIEF COMPLAINT: Abdominal pain HISTORY OF PRESENT ILLNESS: 67-year-old -[place] female who presented to the emergency room with a chief complaint of abdominal pain. Patient reports she is currently at subacute rehab and was discharged from the hospital a few days ago secondary to pneumonia. Patient reports generalized abdominal pain. Reports nausea and vomiting. Denies fever or chills. WBC 15.7. She is afebrile. PAST MEDICAL HISTORY: See list. PAST SURGICAL HISTORY: See list. MEDICATIONS: See list. ALLERGIES: See list. SOCIAL HISTORY: No illicit drug use. REVIEW OF SYSTEMS: CONSTITUTIONAL: Denies fever or chills. HEENT: Denies blurred vision, vision changes, or eye pain. Denies hemoptysis ENDOCRINE: Denies heat or cold intolerance. CARDIOVASCULAR: Denies chest pain or pressure. RESPIRATORY: No shortness of breath. GASTROINTESTINAL: Reports generalized abdominal pain. Reports nausea and vomiting. NEURO: Denies history of seizures. PSYCH: No depression or suicidal ideation HEMATOLOGIC: Denies bleeding disorders. LYMPHATIC: The patient denies any lumps and bumps around the neck. GENITOURINARY: Denies any blood in urine or increased urinary frequency. MUSCULOSKELETAL: Denies myalgias. Denies joint swelling. Denies decreased range of motion beyond patients baseline. SKIN: Denies pruitis. Denies rash. PHYSICAL EXAM: VITAL SIGNS: Currently stable. GENERAL: Well-developed in no acute distress. HEENT: No sclera icterus. Extraocular movements grossly intact. Moist buccal mucosa. Head is atraumatic, normocephalic. Hears conversational speech. No nasal drainage.. CHEST: Non-labored respirations and equal bilateral excursions. CARDIOVASCULAR: No JVD. Palpable 2+ radial pulses. ABDOMEN: Soft. Nondistended. Tenderness upon palpation of all 4 quadrants. MUSCULOSKELETAL: No clubbing, cyanosis or edema. NEUROLOGIC: No focal or lateralizing signs. Cranial nerves II through XII grossly intact. PSYCH: Appropriate affect. Alert and oriented to person, place and time. SKIN: Well perfused. Good skin turgor. IMAGING: CT abdomen and pelvis with IV contrast: No suspicious small or large bowel dilation. Some scattered diverticula throughout the colon are present without evidence for acute diverticulitis. Nonspecific mild to moderate wall thickening near the level of hepatic flexure. Mass or neoplasm is not excluded. No bowel obstruction. No suspicious acute findings identified. Advise nonemergent follow-up for right adrenal lesion, uterus, and possible colon lesion near the hepatic flexure. ASSESSMENT: 1. Abdominal pain with nausea and vomiting x 1 day 2. Nonspecific mild to moderate wall thickening near the level of hepatic flexure, per CT scan, neoplasm not excluded 3. Right adrenal lesion 4. Leukocytosis PLAN: 1. Repeat CT scan with oral contrast 2. 1 L NS bolus 3. Morphine PRN for pain 4. NPO except for medications and ice chips 5. Patient will be tentatively scheduled for colonoscopy on Thursday, 2018 6. Golytely prep to begin Thursday afternoon. NPO after midnight on Thursday night 7. Hold Eliquis and aspirin for colonoscopy Nurse practitioner note has been reviewed by physician. Signing provider agrees with the documented findings, assessment, and plan of care. Past Medical History Past Medical History: Atrial Fibrillation, Atrial Flutter, Asthma, Coronary Artery Disease (CAD), Heart Failure, COPD, Diabetes Mellitus, Deep Vein Thrombosis (DVT), GERD/Reflux, Hyperlipidemia, Hypertension, Pneumonia, Seizure Disorder, Thyroid Disorder Additional Past Medical History / Comment(s): bronchitis, last seizure was 15 years ago, bilateral CARPAL TUNNEL syndrome, Hx.chronic thrombocytopenia, thyroid nodules, chronic headaches, cervical disc disease, saw Dr. Anthony Edmonds 12-23-16 and states she may need surgery on her L leg due to a clot.cyst on back History of Any Multi-Drug Resistant Organisms: None Reported Past Surgical History: Breast Surgery, Heart Catheterization Additional Past Surgical History / Comment(s): L breast biopsy-twice and benign , L parotid gland bx-benign, colonoscopy-normal, bilateral cataract removals with lens implants. L Thyroid bx., loop recorder, "bx on back-neg" Past Anesthesia/Blood Transfusion Reactions: No Reported Reaction Type of Cardiac Device: Loop Device Placement Date:: 2011 Past Psychological History: No Psychological Hx Reported Smoking Status: Former smoker Past Alcohol Use History: Occasional Past Drug Use History: None Reported - Past Family History Mother Additional Family Medical History / Comment(s): Mother of sepsis at the age of 63 yrs. Father Family Medical History: Myocardial Infarction ([place]) Additional Family Medical History / Comment(s): Father during a carotid endartectomy. Sister(s) Family Medical History: Deep Vein Thrombosis (DVT) Medications and Allergies Home Medications Medication Instructions Recorded Confirmed Type Aspirin 81 mg PO DAILY 01/01/17 03/22/18 History amLODIPine [Norvasc] 5 mg PO DAILY 07/10/17 03/22/18 History Montelukast [Singulair] 10 mg PO HS tab 07/12/17 03/22/18 Rx Ipratropium-Albuterol Nebulize 3 ml INHALATION RT-QID ampul.neb 07/21/17 Rx [Duoneb 0.5 mg-3 mg/3 ml Soln] Apixaban [Eliquis] 2.5 mg PO BID@0800,1600 11/12/17 03/22/18 History Gabapentin [Neurontin] 300 mg PO TID@0800,1200,1800 11/12/17 03/22/18 History Furosemide [Lasix] 20 mg PO DAILY tab 03/19/18 03/22/18 Rx Levofloxacin [Levaquin] 250 mg PO DAILY@1600 tab 03/19/18 03/22/18 Rx Nicotine 14Mg/24Hr Patch [Habitrol] 1 patch TRANSDERM DAILY patch 03/19/18 Rx Pantoprazole [Protonix] 40 mg PO DAILY tablet.dr 03/19/18 03/22/18 Rx guaiFENesin [Mucinex] 1,200 mg PO Q12HR tablet.er 03/19/18 03/22/18 Rx predniSONE 60 mg PO DAILY tab 03/19/18 03/22/18 Rx Budesonide [Pulmicort] 0.5 mg INHALATION RT-BID@0800,1600 03/22/18 03/22/18 History HYDROcodone/APAP 5-325MG [[place] 1 tab PO Q8H PRN 03/22/18 03/22/18 History 5-325] Insulin Aspart [NovoLOG 7 unit SQ ACHS 03/22/18 03/22/18 History (formulary)] Allergies Allergy/AdvReac Type Severity Reaction Status Date / Time latex Allergy Rash/Hives Verified 03/22/18 09:09 Penicillins Allergy Rash/Hives Verified 03/22/18 09:09 Sulfa (Sulfonamide Allergy Rash/Hives Verified 03/22/18 09:09 Antibiotics) Surgical - Exam Vital Signs Temp Pulse Resp BP Pulse Ox 98.9 F 80 18 149/73 95 03/22/18 08:49 03/22/18 08:49 03/22/18 08:49 03/22/18 08:49 03/22/18 08:49 Results - Labs 03/22/18 09:05 03/22/18 09:05 Abnormal Lab Results - Last 24 Hours (Table) 03/22/18 03/22/18 03/22/18 Range/Units 09:05 09:05 09:05 WBC 15.7 H (3.8-10.6) k/uL Plt Count 123 L (150-450) k/uL Neutrophils # 13.7 H (1.3-7.7) k/uL APTT 19.7 L (22.0-30.0) sec Sodium 135 L (137-145) mmol/L Carbon Dioxide 31 H (22-30) mmol/L BUN 26 H (7-17) mg/dL Glucose 160 H (74-99) mg/dL Calcium 8.0 L (8.4-10.2) mg/dL Total Protein 5.7 L (6.3-8.2) g/dL Albumin 3.3 L (3.5-5.0) g/dL Urine pH (5.0-8.0) Urine Protein (Negative) 03/22/18 Range/Units 10:36 WBC (3.8-10.6) k/uL Plt Count (150-450) k/uL Neutrophils # (1.3-7.7) k/uL APTT (22.0-30.0) sec Sodium (137-145) mmol/L Carbon Dioxide (22-30) mmol/L BUN (7-17) mg/dL Glucose (74-99) mg/dL Calcium (8.4-10.2) mg/dL Total Protein (6.3-8.2) g/dL Albumin (3.5-5.0) g/dL Urine pH 8.5 H (5.0-8.0) Urine Protein Trace H (Negative) Diabetes panel 03/22/18 Range/Units 09:05 Sodium 135 L (137-145) mmol/L Potassium 4.7 (3.5-5.1) mmol/L Chloride 101 (98-107) mmol/L Carbon Dioxide 31 H (22-30) mmol/L BUN 26 H (7-17) mg/dL Creatinine 0.84 (0.52-1.04) mg/dL Glucose 160 H (74-99) mg/dL Calcium 8.0 L (8.4-10.2) mg/dL AST 20 (14-36) U/L ALT 30 (9-52) U/L Alkaline Phosphatase 51 (38-126) U/L Total Protein 5.7 L (6.3-8.2) g/dL Albumin 3.3 L (3.5-5.0) g/dL Calcium panel 03/22/18 Range/Units 09:05 Calcium 8.0 L (8.4-10.2) mg/dL Albumin 3.3 L (3.5-5.0) g/dL Pituitary panel 03/22/18 Range/Units 09:05 Sodium 135 L (137-145) mmol/L Potassium 4.7 (3.5-5.1) mmol/L Chloride 101 (98-107) mmol/L Carbon Dioxide 31 H (22-30) mmol/L BUN 26 H (7-17) mg/dL Creatinine 0.84 (0.52-1.04) mg/dL Glucose 160 H (74-99) mg/dL Calcium 8.0 L (8.4-10.2) mg/dL Adrenal panel 03/22/18 Range/Units 09:05 Sodium 135 L (137-145) mmol/L Potassium 4.7 (3.5-5.1) mmol/L Chloride 101 (98-107) mmol/L Carbon Dioxide 31 H (22-30) mmol/L BUN 26 H (7-17) mg/dL Creatinine 0.84 (0.52-1.04) mg/dL Glucose 160 H (74-99) mg/dL Calcium 8.0 L (8.4-10.2) mg/dL Total Bilirubin 1.1 (0.2-1.3) mg/dL AST 20 (14-36) U/L ALT 30 (9-52) U/L Alkaline Phosphatase 51 (38-126) U/L Total Protein 5.7 L (6.3-8.2) g/dL Albumin 3.3 L (3.5-5.0) g/dL
[2018-03-22] MEDS: amLODIPine 5 MG TAB PO SCH (16:51)
--- NOTE | 2018-03-22 16:54 | CT ---
EXAMINATION TYPE: CT abdomen pelvis with oral contrast / wo IV con DATE OF EXAM: 03/22/2018 COMPARISON: 03/22/2018 CT with contrast at 11:37 AM HISTORY: abdominal pain CT DLP: 971 mGycm Automated exposure control for dose reduction was used. TECHNIQUE: Helical acquisition of images was performed from the lung bases through the pelvis. FINDINGS: LUNG BASES: Dependent atelectasis both bases is present. LIVER/GB: There are scattered rounded low dense lesions throughout the liver that are felt to reflect simple thin-walled cysts. Dependent small rim calcified gallstones are now present. PANCREAS: No significant abnormality is seen. SPLEEN: No significant abnormality is seen. ADRENALS: Nonspecific right adrenal mass measures 2.5 x 2.1 cm current study image 20 enlarged in siz e from prior study. Advise adrenal protocol CT or MRI to further evaluate. KIDNEYS: No significant abnormality is seen. FREE AIR: No free air is visualized RETROPERITONEAL ADENOPATHY: None visualized REPRODUCTIVE ORGANS: Central hypodense endometrium is prominent for postmenopausal female and warrant s follow-up ultrasound characterization. URINARY BLADDER: No significant abnormality is seen. PELVIC ADENOPATHY: None visualized. OSSEOUS STRUCTURES: No significant abnormality is seen. BOWEL: Oral contrast opacifies the distal esophagus, stomach, duodenum, jejunum, and some ileal loop s. The previously seen hepatic flexure mild-moderate wall thickening near the gallbladder is redemons trated; should be correlated with colonoscopy if has not been performed in last 3-5 years as concentr ic mass or neoplasm is not excluded. Also possible would be inflammatory change related to the patien t's gallbladder/cholelithiasis. IMPRESSION: NO DEFINITE ACUTE PROCESS. However, would advise nonemergent follow-up for right adrenal lesion, uterus, and possible hepatic fl exure lesion.
[2018-03-22 16:57] LABS: Glucose,Whole Blood 154 mg/dL (75-99)
[2018-03-22] MEDS: INSULIN ASPART 100 UNIT/ML 1 ML 10 ML VIAL SQ SCH ×2 (17:44→22:10)
[2018-03-22] MEDS: GABAPENTIN 300 MG CAP PO SCH (17:44)
[2018-03-22] MEDS: IPRATROPIUM-ALBUTEROL 3 ML NEB INHALATION SCH (19:32)
[2018-03-22 21:58] LABS: Glucose,Whole Blood 112 mg/dL (75-99)
[2018-03-22] MEDS: MONTELUKAST 10 MG TAB PO SCH (22:10)
[2018-03-22] MEDS: guaiFENesin 600 MG TABLET.ER PO SCH (22:10)
[2018-03-23 01:28] LABS: Hemoglobin A1C 6.4 % (4.0-6.0)
[2018-03-23] MEDS: MORPHINE SULFATE 4 MG/ML SYRINGE IV PRN ×4 (02:49→21:36)
[2018-03-23 07:47] LABS: Glucose,Whole Blood 108 mg/dL (75-99)
[2018-03-23] MEDS: BUDESONIDE 0.5 MG/2 ML NEBU INHALATION SCH ×2 (08:05→19:20)
[2018-03-23] MEDS: IPRATROPIUM-ALBUTEROL 3 ML NEB INHALATION SCH ×4 (08:05→19:20)
[2018-03-23] MEDS: NICOTINE 14MG/24HR PATCH TRANSDERM SCH (08:31)
[2018-03-23] MEDS: INSULIN ASPART 100 UNIT/ML 1 ML 10 ML VIAL SQ SCH ×4 (08:31→20:14)
[2018-03-23] MEDS: amLODIPine 5 MG TAB PO SCH (08:32)
[2018-03-23] MEDS: predniSONE 20 MG TAB PO SCH (08:32)
[2018-03-23] MEDS: FUROSEMIDE 20 MG TAB PO SCH (08:32)
[2018-03-23] MEDS: PANTOPRAZOLE 40 MG/10 ML VIAL IVP SCH (08:32)
[2018-03-23] MEDS: guaiFENesin 600 MG TABLET.ER PO SCH ×2 (08:32→20:11)
[2018-03-23] MEDS: GABAPENTIN 300 MG CAP PO SCH ×3 (08:32→18:26)
[2018-03-23] MEDS ORDERED: PANTOPRAZOLE 40 MG TABLET PO SCH (09:00)
[2018-03-23 09:53] LABS: Basophils % (A) 0 %; Eosinophils # (A) 0.1 k/uL (0-0.7); Eosinophils % (A) 0 %; HGB 11.4 gm/dL (11.4-16.0); Lymphocytes % (A) 6 %; MCH 31.1 pg (25.0-35.0); MCHC 31.6 g/dL (31.0-37.0); MCV 98.6 fL (80.0-100.0); Mean Platelet Volume 7.2; Monocytes # (A) 0.7 k/uL (0-1.0); Monocytes % (A) 4 %; Neutrophils % (A) 88 %; Platelet Count 103 k/uL (150-450); RBC 3.65 m/uL (3.80-5.40); RDW 13.2 % (11.5-15.5)
[2018-03-23 10:09] LABS: Albumin 2.7 g/dL (3.5-5.0); Calcium 7.5 mg/dL (8.4-10.2); Potassium 4.8 mmol/L (3.5-5.1); Total Bilirubin 1.3 mg/dL (0.2-1.3)
--- NOTE | 2018-03-23 10:14 | US ---
EXAMINATION TYPE: US pelvic complete DATE OF EXAM: 03/23/2018 COMPARISON: CT from one day ago. CLINICAL HISTORY: endometrial thickening. Recent abnormal CT. TECHNIQUE: Transabdominal (TA). Transabdominal sonographic images of the pelvis were acquired. Tra nsvaginal sonographic images were medically necessary to better assess the following anatomy: Date of LMP: Patient post menopausal EXAM MEASUREMENTS: Uterus: 9.7 x 2.7 x 4.1 cm Endometrial Stripe: 0.5 cm Right Ovary: not visualized, probably due to atrophy Left Ovary: not visualized, probably due to atrophy 1. Uterus: Anteverted, calcification noted measuring 0.7cm 2. Endometrium: Ff within measuring 0.7cm 3. Right Ovary: not visualized, probably due to atrophy 4. Left Ovary: not visualized, probably due to atrophy 5. Bilateral Adnexa: wnl 6. Posterior cul-de-sac: wnl Anteverted uterus is seen. Endometrium does not appear suspiciously thickened. There is small amount of fluid in the lower endometrial canal likely accounting for the abnormality seen on CT.No free flui d in pelvis is present. Neither ovary is clearly identified on images saved. IMPRESSION: Suboptimal study as transvaginal investigation is not performed. No suspicious thickening on transabdominal pelvic ultrasound, Free fluid lower uterine endometrial canal likely accounts for CT abnormality. Consider underlying cervical stenosis.
[2018-03-23 12:35] LABS: Glucose,Whole Blood 131 mg/dL (75-99)
--- NOTE | 2018-03-23 12:36 | P.PN ---
Subjective Progress Note Date: 03/23/18 CHIEF COMPLAINT: Abdominal pain HISTORY OF PRESENT ILLNESS: Patient examined at the bedside. Continues to complain of generalized abdominal pain. No vomiting or diarrhea. Reports BM yesterday. PHYSICAL EXAM: VITAL SIGNS: Currently stable. GENERAL: Well-developed in no acute distress. HEENT: No sclera icterus. Extraocular movements grossly intact. Moist buccal mucosa. Head is atraumatic, normocephalic. Hears conversational speech. No nasal drainage.. CHEST: Non-labored respirations and equal bilateral excursions. CARDIOVASCULAR: No JVD. Palpable 2+ radial pulses. ABDOMEN: Soft. Nondistended. Tenderness upon palpation of all 4 quadrants. MUSCULOSKELETAL: No clubbing, cyanosis or edema. NEUROLOGIC: No focal or lateralizing signs. Cranial nerves II through XII grossly intact. PSYCH: Appropriate affect. Alert and oriented to person, place and time. SKIN: Well perfused. Good skin turgor. ASSESSMENT: 1. Abdominal pain with nausea and vomiting x 1 day 2. Nonspecific mild to moderate wall thickening near the level of hepatic flexure, per CT scan, neoplasm not excluded 3. Right adrenal lesion 4. Leukocytosis PLAN: 1. Patient may begin clear liquids today. NPO after midnight. 2. Bowel prep today 3. Colonoscopy tomorrow 4. Hold Eliquis and aspirin for colonoscopy Nurse practitioner note has been reviewed by physician. Signing provider agrees with the documented findings, assessment, and plan of care. Objective - Vital Signs Vital signs: Vital Signs Temp 99.3 F 03/23/18 07:00 Pulse 92 03/23/18 11:43 Resp 18 03/23/18 07:00 BP 105/57 03/23/18 07:00 Pulse Ox 91 L 03/23/18 07:00 Intake & Output 03/22/18 03/23/18 03/23/18 18:59 06:59 18:59 Intake Total 0 Balance 0 Weight 81.647 kg Intake: Oral 0 Other: # Voids 2 1 - Labs CBC & Chem 7: 03/23/18 09:30 03/23/18 09:30 Labs: Abnormal Lab Results - Last 24 Hours (Table) 03/22/18 03/22/18 03/22/18 Range/Units 09:05 16:52 21:55 WBC (3.8-10.6) k/uL RBC (3.80-5.40) m/uL Plt Count (150-450) k/uL Neutrophils # (1.3-7.7) k/uL Sodium (137-145) mmol/L Glucose (74-99) mg/dL POC Glucose (mg/dL) 154 H 112 H (75-99) mg/dL Hemoglobin A1c 6.4 H (4.0-6.0) % Calcium (8.4-10.2) mg/dL Total Protein (6.3-8.2) g/dL Albumin (3.5-5.0) g/dL 03/23/18 03/23/18 03/23/18 Range/Units 07:43 09:30 09:30 WBC 16.0 H (3.8-10.6) k/uL RBC 3.65 L (3.80-5.40) m/uL Plt Count 103 L (150-450) k/uL Neutrophils # 14.0 H (1.3-7.7) k/uL Sodium 130 L (137-145) mmol/L Glucose 110 H (74-99) mg/dL POC Glucose (mg/dL) 108 H (75-99) mg/dL Hemoglobin A1c (4.0-6.0) % Calcium 7.5 L (8.4-10.2) mg/dL Total Protein 5.0 L (6.3-8.2) g/dL Albumin 2.7 L (3.5-5.0) g/dL
[2018-03-23] MEDS ORDERED: PEG 3350-NA SULF,BICARB,CL/KCL 4,000 ML BOTTLE PO ONE (14:00)
[2018-03-23 17:14] LABS: Glucose,Whole Blood 215 mg/dL (75-99)
[2018-03-23] MEDS: MONTELUKAST 10 MG TAB PO SCH (20:11)
[2018-03-23 20:21] LABS: Glucose,Whole Blood 222 mg/dL (75-99)
--- NOTE | 2018-03-23 22:46 | HP ---
HISTORY AND PHYSICAL CHIEF COMPLAINT: 67-year-old white female came in with writhing abdominal pain of unclear etiology with nausea, vomiting. She is scheduled to get a colonoscopy in the morning. She is on the prep at this time. She has had some nausea and vomiting last night. The pain was extreme nature, acute onset to the abdomen. CT scan of the abdomen and pelvis was reviewed. She has COPD. She has been on Solu-Medrol for COPD. She is on Eliquis for chronic atrial fibrillation, Neurontin for neuropathy, Pulmicort for COPD. ALLERGIES: LATEX, PENICILLIN AND SULFA. 14-point review of systems negative except for mentioned in HPI. PAST MEDICAL HISTORY: Atrial fibrillation, asthma, coronary artery disease, heart failure, diabetes, DVT, GERD, dyslipidemia, hypertension, pneumonia, seizure disorder, hypothyroidism, chronic thrombocytopenia, thyroid nodules, chronic headaches, cervical disc disease, bilateral cataract removal, left breast biopsy twice, left parotid gland biopsy, bilateral . FAMILY HISTORY: Mother with sepsis. Father with myocardial infarction. PHYSICAL EXAMINATION: Temp 98.9, pulse 70s to 80s, blood pressure 140s to 160s over 60s to 70s, O2 saturation 95-100, cardiovascular S1-S2. Lungs: Transmitted upper sounds. Hematology: Negative Homans. Psych: Fair mood and affect. Abdomen: Diffuse tenderness across the abdomen, writhing due to severe pain. CT scan abdomen and pelvis is reviewed. Ultrasound of the abdomen was reviewed. LABS: Reviewed. ASSESSMENT: Nausea, vomiting, abdominal pain, abdominal mass. Admit to the hospital. Await for surgical recommendations. Possible colonoscopy will be done. Ultrasound of the pelvis showed no problem with the uterus. Please see further orders. Await surgical recommendations. MMODL / IJN: [id number] /
[2018-03-24] MEDS: MORPHINE SULFATE 4 MG/ML SYRINGE IV PRN ×3 (01:53→20:47)
[2018-03-24] MEDS: IPRATROPIUM-ALBUTEROL 3 ML NEB INHALATION SCH ×4 (07:23→19:56)
[2018-03-24] MEDS: BUDESONIDE 0.5 MG/2 ML NEBU INHALATION SCH ×2 (07:23→19:56)
[2018-03-24 08:01] LABS: Glucose,Whole Blood 134 mg/dL (75-99)
[2018-03-24] MEDS: NICOTINE 14MG/24HR PATCH TRANSDERM SCH (08:18)
[2018-03-24] MEDS: SODIUM CHLORIDE 0.9% 1,000 ML IV SCH ×2 (08:18→17:51)
[2018-03-24] MEDS: INSULIN ASPART 100 UNIT/ML 1 ML 10 ML VIAL SQ SCH ×4 (08:18→20:36)
[2018-03-24] MEDS: predniSONE 20 MG TAB PO SCH (08:19)
[2018-03-24] MEDS: PANTOPRAZOLE 40 MG/10 ML VIAL IVP SCH (08:19)
[2018-03-24] MEDS: FUROSEMIDE 20 MG TAB PO SCH (08:19)
[2018-03-24] MEDS: guaiFENesin 600 MG TABLET.ER PO SCH ×2 (08:19→20:36)
[2018-03-24] MEDS: GABAPENTIN 300 MG CAP PO SCH ×3 (08:19→17:51)
[2018-03-24] MEDS: amLODIPine 5 MG TAB PO SCH (08:19)
[2018-03-24] MEDS ORDERED: IV FLUID CONTINUATION 300 ML IV ONE (09:19)
[2018-03-24] MEDS ORDERED: PROPOFOL 10 MG/ML 20 ML VIAL IV ONE (09:23)
--- NOTE | 2018-03-24 09:41 | P.OP ---
Date of Procedure: 03/24/18 Preoperative Diagnosis: Colitis Postoperative Diagnosis: Normal colon Procedure(s) Performed: Colonoscopy Anesthesia: MAC Surgeon: Ty Andrew Pathology: none sent Condition: stable Disposition: PACU Description of Procedure: PROCEDURE: The patient was placed on the endoscopy table in the lateral position. Digital rectal examination was performed which revealed no abnormalities. s. Flexible colonoscope was then placed in the patient's anus and passed throughout the entire colon. The ileocecal valve was visualized. The cecum, ascending, transverse, descending and sigmoid colon were normal. The rectum was normal as well. There were no masses, polyps or diverticula noted in the entire colon. SUMMARY OF FINDINGS: Normal colonoscopy.
[2018-03-24 11:05] LABS: Basophils % (A) 0 %; Eosinophils # (A) 0.1 k/uL (0-0.7); Eosinophils % (A) 1 %; HCT 34.8 % (34.0-46.0); Lymphocytes # (A) 0.3 k/uL (1.0-4.8); Lymphocytes % (A) 2 %; MCH 30.6 pg (25.0-35.0); MCHC 31.5 g/dL (31.0-37.0); MCV 97.3 fL (80.0-100.0); Mean Platelet Volume 7.7; Monocytes # (A) 0.3 k/uL (0-1.0); Monocytes % (A) 2 %; Neutrophils # (A) 13.4 k/uL (1.3-7.7); Neutrophils % (A) 95 %; Platelet Count 102 k/uL (150-450); RBC 3.58 m/uL (3.80-5.40); WBC 14.2 k/uL (3.8-10.6)
--- NOTE | 2018-03-24 11:07 | P.PN ---
Subjective Progress Note Date: 03/24/18 CHIEF COMPLAINT: Abdominal pain HISTORY OF PRESENT ILLNESS: Patient examined at the bedside. Patient states her abdominal pain is improving. She completed bowel prep overnight and is scheduled for colonoscopy today. PHYSICAL EXAM: VITAL SIGNS: Currently stable. GENERAL: Well-developed in no acute distress. HEENT: No sclera icterus. Extraocular movements grossly intact. Moist buccal mucosa. Head is atraumatic, normocephalic. Hears conversational speech. No nasal drainage.. CHEST: Non-labored respirations and equal bilateral excursions. CARDIOVASCULAR: No JVD. Palpable 2+ radial pulses. ABDOMEN: Soft. Nondistended. Tenderness upon palpation of all 4 quadrants, improving. MUSCULOSKELETAL: No clubbing, cyanosis or edema. NEUROLOGIC: No focal or lateralizing signs. Cranial nerves II through XII grossly intact. PSYCH: Appropriate affect. Alert and oriented to person, place and time. SKIN: Well perfused. Good skin turgor. ASSESSMENT: 1. Abdominal pain with nausea and vomiting x 1 day 2. Nonspecific mild to moderate wall thickening near the level of hepatic flexure, per CT scan, neoplasm not excluded 3. Right adrenal lesion 4. Leukocytosis PLAN: 1. Patient scheduled for colonoscopy today 2. May begin clear liquids post colonoscopy Nurse practitioner note has been reviewed by physician. Signing provider agrees with the documented findings, assessment, and plan of care. Objective - Vital Signs Vital signs: Vital Signs Temp 98.6 F 03/24/18 07:00 Pulse 88 03/24/18 07:36 Resp 16 03/24/18 07:00 BP 127/61 03/24/18 07:00 Pulse Ox 89 L 03/24/18 07:00 Intake & Output 03/23/18 03/24/18 03/24/18 18:59 06:59 18:59 Intake Total 100 Balance 100 Intake: IV 100 Other: # Voids 1 2 # Bowel Movements 4 - Labs CBC & Chem 7: 03/23/18 09:30 03/23/18 09:30 Labs: Abnormal Lab Results - Last 24 Hours (Table) 03/23/18 03/23/18 03/23/18 Range/Units 12:32 17:02 20:10 POC Glucose (mg/dL) 131 H 215 H 222 H (75-99) mg/dL 03/24/18 Range/Units 07:53 POC Glucose (mg/dL) 134 H (75-99) mg/dL
[2018-03-24 11:10] LABS: Albumin 2.9 g/dL (3.5-5.0); Calcium 7.9 mg/dL (8.4-10.2); Potassium 4.8 mmol/L (3.5-5.1); Total Bilirubin 1.1 mg/dL (0.2-1.3); Total Protein 5.3 g/dL (6.3-8.2)
[2018-03-24 11:50] LABS: Glucose,Whole Blood 208 mg/dL (75-99)
[2018-03-24 18:10] LABS: Glucose,Whole Blood 390 mg/dL (75-99)
[2018-03-24 20:30] LABS: Glucose,Whole Blood 435 mg/dL (75-99)
[2018-03-24] MEDS: MONTELUKAST 10 MG TAB PO SCH (20:36)
[2018-03-24 23:23] VITALS: RESP 18; TEMP 98.5
--- NOTE | 2018-03-25 01:20 | PN ---
PROGRESS NOTE SUBJECTIVE: 67-year-old white female with abdominal pain. Continues on current treatment. She is up ambulating down the hallway, colonoscopy was negative for any masses. Abdominal ultrasound negative for any uterine abnormality. She states she is feeling better. She is up ambulating. Cardiovascular S1, S2. Lungs clear. GI soft. ASSESSMENT: 1. Acute abdominal pain, unclear etiology. 2. Possible gastroparesis. 3. Insulin-dependent diabetes mellitus. 4. Chronic obstructive pulmonary disease with tracheobronchitis, improving. She will be discharged home in the morning. Follow up as an outpatient. MMODL / IJN: [id number] /
[2018-03-25 03:09] LABS: Glucose,Whole Blood 200 mg/dL (75-99)
[2018-03-25] MEDS: SODIUM CHLORIDE 0.9% 1,000 ML IV SCH (05:54)
[2018-03-25 07:54] LABS: Glucose,Whole Blood 258 mg/dL (75-99)
[2018-03-25 07:57] VITALS: BP 145/71
[2018-03-25] MEDS: amLODIPine 5 MG TAB PO SCH (08:28)
[2018-03-25] MEDS: guaiFENesin 600 MG TABLET.ER PO SCH (08:28)
[2018-03-25] MEDS: FUROSEMIDE 20 MG TAB PO SCH (08:28)
[2018-03-25] MEDS: predniSONE 20 MG TAB PO SCH (08:28)
[2018-03-25] MEDS: NICOTINE 14MG/24HR PATCH TRANSDERM SCH (08:29)
[2018-03-25] MEDS: INSULIN ASPART 100 UNIT/ML 1 ML 10 ML VIAL SQ SCH (08:29)
[2018-03-25] MEDS: PANTOPRAZOLE 40 MG/10 ML VIAL IVP SCH (08:29)
[2018-03-25] MEDS: GABAPENTIN 300 MG CAP PO SCH ×2 (08:33→11:15)
[2018-03-25] MEDS: IPRATROPIUM-ALBUTEROL 3 ML NEB INHALATION SCH ×2 (08:40→11:55)
[2018-03-25] MEDS: BUDESONIDE 0.5 MG/2 ML NEBU INHALATION SCH (08:40)
[2018-03-25 08:50] VITALS: PULSE 88
[2018-03-25] MEDS ORDERED: MORPHINE ORAL SOLN 10 MG/5 ML CUP PO PRN (11:50)
[2018-03-27] MEDS ORDERED: predniSONE 20 MG TAB PO SCH (09:00)
[2018-03-31] MEDS ORDERED: predniSONE 10 MG TAB PO SCH (09:00)
== END 2018-03-25 12:05 | disposition home health service (06) ==
LOC: EC 08:46 → 4MS4W 12:49
PROVIDERS: ADMIT Family Medicine; ATTEND Family Medicine
DX: R10.84 Generalized abdominal pain (principal); R11.2 Nausea with vomiting, unspecified; R93.5 Abnormal findings on diagnostic imaging of other abdominal regions, including retroperitoneum; E27.9 Disorder of adrenal gland, unspecified; J44.0 Chronic obstructive pulmonary disease with (acute) lower respiratory infection; J40 Bronchitis, not specified as acute or chronic; D72.829 Elevated white blood cell count, unspecified; I48.2 Chronic atrial fibrillation; I48.92 Unspecified atrial flutter; G62.9 Polyneuropathy, unspecified; I50.9 Heart failure, unspecified; I11.0 Hypertensive heart disease with heart failure; I25.10 Atherosclerotic heart disease of native coronary artery without angina pectoris; E11.9 Type 2 diabetes mellitus without complications; K21.9 Gastro-esophageal reflux disease without esophagitis; G40.909 Epilepsy, unspecified, not intractable, without status epilepticus; E78.5 Hyperlipidemia, unspecified; G89.29 Other chronic pain; R51 Headache; E03.9 Hypothyroidism, unspecified; M50.90 Cervical disc disorder, unspecified, unspecified cervical region; E04.2 Nontoxic multinodular goiter; D69.6 Thrombocytopenia, unspecified; Z79.82 Long term (current) use of aspirin; Z79.01 Long term (current) use of anticoagulants; Z79.4 Long term (current) use of insulin; Z79.52 Long term (current) use of systemic steroids; Z79.51 Long term (current) use of inhaled steroids; Z79.899 Other long term (current) drug therapy; Z88.0 Allergy status to penicillin; Z88.2 Allergy status to sulfonamides; Z91.040 Latex allergy status; Z87.01 Personal history of pneumonia (recurrent); Z98.42 Cataract extraction status, left eye; Z98.41 Cataract extraction status, right eye; Z96.1 Presence of intraocular lens; Z87.891 Personal history of nicotine dependence; Z86.718 Personal history of other venous thrombosis and embolism; Z82.49 Family history of ischemic heart disease and other diseases of the circulatory system; Z83.1 Family history of other infectious and parasitic diseases
CPT/HCPCS: 96376 ×3; 96361 ×3; 96375 ×2; 96374; 99285; 36415; 94640 ×6; 93005; 97116; 97161; 97535; 97167; 80053 ×3; 82150; 82550; 82553; 83690; 84484; 85025 ×3; 85610; 85730; 81003; 82105; 83036; 71046; 74018; 76856; 74176; 74177; 45378; G0378 ×4; S4990 ×3; J2270 ×3; J2405; J2704; J7512 ×3; C9113 ×3; Q9967

== ENCOUNTER 2018-05-03 09:01 | Day surgery (SDC) | payer BC, MEDICARE ==
[2018-04-29 09:52] VITALS: BMI 35.3
[~2018-05-03 09:01] MED LIST changes: -CLINDAMYCIN 900 MG in DEXTROSE 5% IN WATER 50 ML IVPB ONE; +DEXAMETHASONE SOD PHOSPHATE 10 MG/ML 1 ML VIAL IV ONE; +HEPARIN SODIUM,PORCINE 5,000 UNIT/ML 1 ML VIAL SQ ONE; +LACTATED RINGERS 1,000 ML IV SCH; +LIDOCAINE 1% 20 ML VIAL (10MG/ML) FOR IV START INTRADERMA PRN; +MIDAZOLAM (PF) 2 MG/2 ML VIAL IV PRN; -SODIUM CHLORIDE 0.9% 1,000 ML IV SCH; +ceFAZolin IN SWFI 2 GM/20 ML SYRINGE IVP ONE; +fentaNYL (PF) 50 MCG/ML 2 ML AMP IV PRN; +fentaNYL (PF) 50 MCG/ML 2 ML AMP IVP PRN
[2018-05-03] MEDS ORDERED: DEXAMETHASONE SOD PHOS (MDV) 100 MG/10 ML VIAL IV ONE (10:04)
[2018-05-03] MEDS ORDERED: ONDANSETRON 4 MG/2 ML VIAL IVP ONE (10:04)
[2018-05-03 10:05] LABS: Glucose,Whole Blood 133 mg/dL (75-99)
--- NOTE | 2018-05-03 10:36 | P.GSHP ---
History of Present Illness H&P Date: 05/03/18 Chief Complaint: Right upper quadrant pain This is a 67-year-old female who presents today for laparoscopic cholestatic. Patient's complaints are quadrant pain. She is workup found have evidence of cholelithiasis. Past Medical History Past Medical History: Atrial Fibrillation, Asthma, Heart Failure, COPD, Deep Vein Thrombosis (DVT), GERD/Reflux, Hypertension, Pneumonia, Seizure Disorder, Thyroid Disorder Additional Past Medical History / Comment(s): last seizure was 15 years ago, bilateral CARPAL TUNNEL syndrome, Hx.chronic thrombocytopenia, thyroid nodules, chronic headaches, cervical disc, cyst on back, HAS ISSUES WITH BLOOD SUGARS WHEN ON STERIODS History of Any Multi-Drug Resistant Organisms: None Reported Past Surgical History: Breast Surgery, Heart Catheterization Additional Past Surgical History / Comment(s): L breast biopsy-twice and benign , L parotid gland bx-benign, colonoscopy-normal, bilateral cataract removals with lens implants. L Thyroid bx, TOTAL THYROIDECTOMY loop recorder, "bx on back-neg" Past Anesthesia/Blood Transfusion Reactions: Previous Problems w/ Anesthesia Additional Past Anesthesia/Blood Transfusion Reaction / Comment(s): "i get shaky with anesthesia" Type of Cardiac Device: Loop Device Placement Date:: 2011 Smoking Status: Former smoker - Past Family History Mother Additional Family Medical History / Comment(s): Mother of sepsis at the age of 63 yrs. Father Family Medical History: Myocardial Infarction ([place]) Additional Family Medical History / Comment(s): Father during a carotid endartectomy. Sister(s) Family Medical History: Deep Vein Thrombosis (DVT) Medications and Allergies Home Medications Medication Instructions Recorded Confirmed Type Aspirin 81 mg PO DAILY 01/01/17 05/03/18 History amLODIPine [Norvasc] 5 mg PO DAILY 07/10/17 05/03/18 History Montelukast [Singulair] 10 mg PO HS tab 07/12/17 05/03/18 Rx Ipratropium-Albuterol Nebulize 3 ml INHALATION RT-QID ampul.neb 07/21/17 Rx [Duoneb 0.5 mg-3 mg/3 ml Soln] Apixaban [Eliquis] 2.5 mg PO BID@0800,1600 11/12/17 05/03/18 History Gabapentin [Neurontin] 300 mg PO TID@0800,1200,1800 11/12/17 05/03/18 History Furosemide [Lasix] 20 mg PO DAILY tab 03/19/18 05/03/18 Rx Nicotine 14Mg/24Hr Patch [Habitrol] 1 patch TRANSDERM DAILY patch 03/19/1806/18 Rx Pantoprazole [Protonix] 40 mg PO DAILY tablet. 03/19/18 05/03/18 Rx Budesonide [Pulmicort] 0.5 mg INHALATION RT-BID@0800,1600 03/22/18 05/03/18 History HYDROcodone/APAP 5-325MG [[place] 1 tab PO Q8H PRN 03/22/18 05/03/18 History 5-325] Allergies Allergy/AdvReac Type Severity Reaction Status Date / Time latex Allergy Rash/Hives Verified 05/03/18 09:46 Penicillins Allergy Rash/Hives Verified 05/03/18 09:46 Sulfa (Sulfonamide Allergy Rash/Hives Verified 05/03/18 09:46 Antibiotics) Surgical - Exam Vital Signs Temp Pulse Resp BP Pulse Ox 97.2 F L 84 16 134/72 97 05/03/18 10:04 05/03/18 10:04 05/03/18 10:04 05/03/18 10:04 05/03/18 10:04 - General well developed, well nourished, no distress - Eyes PERRL - ENT normal pinna - Neck no masses - Respiratory normal expansion - Cardiovascular Rhythm: regular - Abdomen Abdomen: soft, non tender Results - Labs Abnormal Lab Results - Last 24 Hours (Table) 05/03/18 Range/Units 09:58 POC Glucose (mg/dL) 133 H (75-99) mg/dL Assessment and Plan Assessment: Right upper quadrant pain Cholelithiasis We'll perform laparoscopic cholecystectomy.
[2018-05-03] MEDS ORDERED: LABETALOL 5 MG/ML VIAL MDV ONE (10:55)
[2018-05-03] MEDS ORDERED: LIDOCAINE 1% INJ 10MG/ML (20 ML MDV) ONE (10:55)
[2018-05-03] MEDS ORDERED: MIDAZOLAM 2 MG/2 ML VIAL ONE (10:55)
[2018-05-03] MEDS ORDERED: fentaNYL (PF) 50 MCG/ML 2 ML AMP ONE (10:55)
[2018-05-03] MEDS ORDERED: ROCURONIUM BROMIDE 10 MG/ML 10 ML VIAL IV ONE (10:55)
[2018-05-03] MEDS ORDERED: PROPOFOL 10 MG/ML 20 ML VIAL IV ONE (10:55)
[2018-05-03] MEDS ORDERED: GLYCOPYRROLATE 0.2 MG/ML 2 ML VIAL ONE (10:55)
[2018-05-03] MEDS ORDERED: NEOSTIGMINE 1 MG/ML 10 ML VIAL ONE (10:55)
[2018-05-03] MEDS ORDERED: ceFAZolin IN SWFI 2 GM/20 ML SYRINGE IVP ONE (11:05)
[2018-05-03] MEDS ORDERED: BUPIVACAINE-EPI 0.5%-1:200,000 10 ML VIAL SQ ONE (11:27)
--- NOTE | 2018-05-03 11:58 | P.OP ---
Date of Procedure: 05/03/18 Preoperative Diagnosis: Cholecystitis Cholelithiasis Postoperative Diagnosis: Cholecystitis Cholelithiasis Procedure(s) Performed: Laparoscopic cholecystectomy Anesthesia: ESTELLE Surgeon: Ty Andrew Estimated Blood Loss (ml): 5 Pathology: other (Gallbladder) Condition: stable Disposition: PACU Description of Procedure: The patient was placed on the operating table. The patient received a general endotracheal tube anesthesia. The patients abdomen was prepped and draped in the usual sterile fashion. Through an infraumbilical stab incision, the fascia of the anterior abdominal wall was grasped with a pair of Kochers and then the Veress needle was placed in the peritoneal cavity. Position of the Veress needle was confirmed with positive drop test. The abdomen was then insufflated. After adequate insufflation, the 10 mm trocar was placed in the peritoneal cavity. Following this the laparoscope was placed in the peritoneal cavity. The patient was placed in the head-up, right side up position and then a 5 mm trocar was placed in the right lateral and right subcostal position under direct visualization. A 8 mm trocar was placed in the epigastric position. The gallbladder was grasped in the fundus and infundibulum. Traction on the gallbladder was placed in the lateral and the cephalad positions. The triangle of Calot was visualized.. The cystic duct was bluntly dissected until the union of the cystic duct and common bile duct was seen. The cystic duct was then divided and sealed with the Harmonic scissors. A PDS Endoloop was then placed throughout the cystic duct stump. The cystic artery divided and sealed with the Harmonic scissors. The gallbladder was then removed from the liver bed using Harmonic scissors. The gallbladder was then extracted through the epigastric port site. Operative field was checked for any bleeding spots and Harmonic scissors was used to coagulate the liver bed. The abdomen was irrigated. The trocars were removed. The skin was closed using interrupted 3-0 Vicryl suture. Dermabond dressing were applied. The patient tolerated the procedure well.
[2018-05-03 12:08] VITALS: TEMP 97.7
[2018-05-03] MEDS ORDERED: HYDROmorphone 1 MG/ML 1 ML SYRINGE IVP ONE ×2 (12:15→12:24)
[2018-05-03] MEDS ORDERED: LABETALOL SYRINGE 5 MG/ML IVP ONE (12:25)
[2018-05-03 14:02] VITALS: RESP 18
[2018-05-03 14:36] VITALS: BP 139/75; PULSE 70
== END 2018-05-03 14:58 | disposition home or self-care (01) ==
LOC: OR 09:01
PROVIDERS: ATTEND Surgery
DX: K80.00 Calculus of gallbladder with acute cholecystitis without obstruction (principal); K82.A1 Gangrene of gallbladder in cholecystitis; I11.0 Hypertensive heart disease with heart failure; I50.9 Heart failure, unspecified; J44.9 Chronic obstructive pulmonary disease, unspecified; I48.91 Unspecified atrial fibrillation; K21.9 Gastro-esophageal reflux disease without esophagitis; E07.9 Disorder of thyroid, unspecified; Z86.2 Personal history of diseases of the blood and blood-forming organs and certain disorders involving the immune mechanism; Z87.891 Personal history of nicotine dependence; Z86.718 Personal history of other venous thrombosis and embolism; Z92.241 Personal history of systemic steroid therapy; Z86.69 Personal history of other diseases of the nervous system and sense organs; Z79.82 Long term (current) use of aspirin; Z79.01 Long term (current) use of anticoagulants; Z79.51 Long term (current) use of inhaled steroids; Z91.040 Latex allergy status; Z88.0 Allergy status to penicillin; Z88.2 Allergy status to sulfonamides
CPT/HCPCS: 88304; 47562; J2250; J1644; J2710; J2405; J2001; J3010; J1170; J1100; J2704; J0690

== ENCOUNTER 2018-05-15 12:39 | Emergency (ER) | payer BC, MEDICARE ==
[2018-05-15 12:54] VITALS: TEMP 98.6
[2018-05-15] MEDS ORDERED: MORPHINE SULFATE 4 MG/ML SYRINGE IVP STA (13:23)
[2018-05-15] MEDS ORDERED: ONDANSETRON 4 MG/2 ML VIAL IVP STA (13:23)
[2018-05-15 13:25] LABS: Basophils % (A) 0 %; Eosinophils # (A) 0.1 k/uL (0-0.7); Eosinophils % (A) 2 %; HCT 38.9 % (34.0-46.0); HGB 12.3 gm/dL (11.4-16.0); Lymphocytes # (A) 1.5 k/uL (1.0-4.8); Lymphocytes % (A) 25 %; MCH 29.7 pg (25.0-35.0); MCHC 31.5 g/dL (31.0-37.0); MCV 94.2 fL (80.0-100.0); Mean Platelet Volume 8.1; Monocytes # (A) 0.2 k/uL (0-1.0); Monocytes % (A) 4 %; Neutrophils % (A) 68 %; RBC 4.13 m/uL (3.80-5.40); RDW 13.4 % (11.5-15.5); WBC 5.9 k/uL (3.8-10.6)
[2018-05-15 13:31] LABS: Platelet Count 216 k/uL (150-450)
[2018-05-15 13:34] LABS: Calcium 9.1 mg/dL (8.4-10.2); Potassium 3.6 mmol/L (3.5-5.1); Uric Acid 5.8 mg/dL (3.7-7.4)
[2018-05-15 13:36] LABS: INR 0.9 (<1.2); Partial Thromboplastin Time 24.8 sec (22.0-30.0); Prothrombin Time 10.2 sec (9.0-12.0)
--- NOTE | 2018-05-15 13:48 | XR ---
EXAMINATION TYPE: XR ankle complete LT , 3 VIEWS DATE OF EXAM ORDERED: 05/15/2018 HISTORY: Severe pain, no trauma. COMPARISON: None. FINDINGS: No fracture, dislocation or ankle joint effusion is seen. There is a small Achilles spur p resent. There is calcification of the anterior tibial artery. IMPRESSION: NO ACUTE OSSEOUS LESION.
--- NOTE | 2018-05-15 14:17 | ED ---
Extremity Problem HPI - General Chief complaint: Extremity Problem,Nontraumatic Stated complaint: Leg pain Time Seen by Provider: 05/15/18 12:57 Source: patient, RN notes reviewed Mode of arrival: ambulatory Limitations: no limitations - History of Present Illness Initial comments: 67-year-old female presents emergency Department with chief complaint of severe left ankle pain. Patient denies any trauma. Patient states pain started after she woke up. Patient's concerned about possible blood clot as she had recent cholecystectomy. Patient states she has not been as mobile as usual. Patient states pain is in the joint of her ankle but also no swelling of her calf and mild discomfort. Denies any back pain no bowel bladder incontinence or reten tion. Patient has no history gout. Patient denies any rashes or any increased warmth or extremity. - Related Data Home Medications Medication Instructions Recorded Confirmed Aspirin 81 mg PO DAILY 01/01/17 05/03/18 amLODIPine [Norvasc] 5 mg PO DAILY 07/10/17 05/03/18 Apixaban [Eliquis] 2.5 mg PO BID@0800,1600 11/12/17 05/03/18 Gabapentin [Neurontin] 300 mg PO TID@0800,1200,1800 11/12/17 05/03/18 Budesonide [Pulmicort] 0.5 mg INHALATION RT-BID@0800,1600 03/22/18 05/03/18 HYDROcodone/APAP 5-325MG [[place] 1 tab PO Q8H PRN 03/22/18 05/03/18 5-325] Previous Rx's Medication Instructions Recorded Montelukast [Singulair] 10 mg PO HS tab 07/12/17 Ipratropium-Albuterol Nebulize 3 ml INHALATION RT-QID ampul.neb 07/21/17 [Duoneb 0.5 mg-3 mg/3 ml Soln] Furosemide [Lasix] 20 mg PO DAILY tab 03/19/18 Nicotine 14Mg/24Hr Patch [Habitrol] 1 patch TRANSDERM DAILY patch 03/19/18 Pantoprazole [Protonix] 40 mg PO DAILY tablet. 03/19/18 Docusate [Colace] 100 mg PO BID #20 capsule 05/03/18 HYDROcodone/APAP 7.5-325MG [[place] 1 tab PO Q6HR PRN 3 Days #10 tab 05/03/18 7.5-325] Indomethacin [Indocin] 50 mg PO TID #30 capsule 05/15/18 Allergies Allergy/AdvReac Type Severity Reaction Status Date / Time latex Allergy Rash/Hives Verified 05/15/18 12:55 Penicillins Allergy Rash/Hives Verified 05/15/18 12:55 Sulfa (Sulfonamide Allergy Rash/Hives Verified 05/15/18 12:55 Antibiotics) Review of Systems ROS Statement: Those systems with pertinent positive or pertinent negative responses have been documented in the HPI. ROS Other: All systems not noted in ROS Statement are negative. Past Medical History Past Medical History: Atrial Fibrillation, Asthma, Heart Failure, COPD, Deep Vein Thrombosis (DVT), GERD/Reflux, Hypertension, Pneumonia, Seizure Disorder, Thyroid Disorder Additional Past Medical History / Comment(s): last seizure was 15 years ago, bilateral CARPAL TUNNEL syndrome, Hx.chronic thrombocytopenia, thyroid nodules, chronic headaches, cervical disc, cyst on back, HAS ISSUES WITH BLOOD SUGARS WHEN ON STERIODS History of Any Multi-Drug Resistant Organisms: None Reported Past Surgical History: Breast Surgery, Heart Catheterization Additional Past Surgical History / Comment(s): L breast biopsy-twice and benign, L parotid gland bx-benign, colonoscopy-normal, bilateral cataract removals with lens implants. L Thyroid bx, TOTAL THYROIDECTOMY loop recorder, "bx on back- neg" Past Anesthesia/Blood Transfusion Reactions: Previous Problems w/ Anesthesia Additional Past Anesthesia/Blood Transfusion Reaction / Comment(s): "i get shaky with anesthesia" Type of Cardiac Device: Loop Device Placement Date:: 2011 Past Psychological History: No Psychological Hx Reported Smoking Status: Former smoker - Past Family History Mother Additional Family Medical History / Comment(s): Mother of sepsis at the age of 63 yrs. Father Family Medical History: Myocardial Infarction ([place]) Additional Family Medical History / Comment(s): Father during a carotid endartectomy. Sister(s) Family Medical History: Deep Vein Thrombosis (DVT) General Exam Limitations: no limitations General appearance: alert, in no apparent distress Head exam: Present: atraumatic, normocephalic, normal inspection Neck exam: Present: normal inspection. Absent: tenderness, meningismus, lymphadenopathy Respiratory exam: Present: normal lung sounds bilaterally. Absent: respiratory distress, wheezes, rales, rhonchi, stridor Cardiovascular Exam: Present: regular rate, normal rhythm, normal heart sounds. Absent: systolic murmur, diastolic murmur, rubs, gallop, clicks Extremities exam: Present: other (Left ankle tenderness with palpation, pulses are equal bilaterally no erythema, mild calf tenderness, full ROM knee , limited ROM ankle ) Skin exam: Present: warm, dry, intact, normal color. Absent: rash Course Vital Signs 05/15/18 12:49 Temperature 98.6 F Pulse Rate 92 Respiratory 16 Rate Blood Pressure 130/66 O2 Sat by Pulse 100 Oximetry Medical Decision Making - Medical Decision Making 67-year-old female presented emergency department for left ankle pain. Patient has mild elevated CRP. There is no obvious evidence of infection. Negative ultrasound for DVT. X-rays negative. Patient may have some reactive arthritis versus gout. Patient will be discharged with close follow-up. - Lab Data Result diagrams: 05/15/18 13:15 05/15/18 13:15 Lab Results 05/15/18 05/15/18 05/15/18 Range/Units 13:15 13:15 13:15 WBC 5.9 (3.8-10.6) k/uL RBC 4.13 (3.80-5.40) m/uL Hgb 12.3 (11.4-16.0) gm/dL Hct 38.9 (34.0-46.0) % MCV 94.2 (80.0-100.0) fL MCH 29.7 (25.0-35.0) pg MCHC 31.5 (31.0-37.0) g/dL RDW 13.4 (11.5-15.5) % Plt Count 216 D (150-450) k/uL Neutrophils % 68 % Lymphocytes % 25 % Monocytes % 4 % Eosinophils % 2 % Basophils % 0 % Neutrophils # 4.0 (1.3-7.7) k/uL Lymphocytes # 1.5 (1.0-4.8) k/uL Monocytes # 0.2 (0-1.0) k/uL Eosinophils # 0.1 (0-0.7) k/uL Basophils # 0.0 (0-0.2) k/uL PT 10.2 (9.0-12.0) sec INR 0.9 (<1.2) APTT 24.8 (22.0-30.0) sec Sodium 140 (137-145) mmol/L Potassium 3.6 (3.5-5.1) mmol/L Chloride 104 (98-107) mmol/L Carbon Dioxide 29 (22-30) mmol/L Anion Gap 7 mmol/L BUN 11 (7-17) mg/dL Creatinine 0.80 (0.52-1.04) mg/dL Est GFR (CKD-EPI)AfAm 88 (>60 ml/min/1.73 sqM) Est GFR (CKD-EPI)NonAf 77 (>60 ml/min/1.73 sqM) Glucose 147 H (74-99) mg/dL Uric Acid 5.8 (3.7-7.4) mg/dL Calcium 9.1 (8.4-10.2) mg/dL C-Reactive Protein 27.1 H (<10.0) mg/L Disposition Clinical Impression: Ankle pain, Arthritis of ankle, left, Gout Disposition: HOME SELF-CARE Condition: Stable Instructions (If sedation given, give patient instructions): Gout (ED) Additional Instructions: Please return to the Emergency Department if symptoms worsen or any other concerns. Prescriptions: Indomethacin [Indocin] 50 mg PO TID #30 capsule Is patient prescribed a controlled substance at d/c from ED?: No Referrals: Jet Edmonds MD [Primary Care Provider] - 1-2 days Time of Disposition: 14:54
[2018-05-15 14:27] LABS: C Reactive Protein 27.1 mg/L (<10.0)
--- NOTE | 2018-05-15 14:30 | US ---
EXAMINATION TYPE: US venous doppler duplex LE LT DATE OF EXAM: 05/15/2018 1:03 PM COMPARISON: NONE CLINICAL HISTORY: Pain. SIDE PERFORMED: Left TECHNIQUE: The lower extremity deep venous system is examined utilizing real time linear array sonog yen with graded compression, doppler sonography and color-flow sonography. VESSELS IMAGED: External Iliac Vein (EIV) Common Femoral Vein Deep Femoral Vein Greater Saphenous Vein * Femoral Vein Popliteal Vein Small Saphenous Vein * Proximal Calf Veins (* superficial vessels) Left Leg: Negative for DVT IMPRESSION: Normal exam. No deep venous thrombosis in the left leg.
[2018-05-15] MEDS ORDERED: ACET/COD 300 MG/30 MG STARTER PACK 6 TAB BTL PO STA (14:52)
[2018-05-15] MEDS ORDERED: methylPREDNISolone SOD SUCCI 125 MG/2 ML VIAL IV STA (14:52)
[2018-05-15 15:10] VITALS: BP 127/70; PULSE 77; RESP 18
== END 2018-05-15 15:05 | disposition home or self-care (01) ==
LOC: EC 12:39
DX: M10.072 Idiopathic gout, left ankle and foot (principal); I48.91 Unspecified atrial fibrillation; J44.9 Chronic obstructive pulmonary disease, unspecified; I11.0 Hypertensive heart disease with heart failure; I50.9 Heart failure, unspecified; E04.1 Nontoxic single thyroid nodule; Z79.01 Long term (current) use of anticoagulants; Z79.82 Long term (current) use of aspirin; Z79.51 Long term (current) use of inhaled steroids; Z79.899 Other long term (current) drug therapy; Z88.0 Allergy status to penicillin; Z88.2 Allergy status to sulfonamides; Z91.040 Latex allergy status; Z95.5 Presence of coronary angioplasty implant and graft; Z90.89 Acquired absence of other organs; Z87.891 Personal history of nicotine dependence; Z86.718 Personal history of other venous thrombosis and embolism
CPT/HCPCS: 99284 ×2; 96374 ×2; 96375 ×3; 36415; 80048; 84550; 85025; 85610; 85730; 86140; 73610; 93971; J2270; J2930; J2405

== ENCOUNTER → 2018-06-15 | Outpatient (CLI) | payer BC, MEDICARE ==
--- NOTE | 2018-06-16 13:08 | P.ARTDOP ---
Arterial Doppler LOWER EXTREMITY ARTERIAL DOPPLER: DATE OF SERVICE: 06/15/2018 Reason for study: Suspected lower extremity occlusive disease. Doppler waveforms: Multiphasic bilaterally throughout. Pulse volume recording: []. Pressure gradients: Mild gradient below the knee on the right and moderate gradient below the knee on the left.. Ankle-brachial indices: 0.91 on the right and 0.54 on the left. Toe pressures: 75 on the right, 49 on the left Impression: Normal study on the right. Moderate left fem-pop disease..
== END | disposition home or self-care (01) ==
LOC: RADUSWWP 10:16
PROVIDERS: ATTEND Family Medicine
DX: I73.9 Peripheral vascular disease, unspecified (principal); R20.2 Paresthesia of skin
CPT/HCPCS: 93923

== ENCOUNTER 2018-07-08 06:36 | Day surgery (SDC) | payer BC, MEDICARE ==
[2018-07-06 15:31] VITALS: BMI 33.6
[~2018-07-08 06:36] MED LIST changes: +HYDROmorphone 0.5 MG/0.5 ML SYRINGE IVP PRN; +ONDANSETRON 4 MG/2 ML VIAL IVP ONE; +Pre Op ABX Message 1 EACH MISC MISCELLANE ONE; +SCOPOLAMINE 1.5MG/72HR PATCH TRANSDERM ONE; -ceFAZolin IN SWFI 2 GM/20 ML SYRINGE IVP ONE; -fentaNYL (PF) 50 MCG/ML 2 ML AMP IV PRN; -fentaNYL (PF) 50 MCG/ML 2 ML AMP IVP PRN
[2018-07-08 07:00] VITALS: TEMP 97
[2018-07-08 07:19] LABS: Glucose,Whole Blood 112 mg/dL (75-99)
--- NOTE | 2018-07-08 07:50 | P.GSHP ---
History of Present Illness H&P Date: 07/08/18 Chief Complaint: Back skin lesion This is a 67-year-old female who presents today for excision of a back skin lesion. This was biopsied several months ago and found to be a benign lesion. Patient wished to have the lesion excised. Past Medical History Past Medical History: Atrial Fibrillation, Asthma, Chest Pain / Angina, Heart Failure, COPD, Diabetes Mellitus, Deep Vein Thrombosis (DVT), GERD/Reflux, Hypertension, Pneumonia, Seizure Disorder, Sleep Apnea/CPAP/BIPAP Additional Past Medical History / Comment(s): last seizure was 20 years ago, bilateral CARPAL TUNNEL syndrome, Hx.chronic thrombocytopenia, chronic headaches, herniated cervical disc, cyst on back, currently not using CPAP, ulcer, gout History of Any Multi-Drug Resistant Organisms: None Reported Past Surgical History: Breast Surgery, Cholecystectomy, Heart Catheterization Additional Past Surgical History / Comment(s): L breast biopsy- x2, L parotid gland biopsy, bilateral cataract removals with lens implants. L Thyroid biopsy, "biopsy on back-neg", thyroidectomy, loop recorder/later removed Past Anesthesia/Blood Transfusion Reactions: Previous Problems w/ Anesthesia Additional Past Anesthesia/Blood Transfusion Reaction / Comment(s): "i get shaky with anesthesia" Type of Cardiac Device: Loop Device Placement Date:: 2011 Smoking Status: Current every day smoker - Past Family History Mother Additional Family Medical History / Comment(s): Mother of sepsis at the age of 63 yrs. Father Family Medical History: Deep Vein Thrombosis (DVT), Pulmonary Embolus Additional Family Medical History / Comment(s): Father during a carotid endartectomy. Sister(s) Family Medical History: Cancer Medications and Allergies Home Medications Medication Instructions Recorded Confirmed Type Aspirin 81 mg PO DAILY 01/01/17 07/08/18 History Montelukast [Singulair] 10 mg PO HS tab 07/12/17 07/08/18 Rx Apixaban [Eliquis] 2.5 mg PO BID 11/12/17 07/08/18 History Gabapentin [Neurontin] 300 mg PO TID 11/12/17 07/08/18 History Nicotine 14Mg/24Hr Patch [Habitrol] 1 patch TRANSDERM DAILY patch 03/19/18 07/08/18 Rx HYDROcodone/APAP 5-325MG [[place] 1 tab PO Q8H PRN 03/22/18 07/08/18 History 5-325] Famotidine 20 mg PO HS 07/06/18 07/08/18 History Ipratropium-Albuterol Nebulize 3 ml INHALATION QID 07/06/18 07/08/18 History [Duoneb 0.5 mg-3 mg/3 ml Soln] Lisinopril [Zestril] 10 mg PO DAILY 07/06/18 07/08/18 History metFORMIN HCL [Glucophage] 500 mg PO BID 07/06/18 07/08/18 History Allergies Allergy/AdvReac Type Severity Reaction Status Date / Time latex Allergy Rash/Hives Verified 07/08/18 07:01 Penicillins Allergy Rash/Hives Verified 07/08/18 07:01 Sulfa (Sulfonamide Allergy Rash/Hives Verified 07/08/18 07:01 Antibiotics) Surgical - Exam Vital Signs Temp Pulse Resp BP Pulse Ox 97 F L 86 16 132/64 100 07/08/18 06:59 07/08/18 06:59 07/08/18 06:59 07/08/18 06:59 07/08/18 06:59 - General well developed, well nourished, no distress - Eyes PERRL - ENT normal pinna - Neck no masses - Respiratory normal expansion - Cardiovascular Rhythm: regular - Abdomen Abdomen: soft, non tender - Integumentary 2 cm back skin lesion. No evidence of infection or inflammation. Results - Labs Abnormal Lab Results - Last 24 Hours (Table) 07/08/18 Range/Units 07:12 POC Glucose (mg/dL) 112 H (75-99) mg/dL Assessment and Plan Assessment: Back skin lesion. We'll perform excision.
[2018-07-08] MEDS ORDERED: fentaNYL (PF) 50 MCG/ML 2 ML AMP ONE (07:55)
[2018-07-08] MEDS ORDERED: PROPOFOL 10 MG/ML 20 ML VIAL IV ONE (07:55)
[2018-07-08] MEDS ORDERED: MIDAZOLAM 2 MG/2 ML VIAL ONE (07:55)
[2018-07-08] MEDS ORDERED: BUPIVACAIN-EPI 0.5%-1:200,000 30 ML VIAL SQ ONE (08:14)
[2018-07-08] MEDS ORDERED: SODIUM CHLORIDE 0.9% 50 ML with ceFAZolin 2,000 MG IV ONE ×2 (08:19)
--- NOTE | 2018-07-08 08:40 | P.OP ---
Date of Procedure: 07/08/18 Preoperative Diagnosis: Back skin lesion Postoperative Diagnosis: Back skin lesion Procedure(s) Performed: Excision of back skin lesion Anesthesia: MAC Surgeon: Ty Andrew Estimated Blood Loss (ml): 2 Pathology: other (Back skin lesion) Condition: stable Disposition: PACU Description of Procedure: The patient's placed on the operative table in the prone position per she received IV sedation. Her back was prepped and draped in usual sterile fashion. Elliptical skin incision was made around the back skin lesion the skin lesion measured approximately 3 cm in diameter. The Bovie was used hemostasis. The subcutaneous tissue divided with left cautery. The wound was closed in 2 layers using 0 Vicryl and 3-0 Monocryl suture. The specimen was tagged with a suture in the superior position and sent to pathology. Patient top she will was sent to recovery in stable condition.
[2018-07-08 09:06] VITALS: RESP 18
[2018-07-08 09:17] VITALS: BP 117/63; PULSE 90
== END 2018-07-08 09:18 | disposition home or self-care (01) ==
LOC: OR 06:36
PROVIDERS: ATTEND Surgery
DX: L98.9 Disorder of the skin and subcutaneous tissue, unspecified (principal); D69.6 Thrombocytopenia, unspecified; E11.9 Type 2 diabetes mellitus without complications; F17.200 Nicotine dependence, unspecified, uncomplicated; G40.909 Epilepsy, unspecified, not intractable, without status epilepticus; Z98.42 Cataract extraction status, left eye; Z98.41 Cataract extraction status, right eye; Z96.1 Presence of intraocular lens; I11.0 Hypertensive heart disease with heart failure; I48.91 Unspecified atrial fibrillation; I50.9 Heart failure, unspecified; J44.9 Chronic obstructive pulmonary disease, unspecified; K21.9 Gastro-esophageal reflux disease without esophagitis; Z79.01 Long term (current) use of anticoagulants; Z79.82 Long term (current) use of aspirin; Z86.718 Personal history of other venous thrombosis and embolism; Z88.0 Allergy status to penicillin; Z90.49 Acquired absence of other specified parts of digestive tract; Z79.84 Long term (current) use of oral hypoglycemic drugs; Z88.2 Allergy status to sulfonamides; Z91.040 Latex allergy status
CPT/HCPCS: 88305; 11403; 12032; J2250; J1644; J1100; J2405; J0690; J3010; J2704

== ENCOUNTER 2018-09-17 11:27 | Inpatient (IN) | payer BC, MEDICARE ==
[2018-09-17 12:28] VITALS: BMI 74.9
[2018-09-17] MEDS ORDERED: HYDROmorphone 0.5 MG/0.5 ML SYRINGE IVP STA (12:50)
[2018-09-17 15:21] LABS: Basophils % (A) 0 %; Eosinophils % (A) 1 %; HGB 12.5 gm/dL (11.4-16.0); Lymphocytes # (A) 1.9 k/uL (1.0-4.8); Lymphocytes % (A) 35 %; MCH 30.1 pg (25.0-35.0); Mean Platelet Volume 8.6; Monocytes # (A) 0.3 k/uL (0-1.0); Monocytes % (A) 6 %; Neutrophils % (A) 56 %; Platelet Count 181 k/uL (150-450); RBC 4.14 m/uL (3.80-5.40); WBC 5.3 k/uL (3.8-10.6)
[2018-09-17 15:28] LABS: ALT 16 U/L (9-52); AST 23 U/L (14-36); African American GFR (CKD) >90 (>60 ml/min/1.73 sqM); Albumin 3.7 g/dL (3.5-5.0); Alkaline Phosphatase 59 U/L (38-126); Amylase 48 U/L (30-110); Anion Gap 3 mmol/L; Blood Urea Nitrogen 8 mg/dL (7-17); Calcium 8.8 mg/dL (8.4-10.2); Carbon Dioxide 31 mmol/L (22-30); Chloride 106 mmol/L (98-107); Glucose 95 mg/dL (74-99); Lipase 46 U/L (23-300); Potassium 3.9 mmol/L (3.5-5.1); Sodium 140 mmol/L (137-145); Total Bilirubin 0.7 mg/dL (0.2-1.3); Total Protein 5.9 g/dL (6.3-8.2)
[2018-09-17] MEDS ORDERED: IPRATROPIUM-ALBUTEROL 3 ML NEB INHALATION PRN (15:33)
[2018-09-17] MEDS ORDERED: ONDANSETRON 4 MG/2 ML VIAL IVP PRN (15:35)
[2018-09-17] MEDS ORDERED: HYDROmorphone 0.5 MG/0.5 ML SYRINGE IM PRN (15:40)
[2018-09-17] MEDS ORDERED: HYDROmorphone 0.5 MG/0.5 ML SYRINGE IVP PRN (15:41)
[2018-09-17] MEDS ORDERED: KETOROLAC 30 MG/ML 1 ML VIAL IVP STA (15:48)
[2018-09-17] MEDS: SODIUM CHLORIDE 0.9% 1,000 ML IV SCH (15:57)
--- NOTE | 2018-09-17 16:04 | XR ---
EXAMINATION TYPE: XR abdomen complete w decub DATE OF EXAM: 09/17/2018 HISTORY: Pain. Technique: 4 views of the abdomen are submitted. Comparison: None. Findings: There is no convincing evidence of pneumoperitoneum. The Bowel gas pattern is nonspecific and nonobstructive. No sizable air-fluid levels are seen. No mass effects are noted. No renal calcifications are identified. IMPRESSION: 1. Nonspecific nonobstructive bowel gas pattern
[2018-09-17 16:52] LABS: Glucose,Whole Blood 140 mg/dL (75-99)
[2018-09-17] MEDS: PANTOPRAZOLE 40 MG/10 ML VIAL IVP SCH (17:12)
[2018-09-17] MEDS: NICOTINE 14MG/24HR PATCH TRANSDERM SCH (17:13)
[2018-09-17] MEDS: INSULIN ASPART (NovoLOG) 100 UNIT/ML VIAL SQ SCH ×2 (17:17→22:07)
[2018-09-17] MEDS: IPRATROPIUM-ALBUTEROL 3 ML NEB INHALATION SCH ×2 (19:02→19:27)
[2018-09-17 20:27] LABS: Glucose,Whole Blood 121 mg/dL (75-99)
[2018-09-17] MEDS ORDERED: MONTELUKAST 10 MG TAB PO SCH (21:00)
[2018-09-17] MEDS: KETOROLAC 30 MG/ML 1 ML VIAL IVP SCH (22:08)
[2018-09-18] MEDS: SODIUM CHLORIDE 0.9% 1,000 ML IV SCH ×3 (02:17→21:52)
[2018-09-18] MEDS: KETOROLAC 30 MG/ML 1 ML VIAL IVP SCH ×4 (02:17→17:41)
[2018-09-18 07:01] LABS: Glucose,Whole Blood 117 mg/dL (75-99)
[2018-09-18] MEDS: INSULIN ASPART (NovoLOG) 100 UNIT/ML VIAL SQ SCH ×4 (07:21→21:48)
[2018-09-18] MEDS: IPRATROPIUM-ALBUTEROL 3 ML NEB INHALATION SCH ×4 (07:24→20:37)
[2018-09-18 08:23] LABS: Basophils % (A) 1 %; Eosinophils % (A) 0 %; HCT 38.3 % (34.0-46.0); HGB 11.8 gm/dL (11.4-16.0); Lymphocytes # (A) 1.6 k/uL (1.0-4.8); Lymphocytes % (A) 34 %; MCH 29.4 pg (25.0-35.0); MCHC 30.9 g/dL (31.0-37.0); MCV 95.3 fL (80.0-100.0); Mean Platelet Volume 8.9; Monocytes # (A) 0.3 k/uL (0-1.0); Monocytes % (A) 7 %; Neutrophils # (A) 2.7 k/uL (1.3-7.7); Neutrophils % (A) 56 %; Platelet Count 183 k/uL (150-450); RBC 4.02 m/uL (3.80-5.40); RDW 13.6 % (11.5-15.5); WBC 4.8 k/uL (3.8-10.6)
[2018-09-18 08:31] LABS: African American GFR (CKD) >90 (>60 ml/min/1.73 sqM); Anion Gap 5 mmol/L; Blood Urea Nitrogen 12 mg/dL (7-17); Calcium 8.4 mg/dL (8.4-10.2); Carbon Dioxide 27 mmol/L (22-30); Chloride 106 mmol/L (98-107); Glucose 110 mg/dL (74-99); Potassium 3.9 mmol/L (3.5-5.1); Sodium 138 mmol/L (137-145)
[2018-09-18] MEDS: NICOTINE 14MG/24HR PATCH TRANSDERM SCH (09:21)
[2018-09-18] MEDS: PANTOPRAZOLE 40 MG/10 ML VIAL IVP SCH (09:21)
[2018-09-18 11:23] LABS: Glucose,Whole Blood 104 mg/dL (75-99)
[2018-09-18 17:07] LABS: Glucose,Whole Blood 76 mg/dL (75-99)
[2018-09-18 18:59] LABS: Hemoglobin A1C 5.6 % (4.0-6.0)
[2018-09-18] MEDS ORDERED: HYDROcodone/APAP 5-325MG 1 EACH TAB PO PRN (19:43)
[2018-09-18 20:22] LABS: Glucose,Whole Blood 111 mg/dL (75-99)
--- NOTE | 2018-09-18 21:22 | P.CONS ---
History of Present Illness - Reason for Consult Consult date: 09/18/18 Clostridium difficile Requesting physician: Clayton Edmonds - Chief Complaint Abdominal pain, diarrhea - History of Present Illness 67-year-old female with multiple medical comorbidities including asthma, atrial fibrillation, hypertension, and diabetes mellitus who presents with reports of abdominal pain and diarrhea. The patient reports being seen in the outpatient setting at which time she was having episodes of loose stool. Testing at that time was positive for Clostridium difficile. Patient was started on Flagyl therapy which she has been on for approximately one week. She reports during this time she is a GI upset, nausea and has not felt well. She has continued to have 3-4 loose nonbloody bowel movements daily. She denies any prior episodes of Clostridium difficile. She does report a colonoscopy earlier in the year prior to her gallbladder surgery which she reports was normal. She states that since being at the hospital she has not had any bowel movements for feels that this is secondary to the morphine therapy which has caused her constipation in the past. Review of Systems REVIEW OF SYSTEMS: CONSTITUTIONAL: Denies any fevers, chills, weight change or fatigue. CARDIOVASCULAR: Denies any chest pain, high or low blood pressures RESPIRATORY: Denies any shortness of breath, hemoptysis or cough. GENITOURINARY: No dysuria or hematuria. MUSCULOSKELETAL: No weakness reported. SKIN: Denies any new rashes or lesions, jaundice or pallor. PSYCHIATRIC: Denies any depression or anxiety. NEUROLOGY: Denies headache, denies any new focal deficits. EARS/NOSE/THROAT: No recent hearing change, congestion, nasal discharge or sore throat. EYES: No pain in eyes, discharge or change in vision. GASTROINTESTINAL: As per HPI. Past Medical History Past Medical History: Atrial Fibrillation, Asthma, Chest Pain / Angina, Heart Failure, COPD, Diabetes Mellitus, Deep Vein Thrombosis (DVT), GERD/Reflux, Hypertension, Pneumonia, Seizure Disorder, Sleep Apnea/CPAP/BIPAP Additional Past Medical History / Comment(s): last seizure was 20 years ago, bilateral CARPAL TUNNEL syndrome, Hx.chronic thrombocytopenia, chronic headac hes, herniated cervical disc, cyst on back removed, currently not using CPAP, gastric ulcer, gout History of Any Multi-Drug Resistant Organisms: None Reported Past Surgical History: Breast Surgery, Cholecystectomy, Heart Catheterization Additional Past Surgical History / Comment(s): L breast biopsy- x2, L parotid gland biopsy, bilateral cataract removals with lens implants. L Thyroid biopsy, "biopsy on back-neg", thyroidectomy, loop recorder/later removed Past Anesthesia/Blood Transfusion Reactions: Previous Problems w/ Anesthesia Additional Past Anesthesia/Blood Transfusion Reaction / Comm: "i get shaky with anesthesia" Type of Cardiac Device: Loop Device Placement Date:: 2011 Past Psychological History: No Psychological Hx Reported Additional Psychological History / Comment(s): . Smoking Status: Current every day smoker Past Alcohol Use History: Occasional Additional Past Alcohol Use History / Comment(s): Pt states she started smoking in 1965 had smoked 1/2 ppd . currently smokes 1-2 cigarettes daily Past Drug Use History: None Reported - Past Family History Mother Additional Family Medical History / Comment(s): Mother of sepsis at the age of 63 yrs. Father Family Medical History: Deep Vein Thrombosis (DVT), Pulmonary Embolus Additional Family Medical History / Comment(s): Father during a carotid endartectomy. Sister(s) Family Medical History: Cancer Medications and Allergies Home Medications Medication Instructions Recorded Confirmed Type Aspirin 81 mg PO DAILY 01/01/17 09/17/18 History Montelukast [Singulair] 10 mg PO HS tab 07/12/17 09/17/18 Rx Apixaban [Eliquis] 2.5 mg PO BID 11/12/17 09/17/18 History Gabapentin [Neurontin] 300 mg PO TID 11/12/17 09/17/18 History Nicotine 14Mg/24Hr Patch [Habitrol] 1 patch TRANSDERM DAILY patch 03/19/18 09/17/18 Rx HYDROcodone/APAP 5-325MG [[place] 1 tab PO Q8H PRN 03/22/18 09/17/18 History 5-325] Famotidine 20 mg PO HS 07/06/18 09/17/18 History Ipratropium-Albuterol Nebulize 3 ml INHALATION RT-QID PRN 07/06/18 09/17/18 History [Duoneb 0.5 mg-3 mg/3 ml Soln] Lisinopril [Zestril] 10 mg PO DAILY 07/06/18 09/17/18 History metFORMIN HCL [Glucophage] 500 mg PO BID 07/06/18 09/17/18 History Allergies Allergy/AdvReac Type Severity Reaction Status Date / Time latex Allergy Rash/Hives Verified 09/17/18 13:21 Penicillins Allergy Rash/Hives Verified 09/17/18 13:21 Sulfa (Sulfonamide Allergy Rash/Hives Verified 09/17/18 13:21 Antibiotics) Physical Exam Vitals: Vital Signs Temp Pulse Pulse Resp BP Pulse Ox 09/18/18 15:00 71 15 147/83 100 09/18/18 11:36 76 09/18/18 11:26 76 09/18/18 07:33 80 09/18/18 07:25 76 09/18/18 07:00 97.5 F L 68 15 152/79 98 09/18/18 02:05 97.8 F 78 16 170/90 97 09/17/18 19:30 97.9 F 75 18 138/94 99 09/17/18 19:27 78 14 Intake and Output 09/18/18 09/18/18 09/18/18 06:59 14:59 22:59 Intake Total 900 240 Balance 900 240 Intake: Intake, IV Titration 900 Amount Sodium Chloride 0.9% 1, 900 000 ml @ 100 mls/hr IV . Q10H [facility] Rx#:[id number] Oral 240 Other: Voiding Method Toilet # Voids 3 2 On physical examination, patient appears comfortable in no apparent distress. HEAD: Normocephalic, atraumatic. EYES: No scleral icterus. No conjunctival injection. MOUTH: No lesions, tongue midline. NECK: Trachea midline, no gross abnormalities. CHEST: Clear to auscultation with no wheezing or rhonchi appreciated. HEART: Regular rate and rhythm. ABDOMEN: Soft, obese. Bowel sounds are positive. No organomegaly. No guarding or rigidity. EXTREMITIES: No pedal edema. SKIN: No rashes, no jaundice. NEUROLOGIC: Alert and oriented x3. No focal deficits. Results CBC & Chem 7: 09/18/18 07:09/18/18 07:19 Labs: Abnormal Lab Results - Last 24 Hours (Table) 09/17/18 09/17/18 09/18/18 Range/Units 16:44 20:25 06:59 MCHC (31.0-37.0) g/dL Glucose (74-99) mg/dL POC Glucose (mg/dL) 140 H 121 H 117 H (75-99) mg/dL 09/18/18 09/18/18 09/18/18 Range/Units 07:19 07:19 11:22 MCHC 30.9 L (31.0-37.0) g/dL Glucose 110 H (74-99) mg/dL POC Glucose (mg/dL) 104 H (75-99) mg/dL Abdominal x-ray: report reviewed (X-ray abdomen with nonspecific nonobstructive bowel gas pattern) Assessment and Plan (1) Clostridium difficile diarrhea Narrative/Plan: 67-year-old female with multiple medical comorbidities who presents with complaints of continued diarrhea and abdominal pain during her 7 days of Flagyl therapy for treatment of Clostridium difficile. X-ray of the abdomen was significant for a nonspecific nonobstructive bowel gas pattern. She does report last colonoscopy was earlier in the year prior to cholecystectomy. She denies any blood per rectum. Bowel movements were approximately 3-4 loose bowel movements daily on therapy prior to presentation. Currently she has not had any further bowel movements but feels this is secondary to morphine therapy which has caused her to be constipated in the past. Current Visit: Yes Status: Acute Code(s): A04.72 - ENTEROCOLITIS D/T CL OSTRIDIUM DIFFICILE, NOT SPCF RECUR SNOMED Code(s): 4000088989393 (2) Abdominal pain Current Visit: Yes Status: Acute Code(s): R10.9 - UNSPECIFIED ABDOMINAL PAIN SNOMED Code(s): 55053115 Plan: Supportive care Nothing by mouth, will advance diet as symptoms improve We'll start empiric therapy with vancomycin by mouth given inability to tolerate Flagyl therapy X-ray abdomen reviewed, if symptoms persist consider computed tomography scan of the abdomen for further evaluation Continue to monitor CBC, CMP Encourage ambulation Thank you for allowing us to participate in the care of this patient we will continue to follow
[2018-09-18] MEDS: GABAPENTIN 300 MG CAP PO SCH (21:52)
[2018-09-18] MEDS: APIXABAN 2.5 MG TABLET PO SCH (21:52)
[2018-09-18] MEDS: FAMOTIDINE 20 MG TAB PO SCH (21:52)
[2018-09-18 22:30] LABS: Appearance,Urine Clear (Clear); Bilirubin,Urine Negative (Negative); Blood,Urine Negative (Negative); Color,Urine Light Yellow; Glucose,Urine (UA) Negative (Negative); Ketones,Urine Negative (Negative); Leukocyte Esterase,Urine Negative (Negative); Nitrite,Urine Negative (Negative); PH, Urine 6.5 (5.0-8.0); Protein,Urine Negative (Negative); Specific Gravity,Urine 1.009 (1.001-1.035); Urobilinogen,Urine <2.0 mg/dL (<2.0)
--- NOTE | 2018-09-18 23:07 | HP ---
HISTORY AND PHYSICAL CHIEF COMPLAINT: A 67-year-old white female admitted for severe abdominal pain. GI pain, chronic diarrhea 4-5 episodes a day and severe abdominal pain, admitted for surgical evaluation dehydration and C diff colitis that she states does not improved with the oral vancomycin. HOME MEDICATIONS: Include: 1. Eliquis 2.5 b.i.d. 2. Aspirin 81 mg daily. 3. Pepcid 20 mg daily. 4. Gabapentin 300 t.i.d. 5. Clayton 5/325 every 8 hours. 6. DuoNeb q.i.d. 7. MiraLAX 50 mg IV q.6 hours. 8. Zestril 10 mg daily. 9. Nicotine patch 14 mg daily. REVIEW OF SYSTEMS: Fourteen point review of systems negative except for mentioned in HPI. PHYSICAL EXAMINATION: Temp 98.5, pulse 70-76, respiratory rate 14-18, blood pressure 140s to 150s over 70s to 80s. O2 is 95 to 100% on room air. Cardiovascular S1, S2. LUNGS: Mild wheeze x4. HEMATOLOGY: Negative Homans. PSYCH: Fair mood and affect. NEURO: Cranial nerves are intact. Vascular normal dorsalis pedis, posterior radial pulse. Ophthalmologic: Pupils equal, round, reactive to light and accommodation. NEUROLOGIC: Alert and orient x3. GI is distended, tender to palpation, epigastric. ASSESSMENT: 1. Acute abdominal pain of unclear etiology. 2. Gastroesophageal reflux disease. 3. Clostridium diff colitis. 4. Chronic obstructive pulmonary disease. 5. Nicotine addiction. 6. Diabetes mellitus. PLAN: Continue current treatment. Monitor for possible surgical Gastroenterology consultation. Stool for C diff. Clear liquid diet. Will advance diet once surgery or GI sees her. MMODL / IJN: [id number] /
[2018-09-19] MEDS: KETOROLAC 30 MG/ML 1 ML VIAL IVP SCH ×5 (00:32→23:44)
[2018-09-19] MEDS: VANCOMYCIN ORAL SOLUTION 250 MG/5 ML BOTTLE PO SCH ×5 (00:32→23:45)
[2018-09-19 07:06] LABS: Glucose,Whole Blood 114 mg/dL (75-99)
[2018-09-19] MEDS: INSULIN ASPART (NovoLOG) 100 UNIT/ML VIAL SQ SCH ×4 (07:06→21:28)
[2018-09-19 07:38] LABS: Basophils % (A) 0 %; Eosinophils # (A) 0.1 k/uL (0-0.7); Eosinophils % (A) 1 %; HCT 37.4 % (34.0-46.0); HGB 11.8 gm/dL (11.4-16.0); Lymphocytes # (A) 1.5 k/uL (1.0-4.8); Lymphocytes % (A) 34 %; MCH 29.8 pg (25.0-35.0); MCHC 31.5 g/dL (31.0-37.0); MCV 94.7 fL (80.0-100.0); Mean Platelet Volume 8.9; Monocytes # (A) 0.3 k/uL (0-1.0); Monocytes % (A) 6 %; Neutrophils # (A) 2.5 k/uL (1.3-7.7); Neutrophils % (A) 57 %; Platelet Count 170 k/uL (150-450); RBC 3.95 m/uL (3.80-5.40); RDW 13.6 % (11.5-15.5); WBC 4.4 k/uL (3.8-10.6)
[2018-09-19] MEDS: IPRATROPIUM-ALBUTEROL 3 ML NEB INHALATION SCH ×4 (07:46→18:51)
[2018-09-19] MEDS: IOPAMIDOL-300 CONTRAST 30 ML VIAL (ORAL USE) PO PRN ×2 (07:49→08:52)
[2018-09-19] MEDS: SODIUM CHLORIDE 0.9% 1,000 ML IV SCH ×2 (07:49→15:51)
[2018-09-19 07:58] LABS: African American GFR (CKD) >90 (>60 ml/min/1.73 sqM); Anion Gap 4 mmol/L; Blood Urea Nitrogen 10 mg/dL (7-17); Calcium 8.4 mg/dL (8.4-10.2); Carbon Dioxide 28 mmol/L (22-30); Chloride 109 mmol/L (98-107); Glucose 99 mg/dL (74-99); Sodium 141 mmol/L (137-145)
[2018-09-19 08:06] LABS: Potassium 4.2 mmol/L (3.5-5.1)
[2018-09-19] MEDS: APIXABAN 2.5 MG TABLET PO SCH ×2 (09:24→21:28)
[2018-09-19] MEDS: LISINOPRIL 10 MG TAB PO SCH (09:24)
[2018-09-19] MEDS: GABAPENTIN 300 MG CAP PO SCH ×3 (09:24→21:28)
[2018-09-19] MEDS: ASPIRIN 81 MG PO SCH (09:24)
[2018-09-19] MEDS: PANTOPRAZOLE 40 MG/10 ML VIAL IVP SCH (10:09)
[2018-09-19] MEDS: NICOTINE 14MG/24HR PATCH TRANSDERM SCH (10:53)
--- NOTE | 2018-09-19 10:54 | CT ---
EXAMINATION TYPE: CT abdomen pelvis wo/w con DATE OF EXAM: 09/19/2018 REFERENCE: Previous study dated 03/22/2018 HISTORY: abdominal pain HISTORY: generalized pain REFERENCE: NONE CT DLP: 1455.2 mGy Automated exposure control for dose reduction was used. TECHNIQUE: Helical acquisition through the abdomen and pelvis was obtained following the oral ingesti on of with Oral Contrast and following intravenous administration of 100 mL of Isovue 300. The data w as reformatted in axial, coronal and sagittal projections. FINDINGS: Visualized portions of the lungs are clear. There is no pleural or pericardial fluid. The heart is not enlarged. Within the abdomen, there are multiple, stable low attenuating lesions within all segments of the jeanine er. These likely represent cysts. Spleen is normal. The gallbladder has been removed. There is a stable low attenuating 2.6 x 2 cm right adrenal mass. Left adrenal gland is normal. Previo usly this mass was measured at 2.5 x 2.1 cm. The pancreas is unremarkable. There is a 9 mm cyst in the posterior aspect of the mid polar region of the left kidney. The right ki dney is unremarkable. There is mild/moderate atheromatous calcification of the visualized arterial tree. There is no signif icant retroperitoneal, iliac or inguinal adenopathy. The bladder is unremarkable. Uterus and ovaries are unremarkable. There is no significant diverticular change and there is no radiographic evidence of diverticulitis. The appendix is normal. Small bowel loops are normal caliber. No evidence of free air or free fluid. No bony lesion is seen. IMPRESSION: 1. PROBABLE HEPATIC CYSTS. THIS COULD BE CONFIRMED WITH ULTRASOUND. 2. STABLE 2.6 CM RIGHT ADRENAL MASS. 3. SIMPLE APPEARING RIGHT RENAL CYSTIC DISEASE.
[2018-09-19 12:03] LABS: Glucose,Whole Blood 87 mg/dL (75-99)
--- NOTE | 2018-09-19 12:52 | P.GSCN ---
History of Present Illness Consult date: 09/19/18 Reason for Consult: Abdominal pain History of present illness: This is a 67-year-old female who has chronic complaints of epigastric dull pain. Patient states she had severe abdominal pain yesterday. Her pain is improved currently she is hungry. Past Medical History Past Medical History: Atrial Fibrillation, Asthma, Chest Pain / Angina, Heart Failure, COPD, Diabetes Mellitus, Deep Vein Thrombosis (DVT), GERD/Reflux, Hypertension, Pneumonia, Seizure Disorder, Sleep Apnea/CPAP/BIPAP Additional Past Medical History / Comment(s): last seizure was 20 years ago, bilateral CARPAL TUNNEL syndrome, Hx.chronic thrombocytopenia, chronic headaches, herniated cervical disc, cyst on back removed, currently not using CPAP, gastric ulcer, gout History of Any Multi-Drug Resistant Organisms: None Reported Past Surgical History: Breast Surgery, Cholecystectomy, Heart Catheterization Additional Past Surgical History / Comment(s): L breast biopsy- x2, L parotid gland biopsy, bilateral cataract removals with lens implants. L Thyroid biopsy, "biopsy on back-neg", thyroidectomy, loop recorder/later removed Past Anesthesia/Blood Transfusion Reactions: Previous Problems w/ Anesthesia Additional Past Anesthesia/Blood Transfusion Reaction / Comm: "i get shaky with anesthesia" Type of Cardiac Device: Loop Device Placement Date:: 2011 Past Psychological History: No Psychological Hx Reported Additional Psychological History / Comment(s): . Smoking Status: Current every day smoker Past Alcohol Use History: Occasional Additional Past Alcohol Use History / Comment(s): Pt states she started smoking in 1965 had smoked 1/2 ppd . currently smokes 1-2 cigarettes daily Past Drug Use History: None Reported - Past Family History Mother Additional Family Medical History / Comment(s): Mother of sepsis at the age of 63 yrs. Father Family Medical History: Deep Vein Thrombosis (DVT), Pulmonary Embolus Additional Family Medical History / Comment(s): Father during a carotid endartectomy. Sister(s) Family Medical History: Cancer Medications and Allergies Home Medications Medication Instructions Recorded Confirmed Type Aspirin 81 mg PO DAILY 01/01/17 09/17/18 History Montelukast [Singulair] 10 mg PO HS tab 07/12/17 09/17/18 Rx Apixaban [Eliquis] 2.5 mg PO BID 11/12/17 09/17/18 History Gabapentin [Neurontin] 300 mg PO TID 11/12/17 09/17/18 History Nicotine 14Mg/24Hr Patch [Habitrol] 1 patch TRANSDERM DAILY patch 03/19/18 09/17/18 Rx HYDROcodone/APAP 5-325MG [[place] 1 tab PO Q8H PRN 03/22/18 09/17/18 History 5-325] Famotidine 20 mg PO HS 07/06/18 09/17/18 History Ipratropium-Albuterol Nebulize 3 ml INHALATION RT-QID PRN 07/06/18 09/17/18 History [Duoneb 0.5 mg-3 mg/3 ml Soln] Lisinopril [Zestril] 10 mg PO DAILY 07/06/18 09/17/18 History metFORMIN HCL [Glucophage] 500 mg PO BID 07/06/18 09/17/18 History Allergies Allergy/AdvReac Type Severity Reaction Status Date / Time latex Allergy Rash/Hives Verified 09/17/18 13:21 Penicillins Allergy Rash/Hives Verified 09/17/18 13:21 Sulfa (Sulfonamide Allergy Rash/Hives Verified 09/17/18 13:21 Antibiotics) Surgical - Exam Vital Signs Temp Pulse Resp BP Pulse Ox 98.4 F 71 15 175/80 100 09/17/18 12:38 09/17/18 12:38 09/17/18 12:38 09/17/18 12:38 09/17/18 12:38 - General well developed, well nourished, no distress - Eyes PERRL - ENT normal pinna - Neck no masses - Respiratory normal expansion - Cardiovascular Rhythm: regular - Abdomen Mild epigastric tenderness. There is no rebound or guarding. Abdomen: soft Results - Labs 09/19/18 06:58 09/19/18 06:58 Abnormal Lab Results - Last 24 Hours (Table) 09/18/18 09/19/18 09/19/18 Range/Units 20: 06:54 06:58 Chloride 109 H (98-107) mmol/L POC Glucose (mg/dL) 111 H 114 H (75-99) mg/dL Diabetes panel 09/18/18 09/19/18 Range/Units 07:19 06:58 Sodium 141 (137-145) mmol/L Potassium 4.2 (3.5-5.1) mmol/L Chloride 109 H (98-107) mmol/L Carbon Dioxide 28 (22-30) mmol/L BUN 10 (7-17) mg/dL Creatinine 0.72 (0.52-1.04) mg/dL Glucose 99 (74-99) mg/dL Hemoglobin A1c 5.6 (4.0-6.0) % Calcium 8.4 (8.4-10.2) mg/dL Calcium panel 09/19/18 Range/Units 06:58 Calcium 8.4 (8.4-10.2) mg/dL Pituitary panel 09/19/18 Range/Units 06:58 Sodium 141 (137-145) mmol/L Potassium 4.2 (3.5-5.1) mmol/L Chloride 109 H (98-107) mmol/L Carbon Dioxide 28 (22-30) mmol/L BUN 10 (7-17) mg/dL Creatinine 0.72 (0.52-1.04) mg/dL Glucose 99 (74-99) mg/dL Calcium 8.4 (8.4-10.2) mg/dL Adrenal panel 09/19/18 Range/Units 06:58 Sodium 141 (137-145) mmol/L Potassium 4.2 (3.5-5.1) mmol/L Chloride 109 H (98-107) mmol/L Carbon Dioxide 28 (22-30) mmol/L BUN 10 (7-17) mg/dL Creatinine 0.72 (0.52-1.04) mg/dL Glucose 99 (74-99) mg/dL Calcium 8.4 (8.4-10.2) mg/dL Assessment and Plan Assessment: Chronic epigastric dull pain. Patient will be observed. We will start her diet once her pain is improved.
[2018-09-19 17:07] LABS: Glucose,Whole Blood 97 mg/dL (75-99)
[2018-09-19] MEDS: CHERRY FLAVOR 60 ML BOTTLE PO SCH ×2 (17:21→23:45)
--- NOTE | 2018-09-19 20:45 | PN ---
PROGRESS NOTE 67-year-old female with acute abdominal pain, C diff colitis, COPD. She wants regular food. She wants to discuss with surgeons here today. Get a CT scan of her abdomen. If it is normal, I will send her home. Cardiovascular S1-S2. Lungs scattered wheeze x4. HEMATOLOGY: Negative Homans. Psych: Fair mood and affect. ASSESSMENT: 1. Acute abdominal pain. 2. Clostridium difficile colitis. 3. Chronic obstructive pulmonary disease. Check CT scan. Stool culture. Possible discharge home if CT scan is normal and diet will be advanced. MMODL / IJN: [id number] /
--- NOTE | 2018-09-19 20:53 | P.PN ---
Subjective Progress Note Date: 09/19/18 Principal diagnosis: Abdominal pain, Clostridium difficile Patient seen lying in bed reporting no further abdominal pain. She is tolerated liquids and is asking for diet to be advanced. No bowel movements today. Objective - Vital Signs Vital signs: Vital Signs Temp 97.9 F 09/19/18 19:44 Pulse 89 09/19/18 19:44 Resp 14 09/19/18 19:44 BP 150/73 09/19/18 19:44 Pulse Ox 99 09/19/18 19:44 Intake & Output 09/19/18 09/19/18 09/20/18 06:59 18:59 06:59 Intake Total 150 118 Balance 150 118 Intake: Oral 150 118 Other: Voiding Method Toilet Toilet # Voids 2 1 - Exam On physical examination, patient appears comfortable in no apparent distress. HEAD: Normocephalic, atraumatic. EYES: No scleral icterus. No conjunctival injection. MOUTH: No lesions, tongue midline. NECK: Trachea midline, no gross abnormalities. CHEST: Clear to auscultation with no wheezing or rhonchi appreciated. HEART: S1S2 appreciated. ABDOMEN: Soft, obese. Bowel sounds are positive. No organomegaly. No guarding or rigidity. EXTREMITIES: No pedal edema. SKIN: No rashes, no jaundice. NEUROLOGIC: Alert and oriented x3. No focal deficits. - Labs CBC & Chem 7: 09/19/18 06:58 09/19/18 06:58 Labs: Abnormal Lab Results - Last 24 Hours (Table) 09/19/18 09/19/18 Range/Units 06:54 06:58 Chloride 109 H (98-107) mmol/L POC Glucose (mg/dL) 114 H (75-99) mg/dL Assessment and Plan (1) Clostridium difficile diarrhea Narrative/Plan: 67-year-old female with multiple medical comorbidities who presents with complaints of continued diarrhea and abdominal pain during her 7 days of Flagyl therapy for treatment of Clostridium difficile. X-ray of the abdomen was significant for a nonspecific nonobstructive bowel gas pattern. She does report last colonoscopy was earlier in the year prior to cholecystectomy. She denies any blood per rectum. Bowel movements were approximately 3-4 loose bowel movements daily on therapy prior to presentation. Current Visit: Yes Status: Acute Code(s): A04.72 - ENTEROCOLITIS D/T CLOSTRIDIUM DIFFICILE, NOT SPCF RECUR SNOMED Code(s): 6524003571130 (2) Abdominal pain Current Visit: Yes Status: Acute Code(s): R10.9 - UNSPECIFIED ABDOMINAL PAIN SNOMED Code(s): 40531974 Plan: Supportive care Diet advance to low lactose, low fiber Empiric therapy with vancomycin by mouth given inability to tolerate Flagyl therapy Computed tomography scan abdomen negative for any acute gastrointestinal process (hepatic cysts noted stable from prior imaging) Continue to monitor CBC, CMP Encourage ambulation Thank you for allowing us to participate in the care of this patient we will continue to follow
[2018-09-19 21:16] LABS: Glucose,Whole Blood 143 mg/dL (75-99)
[2018-09-19] MEDS: FAMOTIDINE 20 MG TAB PO SCH (21:28)
[2018-09-20] MEDS: SODIUM CHLORIDE 0.9% 1,000 ML IV SCH (04:31)
[2018-09-20] MEDS: CHERRY FLAVOR 60 ML BOTTLE PO SCH ×2 (05:31→12:20)
[2018-09-20] MEDS: VANCOMYCIN ORAL SOLUTION 250 MG/5 ML BOTTLE PO SCH ×2 (05:31→12:19)
[2018-09-20] MEDS: KETOROLAC 30 MG/ML 1 ML VIAL IVP SCH ×2 (05:31→12:21)
[2018-09-20 07:28] LABS: Glucose,Whole Blood 108 mg/dL (75-99)
[2018-09-20 08:01] VITALS: RESP 15
[2018-09-20] MEDS: INSULIN ASPART (NovoLOG) 100 UNIT/ML VIAL SQ SCH ×2 (08:06→12:12)
[2018-09-20] MEDS: LISINOPRIL 10 MG TAB PO SCH (08:12)
[2018-09-20] MEDS: APIXABAN 2.5 MG TABLET PO SCH (08:12)
[2018-09-20] MEDS: ASPIRIN 81 MG PO SCH (08:12)
[2018-09-20] MEDS: GABAPENTIN 300 MG CAP PO SCH (08:12)
[2018-09-20] MEDS: PANTOPRAZOLE 40 MG/10 ML VIAL IVP SCH (08:13)
[2018-09-20] MEDS: NICOTINE 14MG/24HR PATCH TRANSDERM SCH (08:15)
[2018-09-20] MEDS: IPRATROPIUM-ALBUTEROL 3 ML NEB INHALATION SCH ×3 (08:17→15:53)
[2018-09-20 11:27] LABS: Glucose,Whole Blood 112 mg/dL (75-99)
--- NOTE | 2018-09-20 11:33 | P.PN ---
Subjective Progress Note Date: 09/20/18 CHIEF COMPLAINT: abdominal pain HISTORY OF PRESENT ILLNESS: Patient seen and examined the bedside. Patient reports her abdominal pain this morning is tolerable. She reports her pain is mostly in the middle of her abdomen. Reports normal BM yesterday. PHYSICAL EXAM: VITAL SIGNS: Reviewed. GENERAL: Well-developed in no acute distress. HEENT: No sclera icterus. Extraocular movements grossly intact. Moist buccal mucosa. Head is atraumatic, normocephalic. ABDOMEN: Soft. Nondistended. Minimal tenderness to mid abdomen. NEUROLOGIC: Alert and oriented. Cranial nerves II through XII grossly intact. ASSESSMENT: 1. Abdominal pain PLAN: 1. Diet as tolerated 2. No surgical intervention recommended 3. Continue supportive measures 4. We will sign off. Please reconsult if needed Nurse practitioner note has been reviewed by physician. Signing provider agrees with the documented findings, assessment, and plan of care. Objective - Vital Signs Vital signs: Vital Signs Temp 98.3 F 09/20/18 07:00 Pulse 76 09/20/18 08:32 Resp 15 09/20/18 07:00 BP 147/78 09/20/18 07:00 Pulse Ox 100 09/20/18 07:00 Intake & Output 09/19/18 09/20/18 09/20/18 18:59 06:59 18:59 Intake Total 118 1000 Balance 118 1000 Intake: Intake, IV Titration 1000 Amount Sodium Chloride 0.9% 1, 1000 000 ml @ 100 mls/hr IV . Q10H [facility] Rx#:[id number] Oral 118 Other: Voiding Method Toilet Toilet Toilet # Voids 1 3 - Labs CBC & Chem 7: 09/19/18 06:58 09/19/18 06:58 Labs: Abnormal Lab Results - Last 24 Hours (Table) 09/19/18 09/20/18 09/20/18 Range/Units 21:04 07:16 11:15 POC Glucose (mg/dL) 143 H 108 H 112 H (75-99) mg/dL
[2018-09-20 14:43] VITALS: BP 127/65; TEMP 97.9
[2018-09-20 16:03] VITALS: PULSE 76
--- NOTE | 2018-09-21 19:28 | P.DS ---
Providers Date of admission: 09/17/18 11:44 Expected date of discharge: 09/20/18 Attending physician: Jet Edmonds Consults: 09/18/18 19:49 Consult Physician Routine Consulting Provider: Ty Andrew Consult Reason/Comments: abdominal pain Do you want consulting provider notified?: Yes Primary care physician: Jet Edmonds [facility] Course: Final Diagnoses: -Acute abdominal pain secondary to C. 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 difficile colitis, COPD. No further diarrhea, reporting normal bowel movements. Abdominal x-ray reporting nonspecific nonobstructive bowel gas pattern. Unable to tolerate Flagyl therapy, treated with oral vancomycin. Patient denied any rectal bleeding. CT reported negative for acute GI process, stable hepatic cysts-outpatient ultrasound evaluation recommended. Evaluated by GI and surgery. Maintained on antibiotics.No surgical intervention recommended at this time. Significant clinical improvement. Patient cleared for discharge by all consults. Patient is being discharged home in a stable condition with guarded prognosis. - Exam GENERAL: Alert and oriented 3, no acute distress CHEST: Clear to auscultation with no wheezing or rhonchi appreciated. HEART: S1S2. ABDOMEN: Soft, Bowel sounds are positive. No organomegaly. No guarding or rigidity. NEUROLOGIC: No focal deficits. The impression and plan of care has been dictated as directed. : I performed a history and examination of this patient, discussed the same with the dictator. I agree with the dictator's note ,documented as a scribe. Any additional findings or plans will be noted. Time taken: 35 min Patient Condition at Discharge: Stable Plan - Discharge Summary Discharge Rx Participant: No New Discharge Prescriptions: New Vancomycin Oral Solution 250 mg PO Q6HR #290 ml Pantoprazole Sodium [Protonix] 40 mg PO DAILY #30 tablet.dr Continue Aspirin 81 mg PO DAILY Montelukast [Singulair] 10 mg PO HS tab Gabapentin [Neurontin] 300 mg PO TID Apixaban [Eliquis] 2.5 mg PO BID Nicotine 14Mg/24Hr Patch [Habitrol] 1 patch TRANSDERM DAILY patch HYDROcodone/APAP 5-325MG [[place] 5-325] 1 tab PO Q8H PRN PRN Reason: Pain Lisinopril [Zestril] 10 mg PO DAILY metFORMIN HCL [Glucophage] 500 mg PO BID Ipratropium-Albuterol Nebulize [Duoneb 0.5 mg-3 mg/3 ml Soln] 3 ml INHALATION RT-QID PRN PRN Reason: Shortness Of Breath Discontinued Famotidine 20 mg PO HS Discharge Medication List Aspirin 81 mg PO DAILY 01/01/17 [History] Montelukast [Singulair] 10 mg PO HS tab 07/12/17 [Rx] Apixaban [Eliquis] 2.5 mg PO BID 11/12/17 [History] Gabapentin [Neurontin] 300 mg PO TID 11/12/17 [History] Nicotine 14Mg/24Hr Patch [Habitrol] 1 patch TRANSDERM DAILY patch 03/19/18 [Rx] HYDROcodone/APAP 5-325MG [[place] 5-325] 1 tab PO Q8H PRN 03/22/18 [History] Ipratropium-Albuterol Nebulize [Duoneb 0.5 mg-3 mg/3 ml Soln] 3 ml INHALATION RT-QID PRN 07/06/18 [History] Lisinopril [Zestril] 10 mg PO DAILY 07/06/18 [History] metFORMIN HCL [Glucophage] 500 mg PO BID 07/06/18 [History] Pantoprazole Sodium [Protonix] 40 mg PO DAILY #30 tablet. 09/20/18 [Rx] Vancomycin Oral Solution 250 mg PO Q6HR #290 ml 09/20/18 [Rx] Follow up Appointment(s)/Referral(s): Jet Edmonds MD [Primary Care Provider] - 09/27/18 10:00 am Ambulatory/Diagnostic Orders: Complete Blood Count w/diff [LAB.AMB] Time Frame: 3 Days, Location: None Selected Patient Instructions/Handouts: C Diff (Clostridium Difficile) Infection (DC) Activity/Diet/Wound Care/Special Instructions: Diet: Lactose, low fiber outpatient ultrasound to rule to confirm hepatic cyst to be arranged at follow-up visit with PCP Discharge Disposition: HOME SELF-CARE
== END 2018-09-20 16:36 | disposition home or self-care (01) | DRG 373 ==
LOC: 4SSUR 11:44
PROVIDERS: ADMIT Family Medicine; ATTEND Family Medicine
DX: A04.72 Enterocolitis due to Clostridium difficile, not specified as recurrent (principal); I11.0 Hypertensive heart disease with heart failure; I48.91 Unspecified atrial fibrillation; I50.9 Heart failure, unspecified; N28.1 Cyst of kidney, acquired; M50.20 Other cervical disc displacement, unspecified cervical region; J44.9 Chronic obstructive pulmonary disease, unspecified; E11.9 Type 2 diabetes mellitus without complications; E27.9 Disorder of adrenal gland, unspecified; E86.0 Dehydration; E89.0 Postprocedural hypothyroidism; F17.210 Nicotine dependence, cigarettes, uncomplicated; G40.909 Epilepsy, unspecified, not intractable, without status epilepticus; G47.30 Sleep apnea, unspecified; K21.9 Gastro-esophageal reflux disease without esophagitis; G56.03 Carpal tunnel syndrome, bilateral upper limbs; M10.9 Gout, unspecified; E66.9 Obesity, unspecified; Z68.34 Body mass index [BMI] 34.0-34.9, adult; Z79.01 Long term (current) use of anticoagulants; Z79.82 Long term (current) use of aspirin; Z79.84 Long term (current) use of oral hypoglycemic drugs; Z79.899 Other long term (current) drug therapy; Z88.0 Allergy status to penicillin; Z88.2 Allergy status to sulfonamides; Z91.040 Latex allergy status; Z86.718 Personal history of other venous thrombosis and embolism; Z87.01 Personal history of pneumonia (recurrent); Z87.11 Personal history of peptic ulcer disease; Z98.42 Cataract extraction status, left eye; Z98.41 Cataract extraction status, right eye; Z96.1 Presence of intraocular lens; Z90.49 Acquired absence of other specified parts of digestive tract; Z82.49 Family history of ischemic heart disease and other diseases of the circulatory system; Z80.9 Family history of malignant neoplasm, unspecified
CPT/HCPCS: 74021; 74178; 80048; 80053; 81003; 82150; 83036; 83690; 85025; 94640

== ENCOUNTER → 2018-09-21 | Outpatient (CLI) | payer BC, MEDICARE ==
[2018-09-21 10:00] LABS: Basophils % (A) 0 %; Eosinophils % (A) 0 %; Lymphocytes # (A) 1.5 k/uL (1.0-4.8); Lymphocytes % (A) 27 %; MCH 29.8 pg (25.0-35.0); MCHC 30.9 g/dL (31.0-37.0); MCV 96.6 fL (80.0-100.0); Mean Platelet Volume 8.2; Monocytes # (A) 0.4 k/uL (0-1.0); Monocytes % (A) 7 %; Neutrophils # (A) 3.5 k/uL (1.3-7.7); Neutrophils % (A) 64 %; Platelet Count 189 k/uL (150-450); RBC 4.03 m/uL (3.80-5.40); RDW 13.2 % (11.5-15.5); WBC 5.5 k/uL (3.8-10.6)
[2018-09-21 15:39] LABS: African American GFR (CKD) 76.7 (60.0-200.0); Anion Gap 6.2 mmol/L (4.00-12.00); BUN/Creat Ratio 12.22 Ratio (12.00-20.00); Calcium 9.2 mg/dL (8.7-10.3); Carbon Dioxide 28.8 mmol/L (21.6-31.8); Potassium 4.6 mmol/L (3.5-5.5)
== END | disposition home or self-care (01) ==
LOC: LABWHC1 09:21
PROVIDERS: ATTEND Nurse Practitioner
DX: A04.72 Enterocolitis due to Clostridium difficile, not specified as recurrent (principal)
CPT/HCPCS: 36415; 80048; 85025

== ENCOUNTER → 2018-09-28 | Outpatient (CLI) | payer BC, MEDICARE | END | disposition home or self-care (01) | LOC: LABWHC1 14:36 | PROVIDERS: ATTEND Family Medicine | DX: Z53.9 Procedure and treatment not carried out, unspecified reason (principal) | CPT/HCPCS: 87324 ==

== ENCOUNTER → 2018-10-12 | Outpatient (CLI) | payer BC, MEDICARE ==
--- NOTE | 2018-10-12 14:47 | CT ---
EXAMINATION TYPE: CT chest wo con DATE OF EXAM: 10/12/2018 COMPARISON: 07/13/2017 HISTORY: COPD CT DLP: 368.9 mGycm. Automated Exposure Control for Dose Reduction was Utilized. TECHNIQUE: CT scan of the thorax is performed without IV contrast. FINDINGS: LUNGS: There are a few scattered areas of groundglass density seen in the posterior right suprahilar region of the right upper lobe and additional pleural-based area of consolidation with peripheral birgit undglass in the lateral and inferior left upper lobe the area measures approximately 1.3 cm. These fi ndings are best seen on image 36. There are a few areas of micronodularity is seen in the left upper lobe on image 28, which appear improved compared to prior exam. There is no pleural effusion or pneum othorax seen. The tracheobronchial tree is patent. MEDIASTINUM: Lack of IV contrast is noted to limit evaluation for mediastinal and especially hilar ad enopathy. There are no definitive greater than 1 cm hilar or mediastinal lymph nodes. No cardiomega ly or pericardial effusion is seen. OTHER: Redemonstration of scattered low-attenuation liver lesions which appear similar in size and a ppearance when compared to 07/13/2017. Postsurgical changes of cholecystectomy.. IMPRESSION: A few nonspecific areas of groundglass and nodular attenuation in the right upper lobe, left lower lo be and left upper lobe. Overall the findings appear improving when compared to prior exam and are lik delfin related to inflammatory process. Larger pleural-based soft tissue nodular area is seen in the left upper lobe measuring up to 1.3 cm. Attention on follow-up exams is recommended.
== END | disposition home or self-care (01) ==
LOC: RADCTMAIN 13:00
PROVIDERS: ATTEND Internal Medicine Pulmonary Disease
DX: J94.8 Other specified pleural conditions (principal); R91.8 Other nonspecific abnormal finding of lung field; J44.9 Chronic obstructive pulmonary disease, unspecified; J45.50 Severe persistent asthma, uncomplicated; G47.33 Obstructive sleep apnea (adult) (pediatric); I48.91 Unspecified atrial fibrillation; Z72.0 Tobacco use
CPT/HCPCS: 71250

== ENCOUNTER → 2018-10-13 | Outpatient (CLI) | payer BC, MEDICARE ==
--- NOTE | 2018-10-13 13:25 | US ---
EXAMINATION TYPE: US liver DATE OF EXAM: 10/13/2018 COMPARISON: 10/12/2018 CT chest CLINICAL HISTORY: K76.89 CYST. Hx liver cysts. GB removed x 4 months ago. Diarrhea. EXAM MEASUREMENTS: Liver Length: 12.7 cm CHD: 0.6 cm Right Kidney: 8.5 x 4.1 x 4.0 cm Limited visualization due to overlying bowel gas Pancreas: Tail and head obscured by overlying bowel gas Liver: multiple cystic appearing lesions visualized displaying increased through transmission as mar ked on the images. The largest seen in right lobe measuring 1.2 x 1.3 x 1.2 cm Gallbladder: Surgically absent Evidence for sonographic Ballard's sign: neg CBD: Obscured by overlying bowel gas CHD: wnl Right Kidney: wnl IMPRESSION: Multiple hepatic cysts are seen with the largest measuring up to 1.3 cm. Surgical absence of the gallbladder is noted.
== END | disposition home or self-care (01) ==
LOC: RADUSWWP 11:51
PROVIDERS: ATTEND Family Medicine
DX: K76.89 Other specified diseases of liver (principal); Z90.49 Acquired absence of other specified parts of digestive tract
CPT/HCPCS: 76705

== ENCOUNTER → 2018-11-12 | Outpatient (CLI) | payer BC, MEDICARE ==
--- NOTE | 2018-11-14 15:01 | PE ---
EXAMINATION TYPE: PET CT fusion skull to thigh DATE OF EXAM: 11/12/2018 COMPARISON: CT chest October 12, 2018. CT abdomen and pelvis September 19, 2018 HISTORY: Abdominal CT, solitary pulmonary nodule left upper lobe TECHNIQUE: Following the intravenous administration of 10.26 mCi of F-18 FDG, whole body images are performed from the skull base to the midthigh. Images are reviewed on the computer in the coronal, a xial, and sagittal planes. Reconstructed rotating images are created on independent workstation and reviewed on the computer. A noncontrast CT is performed in conjunction with the PET scan. SCAN: Initial Scan FINDINGS: SKULL BASE AND NECK: No areas of suspicious hypermetabolic uptake. CHEST, MEDIASTINUM, AND HILAR REGION: Redemonstration of a 6 mm calcified nodule or granuloma posteri or superior aspect right lower lobe axial image 74. Improved aeration in the anterior lateral left chris ng base presumed lingula on current study. No suspicious hypermetabolic uptake is present. ABDOMEN AND PELVIS: No suspicious hypermetabolic uptake. OSSEOUS STRUCTURES: No suspicious hypermetabolic uptake. OTHER CT: Calcified right hilar lymph nodes are seen. There is coronary artery calcification which is noted marker for underlying coronary artery disease. There is simple appearing 1.2 cm cyst anteriorly lateral aspect left hepatic lobe axial image 106 red emonstrated. There is stable size 2.5 cm nonspecific right adrenal mass. Moderate calcified plaque of the aorta extends into iliac branch vessels. Tubal ligation clips in the left pelvic periphery are n oted. Mild facet arthropathy in the lumbar spine. IMPRESSION: No suspicious hypermetabolic uptake to suggest malignancy. Improved aeration at area of C T concern anterolateral left lower lung consistent with resolving infectious process.
== END | disposition home or self-care (01) ==
LOC: RADPETMAIN 14:06
PROVIDERS: ATTEND Family Medicine
DX: R91.8 Other nonspecific abnormal finding of lung field (principal)
CPT/HCPCS: 78815; A9552

== ENCOUNTER 2018-12-07 19:59 | Inpatient (IN) | payer BC, MEDICARE ==
[2018-12-07] MEDS ORDERED: ALBUTEROL NEBULIZED 2.5 MG/3 ML INHALATION STA (20:12)
[2018-12-07] MEDS ORDERED: IPRATROPIUM 0.5 MG/2.5 ML NEBU INHALATION STA (20:12)
[2018-12-07] MEDS ORDERED: methylPREDNISolone SOD SUCCI 125 MG/2 ML VIAL IV STA (20:12)
[2018-12-07] MEDS ORDERED: LORazepam 2 MG/ML INJ IV STA (20:14)
[2018-12-07] MEDS ORDERED: ONDANSETRON 4 MG/2 ML VIAL IVP STA (20:14)
[2018-12-07] MEDS ORDERED: MORPHINE SULFATE 2 MG/ML SYRINGE IVP STA (20:14)
--- NOTE | 2018-12-07 20:16 | ED ---
SOB HPI - General Chief Complaint: Shortness of Breath Stated Complaint: SOB Time Seen by Provider: 12/07/18 20:08 Source: patient, RN notes reviewed, old records reviewed Mode of arrival: wheelchair Limitations: no limitations - History of Present Illness Initial Comments: This is a 67-year-old female today. This patient resents today for evaluation o f severe shortness of breath or strain secondary to respiratory distress quadrant to front door by her , patient is able to see the shortness breath started today is getting progressively worse since appear to be significantly anxious and complaining of current headache. Otherwise no current chest pain per patient. No known fevers present. Patient is improved on oxygen here in the emergency department MD Complaint: shortness of breath, anxiety -: hour(s) Severity: severe Severity scale (1-10): 8 Consistency: constant Improves With: oxygen, rest Worsens With: exertion Known History Of: COPD, congestive heart failure Context: recent URI Associated Symptoms: pain with inspiration, cough, nausea/vomiting Treatments Prior to Arrival: none - Related Data Home Medications Medication Instructions Recorded Confirmed Aspirin 81 mg PO DAILY 01/01/17 12/07/18 Apixaban [Eliquis] 2.5 mg PO BID 11/12/17 12/07/18 Gabapentin [Neurontin] 300 mg PO TID 11/12/17 12/07/18 HYDROcodone/APAP 5-325MG [[place] 1 tab PO Q8H PRN 03/22/18 12/07/18 5-325] Ipratropium-Albuterol Nebulize 3 ml INHALATION RT-QID PRN 07/06/18 12/07/18 [Duoneb 0.5 mg-3 mg/3 ml Soln] Lisinopril [Zestril] 10 mg PO DAILY 07/06/18 12/07/18 Previous Rx's Medication Instructions Recorded Montelukast [Singulair] 10 mg PO HS tab 07/12/17 Nicotine 14Mg/24Hr Patch [Habitrol] 1 patch TRANSDERM DAILY patch 03/19/18 Pantoprazole Sodium [Protonix] 40 mg PO DAILY #30 tablet. 09/20/18 Allergies Allergy/AdvReac Type Severity Reaction Status Date / Time latex Allergy Rash/Hives Verified 12/07/18 20:39 Penicillins Allergy Rash/Hives Verified 12/07/18 20:39 Sulfa (Sulfonamide Allergy Rash/Hives Verified 12/07/18 20:39 Antibiotics) Review of Systems ROS Statement: Those systems with pertinent positive or pertinent negative responses have been documented in the HPI. ROS Other: All systems not noted in ROS Statement are negative. Past Medical History Past Medical History: Atrial Fibrillation, Asthma, Chest Pain / Angina, Heart Failure, COPD, Diabetes Mellitus, Deep Vein Thrombosis (DVT), GERD/Reflux, Hypertension, Pneumonia, Seizure Disorder, Sleep Apnea/CPAP/BIPAP Additional Past Medical History / Comment(s): last seizure was 20 years ago, bilateral CARPAL TUNNEL syndrome, Hx.chronic thrombocytopenia, chronic headaches, herniated cervical disc, cyst on back removed, currently not using CPAP, gastric ulcer, gout History of Any Multi-Drug Resistant Organisms: None Reported Past Surgical History: Breast Surgery, Cholecystectomy, Heart Catheterization Additional Past Surgical History / Comment(s): L breast biopsy- x2, L parotid gland biopsy, bilateral cataract removals with lens implants. L Thyroid biopsy, "biopsy on back-neg", thyroidectomy, loop recorder/later removed Past Anesthesia/Blood Transfusion Reactions: Previous Problems w/ Anesthesia Additional Past Anesthesia/Blood Transfusion Reaction / Comment(s): "i get shaky with anesthesia" Type of Cardiac Device: Loop Device Placement Date:: 2011 Past Psychological History: No Psychological Hx Reported Smoking Status: Current every day smoker Past Alcohol Use History: Occasional Past Drug Use History: None Reported - Past Family History Mother Additional Family Medical History / Comment(s): Mother of sepsis at the age of 63 yrs. Father Family Medical History: Deep Vein Thrombosis (DVT), Pulmonary Embolus Additional Family Medical History / Comment(s): Father during a carotid endartectomy. Sister(s) Family Medical History: Cancer General Exam Limitations: no limitations General appearance: alert, in no apparent distress Head exam: Present: atraumatic, normocephalic, normal inspection Eye exam: Present: normal appearance, PERRL, EOMI. Absent: scleral icterus, conjunctival injection, periorbital swelling ENT exam: Present: normal exam, mucous membranes moist Neck exam: Present: normal inspection. Absent: tenderness, meningismus, lymphadenopathy Respiratory exam: Present: normal lung sounds bilaterally, respiratory distress, wheezes, rales, accessory muscle use, decreased breath sounds, prolonged expiratory. Absent: rhonchi, stridor Cardiovascular Exam: Present: normal rhythm, tachycardia, normal heart sounds. Absent: systolic murmur, diastolic murmur, rubs, gallop, clicks GI/Abdominal exam: Present: soft, normal bowel sounds. Absent: distended, tenderness, guarding, rebound, rigid Extremities exam: Present: normal inspection, full ROM, normal capillary refill. Absent: tenderness, pedal edema, joint swelling, calf tenderness Back exam: Present: normal inspection Neurological exam: Present: alert, oriented X3, CN II-XII intact Psychiatric exam: Present: normal affect, normal mood Skin exam: Present: warm, dry, intact, normal color. Absent: rash Course Vital Signs 12/07/18 12/07/18 12/07/18 20:00 20:27 20:56 Temperature 98.7 F Pulse Rate 131 H 100 108 H Respiratory 32 H Rate Blood Pressure 136/78 O2 Sat by Pulse 93 L Oximetry - Reevaluation(s) Reevaluation #1: 12/07/18 21:00 Medical record is reviewed Reevaluation #2: 12/07/18 21:00 Symptoms are Significantly improved - Consultations Consultation #1: Dr. Sharpe thermometer production worker for Dr. Garcia, will admit for continued evaluation management Medical Decision Making - Medical Decision Making 67 female the ER for evaluation significant shortness of breath with cough and congestion, patient improvement with breathing treatments here in the ER improved with anxiolytics. Patient can be admitted for continued monitoring of cardiopulmonary status - Lab Data Result diagrams: 12/07/18 20:17 12/07/18 20:17 Lab Results 12/07/18 12/07/18 12/07/18 Range/Units 20:17 20:17 20:17 WBC 8.7 (3.8-10.6) k/uL RBC 4.14 (3.80-5.40) m/uL Hgb 12.6 (11.4-16.0) gm/dL Hct 41.1 (34.0-46.0) % MCV 99.2 (80.0-100.0) fL MCH 30.4 (25.0-35.0) pg MCHC 30.7 L (31.0-37.0) g/dL RDW 12.5 (11.5-15.5) % Plt Count 202 (150-450) k/uL Neutrophils % 70 % Lymphocytes % 21 % Monocytes % 5 % Eosinophils % 2 % Basophils % 2 % Neutrophils # 6.1 (1.3-7.7) k/uL Lymphocytes # 1.8 (1.0-4.8) k/uL Monocytes # 0.4 (0-1.0) k/uL Eosinophils # 0.2 (0-0.7) k/uL Basophils # 0.2 (0-0.2) k/uL Sodium 142 (137-145) mmol/L Potassium 4.3 (3.5-5.1) mmol/L Chloride 106 (98-107) mmol/L Carbon Dioxide 28 (22-30) mmol/L Anion Gap 8 mmol/L BUN 13 (7-17) mg/dL Creatinine 1.02 (0.52-1.04) mg/dL Est GFR (CKD-EPI)AfAm 66 (>60 ml/min/1.73 sqM) Est GFR (CKD-EPI)NonAf 57 (>60 ml/min/1.73 sqM) Glucose 148 H (74-99) mg/dL Calcium 9.1 (8.4-10.2) mg/dL Magnesium 1.9 (1.6-2.3) mg/dL Total Bilirubin 0.5 (0.2-1.3) mg/dL AST 22 (14-36) U/L ALT <6 L (9-52) U/L Alkaline Phosphatase 63 (38-126) U/L Creatine Kinase 92 (30-135) U/L Troponin I (0.000-0.034) ng/mL NT-Pro-B Natriuret Pep 256 pg/mL Total Protein 7.1 (6.3-8.2) g/dL Albumin 4.1 (3.5-5.0) g/dL 12/07/18 Range/Units 20:17 WBC (3.8-10.6) k/uL RBC (3.80-5.40) m/uL Hgb (11.4-16.0) gm/dL Hct (34.0-46.0) % MCV (80.0-100.0) fL MCH (25.0-35.0) pg MCHC (31.0-37.0) g/dL RDW (11.5-15.5) % Plt Count (150-450) k/uL Neutrophils % % Lymphocytes % % Monocytes % % Eosinophils % % Basophils % % Neutrophils # (1.3-7.7) k/uL Lymphocytes # (1.0-4.8) k/uL Monocytes # (0-1.0) k/uL Eosinophils # (0-0.7) k/uL Basophils # (0-0.2) k/uL Sodium (137-145) mmol/L Potassium (3.5-5.1) mmol/L Chloride (98-107) mmol/L Carbon Dioxide (22-30) mmol/L Anion Gap mmol/L BUN (7-17) mg/dL Creatinine (0.52-1.04) mg/dL Est GFR (CKD-EPI)AfAm (>60 ml/min/1.73 sqM) Est GFR (CKD-EPI)NonAf (>60 ml/min/1.73 sqM) Glucose (74-99) mg/dL Calcium (8.4-10.2) mg/dL Magnesium (1.6-2.3) mg/dL Total Bilirubin (0.2-1.3) mg/dL AST (14-36) U/L ALT (9-52) U/L Alkaline Phosphatase (38-126) U/L Creatine Kinase (30-135) U/L Troponin I <0.012 (0.000-0.034) ng/mL NT-Pro-B Natriuret Pep pg/mL Total Protein (6.3-8.2) g/dL Albumin (3.5-5.0) g/dL - EKG Data -: EKG Interpreted by Me (EKG shows sinus tach cardia revolve 7, KS 120, QRS 92, QTc 469) - Radiology Data Radiology results: report reviewed (Chest x-ray is unchanged from prior), image reviewed Disposition Clinical Impression: Acute exacerbation of chronic obstructive airways disease, COPD (chronic obstr uctive pulmonary disease), Hypoxia, Dyspnea Disposition: ADMITTED IP TO THIS HOSP Condition: Good Is patient prescribed a controlled substance at d/c from ED?: No Referrals: Jet Edmonds MD [Primary Care Provider] - 1-2 days
[2018-12-07 20:30] LABS: Basophils # (A) 0.2 k/uL (0-0.2); Basophils % (A) 2 %; Eosinophils # (A) 0.2 k/uL (0-0.7); Eosinophils % (A) 2 %; HCT 41.1 % (34.0-46.0); HGB 12.6 gm/dL (11.4-16.0); Lymphocytes # (A) 1.8 k/uL (1.0-4.8); Lymphocytes % (A) 21 %; MCH 30.4 pg (25.0-35.0); MCHC 30.7 g/dL (31.0-37.0); MCV 99.2 fL (80.0-100.0); Mean Platelet Volume 8.4; Monocytes # (A) 0.4 k/uL (0-1.0); Monocytes % (A) 5 %; Neutrophils # (A) 6.1 k/uL (1.3-7.7); Neutrophils % (A) 70 %; Platelet Count 202 k/uL (150-450); RBC 4.14 m/uL (3.80-5.40); RDW 12.5 % (11.5-15.5); WBC 8.7 k/uL (3.8-10.6)
--- NOTE | 2018-12-07 20:31 | XR ---
EXAMINATION TYPE: XR chest 1V portable DATE OF EXAM: 12/07/2018 COMPARISON: 03/22/2018 HISTORY: Short of breath TECHNIQUE: Single frontal view of the chest is obtained. FINDINGS: There is no heart failure nor confluent pneumonic infiltrate. Costophrenic angles are angie r. There are chest leads. Bony thorax is intact. IMPRESSION: No active cardiopulmonary disease. Normal heart. No change.
[2018-12-07 20:35] LABS: ALT <6 U/L (9-52); AST 22 U/L (14-36); African American GFR (CKD) 66 (>60 ml/min/1.73 sqM); Albumin 4.1 g/dL (3.5-5.0); Alkaline Phosphatase 63 U/L (38-126); Anion Gap 8 mmol/L; Blood Urea Nitrogen 13 mg/dL (7-17); Calcium 9.1 mg/dL (8.4-10.2); Carbon Dioxide 28 mmol/L (22-30); Chloride 106 mmol/L (98-107); Creatine Kinase 92 U/L (30-135); Glucose 148 mg/dL (74-99); Magnesium 1.9 mg/dL (1.6-2.3); Potassium 4.3 mmol/L (3.5-5.1); Sodium 142 mmol/L (137-145); Total Bilirubin 0.5 mg/dL (0.2-1.3); Total Protein 7.1 g/dL (6.3-8.2)
[2018-12-07] MEDS: SODIUM CHLORIDE 0.9% 1,000 ML IV SCH (21:10)
[2018-12-07 21:32] LABS: INR 0.9 (<1.2); Partial Thromboplastin Time 26.4 sec (22.0-30.0)
--- NOTE | 2018-12-07 21:35 | CT ---
EXAMINATION TYPE: CT brain wo con DATE OF EXAM: 12/07/2018 COMPARISON: 10/27/2016 HISTORY: ams CT DLP: 1070.4 mGycm Automated exposure control for dose reduction was used. FINDINGS: Ventricles have normal size. There is no mass effect nor midline shift. There is no sign of intracran ial hemorrhage. The calvarium is intact. IMPRESSION: NEGATIVE CT SCAN OF THE BRAIN. NO CHANGE.
[2018-12-08] MEDS: methylPREDNISolone SOD SUCCI 125 MG/2 ML VIAL IV SCH ×4 (01:51→17:39)
[2018-12-08 07:16] LABS: Glucose,Whole Blood 254 mg/dL (75-99)
[2018-12-08] MEDS: INSULIN ASPART (NovoLOG) 100 UNIT/ML VIAL SQ SCH ×4 (08:04→21:05)
[2018-12-08] MEDS: ALBUTEROL NEBULIZED 2.5 MG/3 ML INHALATION SCH ×2 (08:17→11:55)
[2018-12-08] MEDS: IPRATROPIUM-ALBUTEROL 3 ML NEB INHALATION SCH ×4 (08:17→20:07)
[2018-12-08] MEDS ORDERED: ENOXAPARIN 40 MG/0.4 ML SYRINGE SQ SCH (09:00)
[2018-12-08] MEDS: GABAPENTIN 300 MG CAP PO SCH ×3 (10:14→20:30)
[2018-12-08] MEDS: NICOTINE 14MG/24HR PATCH TRANSDERM SCH (10:14)
[2018-12-08] MEDS: APIXABAN 2.5 MG TABLET PO SCH ×2 (10:14→20:30)
[2018-12-08] MEDS: LISINOPRIL 10 MG TAB PO SCH (10:14)
[2018-12-08] MEDS: SODIUM CHLORIDE 0.9% 1,000 ML IV SCH (10:15)
[2018-12-08] MEDS: ASPIRIN 81 MG PO SCH (10:15)
[2018-12-08] MEDS: PANTOPRAZOLE 40 MG TABLET PO SCH ×2 (10:43→10:52)
[2018-12-08] MEDS: HYDROcodone/APAP 5-325MG 1 EACH TAB PO PRN ×2 (10:52→18:07)
[2018-12-08] MEDS ORDERED: LORazepam 2 MG/ML INJ IV PRN (11:03)
[2018-12-08 11:26] LABS: Glucose,Whole Blood 266 mg/dL (75-99)
[2018-12-08] MEDS ORDERED: IPRATROPIUM-ALBUTEROL 3 ML NEB INHALATION PRN (13:06)
[2018-12-08] MEDS ORDERED: LEVOFLOXACIN 500MG-D5W PMX 500 MG in DEXTROSE/WATER 1 100ML.BAG IVPB SCH (13:30)
[2018-12-08] MEDS: METOPROLOL TARTRATE 12.5 MG TAB PO SCH (15:09)
--- NOTE | 2018-12-08 16:28 | HP ---
HISTORY AND PHYSICAL I am covering for Dr. Edmonds. CHIEF COMPLAINT: Shortness of breath. HISTORY OF PRESENT ILLNESS: This 67-year-old woman with a past medical history of multiple medical problems, including history of atrial fibrillation, history of asthma, history of CHF, COPD, history of diabetes mellitus, DVT, GERD, hypertension, history of pneumonia, seizure disorder, sleep apnea, LA seizures, being followed by Dr. Edmonds as well as Dr. Norm Mccallum in the outpatient setting, was admitted with shortness of breath. The patient was having shortness of breath for the past several days. The patient is unable to complete a sentence. The patient also is having difficulty in ambulation because of shortness of breath. The patient also had some anxiety. Patient also complains of some diffuse tremors. She came to [facility] and was admitted for evaluation and treatment. There is no history of any fever or rigors. No history of headache, loss of consciousness, seizures. Chest x-ray did not show any acute abnormality. Blood sugar is elevated. PAST MEDICAL HISTORY: 1. History of atrial fibrillation. 2. History of asthma. 3. Chest pain. 4. CHF. 5. COPD. 6. Diabetes mellitus, type 2. 7. DVT. 8. GERD. 9. Hypertension. 10.History of pneumonia. 11.Seizure disorder. 12.Sleep apnea. 13.C difficile. 14.Breast surgery. MEDICATIONS: Medications prior to admission include: 1. Protonix 40 mg p.o. daily. 2. Albuterol 1 daily. 3. Singulair 10 mg at bedtime. 4. Zestril 10 mg p.o. daily. 5. DuoNeb q.i.d. p.r.n. 6. [place] 5 mg q.8 p.r.n. 7. Neurontin 300 mg p.o. t.i.d. 8. Aspirin 81 mg p.o. daily. 9. Eliquis 2.5 mg p.o. b.i.d. ALLERGIES: 1. LATEX. 2. PENICILLIN. 3. SULFA. FAMILY HISTORY: History of DVT, history of pulmonary embolism. SOCIAL HISTORY: History of smoking on a daily basis. History of alcohol. REVIEW OF SYSTEMS: ENT: Diminished hearing. Diminished vision. CARDIOVASCULAR SYSTEM: No angina, palpitations. RESPIRATORY SYSTEM: As mentioned earlier. GI: No nausea, vomiting. : No dysuria or retention. NERVOUS SYSTEM: No numbness, weakness. ALLERGY/IMMUNOLOGY: No asthma, hayfever. MUSCULOSKELETAL: As mentioned earlier. HEMATOLOGY/ONCOLOGY: No history of anemia. ENDOCRINE: No history of diabetes, hypothyroidism. CONSTITUTIONAL: As mentioned earlier. DERMATOLOGY: Negative. RHEUMATOLOGY: Negative. PSYCHIATRY: As mentioned earlier. PHYSICAL EXAMINATION: Patient alert and oriented x3. Pulse 92, blood pressure 147/79, respiration 28, temperature 97.6, pulse ox 100% on 4 L. HEENT: Conjunctivae normal. NECK: No jugular venous distention. CARDIOVASCULAR SYSTEM: S1, S2 muffled. RESPIRATORY SYSTEM: Breath sounds diminished at the bases. Bilateral scattered rhonchi and crackles. Expiratory wheezing also present. ABDOMEN: Soft, non-tender. No mass palpable. LEGS: No edema. No swelling. NERVOUS SYSTEM: Higher functions as mentioned earlier. Moves all 4 limbs. Mild diffuse weakness. Mild diffuse tremors also present. Gait dysfunction also present. SKIN: No ulcer, rash, bleeding. NAUSEA JOINTS: No active deforming arthropathy. LABS: Labs at this time show WBC 8.7, hemoglobin 12.6, glucose 148. Other labs are noted. ASSESSMENT: 1. Chronic obstructive pulmonary disease, acute exacerbation, with acute purulent tracheobronchitis. 2. Diffuse tremors and gait dysfunction. 3. History of asthma. 4. History of atrial fibrillation. 5. History of congestive heart failure. 6. History of chronic obstructive pulmonary disease. 7. Diabetes mellitus, type 2. 8. Deep venous thrombosis. 9. Gastroesophageal reflux disease. 10.Hypertension. 11.History of pneumonia. 12.History of seizure disorder. 13.History of sleep apnea. 14.History of carpal tunnel syndrome. 15.History of chronic thrombocytopenia. 16.Chronic headaches. 17.History of gastric ulcer. 18.History of gout. 19.History of Clostridium difficile colitis. 20.History of continued ongoing nicotine dependence. 21.Obesity with body mass index 33.8. 22.FULL CODE. RECOMMENDATIONS AND DISCUSSION: In this 67-year-old woman who presented with multiple complex medical issues, we will recommend to continue the current management, continue symptomatic treatment. Optimize bronchodilator treatment. Add Pulmicort. Empiric antibiotics. Obtain cultures. IV steroids. Monitor blood sugars closely. Otherwise, the prognosis is extremely guarded because of multiple complex medical issues. Further recommendations to follow. A copy of this dictation is being forwarded to Dr. Edmonds, who is the primary physician. Will add a small dose of beta blockers and continue to monitor. MMODL / IJN: [id number] /
[2018-12-08 17:07] LABS: Glucose,Whole Blood 472 mg/dL (75-99)
[2018-12-08 17:07] LABS: Glucose,Whole Blood 392 mg/dL (75-99)
[2018-12-08 17:14] LABS: Appearance,Urine Clear (Clear); Bilirubin,Urine Negative (Negative); Blood,Urine Negative (Negative); Color,Urine Yellow; Glucose,Urine (UA) 4+ (Negative); Ketones,Urine Trace (Negative); Leukocyte Esterase,Urine Negative (Negative); Nitrite,Urine Negative (Negative); PH, Urine 5.5 (5.0-8.0); Protein,Urine Negative (Negative); Specific Gravity,Urine 1.028 (1.001-1.035); Urobilinogen,Urine <2.0 mg/dL (<2.0)
[2018-12-08 17:26] LABS: Amphetamine Screen,Urine Not Detected (NotDetected); Barbiturate Screen,Urine Not Detected (NotDetected); Benzodiazepines Screen,Urine Detected (NotDetected); Cocaine Screen,Urine Not Detected (NotDetected); Methadone Screen, Urine Not Detected (NotDetected); Opiate Screen,Urine Detected (NotDetected); Oxycodone Screen, Urine Not Detected (NotDetected); Phencyclidine Screen,Urine Not Detected (NotDetected); Tricyclic Antidepressant,Urine Not Detected (NotDetected); Urn Cannabinoid Scrn Not Detected (NotDetected)
[2018-12-08] MEDS ORDERED: INSULIN ASPART (NovoLOG) 100 UNIT/ML VIAL SQ ONE (17:52)
[2018-12-08] MEDS: BUDESONIDE 1 MG/2 ML NEBU INHALATION SCH (20:07)
[2018-12-08] MEDS: MONTELUKAST 10 MG TAB PO SCH (20:30)
[2018-12-08 20:31] LABS: Glucose,Whole Blood 327 mg/dL (75-99)
--- NOTE | 2018-12-08 21:25 | CONS ---
CONSULTATION Concepcion Steele is a 67-year-old female who has a history of severe asthma. She comes in with a one-day history of increasing shortness of breath. She had been doing fairly well up until yesterday when she started to have cough with wheezing. No clear fever or chills. She had some chest tightness at the time, but subsequently did not have any chest tightness. She was seen in the ER, did not improve with conservative care and was admitted for further evaluation and management. PAST MEDICAL HISTORY: Positive for severe asthma for which she is on inhaled steroids leukotriene receptor antagonist as well as a biologic in the form of Fasenra, history of DVT, history of gastroesophageal reflux disease, hypertension, previous seizure disorder, history of obstructive sleep apnea for which she is on CPAP, history of bilateral carpal tunnel syndrome, history of chronic thrombocytopenia, history of cardiac cath. FAMILY HISTORY: Positive for sepsis in her mother who at age 63. Father had history of DVT and pulmonary embolus and he during a carotid endarterectomy. SOCIAL HISTORY: Positive for smoking. She does not drink alcohol excessively. REVIEW OF SYSTEMS: Noncontributory. MEDICATIONS: Prior to admission were Protonix, nicotine patch, Singulair, Zestril, DuoNeb, Hanna, Neurontin, aspirin, and Eliquis. PHYSICAL EXAMINATION: She was lying in bed. She was in moderate to severe respiratory distress. Respiratory rate is 28, pulse rate of 80, temperature 97.6, blood pressure 147/79, O2 saturation on 4 L by nasal cannula is 100%. HEENT reveals pupils are equal. Chest reveals decreased breath sounds with prolonged exhalation and expiratory wheeze. Cardiovascular system is S1, S2. Abdomen is soft. There is trace to 1+ pedal edema. LABS: Reveal a white count 8.7, hemoglobin of 12.6, sodium 142, potassium 4.3, chloride 106, bicarb 28, BUN 13, creatinine 1.02. NT proBNP is 256. Chest x-ray shows no active cardiopulmonary disease. IMPRESSION: At this time: 1. Severe asthma with acute exacerbation. 2. Acute respiratory failure in part due to hypoxemia. 3. History of deep vein thrombosis. At this point in time from a pulmonary standpoint, would keep her on GI prophylaxis. Continue Eliquis. Keep her on aerosolized steroids, bronchodilators, leukotriene receptor antagonists and IV steroids. Keep her on antibiotics. Depending on how she does, we should make further changes to her care. I would like to thank you for allowing me the privilege of participating in her care. Of note, her eosinophil count was 0.2 1000, and she was due to get her anti- eosinophilic biologic Fasenra today in the office. We hopefully can arrange this relatively quickly when she is discharged from the hospital. She was counseled regarding her condition and this approach. JUAN / JUAN J: [id number] /
[2018-12-09] MEDS: methylPREDNISolone SOD SUCCI 125 MG/2 ML VIAL IV SCH ×5 (00:07→23:36)
[2018-12-09] MEDS: HYDROcodone/APAP 5-325MG 1 EACH TAB PO PRN ×2 (05:30→12:15)
[2018-12-09 06:43] LABS: Glucose,Whole Blood 300 mg/dL (75-99)
[2018-12-09] MEDS: BUDESONIDE 1 MG/2 ML NEBU INHALATION SCH ×2 (07:33→19:17)
[2018-12-09] MEDS: IPRATROPIUM-ALBUTEROL 3 ML NEB INHALATION SCH ×4 (07:34→19:17)
[2018-12-09] MEDS: METOPROLOL TARTRATE 12.5 MG TAB PO SCH (07:41)
[2018-12-09] MEDS: ASPIRIN 81 MG PO SCH (07:41)
[2018-12-09] MEDS: GABAPENTIN 300 MG CAP PO SCH ×4 (07:41→20:42)
[2018-12-09] MEDS: INSULIN ASPART (NovoLOG) 100 UNIT/ML VIAL SQ SCH ×4 (07:42→20:42)
[2018-12-09] MEDS: PANTOPRAZOLE 40 MG TABLET PO SCH (07:42)
[2018-12-09] MEDS: APIXABAN 2.5 MG TABLET PO SCH ×2 (07:42→20:42)
[2018-12-09] MEDS: LISINOPRIL 10 MG TAB PO SCH (07:42)
[2018-12-09] MEDS: NICOTINE 14MG/24HR PATCH TRANSDERM SCH (07:43)
[2018-12-09 07:58] LABS: Glucose,Whole Blood 383 mg/dL (75-99)
[2018-12-09 08:06] LABS: ABG Base Excess -1.7 mmol/L; ABG HCO3 25 mmol/L (21-25); ABG Oxygen Saturation 98.7 % (94-97); ABG PCO2 48 mmHg (35-45); ABG PH 7.31 (7.35-7.45); ABG PO2 120 mmHg (83-108); ABG TCO2 26 mmol/L (19-24); Allen Test Performed? Yes
[2018-12-09 08:26] LABS: Basophils # (A) 0.1 k/uL (0-0.2); Basophils % (A) 0 %; Eosinophils % (A) 0 %; HCT 35.9 % (34.0-46.0); Hypochromasia Slight; Lymphocytes # (A) 0.4 k/uL (1.0-4.8); Lymphocytes % (A) 4 %; MCH 30.9 pg (25.0-35.0); MCHC 30.6 g/dL (31.0-37.0); MCV 101.1 fL (80.0-100.0); Monocytes # (A) 0.2 k/uL (0-1.0); Monocytes % (A) 2 %; Neutrophils % (A) 94 %; Platelet Count 141 k/uL (150-450); RBC 3.55 m/uL (3.80-5.40); RDW 12.9 % (11.5-15.5); WBC 10.7 k/uL (3.8-10.6)
[2018-12-09 08:48] LABS: African American GFR (CKD) >90 (>60 ml/min/1.73 sqM); Anion Gap 7 mmol/L; Blood Urea Nitrogen 17 mg/dL (7-17); Calcium 8.7 mg/dL (8.4-10.2); Carbon Dioxide 24 mmol/L (22-30); Chloride 108 mmol/L (98-107); Glucose 307 mg/dL (74-99); Potassium 4.8 mmol/L (3.5-5.1); Sodium 139 mmol/L (137-145)
[2018-12-09 12:05] LABS: Glucose,Whole Blood 335 mg/dL (75-99)
--- NOTE | 2018-12-09 14:24 | P.PN ---
Subjective Progress Note Date: 12/09/18 Principal diagnosis: Severe asthma with acute exacerbation, acute occipital history failure, morbid obesity, history of DVT, 12/09/2018, patient seen and evaluated examined during the round labs reviewed medications reviewed, prior data has been reviewed, has been on high-dose s teroids breathing treatments some improvement is present Objective - Vital Signs Vital signs: Vital Signs Temp 97.6 F 12/09/18 07:00 Pulse 86 12/09/18 11:39 Resp 15 12/09/18 08:15 BP 106/63 12/09/18 07:00 Pulse Ox 100 12/09/18 07:00 Intake & Output 12/08/18 12/09/18 12/09/18 18:59 06:59 18:59 Weight 79.5 kg Other: Voiding Method Bedside Commode Toilet Toilet # Voids 1 1 # Bowel Movements 1 - Constitutional General appearance: Present: average body habitus, cooperative, disheveled - EENT Eyes: Present: PERRLA Ears: bilateral: normal - Neck Carotids: bilateral: upstroke normal - Respiratory Respiratory: bilateral: diminished, wheezing - Cardiovascular Heart sounds: normal: S1, S2 - Gastrointestinal General gastrointestinal: Present: normal bowel sounds - Neurologic Neurologic: Present: CNII-XII intact - Musculoskeletal Musculoskeletal: Present: gait normal, generalized weakness, strength equal bilaterally - Psychiatric Psychiatric: Present: A&O x's 3, appropriate affect, intact judgment & insight - Labs CBC & Chem 7: 12/09/18 07:01 12/09/18 07:01 Labs: Abnormal Lab Results - Last 24 Hours (Table) 12/08/18 12/08/18 12/08/18 Range/Units 16:30 17:04 17:05 WBC (3.8-10.6) k/uL RBC (3.80-5.40) m/uL Hgb (11.4-16.0) gm/dL MCV (80.0-100.0) fL MCHC (31.0-37.0) g/dL Plt Count (150-450) k/uL Neutrophils # (1.3-7.7) k/uL Lymphocytes # (1.0-4.8) k/uL ABG pH (7.35-7.45) ABG pCO2 (35-45) mmHg ABG pO2 (83-108) mmHg ABG Total CO2 (19-24) mmol/L ABG O2 Saturation (94-97) % Chloride (98-107) mmol/L Glucose (74-99) mg/dL POC Glucose (mg/dL) 472 H 392 H (75-99) mg/dL Urine Glucose (UA) 4+ H (Negative) Urine Ketones Trace H (Negative) Urine Opiates Screen Detected H (NotDetected) U Benzodiazepines Scrn Detected H (NotDetected) 12/08/18 12/09/18 12/09/18 Range/Units 20:29 06:41 07:01 WBC 10.7 H (3.8-10.6) k/uL RBC 3.55 L (3.80-5.40) m/uL Hgb 11.0 L (11.4-16.0) gm/dL MCV 101.1 H (80.0-100.0) fL MCHC 30.6 L (31.0-37.0) g/dL Plt Count 141 L (150-450) k/uL Neutrophils # 10.0 H (1.3-7.7) k/uL Lymphocytes # 0.4 L (1.0-4.8) k/uL ABG pH (7.35-7.45) ABG pCO2 (35-45) mmHg ABG pO2 (83-108) mmHg ABG Total CO2 (19-24) mmol/L ABG O2 Saturation (94-97) % Chloride (98-107) mmol/L Glucose (74-99) mg/dL POC Glucose (mg/dL) 327 H 300 H (75-99) mg/dL Urine Glucose (UA) (Negative) Urine Ketones (Negative) Urine Opiates Screen (NotDetected) U Benzodiazepines Scrn (NotDetected) 12/09/18 12/09/18 12/09/18 Range/Units 07:01 07:54 08:03 WBC (3.8-10.6) k/uL RBC (3.80-5.40) m/uL Hgb (11.4-16.0) gm/dL MCV (80.0-100.0) fL MCHC (31.0-37.0) g/dL Plt Count (150-450) k/uL Neutrophils # (1.3-7.7) k/uL Lymphocytes # (1.0-4.8) k/uL ABG pH 7.31 L (7.35-7.45) ABG pCO2 48 H (35-45) mmHg ABG pO2 120 H (83-108) mmHg ABG Total CO2 26 H (19-24) mmol/L ABG O2 Saturation 98.7 H (94-97) % Chloride 108 H (98-107) mmol/L Glucose 307 H (74-99) mg/dL POC Glucose (mg/dL) 383 H (75-99) mg/dL Urine Glucose (UA) (Negative) Urine Ketones (Negative) Urine Opiates Screen (NotDetected) U Benzodiazepines Scrn (NotDetected) 12/09/18 Range/Units 12:00 WBC (3.8-10.6) k/uL RBC (3.80-5.40) m/uL Hgb (11.4-16.0) gm/dL MCV (80.0-100.0) fL MCHC (31.0-37.0) g/dL Plt Count (150-450) k/uL Neutrophils # (1.3-7.7) k/uL Lymphocytes # (1.0-4.8) k/uL ABG pH (7.35-7.45) ABG pCO2 (35-45) mmHg ABG pO2 (83-108) mmHg ABG Total CO2 (19-24) mmol/L ABG O2 Saturation (94-97) % Chloride (98-107) mmol/L Glucose (74-99) mg/dL POC Glucose (mg/dL) 335 H (75-99) mg/dL Urine Glucose (UA) (Negative) Urine Ketones (Negative) Urine Opiates Screen (NotDetected) U Benzodiazepines Scrn (NotDetected) Microbiology - Last 24 Hours (Table) 12/07/18 21:13 Blood Culture - Preliminary Blood No Growth after 24 hours Assessment and Plan Assessment: Acute COPD exacerbation Tracheobronchitis Chronic atrial fibrillation Deep venous thrombosis Type 2 diabetes mellitus Morbid obesity and sleep disorder breathing and sleep apnea Plan: Continue bronchodilator Continue anticoagulation Inhaler steroids in the form of nebulizer therapy Continue broad-spectrum antibiotics IV steroid Supplemental oxygen Time with Patient: Greater than 30
[2018-12-09] MEDS ORDERED: LEVOFLOXACIN 250MG-D5W PMX 250 MG in DEXTROSE/WATER 1 50ML.BAG IVPB SCH (15:00)
[2018-12-09 17:00] LABS: Glucose,Whole Blood 299 mg/dL (75-99)
--- NOTE | 2018-12-09 17:28 | PN ---
PROGRESS NOTE DATE OF SERVICE: 12/09/2018 This 67-year-old woman who was admitted with COPD, acute exacerbation, also has some tremors. Today the patient had episodes of seizures. A-Team was called. Neurology evaluation is in progress. Neurovascular workup is in progress. EEG also has been ordered. The patient is followed closely by Pulmonology. There is no evidence of pneumonia on the chest x-ray. Past medical history reviewed. REVIEW OF SYSTEMS: Patient is slightly postictal. Otherwise: CARDIOVASCULAR SYSTEM: No angina, palpitations. RESPIRATORY SYSTEM: As mentioned earlier. GI: As mentioned earlier. : As mentioned earlier. NERVOUS SYSTEM: As mentioned earlier. CURRENT MEDICATIONS: Reviewed. They include: 1. Tylenol p.r.n. 2. [place] 5 mg q.8 p.r.n. 3. DuoNeb q.i.d. and p.r.n. 4. Eliquis 2.5 mg b.i.d. 5. Aspirin 81 mg p.o. daily. 6. Pulmicort 0.1 mg b.i.d. 7. Neurontin 300 mg p.o. t.i.d. 8. NovoLog scale. 9. Zestril 10 mg daily. 10.Ativan 0.25 mg q.6 p.r.n. 11.Solu-Medrol 60 IV q.6. 12.Lopressor 12.5 mg daily. 13.Singulair 10 mg daily. 14.Habitrol 14 daily. 15.Protonix 40 mg daily. PHYSICAL EXAMINATION: Patient is alert, oriented x3. The pulse is 80, blood pressure 106/63, respiration 15, temperature 97.6, pulse ox 100% on 4 L. HEENT: Conjunctivae normal. NECK: No jugular venous distention. CARDIOVASCULAR SYSTEM: S1, S2 muffled. RESPIRATORY SYSTEM: Breath sounds diminished at the bases. Bilateral scattered rhonchi and crackles. ABDOMEN: Soft, non-tender. LEGS: No edema. No swelling. NERVOUS SYSTEM: Higher functions as mentioned earlier. Diffuse tremors present. Diffuse weakness present. Patient is able to cooperate with the exam at this time. Gait not tested. SKIN: No ulcer, rash, bleeding. LABS: WBC 10.7, hemoglobin 11. ABG showed pH of 7.31, pCO2 of 48. ASSESSMENT: 1. Chronic obstructive pulmonary disease, acute exacerbation, with acute purulent tracheobronchitis with acute hypoxic hypercarbic respiratory failure, present on admission. 2. Acute seizures, possibly generalized tonic-clonic. 3. Diffuse tremors and gait dysfunction. 4. History of asthma, chronic intermittent. 5. History of atrial fibrillation. 6. History of congestive heart failure; ejection fraction unknown. 7. History of chronic obstructive pulmonary disease. 8. Diabetes mellitus, type 2. 9. History of deep vein thrombosis. 10.History of gastroesophageal reflux disease. 11.Hypertension. 12.History of pneumonia. 13.History of seizure disorder. 14.History of sleep apnea. 15.History of carpal tunnel syndrome. 16.History of chronic thrombocytopenia. 17.Chronic headaches. 18.History of gastric ulcer. 19.History of gout. 20.History of Clostridium difficile colitis. 21.History of continued ongoing nicotine dependence. 22.Obesity with body mass index of 33.8. 23.FULL CODE. RECOMMENDATIONS AND DISCUSSION: I recommend to continue current medications, continue with the monitoring, symptomatic treatment. Otherwise at this time, I recommend optimizing the bronchodilator treatment. Neuro checks. Neurovascular evaluation. I would also recommend neurology consultation. Closely follow with Pulmonary. Prognosis guarded. Further recommendations to follow. MMODL / IJN: [id number] /
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
[2018-12-09 20:24] LABS: Glucose,Whole Blood 318 mg/dL (75-99)
[2018-12-09] MEDS: MONTELUKAST 10 MG TAB PO SCH (20:42)
[2018-12-09] MEDS ORDERED: levETIRAcetam IV 1,000 MG in SALINE 1 100ML.BAG IVPB STA ×2 (21:32→21:35)
[2018-12-09] MEDS ORDERED: LORazepam 2 MG/ML INJ IV PRN (21:38)
[2018-12-09 21:39] LABS: Glucose,Whole Blood 330 mg/dL (75-99)
[2018-12-09] MEDS: LORazepam 2 MG/ML INJ IV PRN (21:43)
[2018-12-10] MEDS: methylPREDNISolone SOD SUCCI 125 MG/2 ML VIAL IV SCH ×3 (05:24→17:20)
[2018-12-10 07:04] LABS: Glucose,Whole Blood 296 mg/dL (75-99)
[2018-12-10] MEDS: NICOTINE 14MG/24HR PATCH TRANSDERM SCH (07:35)
[2018-12-10] MEDS: INSULIN ASPART (NovoLOG) 100 UNIT/ML VIAL SQ SCH ×3 (07:35→17:21)
[2018-12-10] MEDS: METOPROLOL TARTRATE 12.5 MG TAB PO SCH (07:36)
[2018-12-10] MEDS: PANTOPRAZOLE 40 MG TABLET PO SCH (07:36)
[2018-12-10] MEDS: ASPIRIN 81 MG PO SCH (07:36)
[2018-12-10] MEDS: LISINOPRIL 10 MG TAB PO SCH (07:36)
[2018-12-10] MEDS: APIXABAN 2.5 MG TABLET PO SCH ×2 (07:36→22:40)
[2018-12-10] MEDS: GABAPENTIN 300 MG CAP PO SCH ×3 (07:37→22:40)
[2018-12-10] MEDS: levETIRAcetam 500 MG TAB PO SCH ×2 (07:58→19:30)
[2018-12-10] MEDS: IPRATROPIUM-ALBUTEROL 3 ML NEB INHALATION SCH ×4 (08:19→21:24)
[2018-12-10] MEDS: BUDESONIDE 1 MG/2 ML NEBU INHALATION SCH ×2 (08:19→21:24)
[2018-12-10 08:43] LABS: Basophils # (A) 0.1 k/uL (0-0.2); Basophils % (A) 0 %; Eosinophils # (A) 0.2 k/uL (0-0.7); Eosinophils % (A) 2 %; HCT 35.1 % (34.0-46.0); HGB 11.5 gm/dL (11.4-16.0); Lymphocytes # (A) 0.6 k/uL (1.0-4.8); Lymphocytes % (A) 4 %; MCH 32.4 pg (25.0-35.0); MCHC 32.7 g/dL (31.0-37.0); Mean Platelet Volume 8.1; Monocytes # (A) 0.2 k/uL (0-1.0); Monocytes % (A) 2 %; Neutrophils # (A) 11.8 k/uL (1.3-7.7); Neutrophils % (A) 92 %; Platelet Count 154 k/uL (150-450); RBC 3.54 m/uL (3.80-5.40); RDW 12.7 % (11.5-15.5); WBC 12.8 k/uL (3.8-10.6)
[2018-12-10] MEDS: ACETAMINOPHEN TAB 325 MG TAB PO PRN ×2 (08:43→17:18)
--- NOTE | 2018-12-10 08:53 | EEG ---
ELECTROENCEPHALOGRAM REPORT PROCEDURE DATE: 12/09/2018 ELECTROENCEPHALOGRAM (EEG) REPORT: TECHNIQUE: A routine 18 channel EEG was performed with video using the 10/20 international electrode placement system. HISTORY: COPD. Patient presented to the ER for shortness of breath. Other medical history includes anxiety. Reportedly, patient had a seizure in her room. Other medical history includes CHF, diabetes, seizure disorder?. CURRENT MEDICATIONS: Solu-Medrol, Singulair, metoprolol, Ativan, lisinopril, levofloxacin. STUDY DURATION: 20 minutes. FINDINGS: Please note that quality of the recording was limited as interpretation was not possible from the T6-O2 and P4-O2 channels due to electrode artifact. Over the left posterior quadrants, background frequencies were seen in the 7 to 8 hertz range. ACTIVATION: Hyperventilation: Not performed. Photic stimulation: Mild symmetric driving seen. Sleep: Drowsy. ABNORMALITIES: Intermittent diffuse 5 to 7 hertz polymorphic theta range slowing was seen with some superimposed faster, beta frequencies. IMPRESSION: Limited study, abnormal EEG. The intermittent diffuse theta range slowing mentioned above is not epileptiform in nature. The superimposed faster frequencies are also not epileptiform in nature and may in part be due to medication effect. In combination, these findings indicate mild diffuse cerebral dysfunction. No seizures were recorded. No epileptiform activity was present. MMODL / IJN: [id number] / THERESA
[2018-12-10 08:56] LABS: African American GFR (CKD) >90 (>60 ml/min/1.73 sqM); Anion Gap 6 mmol/L; Blood Urea Nitrogen 21 mg/dL (7-17); Calcium 8.9 mg/dL (8.4-10.2); Carbon Dioxide 27 mmol/L (22-30); Chloride 107 mmol/L (98-107); Glucose 216 mg/dL (74-99); Potassium 4.5 mmol/L (3.5-5.1); Sodium 140 mmol/L (137-145)
[2018-12-10 12:10] LABS: Glucose,Whole Blood 174 mg/dL (75-99)
--- NOTE | 2018-12-10 13:03 | CDI ---
Documentation Clarification Form Date: 12/10/2018 12:53:58 PM From: Serina ReesMaxwellJOSE ANGEL, CCDS Admit Date: 12/07/2018 8:56:00 PM Patient Name: Concepcion Steele Visit Number: [id number] Discharge Date: ATTENTION: The Clinical Documentation Specialists (CDI) and [facility] Coding Staff appreciate your assistance in clarifying documentation. Please respond to the clarification below the line at the bottom and electronically sign. The CDI & [facility] Coding staff will review the response and follow-up if needed. Please note: Queries are made part of the Legal Health Record. If you have any questions, please contact the author of this message via ITS. Dr. Gilberto Mccallum: Asthma is documented in the pulmonary consult as "Severe asthma with acute exacerbation." History/risk factors: COPD, CHF, Atrial Fibrillation, DVT, Pneumonia, Hypertension & current smoker. Clinical Indicators: Presented to the ED with SOB, diagnosed with acute exacerbation COPD with purulent tracheobronchitis & acute hypoxic respiratory failure. Radiology: CXR: No heart failure, no active cardiopulmonary disease. Vital Signs: T 98.7, P 131^, R 32^, BP 136/78, PO 93 RA - 99 3Lnc Home Rx: jASA, Eliquis, Neurontin, INH Albuterol, Zestril, Singulair, Habitrol patch. Treatment: INH Albuterol, IV Solumedrol, IV Ativan, IV Ms, IV Zofran, IV fluid 100, O2 2-3L nc. In your professional opinion, can you please further specify the following, if known? Severity: o Mild intermittent o Mild persistent o Moderate persistent o Severe persistent o Other, please specify ____ o Unable to determine Form or Type o Cough variant o Childhood o Exercise induced bronchospasm o Extrinsic allergic o Idiosyncratic o Intrinsic nonallergic o Late-onset o Mixed o Other, please specify____ o Unable to determine (Last Revision: May 2017) MTDD
--- NOTE | 2018-12-10 17:15 | MR ---
EXAMINATION TYPE: MR brain wo con DATE OF EXAM: 12/10/2018 COMPARISON: HISTORY: stroke,seizure Standard multiplanar, multisequence MRI departmental protocol Multiplanar, multisequence images of the brain were acquired. Diffusion weighted imaging was performe d. FINDINGS: Ventricles have fairly normal size. There is no mass effect nor midline shift. There is no sign of intracranial hemorrhage. There is no evidence of cerebral edema. Brainstem is intact. There i s no evidence of cortical infarct. Corpus callosum is intact. Sella turcica appears normal. IMPRESSION: Mild cerebral atrophy appropriate for age. No acute intracranial abnormality.
[2018-12-10] MEDS: LEVOFLOXACIN 500 MG TAB PO SCH (17:18)
[2018-12-10 17:24] LABS: Glucose,Whole Blood 216 mg/dL (75-99)
[2018-12-10] MEDS: LORazepam 2 MG/ML INJ IV PRN (18:27)
[2018-12-10 20:04] LABS: Glucose,Whole Blood 312 mg/dL (75-99)
--- NOTE | 2018-12-10 20:24 | PN ---
PROGRESS NOTE DATE OF SERVICE: 12/10/2018 This patient has been hemodynamically stable. However, she has been having episodes of seizure activity. She has been placed on BiPAP. On physical examination, she is lying in bed. She is sleepy but arousable on BiPAP. Her blood pressure is 133/78, respiratory rate of 18, pulse rate of 71, temperature 97.6. Oxygen saturation on BiPAP is 99%. HEENT reveals BiPAP mask in place. Chest reveals decreased breath sounds with prolonged exhalation, wheeze, more on the left than the right. Cardiovascular system is in S1, S2. Abdomen is soft. There is no edema. White count is 12.8, hemoglobin of 11.5, sodium 140, potassium 4.5, chloride 107, bicarb 27. IMPRESSION AT THIS TIME: 1. Severe asthma with acute exacerbation. 2. Seizures with a known history of previous seizure disorder. Continue bronchodilators, aerosolized steroids, IV steroids, antibiotics, and use Ativan p.r.n. for breakthrough seizures. The patient has been seen by Dr. Nilam Valentin and has been on IV Keppra, which we agree with. Use BiPAP as needed. Depending on how she does, we shall make further changes to her care. MMODL / IJN: [id number] /
[2018-12-10] MEDS ORDERED: INSULN ASP PRT/INSULIN ASPART 100 UNIT/ML 10 ML VIAL SQ SCH (20:45)
[2018-12-10] MEDS ORDERED: levETIRAcetam IV 1,000 MG in SALINE 1 100ML.BAG IVPB STA (20:45)
[2018-12-10 20:51] LABS: VBG PH 7.44 (7.31-7.41)
[2018-12-10] MEDS ORDERED: LORazepam 2 MG/ML INJ IV STA ×2 (21:02→21:26)
[2018-12-10 21:50] LABS: Glucose,Whole Blood 319 mg/dL (75-99)
[2018-12-10 22:14] LABS: ABG Base Excess 4.4 mmol/L; ABG HCO3 30 mmol/L (21-25); ABG Oxygen Saturation 97.8 % (94-97); ABG PCO2 53 mmHg (35-45); ABG PH 7.36 (7.35-7.45); ABG PO2 100 mmHg (83-108); ABG TCO2 32 mmol/L (19-24); Allen Test Performed? Yes
[2018-12-10] MEDS ORDERED: INSULIN REGULAR BOLUS (FROM DRIP BAG) IV PRN (22:20)
[2018-12-10 22:23] LABS: Glucose,Whole Blood 277 mg/dL (75-99)
[2018-12-10] MEDS ORDERED: INSULIN REGULAR 100 UNIT in SODIUM CHLORIDE 0.9% 100 ML IV SCH (22:30)
[2018-12-10] MEDS: MONTELUKAST 10 MG TAB PO SCH (22:40)
[2018-12-10] MEDS ORDERED: NALOXONE 0.4 MG/ML 1 ML VIAL IV PRN (22:46)
[2018-12-10 23:20] LABS: Glucose,Whole Blood 294 mg/dL (75-99)
[2018-12-10 23:48] LABS: Glucose,Whole Blood 264 mg/dL (75-99)
[2018-12-11 00:16] LABS: Appearance,Urine Clear (Clear); Bilirubin,Urine Negative (Negative); Blood,Urine Negative (Negative); Color,Urine Yellow; Glucose,Urine (UA) 3+ (Negative); Ketones,Urine Negative (Negative); Leukocyte Esterase,Urine Negative (Negative); Nitrite,Urine Negative (Negative); Protein,Urine Negative (Negative); Specific Gravity,Urine 1.025 (1.001-1.035); Urobilinogen,Urine <2.0 mg/dL (<2.0)
[2018-12-11 00:40] LABS: Glucose,Whole Blood 176 mg/dL (75-99)
[2018-12-11] MEDS: methylPREDNISolone SOD SUCCI 125 MG/2 ML VIAL IV SCH ×5 (00:41→23:30)
[2018-12-11 01:42] LABS: Glucose,Whole Blood 158 mg/dL (75-99)
[2018-12-11 02:44] LABS: Glucose,Whole Blood 151 mg/dL (75-99)
[2018-12-11 04:38] LABS: Glucose,Whole Blood 116 mg/dL (75-99)
[2018-12-11 05:06] LABS: Basophils # (A) 0.1 k/uL (0-0.2); Basophils % (A) 1 %; Eosinophils % (A) 0 %; HGB 11.5 gm/dL (11.4-16.0); Lymphocytes # (A) 0.6 k/uL (1.0-4.8); Lymphocytes % (A) 5 %; MCH 31.5 pg (25.0-35.0); MCHC 31.9 g/dL (31.0-37.0); MCV 98.7 fL (80.0-100.0); Mean Platelet Volume 7.6; Monocytes # (A) 0.3 k/uL (0-1.0); Monocytes % (A) 2 %; Neutrophils # (A) 10.7 k/uL (1.3-7.7); Neutrophils % (A) 91 %; Platelet Count 162 k/uL (150-450); RBC 3.65 m/uL (3.80-5.40); RDW 12.6 % (11.5-15.5); WBC 11.7 k/uL (3.8-10.6)
[2018-12-11 05:14] LABS: Calcium 8.9 mg/dL (8.4-10.2); Magnesium 2.3 mg/dL (1.6-2.3); Phosphorus 3.2 mg/dL (2.5-4.5); Potassium 4.3 mmol/L (3.5-5.1)
[2018-12-11 05:35] LABS: Glucose,Whole Blood 121 mg/dL (75-99)
--- NOTE | 2018-12-11 06:03 | XR ---
EXAMINATION TYPE: XR chest 1V DATE OF EXAM: 12/11/2018 HISTORY: pneumonia. REFERENCE: Previous study dated 12/07/2018. FINDINGS: There is increased opacity of both lung bases. The heart is not enlarged. Pleural spaces ar e clear. IMPRESSION: I CANNOT EXCLUDE DEVELOPING BIBASILAR INFILTRATES.
[2018-12-11 06:39] LABS: Glucose,Whole Blood 141 mg/dL (75-99)
[2018-12-11 07:17] LABS: Glucose,Whole Blood 173 mg/dL (75-99)
--- NOTE | 2018-12-11 07:17 | P.PN ---
Progress Note - Text Progress Note Date: 12/10/18 SUBJECTIVE/INTERVAL EVENTS: Pt had another episode that appear like a seizure. Patient was given a loading dose of Keppra 1 g IV and increase the Keppra dose to 1000 mg twice a day. PHYSICAL EXAMINATION: VITAL SIGNS: T 97.6 HR 73 RR 15 BP 133/84 O2 sat 100% on 2L of O2 via NC GEN.: NAD, pleasant and cooperative HEENT: NCAT, sclera without icterus NECK: Supple SKIN AND EXTREMITIES: Warm to touch, no edema NEURO: MENTAL STATUS: Patient alert and oriented to self, place, time. Able to name the current president. Speech fluent, able to name and repeat, following all commands readily. No right and left disorientation, neglect. CRANIAL NERVES II THROUGH XII: II: Pupils are equal and reactive to light symmetrically. No afferent pupillary defect. Visual lynch are intact. III, IV, : No ptosis. Extraocular movements full. No nystagmus. V: Sensation decreased, "rough," in L V1-3. VII. left facial droop. VIII: Hearing intact to finger rub bilaterally. IX, X: Symmetric palate elevation. XI: Shoulder shrug intact. XII: Tongue midline without fasciculation or atrophy. MOTOR: Normal bulk/tone. No pronator drift or tremor. Strength is 4/5 throughout all 4 extremities. SENSORY: Sensation decreased, "rough," in LUE and LLE REFLEXES: 2+ throughout. Toes are downgoing. COORDINATION: Finger to nose intact. No dysmetria. GAIT: Deferred DIAGNOSTIC TESTING: LABORATORY: WBC 10.7 hemoglobin 11.0 platelet 141 sodium 139 potassium 4.8 chloride 108 bicarb 24 BUN 17 creatinine 0.78 glucose 307 IMAGING: MRI brain w/o contrast 12/10/18: Mild cerebral atrophy appropriate for age. No acute intracranial abnormality CT head without contrast 12/07/2018: Negative computed tomography scan of the brain. No change. EEG 12/10/2018: Limited study, abnormal EEG. Intermittent diffuse theta range slowing, which is not epileptiform in nature. These findings indicate mild diffuse cerebral dysfunction which may be in part due to medication effect. ASSESSMENT: Ms. Steele is a 67-year-old woman with past medical history of atrial fibrillation, asthma, chest pain, heart failure, COPD, diabetes, DVT, GERD, hy pertension, seizure disorder (last seizure was 20 years ago), sleep apnea, chronic thrombocytopenia, chronic headaches, herniated cervical disc, gastric ulcer, gout, presenting to [facility] for shortness of breath along with headache, consulted neurology for an episode of altered mental status. Patient came in with shortness of breath, ABG showing pCO2 48. Hyperventilation can actually lower threshold for seizure, and if anything, patient is having hypoventilation. Patient also with elevated blood glucose (200-300s throughout this admission) for which patient has been only getting insulin sliding-scale. Patient with a history of seizure, but most likely from her head trauma. Her overall health status may have decrease her seizure threshold. On exam, patient found with left facial droop along with left-sided paresthesia, which patient states that it has been the case for the last 2 weeks at least. MRI brain w/o contrast not showing any acute intracranial abnormality. RECOMMENDATIONS: 1. Patient noted to have more episodes of seizure-like activity. Will repeat routine EEG on 12/11/18. 2. Keppra 1000mg BID 3. Metabolic derangement management per primary team 4. Neurology is not available over the weekend in-house. However, feel free to [employer] message me over the weekend if you have any questions or concerns
[2018-12-11] MEDS ORDERED: INSULN ASP PRT/INSULIN ASPART 100 UNIT/ML 10 ML VIAL SQ SCH (07:30)
[2018-12-11] MEDS: IPRATROPIUM-ALBUTEROL 3 ML NEB INHALATION SCH ×4 (07:40→19:54)
[2018-12-11] MEDS: BUDESONIDE 1 MG/2 ML NEBU INHALATION SCH ×2 (07:41→19:54)
[2018-12-11] MEDS: PANTOPRAZOLE 40 MG TABLET PO SCH (08:08)
[2018-12-11 08:24] LABS: Glucose,Whole Blood 142 mg/dL (75-99)
[2018-12-11] MEDS: NICOTINE 14MG/24HR PATCH TRANSDERM SCH (08:34)
[2018-12-11] MEDS: GABAPENTIN 300 MG CAP PO SCH ×3 (08:34→20:01)
[2018-12-11] MEDS: METOPROLOL TARTRATE 12.5 MG TAB PO SCH (08:34)
[2018-12-11] MEDS: levETIRAcetam 500 MG TAB PO SCH (08:34)
[2018-12-11] MEDS: APIXABAN 2.5 MG TABLET PO SCH ×2 (08:34→20:04)
[2018-12-11] MEDS: ASPIRIN 81 MG PO SCH (08:34)
[2018-12-11] MEDS: LISINOPRIL 10 MG TAB PO SCH (08:34)
[2018-12-11 09:13] LABS: Glucose,Whole Blood 120 mg/dL (75-99)
[2018-12-11 10:21] LABS: Glucose,Whole Blood 114 mg/dL (75-99)
[2018-12-11 11:30] LABS: Glucose,Whole Blood 160 mg/dL (75-99)
[2018-12-11 12:24] LABS: Glucose,Whole Blood 136 mg/dL (75-99)
[2018-12-11 12:34] LABS: ABG Base Excess 5.3 mmol/L; ABG HCO3 30 mmol/L (21-25); ABG Oxygen Saturation 95.1 % (94-97); ABG PCO2 49 mmHg (35-45); ABG PH 7.39 (7.35-7.45); ABG PO2 75 mmHg (83-108); ABG TCO2 32 mmol/L (19-24); Allen Test Performed? Yes
--- NOTE | 2018-12-11 12:52 | CONS ---
CONSULTATION DATE OF SERVICE: 12/11/2018 She was seen again on December 11, 2018. The patient has been hemodynamically stable. She is sleepy but arousable. She was transferred to the ICU. While in the ICU, she has not been noticed this morning to have any further seizure-like activity. Blood pressure is 165/87, respiratory rate of 22, pulse rate of 77, temperature 96 degrees Fahrenheit, O2 saturation on 28% FiO2 is 98% on BiPAP. HEENT reveals BiPAP mask in place. Chest reveals decreased breath sounds. No clear wheeze. Cardiovascular system reveals an S1, S2. Abdomen is soft. There is trace edema. IMPRESSION: At this time is: 1. Asthma with chronic obstructive pulmonary disease with acute exacerbation. 2. History of seizure disorder with ongoing seizures. The etiology of the sudden precipitation is unclear. Follow recommendations of Neurology. Use BiPAP as needed. May start to wean her steroids if she is otherwise stable tomorrow. Depending on how she does, we should make further changes to her care. MMODL / IJN: [id number] /
--- NOTE | 2018-12-11 13:02 | XR ---
EXAMINATION TYPE: XR chest 1V portable DATE OF EXAM: 12/11/2018 HISTORY: SOB. REFERENCE: Previous study dated 12/11/2018. FINDINGS: Heart size upper limits of normal. There are bibasilar infiltrates either representing atel ectasis or pneumonia. I cannot exclude small effusions. IMPRESSION: NO INTERVAL CHANGE IN THE APPEARANCE OF THE CHEST.
[2018-12-11 13:23] LABS: Glucose,Whole Blood 126 mg/dL (75-99)
[2018-12-11] MEDS: LORazepam 2 MG/ML INJ IV PRN ×2 (13:27→19:10)
[2018-12-11 14:08] LABS: Glucose,Whole Blood 135 mg/dL (75-99)
[2018-12-11 14:10] LABS: Hemoglobin A1C 5.5 % (4.0-6.0)
[2018-12-11] MEDS: LEVOFLOXACIN 500 MG TAB PO SCH (14:56)
[2018-12-11 15:31] LABS: Glucose,Whole Blood 160 mg/dL (75-99)
--- NOTE | 2018-12-11 16:39 | EEG ---
ELECTROENCEPHALOGRAM REPORT PROCEDURE DATE: 12/11/2018 ELECTROENCEPHALOGRAM RECORD (EEG) REPORT: TECHNIQUE: A routine 18 channel EEG was performed with video using the 10/20 international placement system. HISTORY: Unknown. MEDICATIONS: Unknown. STUDY DURATION: 30 minutes. FINDINGS: Please note that interpretation was performed with a combination of 5 and 7 microvolt sensitivity. Also note that the patient was drowsy or asleep for the majority of this recording. BACKGROUND: During the periods of maximal alertness, the background activity consisted of unsustained 6-7 hertz rhythmic waveforms symmetrically distributed over both posterior quadrants. ACTIVATION: Hyperventilation: Not performed. Photic stimulation: Mild symmetric driving seen. Sleep: Stages 1 and 2 sleep noted. ABNORMALITIES: During the periods of maximal alertness diffuse 5-7 hertz polymorphic theta range slowing was seen. Please note that during the course of this EEG from 11:49:38 to 11:50:09 one event was recorded that was described as sudden onset shaking. As mentioned, due to technical issues, video was unavailable. This event was not associated with epileptiform activity. There was no postictal slowing. IMPRESSION: Limited study due to the lack of video. No seizures were recorded. No epileptiform activity was present. One event was recorded as described above in which the mathematics technician annotated as shaking. This was not associated with epileptiform activity. The diffuse theta range slowing mentioned above is not epileptiform in nature. In combination with the slow background, these findings indicate mild to moderate diffuse cerebral dysfunction which may in part be due to medication effect. These findings were called to the neurologist taking care of the patient back on 12/11/2018 at 2:45 pm. MMJAREK / MIRIAMN: [id number] / MTDBurak
--- NOTE | 2018-12-11 16:41 | P.PN ---
Subjective Progress Note Date: 12/10/18 Principal diagnosis: Acute hypoxic respiratory failure secondary to COPD exacerbation Seizure activity Patient is a 67-year-old female with known history of COPD was admitted hospital due to shortness of breath and acute exacerbation and also tremors. Patient did have an episode of tremors and 18 was called. Neurology has seen the patient and repeat EEG was ordered. 12/10/2018 Patient is currently on BiPAP machine. Awake alert but not able to communicate at this time. Pulmonary is following. WBC count is 13.8. Patient is currently being continued on IV steroids, DuoNeb's and antibiotics the form of Levaquin. ABG showed pCO2 53 and pH 7.36 Patient is being continued on Keppra thousand milligrams twice a day. He MRI of the brain showed mild cerebral atrophy appropriate for age. No acute intracranial abnormality noted. Patient has been afebrile. No nausea vomiting or abdominal pain or diarrhea. Discussed with her family at bedside in detail. Current medications reviewed. Objective - Vital Signs Vital signs: Vital Signs Temp 97.6 F 12/10/18 15:00 Pulse 71 12/10/18 15:00 Resp 18 12/10/18 15:00 BP 133/78 12/10/18 15:00 Pulse Ox 99 12/10/18 15:00 Intake & Output 12/10/18 12/10/18 12/11/18 06:59 18:59 06:59 Other: Voiding Method Bedside Commode Bedside Commode # Voids 2 1 - Exam PHYSICAL EXAMINATION: Patient is lying in the bed comfortably, no acute distress, awake alert and orientedx2. Patient seems lethargic.. HEENT: Normocephalic. Neck is supple. Pupils reactive. Nostrils clear. Oral cavity is moist. Ears reveal no drainage. Neck reveals no JVD, carotid bruits, or thyromegaly. CHEST EXAMINATION: Trachea is central. Symmetrical expansion. Bilateral wheezing and diminished air entry. scattered rhonchi. CARDIAC: Normal S1, S2 with no gallops. No murmurs ABDOMEN: Soft. Bowel sounds normal. No organomegaly. No abdominal bruits. Extremities: reveal no edema. No clubbing or cyanosis Neurologically awake, alert, oriented x2 with well-coordinated movements. No focal deficits noted Skin: No rash or skin lesions. Psychiatric: Coperative. Nonsuicidal Musculoskeletal: No joint swelling or deformity. Normal range of motion. - Labs CBC & Chem 7: 12/11/18 04:53 12/11/18 04:23 Labs: Abnormal Lab Results - Last 24 Hours (Table) 12/09/18 12/09/18 12/10/18 Range/Units 20:22 21:27 06:51 WBC (3.8-10.6) k/uL RBC (3.80-5.40) m/uL Neutrophils # (1.3-7.7) k/uL Lymphocytes # (1.0-4.8) k/uL BUN (7-17) mg/dL Glucose (74-99) mg/dL POC Glucose (mg/dL) 318 H 330 H 296 H (75-99) mg/dL 12/10/18 12/10/18 12/10/18 Range/Units 08:06 08:06 11:58 WBC 12.8 H (3.8-10.6) k/uL RBC 3.54 L (3.80-5.40) m/uL Neutrophils # 11.8 H (1.3-7.7) k/uL Lymphocytes # 0.6 L (1.0-4.8) k/uL BUN 21 H (7-17) mg/dL Glucose 216 H (74-99) mg/dL POC Glucose (mg/dL) 174 H (75-99) mg/dL 12/10/18 Range/Units 17:11 WBC (3.8-10.6) k/uL RBC (3.80-5.40) m/uL Neutrophils # (1.3-7.7) k/uL Lymphocytes # (1.0-4.8) k/uL BUN (7-17) mg/dL Glucose (74-99) mg/dL POC Glucose (mg/dL) 216 H (75-99) mg/dL Microbiology - Last 24 Hours (Table) 12/07/18 21:13 Blood Culture - Preliminary Blood No Growth after 48 hours Assessment and Plan Assessment: Acute hypoxic and hypercapnic respiratory failure secondary to COPD exacerbation Acute COPD exacerbation and purulent tracheobronchitis Acute seizure episode. Possible generalized tonic-clonic. Neurological workup has been negative so far. Diffuse tremors and gait dysfunction Chronic asthma intermittent Paroxysmal atrial fibrillation currently on eliquis History of CHF with an fraction unknown Diabetes type 2 History of DVT GERD Hypertension History of seizure disorder Obstructive sleep apnea Tolentino and syndrome Chronic thrombocytopenia Chronic headaches History of gastric ulcer History of gout History of C. diff colitis Ongoing nicotine addiction Obesity with BMI 30.1 DVT prophylaxis already on eliquis Plan: Patient will be continued on BiPAP as per pulmonary conditions. Current with IV steroids, DuoNeb's and antibiotics in the form of Levaquin. Continue with antiepileptic medications with Keppra. Neurology and pulmonary is on board. Follow closely and further recommendations based on the clinical course. Prognosis is guarded this time. Time with Patient: Greater than 30
[2018-12-11] MEDS: LEVOFLOXACIN 750MG-D5W PMX 750 MG in DEXTROSE/WATER 1 150ML.BAG IVPB SCH (16:45)
[2018-12-11 16:52] LABS: Glucose,Whole Blood 145 mg/dL (75-99)
[2018-12-11 18:27] LABS: Glucose,Whole Blood 142 mg/dL (75-99)
[2018-12-11 19:12] LABS: Glucose,Whole Blood 192 mg/dL (75-99)
[2018-12-11] MEDS: MONTELUKAST 10 MG TAB PO SCH (20:01)
[2018-12-11] MEDS: levETIRAcetam IV 1,000 MG in SALINE 1 100ML.BAG IVPB SCH (20:15)
[2018-12-11 21:22] LABS: Glucose,Whole Blood 189 mg/dL (75-99)
[2018-12-11 22:08] LABS: Glucose,Whole Blood 188 mg/dL (75-99)
[2018-12-11 23:09] LABS: Glucose,Whole Blood 178 mg/dL (75-99)
[2018-12-12 00:18] LABS: Glucose,Whole Blood 161 mg/dL (75-99)
[2018-12-12] MEDS: INSULIN ASPART (NovoLOG) 100 UNIT/ML VIAL SQ SCH (01:13)
[2018-12-12 01:15] LABS: Glucose,Whole Blood 166 mg/dL (75-99)
[2018-12-12 02:12] LABS: Glucose,Whole Blood 151 mg/dL (75-99)
[2018-12-12 03:22] LABS: Glucose,Whole Blood 147 mg/dL (75-99)
[2018-12-12 04:10] LABS: Glucose,Whole Blood 165 mg/dL (75-99)
[2018-12-12 05:05] LABS: Basophils # (A) 0.1 k/uL (0-0.2); Basophils % (A) 1 %; Eosinophils # (A) 0.1 k/uL (0-0.7); Eosinophils % (A) 1 %; HCT 39.1 % (34.0-46.0); HGB 12.2 gm/dL (11.4-16.0); Lymphocytes # (A) 0.6 k/uL (1.0-4.8); Lymphocytes % (A) 6 %; MCH 30.5 pg (25.0-35.0); MCHC 31.1 g/dL (31.0-37.0); MCV 98.1 fL (80.0-100.0); Mean Platelet Volume 8.5; Monocytes # (A) 0.3 k/uL (0-1.0); Monocytes % (A) 3 %; Neutrophils # (A) 8.7 k/uL (1.3-7.7); Neutrophils % (A) 89 %; Platelet Count 154 k/uL (150-450); RBC 3.99 m/uL (3.80-5.40); RDW 12.6 % (11.5-15.5); WBC 9.7 k/uL (3.8-10.6)
[2018-12-12 05:11] LABS: Calcium 8.7 mg/dL (8.4-10.2)
[2018-12-12 05:15] LABS: Glucose,Whole Blood 165 mg/dL (75-99)
[2018-12-12] MEDS: LISINOPRIL 10 MG TAB PO SCH (06:21)
[2018-12-12] MEDS: PANTOPRAZOLE 40 MG TABLET PO SCH (06:21)
[2018-12-12] MEDS: METOPROLOL TARTRATE 12.5 MG TAB PO SCH (06:21)
[2018-12-12] MEDS: methylPREDNISolone SOD SUCCI 125 MG/2 ML VIAL IV SCH ×3 (06:21→17:33)
[2018-12-12 06:23] LABS: Glucose,Whole Blood 150 mg/dL (75-99)
[2018-12-12 07:08] LABS: Glucose,Whole Blood 136 mg/dL (75-99)
[2018-12-12] MEDS: IPRATROPIUM-ALBUTEROL 3 ML NEB INHALATION SCH ×4 (07:12→19:30)
[2018-12-12] MEDS: BUDESONIDE 1 MG/2 ML NEBU INHALATION SCH ×2 (07:12→19:30)
[2018-12-12 08:32] LABS: Glucose,Whole Blood 142 mg/dL (75-99)
[2018-12-12] MEDS: levETIRAcetam IV 1,000 MG in SALINE 1 100ML.BAG IVPB SCH ×2 (08:35→22:06)
[2018-12-12] MEDS: APIXABAN 2.5 MG TABLET PO SCH ×2 (08:36→20:02)
[2018-12-12] MEDS: ASPIRIN 81 MG PO SCH (08:36)
[2018-12-12] MEDS: GABAPENTIN 300 MG CAP PO SCH ×3 (08:36→20:02)
[2018-12-12 09:36] LABS: Glucose,Whole Blood 147 mg/dL (75-99)
[2018-12-12 10:32] LABS: Glucose,Whole Blood 188 mg/dL (75-99)
[2018-12-12 11:18] LABS: Glucose,Whole Blood 194 mg/dL (75-99)
[2018-12-12] MEDS: LORazepam 2 MG/ML INJ IV PRN (11:23)
[2018-12-12 12:19] LABS: Glucose,Whole Blood 173 mg/dL (75-99)
[2018-12-12 13:14] LABS: Glucose,Whole Blood 141 mg/dL (75-99)
[2018-12-12 13:59] LABS: Glucose,Whole Blood 149 mg/dL (75-99)
--- NOTE | 2018-12-12 14:43 | P.PN ---
Subjective Progress Note Date: 12/11/18 Principal diagnosis: Acute hypoxic respiratory failure secondary to COPD exacerbation Seizure activity Patient is a 67-year-old female with known history of COPD was admitted hospital due to shortness of breath and acute exacerbation and also tremors. Patient did have an episode of tremors and 18 was called. Neurology has seen the patient and repeat EEG was ordered. 12/10/2018 Patient is currently on BiPAP machine. Awake alert but not able to communicate at this time. Pulmonary is following. WBC count is 13.8. Patient is currently being continued on IV steroids, DuoNeb's and antibiotics the form of Levaquin. ABG showed pCO2 53 and pH 7.36 Patient is being continued on Keppra thousand milligrams twice a day. He MRI of the brain showed mild cerebral atrophy appropriate for age. No acute intracranial abnormality noted. Patient has been afebrile. No nausea vomiting or abdominal pain or diarrhea. Discussed with her family at bedside in detail. 12 11 2018 Patient was transferred to MICU due to worsening shortness of breath. Currently patient is on BiPAP machine. Awake and alert But lethargic. Antibiotic changed to IV Levaquin. Patient has been afebrile. ABG showed pH of 7.39 and bicarbonate 54 Currently being continued on IV steroids and DuoNeb's and Pulmicort inhalation. Patient is having diminished breath sounds and rhonchi throughout. Pulmonary is on board. No complaints of chest pain. No nausea vomiting or abdominal pain or diarrhea. Current medications reviewed. Objective - Vital Signs Vital signs: Vital Signs Temp 97.6 F 12/11/18 12:00 Pulse 70 12/11/18 15:43 Resp 11 L 12/11/18 14:00 BP 194/73 12/11/18 14:00 Pulse Ox 98 12/11/18 14:00 Intake & Output 12/10/18 12/11/18 12/11/18 18:59 06:59 18:59 Intake Total 28.833 57.533 Output Total 610 315 Balance -581.167 -257.467 Weight 79.5 kg Intake: IV 50 0.9 KVO 50 Intake, IV Titration 28.833 7.533 Amount Insulin Regular 100 unit 28.833 7.533 In Sodium Chloride 0.9% 100 ml @ Per Protocol IV .Q0M [facility] [place] Rx#:[id number] Output: Urine 610 315 Other: Voiding Method Bedside Commode Indwelling Catheter Indwelling Catheter # Voids 1 0 - Exam PHYSICAL EXAMINATION: Patient is lying in the bed comfortably, no acute distress, awake alert and orientedx2. Patient seems lethargic.. HEENT: Normocephalic. Neck is supple. Pupils reactive. Nostrils clear. Oral cavity is moist. Ears reveal no drainage. Neck reveals no JVD, carotid bruits, or thyromegaly. CHEST EXAMINATION: Trachea is central. Symmetrical expansion. Bilateral wheezing and diminished air entry. scattered rhonchi. CARDIAC: Normal S1, S2 with no gallops. No murmurs ABDOMEN: Soft. Bowel sounds normal. No organomegaly. No abdominal bruits. Extremities: reveal no edema. No clubbing or cyanosis Neurologically awake, alert, oriented x2 with well-coordinated movements. No focal deficits noted Skin: No rash or skin lesions. Psychiatric: Coperative. Nonsuicidal Musculoskeletal: No joint swelling or deformity. Normal range of motion. - Labs CBC & Chem 7: 12/12/18 04:31 12/12/18 04:31 Labs: Abnormal Lab Results - Last 24 Hours (Table) 12/10/18 12/10/18 12/10/18 Range/Units 17:11 19:48 20:18 WBC (3.8-10.6) k/uL RBC (3.80-5.40) m/uL Neutrophils # (1.3-7.7) k/uL Lymphocytes # (1.0-4.8) k/uL ABG pCO2 (35-45) mmHg ABG pO2 (83-108) mmHg ABG HCO3 (21-25) mmol/L ABG Total CO2 (19-24) mmol/L ABG O2 Saturation (94-97) % VBG pH 7.44 H (7.31-7.41) Carbon Dioxide (22-30) mmol/L BUN (7-17) mg/dL Glucose (74-99) mg/dL POC Glucose (mg/dL) 216 H 312 H (75-99) mg/dL Urine Glucose (UA) (Negative) 12/10/18 12/10/18 12/10/18 Range/Units 21:39 22:09 22:12 WBC (3.8-10.6) k/uL RBC (3.80-5.40) m/uL Neutrophils # (1.3-7.7) k/uL Lymphocytes # (1.0-4.8) k/uL ABG pCO2 53 H (35-45) mmHg ABG pO2 (83-108) mmHg ABG HCO3 30 H (21-25) mmol/L ABG Total CO2 32 H (19-24) mmol/L ABG O2 Saturation 97.8 H (94-97) % VBG pH (7.31-7.41) Carbon Dioxide (22-30) mmol/L BUN (7-17) mg/dL Glucose (74-99) mg/dL POC Glucose (mg/dL) 319 H 277 H (75-99) mg/dL Urine Glucose (UA) (Negative) 12/10/18 12/10/18 12/10/18 Range/Units 23:09 23:36 23:50 WBC (3.8-10.6) k/uL RBC (3.80-5.40) m/uL Neutrophils # (1.3-7.7) k/uL Lymphocytes # (1.0-4.8) k/uL ABG pCO2 (35-45) mmHg ABG pO2 (83-108) mmHg ABG HCO3 (21-25) mmol/L ABG Total CO2 (19-24) mmol/L ABG O2 Saturation (94-97) % VBG pH (7.31-7.41) Carbon Dioxide (22-30) mmol/L BUN (7-17) mg/dL Glucose (74-99) mg/dL POC Glucose (mg/dL) 294 H 264 H (75-99) mg/dL Urine Glucose (UA) 3+ H (Negative) 12/11/18 12/11/18 12/11/18 Range/Units 00:29 01:31 02:33 WBC (3.8-10.6) k/uL RBC (3.80-5.40) m/uL Neutrophils # (1.3-7.7) k/uL Lymphocytes # (1.0-4.8) k/uL ABG pCO2 (35-45) mmHg ABG pO2 (83-108) mmHg ABG HCO3 (21-25) mmol/L ABG Total CO2 (19-24) mmol/L ABG O2 Saturation (94-97) % VBG pH (7.31-7.41) Carbon Dioxide (22-30) mmol/L BUN (7-17) mg/dL Glucose (74-99) mg/dL POC Glucose (mg/dL) 176 H 158 H 151 H (75-99) mg/dL Urine Glucose (UA) (Negative) 12/11/18 12/11/18 12/11/18 Range/Units 04:23 04:26 04:53 WBC 11.7 H (3.8-10.6) k/uL RBC 3.65 L (3.80-5.40) m/uL Neutrophils # 10.7 H (1.3-7.7) k/uL Lymphocytes # 0.6 L (1.0-4.8) k/uL ABG pCO2 (35-45) mmHg ABG pO2 (83-108) mmHg ABG HCO3 (21-25) mmol/L ABG Total CO2 (19-24) mmol/L ABG O2 Saturation (94-97) % VBG pH (7.31-7.41) Carbon Dioxide 31 H (22-30) mmol/L BUN 23 H (7-17) mg/dL Glucose 104 H (74-99) mg/dL POC Glucose (mg/dL) 116 H (75-99) mg/dL Urine Glucose (UA) (Negative) 12/11/18 12/11/18 12/11/18 Range/Units 05:23 06:28 07:05 WBC (3.8-10.6) k/uL RBC (3.80-5.40) m/uL Neutrophils # (1.3-7.7) k/uL Lymphocytes # (1.0-4.8) k/uL ABG pCO2 (35-45) mmHg ABG pO2 (83-108) mmHg ABG HCO3 (21-25) mmol/L ABG Total CO2 (19-24) mmol/L ABG O2 Saturation (94-97) % VBG pH (7.31-7.41) Carbon Dioxide (22-30) mmol/L BUN (7-17) mg/dL Glucose (74-99) mg/dL POC Glucose (mg/dL) 121 H 141 H 173 H (75-99) mg/dL Urine Glucose (UA) (Negative) 12/11/18 12/11/18 12/11/18 Range/Units 08:12 09:02 10:09 WBC (3.8-10.6) k/uL RBC (3.80-5.40) m/uL Neutrophils # (1.3-7.7) k/uL Lymphocytes # (1.0-4.8) k/uL ABG pCO2 (35-45) mmHg ABG pO2 (83-108) mmHg ABG HCO3 (21-25) mmol/L ABG Total CO2 (19-24) mmol/L ABG O2 Saturation (94-97) % VBG pH (7.31-7.41) Carbon Dioxide (22-30) mmol/L BUN (7-17) mg/dL Glucose (74-99) mg/dL POC Glucose (mg/dL) 142 H 120 H 114 H (75-99) mg/dL Urine Glucose (UA) (Negative) 12/11/18 12/11/18 12/11/18 Range/Units 11:19 12:12 12:33 WBC (3.8-10.6) k/uL RBC (3.80-5.40) m/uL Neutrophils # (1.3-7.7) k/uL Lymphocytes # (1.0-4.8) k/uL ABG pCO2 49 H (35-45) mmHg ABG pO2 75 L (83-108) mmHg ABG HCO3 30 H (21-25) mmol/L ABG Total CO2 32 H (19-24) mmol/L ABG O2 Saturation (94-97) % VBG pH (7.31-7.41) Carbon Dioxide (22-30) mmol/L BUN (7-17) mg/dL Glucose (74-99) mg/dL POC Glucose (mg/dL) 160 H 136 H (75-99) mg/dL Urine Glucose (UA) (Negative) 12/11/18 12/11/18 12/11/18 Range/Units 13:12 13:57 15:18 WBC (3.8-10.6) k/uL RBC (3.80-5.40) m/uL Neutrophils # (1.3-7.7) k/uL Lymphocytes # (1.0-4.8) k/uL ABG pCO2 (35-45) mmHg ABG pO2 (83-108) mmHg ABG HCO3 (21-25) mmol/L ABG Total CO2 (19-24) mmol/L ABG O2 Saturation (94-97) % VBG pH (7.31-7.41) Carbon Dioxide (22-30) mmol/L BUN (7-17) mg/dL Glucose (74-99) mg/dL POC Glucose (mg/dL) 126 H 135 H 160 H (75-99) mg/dL Urine Glucose (UA) (Negative) Microbiology - Last 24 Hours (Table) 12/07/18 21:13 Blood Culture - Preliminary Blood No Growth after 72 hours Assessment and Plan Assessment: Acute hypoxic and hypercapnic respiratory failure secondary to COPD exacerbation Acute COPD exacerbation and purulent tracheobronchitis Acute seizure episode. Possible generalized tonic-clonic. Neurological workup has been negative so far. Diffuse tremors and gait dysfunction Chronic asthma intermittent Paroxysmal atrial fibrillation currently on eliquis History of CHF with ejection fraction unknown Diabetes type 2 History of DVT GERD Hypertension History of seizure disorder Obstructive sleep apnea Tolentino and syndrome Chronic thrombocytopenia Chronic headaches History of gastric ulcer History of gout History of C. diff colitis Ongoing nicotine addiction Obesity with BMI 30.1 DVT prophylaxis already on eliquis Plan: Patient will be continued on BiPAP as per pulmonary conditions. Current with IV steroids, DuoNeb's and antibiotics in the form of Levaquin. Changed to IV. Continue with antiepileptic medications with Keppra. Neurology and pulmonary is on board. Follow closely and further recommendations based on the clinical course. Prognosis is guarded this time. Time with Patient: Greater than 30
--- NOTE | 2018-12-12 14:50 | P.PN ---
Subjective Progress Note Date: 12/12/18 Principal diagnosis: Acute hypoxic respiratory failure secondary to COPD exacerbation Seizure activity Patient is a 67-year-old female with known history of COPD was admitted hospital due to shortness of breath and acute exacerbation and also tremors. Patient did have an episode of tremors and 18 was called. Neurology has seen the patient and repeat EEG was ordered. 12/10/2018 Patient is currently on BiPAP machine. Awake alert but not able to communicate at this time. Pulmonary is following. WBC count is 13.8. Patient is currently being continued on IV steroids, DuoNeb's and antibiotics the form of Levaquin. ABG showed pCO2 53 and pH 7.36 Patient is being continued on Keppra thousand milligrams twice a day. He MRI of the brain showed mild cerebral atrophy appropriate for age. No acute intracranial abnormality noted. Patient has been afebrile. No nausea vomiting or abdominal pain or diarrhea. Discussed with her family at bedside in detail. 12 11 2018 Patient was transferred to MICU due to worsening shortness of breath. Currently patient is on BiPAP machine. Awake and alert But lethargic. Antibiotic changed to IV Levaquin. Patient has been afebrile. ABG showed pH of 7.39 and bicarbonate 54 Currently being continued on IV steroids and DuoNeb's and Pulmicort inhalation. Patient is having diminished breath sounds and rhonchi throughout. Pulmonary is on board. No complaints of chest pain. No nausea vomiting or abdominal pain or diarrhea. 12/12/18 Patient is currently MICU. Off BiPAP machine and saturating well on nasal cannula oxygen. Patient does not use oxygen at home. Patient is otherwise more awake and oriented. Tolerated oral diet. No complaints of nausea vomiting or abdominal pain. No seizure activity while in the hospital. Patient has been afebrile. Laboratory data reviewed. Current medications reviewed. Objective - Vital Signs Vital signs: Vital Signs Temp 97.2 F L 12/12/18 08:00 Pulse 78 12/12/18 11:33 Resp 19 12/12/18 10:00 BP 173/86 12/12/18 10:00 Pulse Ox 99 12/12/18 10:00 Intake & Output 12/11/18 12/12/18 12/12/18 18:59 06:59 18:59 Intake Total 108.265 240.951 241.372 Output Total 495 485 210 Balance -386.735 -244.049 31.372 Weight 82.3 kg Intake: IV 100 230 140 0.9 KVO 100 130 40 levETIRAcetam IV 1,000 mg 100 100 In Saline 1 100ml.bag @ 400 mls/hr IVPB Q12HR [facility] Rx#:[id number] Intake, IV Titration 8.265 10.951 1.372 Amount Insulin Regular 100 unit 8.265 10.951 1.372 In Sodium Chloride 0.9% 100 ml @ Per Protocol IV .Q0M [facility] Rx#:[id number] Oral 100 Output: Urine 495 485 210 Other: Voiding Method Indwelling Catheter Indwelling Catheter Indwelling Catheter - Exam PHYSICAL EXAMINATION: Patient is lying in the bed comfortably, no acute distress, awake alert and orientedx3. HEENT: Normocephalic. Neck is supple. Pupils reactive. Nostrils clear. Oral cavity is moist. Ears reveal no drainage. Neck reveals no JVD, carotid bruits, or thyromegaly. CHEST EXAMINATION: Trachea is central. Symmetrical expansion. Bilateral air entry improved. Mild expiratory wheeze. scattered rhonchi. CARDIAC: Normal S1, S2 with no gallops. No murmurs ABDOMEN: Soft. Bowel sounds normal. No organomegaly. No abdominal bruits. Extremities: reveal no edema. No clubbing or cyanosis Neurologically awake, alert, oriented x3 with well-coordinated movements. No fo diego deficits noted Skin: No rash or skin lesions. Psychiatric: Coperative. Nonsuicidal Musculoskeletal: No joint swelling or deformity. Normal range of motion. - Labs CBC & Chem 7: 12/12/18 04:31 12/12/18 04:31 Labs: Abnormal Lab Results - Last 24 Hours (Table) 12/11/18 12/11/18 12/11/18 Range/Units 15:18 16:41 18:16 Neutrophils # (1.3-7.7) k/uL Lymphocytes # (1.0-4.8) k/uL BUN (7-17) mg/dL Glucose (74-99) mg/dL POC Glucose (mg/dL) 160 H 145 H 142 H (75-99) mg/dL 12/11/18 12/11/18 12/11/18 Range/Units 19:02 21:11 21:57 Neutrophils # (1.3-7.7) k/uL Lymphocytes # (1.0-4.8) k/uL BUN (7-17) mg/dL Glucose (74-99) mg/dL POC Glucose (mg/dL) 192 H 189 H 188 H (75-99) mg/dL 12/11/18 12/12/18 12/12/18 Range/Units 22:57 00:06 01:04 Neutrophils # (1.3-7.7) k/uL Lymphocytes # (1.0-4.8) k/uL BUN (7-17) mg/dL Glucose (74-99) mg/dL POC Glucose (mg/dL) 178 H 161 H 166 H (75-99) mg/dL 12/12/18 12/12/18 12/12/18 Range/Units 02:01 03:10 03:58 Neutrophils # (1.3-7.7) k/uL Lymphocytes # (1.0-4.8) k/uL BUN (7-17) mg/dL Glucose (74-99) mg/dL POC Glucose (mg/dL) 151 H 147 H 165 H (75-99) mg/dL 12/12/18 12/12/18 12/12/18 Range/Units 04:31 04:31 05:04 Neutrophils # 8.7 H (1.3-7.7) k/uL Lymphocytes # 0.6 L (1.0-4.8) k/uL BUN 28 H (7-17) mg/dL Glucose 154 H (74-99) mg/dL POC Glucose (mg/dL) 165 H (75-99) mg/dL 12/12/18 12/12/18 12/12/18 Range/Units 06:12 06:57 08:20 Neutrophils # (1.3-7.7) k/uL Lymphocytes # (1.0-4.8) k/uL BUN (7-17) mg/dL Glucose (74-99) mg/dL POC Glucose (mg/dL) 150 H 136 H 142 H (75-99) mg/dL 12/12/18 12/12/18 12/12/18 Range/Units 09:25 10:21 11:06 Neutrophils # (1.3-7.7) k/uL Lymphocytes # (1.0-4.8) k/uL BUN (7-17) mg/dL Glucose (74-99) mg/dL POC Glucose (mg/dL) 147 H 188 H 194 H (75-99) mg/dL 12/12/18 12/12/18 12/12/18 Range/Units 12:07 13:03 13:47 Neutrophils # (1.3-7.7) k/uL Lymphocytes # (1.0-4.8) k/uL BUN (7-17) mg/dL Glucose (74-99) mg/dL POC Glucose (mg/dL) 173 H 141 H 149 H (75-99) mg/dL Microbiology - Last 24 Hours (Table) 12/07/18 21:13 Blood Culture - Preliminary Blood No Growth after 96 hours Assessment and Plan Assessment: Acute hypoxic and hypercapnic respiratory failure secondary to COPD exacerbation Acute COPD exacerbation and purulent tracheobronchitis Acute seizure episode. Possible generalized tonic-clonic. Neurological workup has been negative so far. Diffuse tremors and gait dysfunction Chronic asthma intermittent Paroxysmal atrial fibrillation currently on eliquis History of CHF with ejection fraction unknown Diabetes type 2 History of DVT GERD Hypertension History of seizure disorder Obstructive sleep apnea Tolentino and syndrome Chronic thrombocytopenia Chronic headaches History of gastric ulcer History of gout History of C. diff colitis Ongoing nicotine addiction Obesity with BMI 30.1 DVT prophylaxis already on eliquis Plan: Patient will be continued on oxygen via nasal cannula. Off BiPAP today.. Current with IV steroids, DuoNeb's and antibiotics in the form of Levaquin. Changed to IV. Continue with antiepileptic medications with Keppra. Neurology and pulmonary is on board. Follow closely and further recommendations based on the clinical course. Prognosis is guarded this time. Time with Patient: Greater than 30
[2018-12-12 15:38] LABS: Glucose,Whole Blood 138 mg/dL (75-99)
--- NOTE | 2018-12-12 15:59 | PN ---
PROGRESS NOTE DATE OF SERVICE: December 12, 2018. She has been hemodynamically stable. She is sleepy but arousable and when she is aroused, she is awake and alert. She is following commands. She is on BIPAP. PHYSICAL EXAMINATION: Vital signs are stable. She is afebrile. Her chest reveals decreased breath sounds. No wheeze today. Cardiovascular system reveals an S1, S2. Abdomen is soft. There is no edema. LABS: Reviewed. IMPRESSION: At this time: 1. Asthma with chronic obstructive pulmonary disease with acute exacerbation. 2. History of smoking. 3. EEGs were reviewed and showed no evidence of seizure-like activity even with an episode where she was having some tremulousness. It could be that asterixis due to elevated pCO2 has been contributing to her symptomatology. 4. Metabolic encephalopathy. 5. Medical debility. At this point in time, would increase activity level, use her BiPAP p.r.n., advance her diet. Keep her on IV and aerosolized steroids. May start to switch to oral steroids tomorrow if she is otherwise stable. May consider moving out of the ICU later today if she is stable. MMODL / IJN: [id number] /
[2018-12-12] MEDS: LEVOFLOXACIN 750MG-D5W PMX 750 MG in DEXTROSE/WATER 1 150ML.BAG IVPB SCH (16:12)
[2018-12-12 16:28] LABS: Glucose,Whole Blood 140 mg/dL (75-99)
[2018-12-12 17:47] LABS: Glucose,Whole Blood 178 mg/dL (75-99)
[2018-12-12 18:37] LABS: Glucose,Whole Blood 231 mg/dL (75-99)
[2018-12-12] MEDS: MONTELUKAST 10 MG TAB PO SCH (20:02)
[2018-12-12 20:04] LABS: Glucose,Whole Blood 305 mg/dL (75-99)
[2018-12-12 21:08] LABS: Glucose,Whole Blood 243 mg/dL (75-99)
[2018-12-12 22:14] LABS: Glucose,Whole Blood 186 mg/dL (75-99)
[2018-12-12] MEDS ORDERED: levETIRAcetam IV 1,500 MG in SALINE 1 100ML.BAG IVPB SCH (22:15)
[2018-12-12 23:07] LABS: Glucose,Whole Blood 157 mg/dL (75-99)
[2018-12-13 00:18] LABS: Glucose,Whole Blood 157 mg/dL (75-99)
[2018-12-13 01:04] VITALS: BP 157/70; PULSE 87; RESP 20; TEMP 98.6
[2018-12-13 01:11] LABS: Glucose,Whole Blood 141 mg/dL (75-99)
--- NOTE | 2018-12-13 07:44 | CDI ---
Documentation Clarification Form Date: 12/10/2018 12:53:00 PM From: Serina ReesMaxwellJOSE ANGEL, CCDS Admit Date: 12/07/2018 8:56:00 PM Patient Name: Concepcion Steele Visit Number: [id number] Discharge Date: 12/13/2018 1:41:00 AM ATTENTION: The Clinical Documentation Specialists (CDI) and [facility] Coding Staff appreciate your assistance in clarifying documentation. Please respond to the clarification below the line at the bottom and electronically sign. The CDI & [facility] Coding staff will review the response and follow-up if needed. Please note: Queries are made part of the Legal Health Record. If you have any questions, please contact the author of this message via ITS. Dr. Gilberto Mccallum: Asthma is documented in the pulmonary consult as "Severe asthma with acute exacerbation." History/risk factors: COPD, CHF, Atrial Fibrillation, DVT, Pneumonia, Hypertension & current smoker. Clinical Indicators: Presented to the ED with SOB, diagnosed with acute exacerbation COPD with purulent tracheobronchitis & acute hypoxic respiratory failure. Radiology: CXR: No heart failure, no active cardiopulmonary disease. Vital Signs: T 98.7, P 131^, R 32^, BP 136/78, PO 93 RA - 99 3Lnc Home Rx: jASA, Eliquis, Neurontin, INH Albuterol, Zestril, Singulair, Habitrol patch. Treatment: INH Albuterol, IV Solumedrol, IV Ativan, IV Ms, IV Zofran, IV fluid 100, O2 2-3L nc. In your professional opinion, can you please further specify the following, if known? Severity: o Mild intermittent o Mild persistent o Moderate persistent o Severe persistent o Other, please specify ____ o Unable to determine Form or Type o Cough variant o Childhood o Exercise induced bronchospasm o Extrinsic allergic o Idiosyncratic o Intrinsic nonallergic o Late-onset o Mixed o Other, please specify____ o Unable to determine (Last Revision: May 2017) MTDD
--- NOTE | 2018-12-13 10:16 | EEG ---
ELECTROENCEPHALOGRAM REPORT ADDENDUM: PROCEDURE DATE: 12/11/2018. ELECTROENCEPHALOGRAM (EEG) REPORT: Please note that the EEG done on 12/11/2018, was done without video. Please refer to separate report for details. MMODL / IJN: [id number] /
[2018-12-14 07:30] LABS: Glucose,Whole Blood 213 mg/dL (75-99)
[2018-12-14 07:30] LABS: Glucose,Whole Blood 196 mg/dL (75-99)
== END 2018-12-13 01:41 | disposition short-term general hospital (02) | DRG 190 ==
LOC: EC 19:59 → 4SSUR 20:56 → 2SICU 12-10 22:07
PROVIDERS: ADMIT Hospitalist; ATTEND Hospitalist
PROC: 5A09457 Assistance with Respiratory Ventilation, 24-96 Consecutive Hours, Continuous Positive Airway Pressure (ICD-10-PCS; principal; 2018-12-10)
DX: J44.0 Chronic obstructive pulmonary disease with (acute) lower respiratory infection (principal); G93.41 Metabolic encephalopathy; J96.01 Acute respiratory failure with hypoxia; J96.02 Acute respiratory failure with hypercapnia; J44.1 Chronic obstructive pulmonary disease with (acute) exacerbation; D69.6 Thrombocytopenia, unspecified; E11.65 Type 2 diabetes mellitus with hyperglycemia; E66.01 Morbid (severe) obesity due to excess calories; E89.0 Postprocedural hypothyroidism; F17.200 Nicotine dependence, unspecified, uncomplicated; F41.9 Anxiety disorder, unspecified; G40.909 Epilepsy, unspecified, not intractable, without status epilepticus; G47.33 Obstructive sleep apnea (adult) (pediatric); I11.0 Hypertensive heart disease with heart failure; I48.0 Paroxysmal atrial fibrillation; I50.9 Heart failure, unspecified; J20.9 Acute bronchitis, unspecified; K21.9 Gastro-esophageal reflux disease without esophagitis; R29.810 Facial weakness; Z68.33 Body mass index [BMI] 33.0-33.9, adult; Z79.01 Long term (current) use of anticoagulants; Z79.82 Long term (current) use of aspirin; Z79.899 Other long term (current) drug therapy; Z80.3 Family history of malignant neoplasm of breast; Z86.19 Personal history of other infectious and parasitic diseases; Z86.718 Personal history of other venous thrombosis and embolism; Z87.01 Personal history of pneumonia (recurrent); Z87.11 Personal history of peptic ulcer disease; Z96.1 Presence of intraocular lens; Z98.41 Cataract extraction status, right eye; Z98.42 Cataract extraction status, left eye; Z88.0 Allergy status to penicillin; Z88.2 Allergy status to sulfonamides; Z91.040 Latex allergy status; Z79.891 Long term (current) use of opiate analgesic
CPT/HCPCS: 36415; 36600; 70450; 70551; 71045; 80048; 80053; 80177; 80306; 81003; 82550; 82803; 82805; 83036; 83735; 83880; 84100; 84484; 85025; 85610; 85730; 87040; 93005; 94640; 94645; 94660; 95816; 95819; 96374; 96375; 99285